=== PATIENT | female | born 1980 | race Hispanic/Latino ===

== ENCOUNTER 2016-09-13 15:48 | Inpatient (IN) | payer OTHER ==
[~2016-09-13] VITALS: Ht 160 cm; Wt 68.0 kg
[~2016-09-13 15:48] MED LIST: BACTRIM DS TAB1 EACH PO; BENTYL10 M1 PO; CABERGOLINE0.5 M2 PO; CARAFATE1 G1 PO; CYPROHEPTADINE H4 M1 PO; DICYCLOMINE HCL10 M1 PO; DILAUDID2 M1 PO; DOCUSATE SODIU100 M3 PO; DONNATAL TABL16.2 MG PO; E.E.S. 200200 MG/51 PO; ERYTHROMYCIN250 M1 PO; HUMALOG KW100 UNIT/1 SC; LANTUS100 U/ML INC; LEVSIN-SL0.125 MG SL; LEVSIN0.125 M1 PO; MIRALAX17 G1 PO; NOVOLOG100 U/ML SC; OMEPRAZOLE40 M1 PO; OXYCODONE-ACET1 EACH PO; PANTOPRAZOLE SO40 M1 PO; PERCOCET 5-3251 EACH PO; PROMETHAZINE HC25 M3 PO; REGLAN10 M1 PO; SENNA PLUS TAB1 EACH PO; SIMETHICON40 MG/0.1 PO; TOUJEO SOL300 UNIT/1 SC; TRAMADOL HCL50 M1 PO; ULTRAM50 M1 PO; ZOFRAN ODT4 M1 PO; ZOFRAN ODT4 M1 SL; ZOFRAN4 M2 PO
--- NOTE | 2016-09-13 16:13 | NUR ---
C/O [facility] MID- ABDOMINAL PAIN SINCE THIS AM WITH VOMITING. DENIES . PMH: INSULIN DEPENDENT DIABETIC.
--- NOTE | 2016-09-13 17:26 | ED GI/GU/ABDOMINAL COMPLAINT ---
History of Present Illness General Chief Complaint: Abdominal Pain/Flank Pain Stated Complaint: ABDOMINAL PAIN Source: patient, family, old records Exam Limitations: poor historian Vital Signs & Intake/Output Vital Signs & Intake/Output Vital Signs Date Time Temp Pulse Resp B/P Pulse O2 O2 Flow FiO2 Ox Delivery Rate 09/15 0834 98.1 76 20 106/60 97 Room Air 09/14 2356 98.4 73 20 102/60 97 Room Air 09/14 1917 99.9 91 18 104/60 98 09/14 1600 99.0 100 20 110/62 96 Room Air 09/14 1025 97.8 94 16 96/57 95 Room Air ED Intake and Output 09/15 0000 09/14 1200 Intake Total 1320 100 Output Total Balance 1320 100 Intake, IV 1080 100 Intake, Oral 240 Allergies Coded Allergies: NO KNOWN ALLERGIES (03/07/16) Reconcile Medications Cabergoline 0.5 MG TABLET 0.25 MG PO 2XW HYPERPROLCTINEMIA Cyproheptadine HCl 4 MG TABLET 1 TAB PO TID PRN PAIN Dicyclomine HCl 10 MG CAPSULE 1 CAP PO TID STOMACH (Reported) Erythromycin Base (Erythromycin) 250 MG TABLET 1 TAB PO 4 TIMES/DAY GI ( Reported) Hyoscyamine (Levsin) 0.125 MG TABLET 1 TAB PO Q6 PRN ABDOMINAL PAIN/DIARRHEA (Reported) Hyoscyamine (Levsin) 0.125 MG TABLET 1 TAB PO Q4 PRN ABDOMINAL PAIN Insulin Glargine,Hum.rec.anlog (Toujeo Solostar) 300 UNIT/1 ML INSULN.PEN 30 UNITS SC QHS DIABETES (Reported) Insulin Lispro (Humalog Kwikpen U-100) (Unknown Strength) INSULN.PEN (Unknown Dose) SC TIDAC DIABETES (Reported) Metoclopramide HCl (Reglan) 10 MG TABLET 1 TAB PO AC GI (Reported) 30 minutes before meals and bedtime Omeprazole 40 MG CAPSULE.DR 1 CAP PO DAILY GERD Ondansetron (Zofran Odt) 4 MG TAB.RAPDIS 1 TAB PO Q6 PRN NAUSEA Ondansetron (Zofran Odt) 4 MG TAB.RAPDIS 1 TAB SL TID PRN NAUSEA Ondansetron HCl (Zofran) 4 MG TABLET 1 TAB PO Q6-8P PRN NAUSEA Ondansetron HCl (Zofran) 4 MG TABLET 1 TAB PO Q6-8P PRN NAUSEA Pantoprazole Sodium 40 MG TABLET.DR 1 TAB PO DAILY GI (Reported) Promethazine HCl 25 MG TABLET 1 TAB PO Q6P PRN N/V (Reported) Sucralfate (Carafate) 1 GM TABLET 1 TAB PO 4 TIMES/DAY ABD PAIN Sulfamethoxazole/Trimethoprim (Bactrim Ds Tablet) 1 EACH TABLET 1 TAB PO BID UTI Tramadol HCl (Ultram) 50 MG TABLET 1 TAB PO Q6P PRN PAIN Tramadol HCl 50 MG TABLET 1 TAB PO BIDP PRN PAIN Triage Note: C/O SH[facility] MID- ABDOMINAL PAIN SINCE THIS AM WITH VOMITING. DENIES . Triage Nurses Notes Reviewed? yes ? N Is pt currently ? No Onset: Gradual Duration: day(s): (1) Timing: recent history Quality/Severity: cramping, moderate, sharpness Severity Numbers: 8 Location: periumbilical Radiation: no radiation Activities at Onset: none Prior Abdominal Problems: similar symptoms Past Sexual History: Unobtainable at this time Sexually Active: No No Modifying Factors: none HPI: Patient is a 36-year-old female with history of gastroparesis presenting to the emergency department with chief complaint of increasing periumbilical pain since this morning. Positive nausea and vomiting. She does not know how many times she vomited. Denies diarrhea. Feels similar to her gastroparesis in the past. She cannot remember what gastroenterologists she sees. Denies any fevers or chills. Denies recent travel or recent antibiotic use. Nothing seems to make symptoms better or worse. Denies taking anything at home to help with symptoms. (NATIVIDAD ESTEBAN) Past History Travel History Traveled to [place] past 21 day No Medical History Any Pertinent Medical History? see below for history Neurological: dizziness, migraine EENT: NONE Cardiovascular: NONE Respiratory: NONE Gastrointestinal: constipation, GASTROPARESIS Hepatic: NONE Renal: NONE Musculoskeletal: NONE Psychiatric: NONE Endocrine: diabetes, hyperthyroidism, PITUITARY TUMOR - BENIGN Blood Disorders: NONE Cancer(s): NONE ETL MANAGER/Reproductive: NONE History of MRSA: No History of VRE: No History of CDIFF: No Surgical History Surgical History: non-contributory, N Psychosocial History Who do you live with Family Services at Home None What is your primary language Persian Tobacco Use: Current Daily Use Daily Tobacco Use Amount/Type: =< 4 Cigarettes daily ETOH Use: denies use Family History Family History, If Any: MOTHER (Diabetes mellitus , hypertension, hyperlipidemia, hypothyroidism , cardiac issues status post pacemaker placement). Hx Contributory? No (NATIVIDAD ESTEBAN) Review of Systems Review of Systems Constitutional: Reports: no symptoms. Comments Review of systems: See HPI, All other systems negative. Constitutional, no chills fever or weight loss HEENT: No visual changes no sore throat no congestion Cardiovascular: No chest pain ,palpitation Skin, no jaundice no rashes Respiratory: No dyspnea cough sputum or hemoptysis GI: No diarrhea : No dysuria No hematuria Muscle skeletal: no back pain, no neck pain, Neurologic: No numbness no confusion, no headaches Psych: No increased stress anxiety or depression,. Immunology: No splenectomy or history of AIDS (NATIVIDAD ESTEBAN) Physical Exam Physical Exam General Appearance: awake, anxious, mild distress Gastrointestinal: normal bowel sounds, soft, tenderness Comments: Well-developed well-nourished person in mild distress HEENT: Pupils equally round and reactive to light and accommodation. Nose is atraumatic. Neck: Normal inspection Back: Nontender, no CVA tenderness. Cardiovascular: TACHY rate and rhythms no murmurs rubs or gallops, normal JVP Respiratory: Chest nontender. No respiratory distress.breath sounds clear to auscultation bilaterally Abdomen: Soft, diffuse tenderness to palpation without rebound or guarding, nondistended, no appreciable organomegaly. Normal bowel sounds. No ascites Extremity: No edema, no calf tenderness to palpation, normal and equal pulses. Neuro: Alert oriented x3 Skin: No appreciable rash on exposed skin, skin is warm and dry. Psych: Anxious Core Measures ACS in differential dx? No Severe Sepsis Present: No Septic Shock Present: No (NATIVIDAD ESTEBAN) Progress Differential Diagnosis: gastritis, GASTRITIS, ELECTROLYTE ABNORMALITY, dka, CYCLICAL VOMITING SYNDROME, GASTROPARESIS Plan of Care: Orders Procedure Date/time Status CBC WITHOUT DIFFERENTIAL 09/15 0835 Active BASIC ELECTROLYTES PLUS BUN&CR 09/15 0835 Active Change service to 09/15 0743 Active PHARMACY COMMUNICATION FORM 09/15 UNK Active Clear Liquid Diet 09/14 D Active Transfer Disposition 09/14 1916 Active Skin/Pressure Ulcer Assess (Sk 09/14 1446 Active Change service to 09/14 1335 Active Pain Treatment and Response 09/14 1226 Active Vital Signs 09/14 1031 Active Teach/Educate 09/14 1031 Active Nutritional Intake, Monitor 09/14 1031 Active Isolation 09/14 1031 Active Intake & Output 09/14 1031 Complete Patient Care Conference 09/14 1031 Active Activity/Ambulation 09/14 1031 Active Transfer patient to 09/14 UNK Active House Staff 09/14 UNK Active Nursing Misc 09/14 UNK Active Current Medications Sig/Maikel Start time Last Medication Dose Stop Time Status Admin Enoxaparin Sodium 40 MG 1830 09/15 1830 AC (Lovenox) Potassium Chloride 40 MEQ ONCE ONE 09/15 0845 CAN (Klor) 09/15 0846 Laboratory Tests 09/14/16 1205: Anion Gap 11, Estimated GFR > 60, Glucose 139 H, Calcium 9.2, Phosphorus 4.1, Magnesium 1.7, Total Bilirubin 1.4 H, AST 21, ALT 49, Albumin 3.9 Microbiology 09/14 1030 UPPER RESP: Surveillance Culture - RECD PATIENT SEEN AND EXAMINED WITH JESSIKA MAURICE. INSULIN DRIP ORDERED, PATIENT ADMITTED TO ICU. FEELING BETTER AFTER IV FLUIDS. D/W HOSPITALIST. (MARIN CAMARA,HERNANDO) Diagnostic Imaging: Viewed by Me: CT Scan. Discussed w/RAD: CT Scan. Initial ED EKG: none Comments: 09/13/2016 6:13:40 PM on arrival patient mild distress with diffuse abdominal tenderness on exam. Also retching. Spitting up sputum. Patient is afebrile. We will assess a CBC, CMP, acetone is patient is diabetic and has not been able to tolerate anything by mouth today. Family members also report that she is noncompliant with insulin. 09/13/2016 7:25:42 PM patient no longer has nausea or vomiting. Still complaining about abdominal discomfort. Family informed of potential for DKA as patient has anion gap. IV fluids still infusing. 09/13/2016 8:15:18 PM Patient family members informed of all of her results. Patient will be admitted to the ICU for diabetic ketoacidosis. Insulin drip initiated. We will obtain venous blood gas. Patient resting comfortably at this time after IV Phenergan and IV Reglan. (KAYLENE ROSEN,NATIVIDAD) Departure Departure Time of Disposition: 2010 Disposition: STILL A PATIENT Condition: Stable Clinical Impression Primary Impression: Diabetic ketoacidosis Qualifiers: Diabetes mellitus type: due to underlying condition Diabetes mellitus complication detail: without coma Qualified Code: E08.10 - Diabetes mellitus due to underlying condition with ketoacidosis without coma Referrals: PATIENT HAS NO PRIMARY CARE DR (PCP/Family) Departure Forms: Customer Survey General Discharge Information Admission Note Spoke With: MAGI MEYER MD Documentation of Exam: Documentation of any treatments & extenuating circumstances including Concerns Regarding Discharge (functional status, medication knowledge or non-compliance, living conditions, etc.) that warrant an admission rather than observation: Patient requiring IV hydration, insulin drip for diabetic ketoacidosis, tending abscess, closing anion gap, may need auxiliary equipment operator consultation. Discharge at this time would be medically harmful. Still pending CT of the abdomen. (NATIVIDAD ESTEBAN) PA/INTERNATIONAL FREIGHT FORWARDER Co-Sign Statement Statement: ED Attending supervision documentation- [X] I saw and evaluated the patient. I have also reviewed all the pertinent lab results and diagnostic results. I agree with the findings and the plan of care as documented in the PA's/INTERNATIONAL FREIGHT FORWARDER's documentation. [X] I have reviewed the ED Record and agree with the PA's/INTERNATIONAL FREIGHT FORWARDER's documentation. [] Additions or exceptions (if any) to the PAs/INTERNATIONAL FREIGHT FORWARDER's note and plan are summarized below: [] (MARIN CAMARA,HERNANDO) Critical Care Note Critical Care Note Critical Care Time: 30-74 min (NATIVIDAD ESTEBAN)
--- NOTE | 2016-09-13 17:32 | NUR ---
PT WALKING BETWEEN HALLWAY CHAIRS AND BATHROOM. NOTIFIED THAT THIS RN WILL BE ATTEMPTING TO DRAW BLOOD AND INSERT IV. PT REMAINS IN HALLWAY DOUBLED OVER AND NOT IN ROOM. WILL CONTINUE TO MONITOR
--- NOTE | 2016-09-13 18:06 | NUR ---
BLOOD DRAWN SENT TO LAB. SST,LAV,BLUE,JOE.
--- NOTE | 2016-09-13 18:10 | NUR ---
IV ESTABLISHED LEFT HAND. IV SITE VERIFIED WITH TRISTAN TROTTER, STATUS WNL. IV PHENERGAN INFUSING. PT MOVING AROUND ON STRETCHER CONTINUOUSLY ALTHOUGH ADVISED TO KEEP HAND STILL DUE TO POSITIONAL IV PLACEMENT. NEW FAMILY IN ROOM AND BECAME AGITATED, ASKING PT HOW LONG SHE'S BEEN HERE AND HOW LONG IT'S TAKEN THE STAFF TO DO SOMETHING FOR HER. PT'S OTHER FAMILY MEMBER STATES SHE HAS NOT BEEN IN THIS ED ROOM FOR VERY LONG. WILL CONTINUE TO MONITOR THERAPEUTIC SITUATION FOR PATIENT
--- NOTE | 2016-09-13 18:34 | NUR ---
IV SITE 1 STILL INFUSING WNL. SITE D/C'D DUE TO POSITIONAL INFUSION. #24 RIGHT HAND ESTABLISHED. INFUSING WNL
[2016-09-13 18:36] LABS: ABSOLUTE BASOPHIL COUNT 0 /CUMM (0.0-0.2); ABSOLUTE EOSINOPHIL COUNT 0 /CUMM (0.0-0.7); ABSOLUTE GRANULOCYTE CT 19.5 /CUMM (1.4-6.5); ABSOLUTE MONOCYTE COUNT 0.8 /CUMM (0.10-0.60); BASOPHIL % 0 % (0.0-2.0); EOSINOPHIL % 0.2 % (0-5); HEMATOCRIT 43.7 % (37-47); MEAN CORPUSCULAR HGB CONC 33.7 G/DL (33.0-37.0); MEAN CORPUSCULAR VOLUME 88.9 FL (81.0-99.0); MEAN PLATELET VOLUME 9.9 FL (7.4-10.4); PLATELET COUNT 276 /CUMM (130-400); RBC DISTRIBUTION WIDTH 13.1 % (11.5-14.5); RED BLOOD CELL CT 4.92 /CUMM (4.20-5.40); WHITE BLOOD CELL COUNT 22.4 /CUMM (4.8-10.8)
--- NOTE | 2016-09-13 19:34 | NUR ---
IV TORADOL AND REGLAN GIVEN FOR ABDOMINAL PAIN AND NAUSEA.
--- NOTE | 2016-09-13 19:53 | NUR ---
PT RESTING COMFORTABLY AT THIS TIME. FAMILY REMAINS AT BEDSIDE FOR SUPPORT. 2ND NS BOLUS INFUSING
--- NOTE | 2016-09-13 20:44 | NUR ---
INSULIN DRIP STARTED AT 3 UNITS/HR PER DR. FUNES AND JESSIKA Gonzalez WILL CONTINUE TO MONITOR BLOOD SUGAR
--- NOTE | 2016-09-13 20:55 | CT SCAN REPORT ---
EXAMINATION: CT ABDOMEN AND PELVIS WITHOUT CONTRAST CLINICAL INFORMATION: Nausea and vomiting. Pain. COMPARISON: CT abdomen pelvis 12/30/2015 TECHNIQUE: Multidetector volumetric imaging was performed from the superior aspect of the liver through the pubic symphysis. Sagittal and coronal reformatted images were obtained on the technologist's workstation. DLP: 252.84 mGy-cm FINDINGS: LUNG BASES: The visualized lung bases are unremarkable. LIVER, GALLBLADDER, AND BILIARY TREE: The liver is normal in size, shape, and attenuation. No focal hepatic lesion or biliary ductal dilatation is present. The gallbladder is unremarkable with no evidence of radiopaque gallstones, gallbladder wall thickening, or obvious pericholecystic inflammatory changes. PANCREAS: Unremarkable. SPLEEN: Unremarkable. ADRENAL GLANDS: Unremarkable. KIDNEYS AND URETERS: The kidneys are normal in size, shape, and attenuation. No hydronephrosis, hydroureter, or calculi seen. No perinephric stranding. BLADDER: Unremarkable. GASTROINTESTINAL TRACT: The small and large bowel are unremarkable. The appendix is unremarkable. ABDOMINAL WALL: No significant hernia is appreciated. LYMPH NODES: Normal. VASCULAR: Unremarkable. PELVIC VISCERA: Uterus is retroverted. No adnexal abnormality OSSEOUS STRUCTURES: Unremarkable. IMPRESSION: Normal CT scan of the abdomen and pelvis.
--- NOTE | 2016-09-13 21:20 | NUR ---
URINE TRIO SENT TO LAB.
--- NOTE | 2016-09-13 21:52 | NUR ---
AUTOMOTIVE PARTS CLERK PAGED FOR FINGERSTICK NOTIFICATION
--- NOTE | 2016-09-13 22:08 | History & Physical ---
JORGE BIRCH 09/13/16 2207: General Information and HPI MD Statement: I have seen and personally examined ABA RAMOS and documented this H&P. The patient is a 36 year old F who presented with a patient stated chief complaint of [nausea vomiting]. Source of Information: patient, family, old records Exam Limitations: poor historian History of Present Illness: This is 37-year-old female with past medical history of insulin-dependent diabetes mellitus, Hyperprolactinemia, gastroparesis. Presented to the ED with a chief complaint of nausea, vomiting and abdominal pain. Patient stated that it started today and it getting worse and progressed, she stated that the nausea starts first and it folded by vomiting multiple times and after that her abdominal pain started, she stated stent out of 10 in severity, all over her abdomen, not relieved by anything, not associated with any diarrhea or hematemesis or hemoptysis. She reports increased urinary frequency the past couple days. The patient family stated that the patient she is noncompliance with her home medication of insulin and she doesn't shake her blood sugar and regular basis. They stated she was admitted at around 1-2 months ago for the same symptoms and she was receiving insulin drip at that time. Patient deny any fever, chills, shortness of breath, Chest pain, diarrhea, hematuria, dysuria, back pain, headache. The patient not that cooperative with the history taking or physical examination. In the ED patient had blood sugar of 370, with leukocytosis of 22.4 she'll receive multiple doses of Toradol and Reglan, she was started on insulin drip. Last admission to [facility] was in December 2015 that was for gastroparesis. Allergies/Medications Allergies: Coded Allergies: NO KNOWN ALLERGIES (03/07/16) Home Med list Cabergoline 0.5 MG TABLET 0.25 MG PO 2XW HYPERPROLCTINEMIA Cyproheptadine HCl 4 MG TABLET 1 TAB PO TID PRN PAIN Dicyclomine HCl 10 MG CAPSULE 1 CAP PO TID STOMACH (Reported) Erythromycin Base (Erythromycin) 250 MG TABLET 1 TAB PO 4 TIMES/DAY GI ( Reported) Hyoscyamine (Levsin) 0.125 MG TABLET 1 TAB PO Q6 PRN ABDOMINAL PAIN/DIARRHEA (Reported) Hyoscyamine (Levsin) 0.125 MG TABLET 1 TAB PO Q4 PRN ABDOMINAL PAIN Insulin Glargine,Hum.rec.anlog (Yoshi Garibay) 300 UNIT/1 ML INSULN.PEN 30 UNITS SC QHS DIABETES (Reported) Insulin Lispro (Humalog Kwikpen U-100) (Unknown Strength) INSULN.PEN (Unknown Dose) SC TIDAC DIABETES (Reported) Metoclopramide HCl (Reglan) 10 MG TABLET 1 TAB PO AC GI (Reported) 30 minutes before meals and bedtime Omeprazole 40 MG CAPSULE.DR 1 CAP PO DAILY GERD Ondansetron (Zofran Odt) 4 MG TAB.RAPDIS 1 TAB PO Q6 PRN NAUSEA Ondansetron (Zofran Odt) 4 MG TAB.RAPDIS 1 TAB SL TID PRN NAUSEA Ondansetron HCl (Zofran) 4 MG TABLET 1 TAB PO Q6-8P PRN NAUSEA Ondansetron HCl (Zofran) 4 MG TABLET 1 TAB PO Q6-8P PRN NAUSEA Pantoprazole Sodium 40 MG TABLET.DR 1 TAB PO DAILY GI (Reported) Promethazine HCl 25 MG TABLET 1 TAB PO Q6P PRN N/V (Reported) Sucralfate (Carafate) 1 GM TABLET 1 TAB PO 4 TIMES/DAY ABD PAIN Sulfamethoxazole/Trimethoprim (Bactrim Ds Tablet) 1 EACH TABLET 1 TAB PO BID UTI Tramadol HCl (Ultram) 50 MG TABLET 1 TAB PO Q6P PRN PAIN Tramadol HCl 50 MG TABLET 1 TAB PO BIDP PRN PAIN Compliance With Home Meds: POOR Past History Travel History Traveled to [place] past 21 day No Medical History Neurological: dizziness, migraine EENT: NONE Cardiovascular: NONE Respiratory: NONE Gastrointestinal: constipation, GASTROPARESIS Hepatic: NONE Renal: NONE Musculoskeletal: NONE Psychiatric: NONE Endocrine: diabetes, hyperthyroidism, PITUITARY TUMOR - BENIGN Blood Disorders: NONE Cancer(s): NONE MAINTENANCE INSPECTOR/Reproductive: NONE History of MRSA: No History of VRE: No History of CDIFF: No Surgical History Surgical History: non-contributory, N Past Family/Social History Family History Relations & Conditions if any MOTHER (Diabetes mellitus , hypertension, hyperlipidemia, hypothyroidism , cardiac issues status post pacemaker placement). Psychosocial History Services at Home: None ETOH Use: denies use Functional Ability ADLs Independent: dressing, eating, toileting, bathing. Ambulation: independent IADLs Independent: shopping, housework, finances, food prep, telephone, transportation , medication admin. Sexual History Past Sexual History Unobtainable at this time Sexually Active No Review of Systems Review of Systems Constitutional: Reports: see HPI. Cardiovascular: Reports: see HPI. Respiratory: Reports: see HPI. GI: Reports: see HPI. Genitourinary: Reports: see HPI. Exam & Diagnostic Data Last 24 Hrs of Vital Signs/I&O Vital Signs Date Time Temp Pulse Resp B/P Pulse O2 O2 Flow FiO2 Ox Delivery Rate 09/13 1952 88 16 141/64 100 Room Air 09/13 1950 98 Room Air 09/13 1615 95.7 120 18 120/70 99 Room Air Physical Exam General Appearance Alert, Oriented X3, Moderate Distress HEENT PERRLA, EOMI Cardiovascular Normal S1, Normal S2 Lungs Clear to Auscultation, Normal Air Movement Abdomen Normal Bowel Sounds, tenderness elected all over the abdomen, and voluntary guarding Extremities No Edema Diagnostic Data Other Results EXAMINATION: CT ABDOMEN AND PELVIS WITHOUT CONTRAST CLINICAL INFORMATION: Nausea and vomiting. Pain. COMPARISON: CT abdomen pelvis 12/30/2015 TECHNIQUE: Multidetector volumetric imaging was performed from the superior aspect of the liver through the pubic symphysis. Sagittal and coronal reformatted images were obtained on the technologist's workstation. DLP: 252.84 mGy-cm FINDINGS: LUNG BASES: The visualized lung bases are unremarkable. LIVER, GALLBLADDER, AND BILIARY TREE: The liver is normal in size, shape, and attenuation. No focal hepatic lesion or biliary ductal dilatation is present. The gallbladder is unremarkable with no evidence of radiopaque gallstones, gallbladder wall thickening, or obvious pericholecystic inflammatory changes. PANCREAS: Unremarkable. SPLEEN: Unremarkable. ADRENAL GLANDS: Unremarkable. KIDNEYS AND URETERS: The kidneys are normal in size, shape, and attenuation. No hydronephrosis, hydroureter, or calculi seen. No perinephric stranding. BLADDER: Unremarkable. GASTROINTESTINAL TRACT: The small and large bowel are unremarkable. The appendix is unremarkable. ABDOMINAL WALL: No significant hernia is appreciated. LYMPH NODES: Normal. VASCULAR: Unremarkable. PELVIC VISCERA: Uterus is retroverted. No adnexal abnormality OSSEOUS STRUCTURES: Unremarkable. IMPRESSION: Normal CT scan of the abdomen and pelvis. Assessment/Plan Assessment: This is 37-year-old female with past medical history of insulin-dependent diabetes mellitus, Hyperprolactinemia, gastroparesis. Presented to the ED with a chief complaint of nausea, vomiting and abdominal pain. Problem list: -Anion gap DKA -Abdominal pain -Leukocytosis -Transaminitis Plan: -Admit patient to the ICU -Vitals every shift, strict ANGELES's -Continue insulin drip -Intensive Care Unit bundle every 4 -KCl 40 mEq on D5 half-normal saline at 1 50 mL per hour -Keep the patient nothing by mouth for now -EKG, troponin -IV Zofran every 4 as needed for nausea vomiting -IV Toradol as needed for abdominal pain. -Endocrinology consultation, recommend to put the patient on 6 units of Levemir twice a day and nothing by mouth sliding scale of NovoLog to be started 150- 200 2 U. 201-250 3 U.... -Pain pathway -DVT prophylaxis: subcutaneous Lovenox -Full code As Ranked By This Provider Problem List: 1. Diabetic ketosis Core Measures/Miscellaneous Acute Coronary Syndrome ACS Diagnosis: No Cerebrovascular Accident CVA/TIA Diagnosis: No Congestive Heart Failure CHF Diagnosis: No Venous Thromboembolism VTE Risk Factors: Acute medical illness VTE Prophylaxis Ordered Inpt: Mech & Pharm No Mech VTE prophylaxis d/t: No contraindications No VTE Pharm Prophylaxis d/t: No contraindications VTE Diagnosis: No VTE Type: NONE VTE Confirmed by (Test): NONE Severe Sepsis Severe Sepsis Present: No Septic Shock Septic Shock Present: No Miscellaneous Documentation Attending Case Discussed With: MAGI MEYER MD Primary Care Physician: PATIENT HAS NO PRIMARY CARE DR Patient sees these Specialists Endocrinology Level of Patient Care: Critical Care (CRI) MAGI MEYER 09/14/16 0131: Attending MD Review Statement Attending Statement Attending MD Statement: examined this patient, discuss w/resident/PA/OBSTETRICS AND GYNECOLOGY PROFESSOR, agreed w/resident/PA/OBSTETRICS AND GYNECOLOGY PROFESSOR, reviewed EMR data (avail), reviewed images, amended to note Attending Assessment/Plan: CC: Abdominal pain and vomitings PMH: IDDM, gastroparesis, hyperprolactinemia Patient came to ER for increasing abdominal pain since this morning. Pain is located around the umbilicus, diffuse all over, no aggravating or relieving factors, nonradiating, non-shifting. She also complains of nausea and vomiting and does not know how many times she vomited. She endorses some blood in the vomiting. She denies diarrhea. She denies any fevers or chills, recent travel, shortness of breath, Chest pain. She states increased frequency of urination but without immaturity a or burning She has been getting similar episodes frequently and had multiple ER visits and frequent hospitalizations for similar abdominal pain and DKA. Family reports that patient appears to be noncompliant about her diabetes. Patient is poor historian and she does not speak much just holding her abdomen in pain. Vitals: Afebrile, tachycardic at presentation, RR 16, blood pressure 120/70, saturating well on room air. On exam: A O 3, ambulating well, noncooperative, no focal neurological deficit, mucosa dry, no lymphadenopathy, no JVD, neck supple. CVS: S1-S2, RRR. RS: Clear to auscultate bilaterally. Abdomen: Soft, nontender, nondistended, no rebound, no guarding, Sal[place]'s is negative, no CVA tenderness, bowel sounds present. Labs: WBC 22.4 with neutrophils 87%, bicarbonate 21, anion gap 21, glucose 370, AST 59, alkaline phosphatase 149, lipase 227, positive for acetone, otherwise BMP, LFT unremarkable. ABG: PH 7.39, PCO2 23, PO2 96, bicarbonate 14. CT abdomen and pelvis: No acute abnormality A and P #1 abdominal pain with nausea and vomiting: CT findings are unremarkable. Probably secondary to DKA and noncompliance. Patient has history of gastroparesis, DKA may be worsening symptoms. Continue Zofran, metoclopramide, IV hydration. Adequate pain control. Check EKG for QTc interval. #2 DKA: Unclear if precipitated by noncompliance or gastroparesis, patient in significant abdominal pain. Patient was started on insulin drip in ER, anion gap is minimum with not very high blood sugars at this time. Repeat BMP in 4 hours, continue Accu-Chek, titrate insulin drip accordingly, if blood sugar in 250 - 280 range change her maintenance fluid to D51/2 NS with 40 mEq potassium, DC insulin drip when anion gap closes on repeat BMP, continue her home dose of basal insulin at that time before stopping the drip and start sliding scale short-acting insulin for nothing by mouth. Continue her as an nothing by mouth given her recurrent vomiting some abdominal pain continue her on D5 1/2NS drip. Once the insulin drip is stopped stopped the potassium supplementation. Obtain EKG if not done, obtain a set of troponin if not done, urine analysis and urine culture if indicated, blood cultures, U tox #3 patient has significant leukocytosis: No fever, tachycardia resolved, obtain UA and culture if indicated, blood culture, no antibiotics for now, probably reactive leukocytosis. No significant cough, no urinary symptoms, CT abdomen is unremarkable.
--- NOTE | 2016-09-13 23:15 | NUR ---
PHOTO FINISH PHOTOGRAPHER PAGER R/T FINGERSTICK 283
--- NOTE | 2016-09-14 00:26 | NUR ---
MOD PAGED R/T FINGERSTICK AND INSULIN DRIP. INSULIN DRIP CONTINUES AT 3 UNITS/HR
--- NOTE | 2016-09-14 00:42 | NUR ---
FINGERSTICK 260. PER DR MORRISON #271, INSULIN DRIP TO CONTINUE AT 3 UNITS/HR
--- NOTE | 2016-09-14 01:08 | NUR ---
FIRST SET BLOOD CULTURE AT 0101 SST
--- NOTE | 2016-09-14 01:13 | NUR ---
DR GARCIA AWARE UNABLE TO GET SECOND SET OF BC AND BLUE TUBE AFTER MULTIPLE STICKS. OK TO WAIT UNTIL NEXT BLOOD DRAW IN AM
--- NOTE | 2016-09-14 01:33 | Admission Certification ---
Admission Certification Certification Statement - As attending physician, I certify that at the time of - admission, based on clinical presentation, severity of - symptoms, need for further diagnostic testing and - therapeutic interventions, and risk of adverse outcomes - without in-hospital treatment, in my clinical assessment, - this patient requires an acute hospital stay for a minimum - of two nights or longer. I have also considered psychsocial - factors such as support system, advanced age, financial - issues, cognitive issues, and failed out-patient treatments, - past re-admission history, safety of patient, and lack of - compliance as applicable. Specific rationale supporting this admission is: DKA, abdominal pain
--- NOTE | 2016-09-14 01:51 | NUR ---
PT REQUESTING NARCOTICS FOR PAIN. PT INFORMED NO NARCOTICS ARE ORDERED. PT OFFERED ORDERED TYLENOL, PT REFUSED TYLENOL. PT REQUEST TO SPEAK TO HOUSE STAFF. DR GARCIA PAGED AND WILL COME DOWN TO SEE PATIENT. FINGERSTICK 240. INSULIN DRIP CONTINUES AT 3 UNITS/HR PER DR GARCIA
--- NOTE | 2016-09-14 02:23 | NUR ---
DR GARCIA AT BEDSIDE TO SPEAK TO PATIENT. PT NOW AGREEABLE TO IV TYLENOL. POT CHLOR INFUSION STOPPED, TYLENOL INFUSION BEGUN AT 400 ML/HR.
--- NOTE | 2016-09-14 02:49 | NUR ---
TYLENOL INFUSED. POT CHLOR INFUSION CONTINUED. FINGERSTICK 273. PER DR GARCIA, INSULIN INFUSION TO CONTINUE AT 3 ML/HR. REPEAT FINGERSTICK IN 1 HR
--- NOTE | 2016-09-14 03:59 | NUR ---
PATIENT AWAKE, YELLING OUT TO NURSES STATION AND GROANIN LOUDLY IN ROOM. PATIENT REPORTS CONTONUED PAIN. PATIENT AWARE THAT HOUSE STAFF WILL BE COMING DOWN TO REEVALUATE PATIENT D/T CONTINUED PAIN. PATIENT NOW REQUESTING TO WAIT AT NURSES STATION, AWARE OF NEED TO WAIT IN ROOM D/T REQUIRING TELE MONITOR. PATIENT NOW AMBULATORY TO BATHROOM W/ STABLE GAIT NOTED. MOANING THROUGHOUT.
--- NOTE | 2016-09-14 04:13 | NUR ---
HOUSE STAFF TO BEDSIDE, REORIENTING PATIENT TO ESTABLISHED POC OF NO NARCOTICS. PATIENT YELNIG AT HOUSE STAFF AT THIS TIME, HOUSE STAFF OFFERING TORADOL AND TYLENOL, PATIENT NOW REQUESTING "I NEED TO SPEAK TO A DIFFERENT DOCTOR OR YOUR BOSS." HOUSE STAFF (MD CARLOS BEEPER 271 AND MD SORIANO BEEPER 204) LEAVING AND WILL HAVE MOD SPEAK W/ PATIENT.
--- NOTE | 2016-09-14 04:37 | NUR ---
PT PULLED OUT RH 24G IV. LOBO CADENA. INSULIN MOVED TO THE [facility] IV SITE 3. HOUSE STAFF PAGED ABOUT SAME
--- NOTE | 2016-09-14 04:59 | NUR ---
PATIENT NOW REQUESTING ICE CHIPS, OKAY PER PROVIDER AND PROVIDED. CONTONUES TO REQUEST NARCOTIC. TYRA BARTON INFORMED PATIENT OF NEED FOR NEW IV PATIENT PULLED OUT OF OWN IV. TYRA BARTON AT BEDSIDE ATTEMPTING IV AND AM BLOODWORK.
--- NOTE | 2016-09-14 05:28 | NUR ---
2 ATTEMPTS FOR IV ACCESS UNSUCCESSFUL. ORALIA BARGER AT BEDSIDE
--- NOTE | 2016-09-14 05:46 | NUR ---
FINGERSTICK 240. INSULIN DRIP DECREASED TO 4 UNITS/HR PER DR GARCIA
--- NOTE | 2016-09-14 05:52 | NUR ---
2 ATTEMPTS FOR IV ACCESS AND BLOODS BY ORALIA BARGER UNSUCCESSFUL. MD GARCIA AWARE. ORALIA BUSBY AT BEDSIDE
[2016-09-14 06:20] LABS: ABSOLUTE BASOPHIL COUNT 0 /CUMM (0.0-0.2); ABSOLUTE EOSINOPHIL COUNT 0 /CUMM (0.0-0.7); ABSOLUTE GRANULOCYTE CT 15.6 /CUMM (1.4-6.5); ABSOLUTE LYMPH COUNT 1.1 /CUMM (1.2-3.4); ABSOLUTE MONOCYTE COUNT 0.3 /CUMM (0.10-0.60); BASOPHIL % 0.1 % (0.0-2.0); EOSINOPHIL % 0 % (0-5); GRANULOCYTE % 91.8 % (42.2-75.2); HEMATOCRIT 45.8 % (37-47); MEAN CORPUSCULAR HGB 30.4 PG (27.0-31.0); MEAN CORPUSCULAR VOLUME 89.3 FL (81.0-99.0); MEAN PLATELET VOLUME 9.9 FL (7.4-10.4); PLATELET COUNT 302 /CUMM (130-400); RBC DISTRIBUTION WIDTH 12.6 % (11.5-14.5); RED BLOOD CELL CT 5.12 /CUMM (4.20-5.40)
--- NOTE | 2016-09-14 06:20 | NUR ---
#22 CATH INSERTED TOP OF L HAND. HEPLOCKED AT THIS TIME
[2016-09-14 06:28] LABS: PT 11.6 SEC (9.4-12.5); PTT < 20 SEC (25-37)
--- NOTE | 2016-09-14 06:51 | NUR ---
FINGER STICK 215. INSULKIN DRIP TITRATED DOWN TO 3 UNITS/HR PER DR GARCIA
--- NOTE | 2016-09-14 07:36 | PN- Resident CRCU ---
ADALBERTO CAMARA,KOFI 09/14/16 0736: Subjective HPI/CRCU Issues: Admitted to the ICU for following reasons: Diabetic ketoacidosis I examined and followed up the patient today. She is still in the emergency department, lying comfortably in her bed, and not in acute distress. She does not have any complaints, and mentioned that her belly ache and nausea has significantly reduced. No fever, chills, nausea, vomiting, change in bowel habit, chest pain, dizziness , palpitation, shortness of breath. Vitals have been stable, she has IV drip running for insulin as well as KCl/D5W half NS currently. No overnight issues. Objective Vital Signs & I&O Last 8 Hrs of Vitals and I&O: Vital Signs Date Time Temp Pulse Resp B/P Pulse O2 O2 Flow FiO2 Ox Delivery Rate 09/14 0651 98.7 82 18 133/78 99 Room Air 09/14 0430 99.1 80 18 140/71 97 Room Air 09/14 0245 98.6 89 18 115/69 99 Room Air 09/14 0121 99.0 88 18 131/81 99 Room Air Exam General Appearance: well developed/nourished, no apparent distress, alert, awake Head: atraumatic, normal appearance Ears, Nose, Throat: normal pharynx, normal ENT inspection Neck: normal inspection, supple, full range of motion Respiratory: normal breath sounds, chest non-tender, no respiratory distress Cardiovascular: regular rate/rhythm Gastrointestinal: normal bowel sounds, soft, non-tender Extremities: normal inspection, normal capillary refill, normal range of motion, no edema Cranial Nerves: GROSSLY INTACT Skin: intact, normal color, warm/dry IV Drips IV Drips: Insulin drip; 40 meq KCL/D5W 1/2NS @150ml/hr. Nutrition Nutrition: NPO Current Medications: Current Medications Sig/Maikel Start time Last Medication Dose Route Stop Time Status Admin Acetaminophen 0 .STK-MED ONE 09/143 DC IV Acetaminophen 650 MG Q6P PRN 09/13 2199 AC PO Acetaminophen 1,000 MG Q6P PRN 09/13 2199 AC 09/14 N/A 1 UNIT IV 021 Enoxaparin Sodium 40 MG DAILY 09/14 1000 AC SC Insulin Human Regular 100 UNIT ONCE ONE 09/13 2014 AC 09/13 Sodium Chloride 100 ML IV 02/20 0014 2040 Ketorolac 0 .STK-MED ONE 09/13 2240 DC Tromethamine .ROUTE Ketorolac 15 MG Q6P PRN 09/13 2199 AC 09/13 Tromethamine IV 09/16 Ketorolac 0 .STK-MED ONE 09/13 1930 DC Tromethamine .ROUTE Ketorolac 30 MG ONCE ONE 09/13 1929 DC 09/13 Tromethamine IV 09/13 Metoclopramide HCl 0 .STK-MED ONE 09/13 1931 DC .ROUTE Metoclopramide HCl 10 MG ONCE ONE 09/13 1929 DC 09/13 IV 09/13 Morphine Sulfate 0 .STK-MED ONE 09/14 0731 DC .ROUTE Morphine Sulfate 2 MG ONCE ONE 09/14 444 DC 09/14 IV 09/14 445 0735 Ondansetron HCl 4 MG Q6P PRN 09/13 2199 AC IV Potassium Chloride 40 MEQ Q8H 09/13 2214 AC 09/14 Dextrose/Sodium 1,000 ML IV 0736 Chloride Promethazine HCl 0 .STK-MED ONE 09/13 2240 DC .ROUTE Promethazine HCl 25 MG ONCE ONE 09/13 2129 DC 09/13 IV 09/13 2130 224 Promethazine HCl 0 .STK-MED ONE 09/13 2129 DC .ROUTE Promethazine HCl 25 MG ONCE ONE 09/13 1800 DC 09/13 IV 09/13 180 181 Promethazine HCl 0 .STK-MED ONE 09/13 1800 DC .ROUTE Sodium Chloride 1,000 ML BOLUS ONE 09/13 1900 DC 09/13 IV 09/13 1958 1950 Sodium Chloride 1,000 ML BOLUS ONE 09/13 1800 DC 09/13 IV 09/[address] Scan Findings: Ct abd-pelvis: MPRESSION: Normal CT scan of the abdomen and pelvis. DICTATED BY: LAWRENCE ROMO MD DATE/TIME DICTATED:09/13/162047 STRAW HAT BRIM CUTTER OPERATOR:FRIEDA DATE/TIME TRANSCRIBED:09/13/162047 Impression/Plan Impression/Problem List Impression: 37-year-old female with past medical history of insulin-dependent diabetes mellitus noncompliant with her medication, gastroparesis, benign pituitary tumor taking Cabergoline, cyproheptadine, cannabis use, came in with complaints of nausea, vomiting and abdominal pain since yesterday. See is still in the emergency department, and is being managed as patient off ICU for the following issues: Metabolic: #Diabetic ketoacidosis Patient came in with high glucose level of 370, anion gap of 21, potassium 3.7, sodium 137, BUN 15 and creatinine 0.6, acetone positive in urine, and ABG had pH of 7.39 metabolic acidosis. She is currently being managed for diabetic ketoacidosis. -Emergency department had already started insulin drip and the blood sugar has been going down. -Currently continuing insulin drip until anion gap closes. Next ICU bundle is at 12 noon. -Plan to change her to insulin sliding scale for Colin Mancilla MD recommendations if anion gap closes. Update: 1200: -Patient's anion gap closed, so changing her insulin drip (with overlap of one hour) to SC insulin and levemir. Drip changed to 20meqKCl 1/2NS @125ml/hr. Also, changing her diet to clear liquid diet tonight and if well tolerated, to diabetic diet in AM and transfer [facility]. Will keep watching for abdominal pain, which is gone right now. #Abdominal pain Possibly due to diabetic ketoacidosis, has CAT scan of her abdominal pelvis and chest was normal. -Continue antiemetics as needed #Her other home medications are held currently, but plan to start them as she begins to have medications by mouth #Diet: NPO for now, will change her to diabetic diet once she can. #DVT ppx: Lovenox #Code status: Full code Problem List: 1. Diabetic ketoacidosis 2. Gastroparesis 3. Abdominal pain, unspecified site 4. Cannabis abuse Pain Ratin Pain Location: abd all over vague Pain Goal: Remain pain free Pain Plan: prn Tomorrow's Labs & Rationales: ICU bundle, CBC Plan DVT/Prophylaxis: pharmacological DEMETRI CAMARA,[facility] 09/14/16 1307: Attending MD Review Statement Attending Sign Off Attending Cosign Statement: I have: examined this patient, reviewed avalbl EMR data, personally reviewd images, discussd w/resident/PA/DISABILITY LIAISON OFFICER, discussed mgmt plan w/[place], discussed mgmt plan w/CM, discussed mgmt plan w/pt, agreed w/resident/PA/DISABILITY LIAISON OFFICER, amended to note. Other Findings: This 36-year-old woman with a known history of diabetes mellitus treated with insulin and a history of gastroparesis came to the emergency room because of the onset of abdominal pain nausea and vomiting. She was found to have uncontrolled diabetes with mild T ptosis. She has been placed on an insulin drip. In speaking with the patient he states she does not check her sugar at home. Apparently she is noncompliant on her diabetic regimen. She is listed to be taking Lantus 30 units daily and Humalog before meals. The patient had a previous admission to [facility] in December 2015. At that time she was treated for gastroparesis. In addition psychiatry consult felt that she had cannabis hyperemesis. Indeed her U tox shows high levels of cannabis. The patient apparently also has a history of hyperprolactinemia in the past. An MRI of her pituitary tone only empty sella in the past. She is listed to be taking cabergoline but it is unclear whether she takes her medicines regularly. Other data as noted above IMPRESSION Diabetic ketoacidosis Significant ongoing vomiting before due to gastroparesis Previous history of on and off abdominal discomfort Previous history of pituitary abnormality endocrine on board Continue her current therapy Change her to subcutaneous insulin Intravenous fluids as noted in endocrine note If she has persistent vomiting we'll get GI to see her Check his QTC Try to avoid metoclopramide for now When able patient can be transferred to the floor Continue subcutaneous Lovenox Discontinue ketorolac
--- NOTE | 2016-09-14 07:56 | NUR ---
PT ADMITTED TO ROOM 110
--- NOTE | 2016-09-14 08:30 | NUR ---
SPOKE WITH DR. ARENAS MADE AWARE OF CURRENT BS INSULIN DRIP DECREASED TO 1
--- NOTE | 2016-09-14 08:38 | Cons- Endocrinology ---
General Information and HPI Consulting Request Date of Consult: 09/14/16 Requested By: medical team Reason for Consult: Uncontrolled diabetes Source of Information: patient, old records Exam Limitations: poor historian History of Present Illness: This 36-year-old woman with a known history of diabetes mellitus treated with insulin and a history of gastroparesis came to the emergency room because of the onset of abdominal pain nausea and vomiting. She was found to have uncontrolled diabetes with mild T ptosis. She has been placed on an insulin drip. In speaking with the patient he states she does not check her sugar at home. Apparently she is noncompliant on her diabetic regimen. She is listed to be taking Lantus 30 units daily and Humalog before meals. The patient had a previous admission to [facility] in December 2015. At that time she was treated for gastroparesis. In addition psychiatry consult felt that she had cannabis hyperemesis. Indeed her U tox shows high levels of cannabis. The patient apparently also has a history of hyperprolactinemia in the past. An MRI of her pituitary tone only empty sella in the past. She is listed to be taking cabergoline but it is unclear whether she takes her medicines regularly. Allergies/Medications Allergies: Coded Allergies: NO KNOWN ALLERGIES (03/07/16) Home Med List: Cabergoline 0.5 MG TABLET 0.25 MG PO 2XW HYPERPROLCTINEMIA Please check with your doctor before restarting this medication. Cyproheptadine HCl 4 MG TABLET 1 TAB PO TID PRN PAIN Dicyclomine HCl 10 MG CAPSULE 1 CAP PO TID STOMACH (Reported) Erythromycin Base (Erythromycin) 250 MG TABLET 1 TAB PO 4 TIMES/DAY GI ( Reported) Hyoscyamine (Levsin) 0.125 MG TABLET 1 TAB PO Q4 PRN ABDOMINAL PAIN Insulin Glargine,Hum.rec.anlog (Toujeo Solostar) 300 UNIT/1 ML INSULN.PEN 30 UNITS SC QHS DIABETES (Reported) Insulin Lispro (Humalog Kwikpen U-100) 100 UNIT/1 ML INSULN.PEN DIABETES ( Reported) Please follow your previous insulin sliding scale. Metoclopramide HCl (Reglan) 10 MG TABLET 1 TAB PO AC GI (Reported) 30 minutes before meals and bedtime Ondansetron (Zofran Odt) 4 MG TAB.RAPDIS 1 TAB PO Q6 PRN NAUSEA Pantoprazole Sodium 40 MG TABLET.DR 1 TAB PO DAILY GI (Reported) Promethazine HCl 25 MG TABLET 1 TAB PO Q6P PRN N/V (Reported) Sucralfate (Carafate) 1 GM TABLET 1 TAB PO 4 TIMES/DAY ABD PAIN Tramadol HCl (Ultram) 50 MG TABLET 1 TAB PO Q6P PRN PAIN Tramadol HCl 50 MG TABLET 1 TAB PO BIDP PRN PAIN Past History Travel History Traveled to [place] past 21 day No Medical History Neurological: dizziness, migraine EENT: NONE Cardiovascular: NONE Respiratory: NONE Gastrointestinal: constipation, GASTROPARESIS Hepatic: NONE Renal: NONE Musculoskeletal: NONE Psychiatric: NONE Endocrine: diabetes, hyperthyroidism, PITUITARY TUMOR - BENIGN Blood Disorders: NONE Cancer(s): NONE 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 Psychosocial History Services at Home: None ETOH Use: denies use Functional Ability ADLs Independent: dressing, eating, toileting, bathing. Ambulation: independent IADLs Independent: shopping, housework, finances, food prep, telephone, transportation , medication admin. Exam & Diagnostic Data Last 24 Hrs of Vital Signs/I&O Vital Signs Date Time Temp Pulse Resp B/P Pulse O2 O2 Flow FiO2 Ox Delivery Rate 09/14 0651 98.7 82 18 133/78 99 Room Air 09/14 0430 99.1 80 18 140/71 97 Room Air 09/14 0245 98.6 89 18 115/69 99 Room Air 09/14 0121 99.0 88 18 131/81 99 Room Air 09/13 1953 88 16 141/64 100 Room Air 09/13 1950 98 Room Air 09/13 1615 95.7 120 18 120/70 99 Room Air Intake & Output 09/14 1600 /16 0800 09/14 0000 Intake Total 100 1000 Output Total Balance 100 1000 Intake, IV 100 1000 Patient 150 lb Weight Vital Signs Date Time Temp Pulse Resp B/P Pulse O2 O2 Flow FiO2 Ox Delivery Rate 09/14 0651 98.7 82 18 133/78 99 Room Air 09/14 0430 99.1 80 18 140/71 97 Room Air 09/14 0245 98.6 89 18 115/69 99 Room Air 09/14 0121 99.0 88 18 131/81 99 Room Air 09/13 1953 88 16 141/64 100 Room Air 09/13 1950 98 Room Air 09/13 1615 95.7 120 18 120/70 99 Room Air Intake & Output 09/14 1600 09/14 0800 09/14 0000 Intake Total 100 1000 Output Total Balance 100 1000 Intake, IV 100 1000 Patient 150 lb Weight Physical Exam General Appearance: alert, awake, comfortable Head: normal appearance Neck: normal inspection Cardiovascular: regular rate/rhythm Gastrointestinal: normal bowel sounds, soft Extremities: normal inspection Labs/Goyo Results: Laboratory Tests 09/14 09/14 09/14 0750 0600 0101 Chemistry Sodium (137 - 145 mmol/L) Pending 140 Potassium (3.5 - 5.1 mmol/L) Pending 4.1 Chloride (98 - 107 mmol/L) Pending 102 Carbon Dioxide (22 - 30 mmol/L) Pending 17 L Anion Gap (5 - 16) Pending 21 H BUN (7 - 17 mg/dL) Pending 13 Creatinine (0.5 - 1.0 mg/dL) Pending 0.6 Estimated GFR (>60 ml/min) > 60 Glucose (65 - 99 mg/dL) Pending 245 H Calcium (8.4 - 10.2 mg/dL) Pending 9.9 Phosphorus (2.5 - 4.5 mg/dL) Pending 3.7 Magnesium (1.6 - 2.3 mg/dL) Pending 1.6 Total Bilirubin (0.2 - 1.3 mg/dL) Pending 1.4 H AST (14 - 36 U/L) Pending 33 ALT (9 - 52 U/L) Pending 58 H Albumin (3.5 - 5.0 g/dL) Pending 5.1 H Coagulation PT (9.4 - 12.5 SEC) 11.6 INR (0.90 - 1.19) 1.11 APTT (25 - 37 SEC) < 20 L Hematology CBC w Diff NO MAN DIFF REQ WBC (4.8 - 10.8 /CUMM) 17.0 H RBC (4.20 - 5.40 /CUMM) 5.12 Hgb (12.0 - 16.0 G/DL) 15.6 Hct (37 - 47 %) 45.8 MCV (81.0 - 99.0 FL) 89.3 MCH (27.0 - 31.0 PG) 30.4 RDW (11.5 - 14.5 %) 12.6 Plt Count (130 - 400 /CUMM) 302 MPV (7.4 - 10.4 FL) 9.9 Gran % (42.2 - 75.2 %) 91.8 H Lymphocytes % (20.5 - 51.1 %) 6.6 L Monocytes % (1.7 - 9.3 %) 1.5 L Eosinophils % (0 - 5 %) 0 Basophils % (0.0 - 2.0 %) 0.1 Absolute Granulocytes (1.4 - 6.5 /CUMM) 15.6 H Absolute Lymphocytes (1.2 - 3.4 /CUMM) 1.1 L Absolute Monocytes (0.10 - 0.60 /CUMM) 0.3 Absolute Eosinophils (0.0 - 0.7 /CUMM) 0 Absolute Basophils (0.0 - 0.2 /CUMM) 0 PUBS MCHC (33.0 - 37.0 G/DL) 34.0 09/14 09/13 0100 2116 Chemistry Sodium Cancelled Potassium Cancelled Chloride Cancelled Carbon Dioxide Cancelled Anion Gap Cancelled BUN Cancelled Creatinine Cancelled Glucose Cancelled Calcium Cancelled Phosphorus Cancelled Magnesium Cancelled Total Bilirubin Cancelled AST Cancelled ALT Cancelled Albumin Cancelled Toxicology Urine Opiates Screen (>2000 NG/ML) < 100.00 Methadone Screen (>300 NG/ML) 55 Barbiturate Screen (>200 NG/ML) < 60 Ur Phencyclidine Scrn (>25 NG/ML) < 6.00 Amphetamines Screen (>1000 NG/ML) < 100 U Benzodiazepines Scrn (>200 NG/ML) < 85 Urine Cocaine Screen (>300 NG/ML) < 50 Urine Cannabis Screen (>50 NG/ML) 80.00 H Urines Urine Color (YEL,AMB,STR) STRAW Urine Clarity (CLEAR) CLEAR Urine pH (5.0 - 8.0) 6.0 Ur Specific [place] (1.001 - 1.035) 1.020 Urine Protein (NEG,<30 MG/DL) NEG Urine Ketones (NEG) >=80 Urine Nitrite (NEG) NEG Urine Bilirubin (NEG) NEG Urine Urobilinogen (0.1 - 1.0 EU/dl) 0.2 Ur Leukocyte Esterase (NEG) NEG Ur Microscopic EXAM NOT REQUIRED Urine Hemoglobin (NEG) NEG Urine Glucose (N MG/DL) >=1000 H 09/13 180 Blood Gas pH (7.35 - 7.45 PH) 7.39 pCO2 (35 - 45 TORR) 23 L pO2 (80 - 100 TORR) 96 HCO3 (21 - 28 MEQ/L) 14 L ABG O2 Sat (Measured) (>96.0 %) 91.0 L P-50 (Temp Corrected) Y Carboxyhemoglobin (1.5 - 5.0 %) 0 L O2 Concentration % R/A Temperature (97.0 - 100.0 FARH) 95.7 L Chemistry Hemoglobin A1c Pending Miscellaneous Phlebotomy Draw Site RIGHT RADIAL 09/13 1802 Chemistry Sodium (137 - 145 mmol/L) 137 Potassium (3.5 - 5.1 mmol/L) 3.7 Chloride (98 - 107 mmol/L) 95 L Carbon Dioxide (22 - 30 mmol/L) 21 L Anion Gap (5 - 16) 21 H BUN (7 - 17 mg/dL) 15 Creatinine (0.5 - 1.0 mg/dL) 0.6 Estimated GFR (>60 ml/min) > 60 BUN/Creatinine Ratio (7 - 25 %) 25.0 Glucose (65 - 99 mg/dL) 370 H Calcium (8.4 - 10.2 mg/dL) 9.9 Total Bilirubin (0.2 - 1.3 mg/dL) 1.3 AST (14 - 36 U/L) 35 ALT (9 - 52 U/L) 59 H Alkaline Phosphatase (<127 U/L) 149 H Troponin I (< 0.11 ng/ml) < 0.01 Total Protein (6.3 - 8.2 g/dL) 8.0 Albumin (3.5 - 5.0 g/dL) 4.8 Globulin (1.9 - 4.2 gm/dL) 3.2 Albumin/Globulin Ratio (1.1 - 2.2 %) 1.5 Amylase (30 - 110 U/L) 54 Lipase (23 - 300 U/L) 277 Total Beta HCG (NEGATIVE) NEGATIVE Hematology CBC w Diff MAN DIFF ORDERED WBC (4.8 - 10.8 /CUMM) 22.4 H RBC (4.20 - 5.40 /CUMM) 4.92 Hgb (12.0 - 16.0 G/DL) 14.7 Hct (37 - 47 %) 43.7 MCV (81.0 - 99.0 FL) 88.9 MCH (27.0 - 31.0 PG) 30.0 RDW (11.5 - 14.5 %) 13.1 Plt Count (130 - 400 /CUMM) 276 MPV (7.4 - 10.4 FL) 9.9 Gran % (42.2 - 75.2 %) 87.0 H Lymphocytes % (20.5 - 51.1 %) 9.1 L Monocytes % (1.7 - 9.3 %) 3.7 Eosinophils % (0 - 5 %) 0.2 Basophils % (0.0 - 2.0 %) 0 L Absolute Granulocytes (1.4 - 6.5 /CUMM) 19.5 H Segmented Neutrophils (42.2 - 75.2 %) 89 H Band Neutrophils (0.0 - 5.0 %) 1 Absolute Lymphocytes (1.2 - 3.4 /CUMM) 2.0 Lymphocytes (20.5 - 51.1 %) 8 L Monocytes (1.7 - 9.3 %) 2 Absolute Monocytes (0.10 - 0.60 /CUMM) 0.8 H Absolute Eosinophils (0.0 - 0.7 /CUMM) 0 Absolute Basophils (0.0 - 0.2 /CUMM) 0 Platelet Estimate (ADEQUATE) VERIFIED BY SMEAR Normocytic RBCs VERIFIED Normochromic RBCs VERIFIED PUBS MCHC (33.0 - 37.0 G/DL) 33.7 Other Body Source Fld Total RBCs Counted (%) 100 Toxicology Acetone Level (NEGATIVE) POSITIVE AT 1:4 DIL Assessment/Plan Assessment/Plan This patient presents with uncontrolled diabetes. She is presently on an insulin drip. This morning her lab work is pending. GI consult should be obtained for gastroparesis. I feel we can change the patient to subcutaneous insulin. We need to place some glucose in the IV as she is still vomiting. I would begin D5 half normal saline +20 mEq KCl at 1 25 mL an hour. I would recommend we also begin Levemir 6 units twice a day. In addition we should begin sliding scale NovoLog every 4 hours be given beginning with a sugar above 150. Sliding-scale NovoLog every 4 hours should be less than 150 give no insulin, 151-200 give 2 units NovoLog, 201-250 give 3 units NovoLog, 251-300 give 4 units NovoLog, 301-350 give 5 units NovoLog , 351-400 give 6 units NovoLog. When this patient's begins to eat and stops vomiting and weakness switch her NovoLog coverage to before meals. Her Levemir will also probably need further adjustment. Consult Acknowledgment - Thank you for your consult request. adjustment. Consult Acknowledgment - Thank you for your consult request.
--- NOTE | 2016-09-14 09:35 | NUR ---
DR. GLOVER AWARE OF CURRENT BS CONT THE SAME TO HAVE ICU BUNDLE DRAWN AT NOON
--- NOTE | 2016-09-14 09:36 | NUR ---
PT RESTING COMFORTABLY AT THIS TIME NO DISTRESS NOTED
--- NOTE | 2016-09-14 09:48 | NUR ---
REPORT GIVEN TO ETELVINA BARTON ICU TRANSPORT NOTIFIED
--- NOTE | 2016-09-14 10:04 | NUR ---
PT REFUSED TO GET CHANGED INTO ANATOLIY COAT STATES "I'LL DO IT UPSTAIRS"
[2016-09-14 10:25] VITALS: BP 96/57
[2016-09-14 16:00] VITALS: BP 110/62
[2016-09-14 19:17] VITALS: BP 104/60
--- NOTE | 2016-09-14 21:05 | NUR ---
nurse note: PT ARRIVED TO FLOOR AROUND 193, VIA TRANSPORT AND FAMILY. PT AAOX3, IVF, AND RA. PT IS INDEPEDENT OOB. ORIENTED TO FLOOR, CALL SMITH IN REACH, BED LOWEST POSITION. WILL CONTINUE TO MONITOR PATIENT. VITALS ARE STABLE.
[2016-09-14 23:56] VITALS: BP 102/60
--- NOTE | 2016-09-15 06:53 | PN- Housestaff ---
Subjective Follow-up For: DKA Subjective: I saw the patient today morning She is sleeping, reports significant headache. She seems reluctant to speak. The later part of the day she complained of significant abdominal pain which didn't relieve with ibuprofen, IV Tylenol, Protonix. She didn't eat anything during that the day. Her pain subsided with 0. 6 mg of Dilaudid eventually. Review of Systems Constitutional: Reports: see HPI. Comments: ROS cannot be appreciated as per the patient's condition Objective Last 24 Hrs of Vital Signs/I&O Vital Signs Date Time Temp Pulse Resp B/P Pulse O2 O2 Flow FiO2 Ox Delivery Rate 09/14 2356 98.4 73 20 102/60 97 Room Air 09/14 1917 99.9 91 18 104/60 98 09/14 1600 99.0 100 20 110/62 96 Room Air 09/14 1025 97.8 94 16 96/57 95 Room Air Intake & Output 09/15 0800 09/15 0000 09/14 1600 Intake Total 1240 490 830 Output Total Balance 1240 490 830 Intake, IV 1000 250 830 Intake, Oral 240 240 Physical Exam General Appearance: Alert, Oriented X3, Moderate Distress Skin: No Rashes, No Breakdown Neck: Supple Cardiovascular: Regular Rate, Normal S1, Normal S2, No Murmurs Lungs: Clear to Auscultation, Normal Air Movement Abdomen: Normal Bowel Sounds, Soft, No Tenderness Neurological: Normal Gait, Normal Speech Current Medications: Current Medications Sig/Maikel Start time Last Medication Dose Route Stop Time Status Admin Acetaminophen 650 MG Q6P PRN 09/13 220 AC PO Acetaminophen 1,000 MG Q6P PRN 09/13 2200 09/14 N/A 1 UNIT IV 0218 Enoxaparin Sodium 40 MG DAILY 09/14 1000 09/14 NE 1839 Insulin Aspart 0 Q4 09/14 1400 AC 09/15 NE 0155 Insulin Detemir 6 UNITS BID 09/14 1330 09/14 NE 2235 Insulin Human Regular 100 UNIT ONCE ONE 09/13 2014 DC 09/13 Sodium Chloride 100 ML IV 09/18 0014 2040 Ketorolac 15 MG Q6P PRN 09/13 2200 AC 09/13 Tromethamine IV 09/16 2159 2247 Morphine Sulfate 0 .STK-MED ONE 09/14 0731 DC .ROUTE Ondansetron HCl 4 MG .STK-MED ONE 09/14 2038 DC IM 09/14 2039 Ondansetron HCl 4 MG Q6P PRN 09/13 2200 AC 09/14 IV 204 Potassium Chloride 20 MEQ Q8H 09/14 1330 AC 09/15 Dextrose/Sodium 1,000 ML IV 0611 Chloride Potassium Chloride 40 MEQ Q8H 09/13 2215 DC 09/14 Dextrose/Sodium 1,000 ML IV 0736 Chloride Last 24 Hrs of Lab/Goyo Results Last 24 Hrs of Labs/Mics: Laboratory Tests 09/15/16 1020: Anion Gap 8, Estimated GFR > 60, BUN/Creatinine Ratio 13.3, CBC w Diff NO MAN DIFF REQ, RBC 4.38, MCV 88.9, MCH 30.2, RDW 12.4, MPV 9.1, Gran % 63.7, Lymphocytes % 29.4, Monocytes % 5.7, Eosinophils % 0.9, Basophils % 0.3, Absolute Granulocytes 5.5, Absolute Lymphocytes 2.6, Absolute Monocytes 0.5, Absolute Eosinophils 0.1, Absolute Basophils 0, PUBS MCHC 34.0 Assessment/Plan Assessment: Patient is a 36-year-old female with past medical history significant for insulin-dependent diabetes mellitus, gastroparesis (noncompliant), hyperprolactinemia with empty sella on MRI (currently on cabergoline) came to [place] [facility] with nausea vomiting and abdominal pain. On admission she is found to have an anion gap of 21 with a blood sugar levels of 335. She had a leukocytosis of 22.4, U tox positive for cannabinoids. She is admitted to ICU initially on an insulin drip with D5 half-normal. Once her anion gap is closed insulin drip is discontinued started on subcutaneous insulin every 4 and started on liquid diet. She was eventually transferred to general floor The following issues are addressed in general floor Insulin dependent diabetes mellitus * DKA resolved in ICU * Currently on mealtime NovoLog scale , although patient didn't start eating * Adjust her scale according to clinical condition * On levemir 6units BID. * Once advanced on her diet, she can be discharged * HbA1c of 10.9 on admission indicating noncompliance * Apparently patient doesn't check her blood sugars at home. Gastroparesis * On erythromycin, metoclopramide and ondansetron at home Combative behavior/agitation * Patient had significant psychiatric issues * Psych was consulted * Placed on Haldol every 6hrs 1 mg when necessary for agitation Hyperprolactinemia on cabergoline * Previously investigated with an MRI showing empty sella * Continued on cabergoline DVT prophylaxis * Subcutaneous Lovenox CODE STATUS * Full code Problem List: 1. Diabetic ketosis 2. Nausea vomiting and diarrhea 3. Unspecified abdominal pain 4. Cannabinoid hyperemesis syndrome 5. Cannabis abuse 6. Gastroparesis Pain Ratin Pain Location: Abdominal pain Pain Goal: Pain 4 or less Pain Plan: Tylenol, Ibuprofen Tomorrow's Labs & Rationales: CBC to monitor white count, BEP to monitor anion gap
--- NOTE | 2016-09-15 08:04 | PN- Diabetes ---
Assessment/Plan Assessment: The patient feels better today. She feels she may be able to eat. She is on levemir 6 units twice a day and SS Novolog every 4 hours. Her blood sugars are in reasonable control. Plan: Suggest that if the patient tolerates diet today, we can change her Novolog SS to before meals with a sepate sliding scale at bedtime starting with a sugar above 150. Subjective Subjective: no abdominal pain Review of Systems Constitutional: Denies: chills, fever. Cardiovascular: Denies: chest pain. Respiratory: Denies: short of breath. Gastrointestinal: Denies: abdominal pain. Genitourinary: Denies: dysuria. Skin: Reports: no symptoms. Objective Last 24 Hrs of Vital Signs/I&O Vital Signs Date Time Temp Pulse Resp B/P Pulse O2 O2 Flow FiO2 Ox Delivery Rate 09/14 2355 98.4 73 20 102/60 97 Room Air 09/14 1916 99.9 91 18 104/60 98 09/14 1600 99.0 100 20 110/62 96 Room Air 09/14 1025 97.8 94 16 96/57 95 Room Air Intake & Output 09/15 1600 09/15 0800 09/15 0000 Intake Total 1240 490 Output Total Balance 1240 490 Intake, IV 1000 250 Intake, Oral 240 240 Vital Signs Date Time Temp Pulse Resp B/P Pulse O2 O2 Flow FiO2 Ox Delivery Rate 09/14 2355 98.4 73 20 102/60 97 Room Air 09/14 1916 99.9 91 18 104/60 98 09/14 1600 99.0 100 20 110/62 96 Room Air 09/14 1025 97.8 94 16 96/57 95 Room Air Intake & Output 09/15 1600 09/15 0800 09/15 0000 Intake Total 1240 490 Output Total Balance 1240 490 Intake, IV 1000 250 Intake, Oral 240 240 Physical Exam General Appearance: alert, awake, comfortable Head: normal appearance Respiratory: normal breath sounds Cardiovascular: regular rate/rhythm Abdomen: normal bowel sounds Extremities: normal inspection Current Medications: Current Medications Sig/Maikel Start time Last Medication Dose Route Stop Time Status Admin Acetaminophen 650 MG Q6P PRN 09/13 2199 AC PO Acetaminophen 1,000 MG Q6P PRN 09/13 2200 AC 09/14 N/A 1 UNIT IV 0218 Enoxaparin Sodium 40 MG DAILY 09/14 1000 AC 09/14 SC 1839 Insulin Aspart 0 Q4 09/14 1400 AC 09/15 PA 0155 Insulin Detemir 6 UNITS BID 09/14 1330 09/14 PA 2235 Insulin Human Regular 100 UNIT ONCE ONE 09/13 2014 DC 09/13 Sodium Chloride 100 ML IV 09/18 0014 2040 Ketorolac 15 MG Q6P PRN 09/13 2200 AC 09/13 Tromethamine IV 09/16 2159 2247 Ondansetron HCl 4 MG .STK-MED ONE 09/14 2038 DC IM 09/14 2039 Ondansetron HCl 4 MG Q6P PRN 09/13 2200 AC 09/14 IV 2042 Potassium Chloride 20 MEQ Q8H 09/14 1330 AC 09/15 Dextrose/Sodium 1,000 ML IV 0611 Chloride Potassium Chloride 40 MEQ Q8H 09/13 221 DC 09/14 Dextrose/Sodium 1,000 ML IV 0736 Chloride Current Medications Sig/Maikel Start time Last Medication Dose Route Stop Time Status Admin Acetaminophen 650 MG Q6P PRN 09/13 2199 PO Acetaminophen 1,000 MG Q6P PRN 09/13 2200 AC 09/14 N/A 1 UNIT IV 0218 Enoxaparin Sodium 40 MG DAILY 09/14 1000 09/14 PA 1839 Insulin Aspart 0 Q4 09/14 1400 09/15 PA 0155 Insulin Detemir 6 UNITS BID 09/14 1330 09/14 PA 2235 Insulin Human Regular 100 UNIT ONCE ONE 09/13 2014 DC 09/13 Sodium Chloride 100 ML IV 09/18 0014 2040 Ketorolac 15 MG Q6P PRN 09/13 2200 09/13 Tromethamine IV 09/16 2159 2247 Ondansetron HCl 4 MG .STK-MED ONE 09/14 2038 DC IM 09/14 204 Ondansetron HCl 4 MG Q6P PRN 09/13 2200 AC 09/14 IV 2042 Potassium Chloride 20 MEQ Q8H 09/14 1330 AC 09/15 Dextrose/Sodium 1,000 ML IV 0611 Chloride Potassium Chloride 40 MEQ Q8H 09/13 2215 DC 09/14 Dextrose/Sodium 1,000 ML IV 0736 Chloride
[2016-09-15 08:34] VITALS: BP 106/60
[2016-09-15 10:36] LABS: ABSOLUTE BASOPHIL COUNT 0 /CUMM (0.0-0.2); ABSOLUTE EOSINOPHIL COUNT 0.1 /CUMM (0.0-0.7); ABSOLUTE GRANULOCYTE CT 5.5 /CUMM (1.4-6.5); ABSOLUTE LYMPH COUNT 2.6 /CUMM (1.2-3.4); ABSOLUTE MONOCYTE COUNT 0.5 /CUMM (0.10-0.60); BASOPHIL % 0.3 % (0.0-2.0); EOSINOPHIL % 0.9 % (0-5); GRANULOCYTE % 63.7 % (42.2-75.2); MEAN CORPUSCULAR HGB 30.2 PG (27.0-31.0); MEAN CORPUSCULAR VOLUME 88.9 FL (81.0-99.0); MEAN PLATELET VOLUME 9.1 FL (7.4-10.4); PLATELET COUNT 226 /CUMM (130-400); RBC DISTRIBUTION WIDTH 12.4 % (11.5-14.5); RED BLOOD CELL CT 4.38 /CUMM (4.20-5.40); WHITE BLOOD CELL COUNT 8.7 /CUMM (4.8-10.8)
[2016-09-15 10:37] LABS: HEMATOCRIT 38.9 % (37-47)
--- NOTE | 2016-09-15 13:03 | NUR ---
NURSING NOTE: PT C/O ABD PAIN AND NAUSEA THAT WASN'T RELEIVED BY TORODOL OR ZOFRAN. PER FR[facility] #033 IV TYLENOL GIVEN. TO COME TO BEDSIDE TO ASSESS PT. WILL CONTINUE TO MONITOR.
--- NOTE | 2016-09-15 13:45 | NUR ---
NURSING NOTE: PT CONTINUES TO C/O ABD PAIN. PT AGITATED AND PACING THE FLOOR. МАРИНА RODAS AT BEDSIDE WITH PT. AWAITING NEW ORDERS. WILL CONTINUE TO MONITOR.
--- NOTE | 2016-09-15 14:34 | PN- Att Addend ---
Attending Addendum Attending Brief Note Patient seen and examined, complained of headache. She is a 36-year-old female with history significant for type 1 diabetes who was admitted to ICU with DKA. After stabilization and the insulin drip was stopped, patient was transferred to medicine floor. Vital Signs Date Time Temp Pulse Resp B/P Pulse O2 O2 Flow FiO2 Ox Delivery Rate 09/15 0834 98.1 76 20 106/60 97 Room Air 09/14 2356 98.4 73 20 102/60 97 Room Air 09/14 1917 99.9 91 18 104/60 98 09/14 1600 99.0 100 20 110/62 96 Room Air on exam; aox3, nad. cv; s1,s2, rrr. resp; clear abd; soft, nt, bs+ ext; no edema. Laboratory Tests 09/15 1020 Chemistry Sodium (137 - 145 mmol/L) 136 L Potassium (3.5 - 5.1 mmol/L) 4.3 Chloride (98 - 107 mmol/L) 105 Carbon Dioxide (22 - 30 mmol/L) 22 Anion Gap (5 - 16) 8 BUN (7 - 17 mg/dL) 8 Creatinine (0.5 - 1.0 mg/dL) 0.6 Estimated GFR (>60 ml/min) > 60 BUN/Creatinine Ratio (7 - 25 %) 13.3 Hematology CBC w Diff NO MAN DIFF REQ WBC (4.8 - 10.8 /CUMM) 8.7 RBC (4.20 - 5.40 /CUMM) 4.38 Hgb (12.0 - 16.0 G/DL) 13.3 Hct (37 - 47 %) 38.9 MCV (81.0 - 99.0 FL) 88.9 MCH (27.0 - 31.0 PG) 30.2 RDW (11.5 - 14.5 %) 12.4 Plt Count (130 - 400 /CUMM) 226 MPV (7.4 - 10.4 FL) 9.1 Gran % (42.2 - 75.2 %) 63.7 Lymphocytes % (20.5 - 51.1 %) 29.4 Monocytes % (1.7 - 9.3 %) 5.7 Eosinophils % (0 - 5 %) 0.9 Basophils % (0.0 - 2.0 %) 0.3 Absolute Granulocytes (1.4 - 6.5 /CUMM) 5.5 Absolute Lymphocytes (1.2 - 3.4 /CUMM) 2.6 Absolute Monocytes (0.10 - 0.60 /CUMM) 0.5 Absolute Eosinophils (0.0 - 0.7 /CUMM) 0.1 Absolute Basophils (0.0 - 0.2 /CUMM) 0 PUBS MCHC (33.0 - 37.0 G/DL) 34.0 A/P; 36-year-old female with history significant for type 1 diabetes, hyperprolactinemia who was admitted with DKA. After stabilization patient has been transferred to medicine floor. Patient currently tolerating diet, will advance it slowly to full liquids and then to solid carbohydrate controlled diet. Tylenol is ordered, can add ibuprofen for the headache. Patient has been followed by endocrinology. Please change her sliding scale insulin to mealtime. She is on Levemir. If she is able to tolerate her diet, but stopped IV fluids. Please replete her potassium. DVT prophylaxis: Lovenox. Possible discharge in the next 1 or 2 days pending if patient is able to tolerate her diet.
--- NOTE | 2016-09-15 14:53 | Patient Discharge Instructions ---
Discharge Instructions General Discharge Information You were seen/treated for: Diabetic ketoacidosis Special Instructions: Please follow up with PCP as an outpatient Please follow up with as an outpatient Please follow up with psych in a week Diet Continue normal diet: No Recommended Diet: Diabetic Activity Full Activity/No Limits: Yes Activity Self Limited: Yes Acute Coronary Syndrome Inclusion Criteria At DC or during hospital stay patient has or had the following: ACS DIAGNOSIS No Discharge Core Measures Meds if any: Prescribed or Continued at Discharge Meds if any: NOT Prescribed or Continued at Discharge Congestive Heart Failure Inclusion Criteria At DC or during hospital stay patient has or had the following: CHF DIAGNOSIS No Discharge Core Measures Meds if any: Prescribed or Continued at Discharge Meds if any: NOT Prescribed or Continued at Discharge Cerebrovascular accident Inclusion Criteria At DC or during hospital stay patient has or had the following: CVA/TIA Diagnosis No Discharge Core Measures Meds if any: Prescribed or Continued at Discharge Meds if any: NOT Prescribed or Continued at Discharge Venous thromboembolism Inclusion Criteria VTE Diagnosis No VTE Type NONE VTE Confirmed by (Test) NONE Discharge Core Measures - Per Current guidelines, there needs to be overlap - treatment for the first 5 days of Warfarin therapy. - If discharged on Warfarin prior to 5 days of - overlap therapy, the patient will need to be - assessed for post discharge needs including - *Post discharge parental anticoagulation - *Warfarin and/or parental anticoagulation education - *Follow up date to check INR post discharge At least 5 days overlap therapy as Inpatient No Meds if any: Prescribed or Continued at Discharge Note: Overlap Therapy is Warfarin and Anticoagulant Meds if any: NOT Prescribed or Continued at Discharge
[2016-09-15 16:42] VITALS: BP 110/60
--- NOTE | 2016-09-15 20:26 | Event Note ---
Event Note Event Note: 8 8. 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
--- NOTE | 2016-09-15 21:57 | Cons- Psychiatry ---
Psychiatric Consult Date of Consult: 09/15/16 Reason for Consult: "cannabis intoxication, appears psychotic, crying in pain, not helped with pain medications." History of Present Illness: 36-year-old female presents to the ED on 09/13/2016 at 1613 with a chief complaint of sharp mid abdominal pain since that morning with vomiting. The patient denied she was , per the triage note. She was admitted for treatment of diabetic ketoacidosis. The patient has had periods of complaining loudly for pain, requesting narcotic pain medication. She is well known to our service, have been presented to the hospital approximately on 26 occasions between 12/03/2015 and 03/29/2016, almost all with complaints of abdominal pain. We have evaluated her in the past for conversion disorder (rare) versus cannabis hyperemesis syndrome with gastroparesis. During our last visit with her in December 2015, the patient had indicated that she was not going to smoke cannabis anymore. We had invited her to come to [facility] outpatient psychiatry, when she was nearing discharge for that admission, but she did not follow-up. Allergies: Coded Allergies: NO KNOWN ALLERGIES (03/07/16) Current Medications: Current Medications Sig/Maikel Start time Last Medication Dose Route Stop Time Status Admin Acetaminophen 650 MG .STK-MED ONE 09/15 0836 DC PO 09/15 0837 Acetaminophen 650 MG Q6P PRN 09/13 2200 AC 09/15 PO 0851 Acetaminophen 1,000 MG Q6P PRN 09/13 2200 AC 09/15 N/A 1 UNIT IV 1257 Enoxaparin Sodium 40 MG 1830 09/15 1830 AC 09/15 SC 2115 Enoxaparin Sodium 40 MG DAILY 09/14 1000 DC 09/14 SC 1839 Haloperidol 1 MG Q6 PRN 09/15 1445 AC 09/15 PO 2129 Hydromorphone HCl 0.4 MG ONCE ONE 09/15 2115 DC 09/15 IV 09/15 211 2129 Hydromorphone HCl 0.6 MG ONCE ONE 09/15 1445 DC 09/15 IV 09/15 1446 1441 Ibuprofen 400 MG TID 09/15 1131 AC PO Insulin Aspart 4 UNITS ONCE ONE 09/15 1330 DC 09/15 SC 09/15 1331 1322 Insulin Aspart 0 TIDAC 09/15 1200 AC SC Insulin Aspart 0 Q4 09/14 1400 DC 09/15 SC 1014 Insulin Detemir 6 UNITS BID 09/14 1330 AC 09/15 SC 2128 Ketorolac 15 MG Q6P PRN 09/13 2200 AC 09/15 Tromethamine IV 09/16 2159 1218 Magnesium Oxide 400 MG ONE ONE 09/15 0845 DC PO 09/15 0846 Morphine Sulfate 1 MG ONCE ONE 09/15 1400 DC 09/15 IV 09/15 1401 1407 Olanzapine 2.5 MG ONCE ONE 09/15 1400 DC 09/15 IM 09/15 1401 1652 Ondansetron HCl 4 MG .STK-MED ONE 09/15 1226 DC IM 09/15 1227 Ondansetron HCl 4 MG Q6P PRN 09/13 2200 AC 09/15 IV 2004 Pantoprazole Sodium 40 MG ONCE ONE 09/15 1330 DC 09/15 IV 09/15 1331 1322 Potassium Chloride 40 MEQ ONCE ONE 09/15 0845 CAN PO 09/15 0846 Potassium Chloride 40 MEQ ONCE ONE 09/15 0845 DC PO 09/15 0846 Potassium Chloride 20 MEQ Q8H 09/14 1330 AC 09/15 Dextrose/Sodium 1,000 ML IV 2115 Chloride Past History Past Medical History Neurological: dizziness, migraine EENT: NONE Cardiovascular: NONE Respiratory: NONE Gastrointestinal: constipation, GASTROPARESIS, r/o cannabis hyperemesis syndrome Hepatic: NONE Renal: NONE Musculoskeletal: NONE Psychiatric: mood disorder related to substance abuse Endocrine: diabetes, hyperthyroidism, PITUITARY TUMOR - BENIGN Blood Disorders: NONE Cancer(s): NONE 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 She occasionally winces with pain. She answers basic questions, but is unwilling to participate in a full interview at this time. The patient is alert and oriented. She denies auditory or visual hallucinations, and presents no patrick delusions. She denies suicidal or homicidal ideation. She reports that she is not feeling well. We hope to complete this interview, and possibly gather collateral information when we revisit. Lab Results: Laboratory Tests 09/15 1020 Chemistry Sodium (137 - 145 mmol/L) 136 L Potassium (3.5 - 5.1 mmol/L) 4.3 Chloride (98 - 107 mmol/L) 105 Carbon Dioxide (22 - 30 mmol/L) 22 Anion Gap (5 - 16) 8 BUN (7 - 17 mg/dL) 8 Creatinine (0.5 - 1.0 mg/dL) 0.6 Estimated GFR (>60 ml/min) > 60 BUN/Creatinine Ratio (7 - 25 %) 13.3 Hematology CBC w Diff NO MAN DIFF REQ WBC (4.8 - 10.8 /CUMM) 8.7 RBC (4.20 - 5.40 /CUMM) 4.38 Hgb (12.0 - 16.0 G/DL) 13.3 Hct (37 - 47 %) 38.9 MCV (81.0 - 99.0 FL) 88.9 MCH (27.0 - 31.0 PG) 30.2 RDW (11.5 - 14.5 %) 12.4 Plt Count (130 - 400 /CUMM) 226 MPV (7.4 - 10.4 FL) 9.1 Gran % (42.2 - 75.2 %) 63.7 Lymphocytes % (20.5 - 51.1 %) 29.4 Monocytes % (1.7 - 9.3 %) 5.7 Eosinophils % (0 - 5 %) 0.9 Basophils % (0.0 - 2.0 %) 0.3 Absolute Granulocytes (1.4 - 6.5 /CUMM) 5.5 Absolute Lymphocytes (1.2 - 3.4 /CUMM) 2.6 Absolute Monocytes (0.10 - 0.60 /CUMM) 0.5 Absolute Eosinophils (0.0 - 0.7 /CUMM) 0.1 Absolute Basophils (0.0 - 0.2 /CUMM) 0 PUBS MCHC (33.0 - 37.0 G/DL) 34.0 Collected: 09/13/162115 Received: 09/13/16 Test Result Flag Reference > UTOX INTERPRET | PLEASE NOTE: | | > AMPHET SCREEN | < 100 | | >1000 NG/ML > MALCOLM SCREEN | < 60 | | >200 NG/ML > BENZODIA SCREEN | < 85 | | >200 NG/ML > COCAINE SCREEN | < 50 | | >300 NG/ML > METHADONE SCR | 55 | | >300 NG/ML > OP/MORPH SCREEN | < 100.00 | | >2000 NG/ML > PCP SCREEN | < 6.00 | | >25 NG/ML > CANNABIS SCREEN | 80.00 | H | >50 NG/ML Diffential Diagnosis: Cannabis use disorder Mood disorder related to substance abuse Conversion disorder (rare and unlikely) Cannabis hyperemesis syndrome. Impression: The patient is in moderate distress from abdominal pain during our visit, which limited the extent of our interview. However, she is not currently delirious, psychotic nor suicidal. Earlier today, in conversation with house staff, we learned that the patient had been acting out, leading them to believe that the patient was psychotic. We had suggested at that time, to start haloperidol 1 mg PO up to 6 hours as needed for disorganized thinking or agitation, provided that her EKG showed no abnormalities, such as QTC prolongation. EKG on 09/13/2016: Sinus rhythm, 74 BPM, QTC 453 ms. The patient has received 2 doses of haloperidol 1 mg PO every 6 hours as needed. Provisional Treatment Plan: 1. Continue haloperidol 1 mg PO every 6 hours as needed for confused/ disorganized thinking or agitation. a. Monitor and replete potassium and magnesium to the upper portion of the normal range. b. Monitor EKG for arrhythmia or QTc prolongation greater than 475 ms, and do not administer this medication if either occur. c. Hold this medication for oversedation or respiratory depression. 2. Please consult on-call psychiatry over the weekend if the patient becomes more confused or disorganized, or begins to report hallucinations. 3. The patient should agree to avoid cannabis. 4. We will revisit her again on 09/18/2016, and will offer her an appointment at [facility] intensive outpatient program. Thank you for asking us to participate in Elier's care. We will continue to follow along with you. Arnaud Viveros APRN, pager [phone].
--- NOTE | 2016-09-15 23:28 | NUR ---
NURSING NOTE; LATE ENTRY; THIS RN ASSUMED CARE OF PT AT 1400. PT EXTREMELY AGITATED, YELLING AND PACING AROUND THE FLOOR. BUSINESS DEVELOPMENT DIRECTOR #[id number] AT BEDSIDE. ONE TIME DOSE OF MORPHINE ORDERED AND GIVEN. THIRTY MINUTES LATER PT STILL AGITATED, YELLING AND PACING AROUND THE FLOOR. BUSINESS DEVELOPMENT DIRECTOR #[id number] AT BEDSIDE TO ASSESS PT. ONE TIME DOSE OF DILAUDID ORDERED AND GIVEN. PT RELAXING AND SLEEPING SHORTLY AFTER TWO DOSES OF PAIN MEDS GIVEN. AROUND 1640 PT PACING, YELLING AND EXTREMELY AGITATED. PT YELLING AT THIS RN ABOUT PAIN AND WANTING TO SHOWER. THIS RN GAVE PT ZYPREXA IM TO HELP CALM DOWN. PT STILL AGITATED AND ONLY WANTING TO SHOWER. PT THREATENING "IF YOU DONT WRAP MY IV TO SHOWER, I WILL RIP IT OUT MYSELF AND SHOWER" THIS RN TALKED TO EMISSIONS ENGINEER CLARA TO TRY AND CALM HER DOWN. PT AGREED TO TAKE PRN ORDER OF HALDOL. PT CALM AT THIS TIME. AROUND 1930, THIS RN CALLED IN TO PT ROOM BECAUSE PT WANTS TO SHOWER "I SWEAR IF YOU DONT LET ME SHOWER IM RIPPING THIS THING OUT" THIS RN CALLD BUSINESS DEVELOPMENT DIRECTOR #[id number] TO ASK IF PT COULD SHOWER. BUSINESS DEVELOPMENT DIRECTOR #[id number] TOLD THIS RN PT COULD NOT SHOWER AT THIS TJ. THIS RN TOLD PT AND PT BECAME EXTREMELY AGITATED. PT FAMILY AT BEDSIDE AND EXTREMELY UPSET. THIS RN CALLED #[phone] AGAIN AND ASKED TO SPAK TO PT. BUSINESS DEVELOPMENT DIRECTOR #[id number] TO BEDSIDE AFTER TALKING TO HIS RESIDENT AND AGREES PT CAN SHOWER WITH A FAMILY MEMBER CLOSE BY. THIS RN MEDICATED PT WITH ZOFRAN BECAUSE SHE WAS C/O NAUSEA. NURSE EMISSIONS ENGINEER CLARA IN TO [facility] WRAP PT IV. AFTR SHOWER PT STILL AGITTED AND C/O PAIN. THIS RN GOT ONE TIME ORDER OF DILAUDID AND GAVE T PT. PT RESTING COMFORTABLY AT THIS TIME IN BED. NO FURTHER ORDERS. WILL CONTINUE TO MONITOR.
[2016-09-16 00:07] VITALS: BP 106/76
[2016-09-16 08:26] LABS: ABSOLUTE BASOPHIL COUNT 0.1 /CUMM (0.0-0.2); ABSOLUTE EOSINOPHIL COUNT 0.1 /CUMM (0.0-0.7); ABSOLUTE GRANULOCYTE CT 6.3 /CUMM (1.4-6.5); ABSOLUTE LYMPH COUNT 3.4 /CUMM (1.2-3.4); ABSOLUTE MONOCYTE COUNT 0.7 /CUMM (0.10-0.60); BASOPHIL % 0.5 % (0.0-2.0); EOSINOPHIL % 0.6 % (0-5); HEMATOCRIT 36.6 % (37-47); MEAN CORPUSCULAR HGB 30.6 PG (27.0-31.0); MEAN CORPUSCULAR HGB CONC 34.3 G/DL (33.0-37.0); MEAN CORPUSCULAR VOLUME 89.2 FL (81.0-99.0); MEAN PLATELET VOLUME 9.1 FL (7.4-10.4); PLATELET COUNT 226 /CUMM (130-400); RBC DISTRIBUTION WIDTH 12.7 % (11.5-14.5); WHITE BLOOD CELL COUNT 10.6 /CUMM (4.8-10.8)
--- NOTE | 2016-09-16 08:26 | PN- Housestaff ---
HANSEL GROSSMAN 09/16/16 0825: Subjective Follow-up For: DKA Leukocytosis Subjective: Patient was more sleepy, and complained of some abdominal discomfort. Stated that she did not have any appetite since yesterday. Vitals remained stable overnight. Currently on IV fluids. Blood sugars in the range of 200-300s. And on insulin sliding scale-nothing by mouth scale. Review of Systems Constitutional: Reports: see HPI. Objective Last 24 Hrs of Vital Signs/I&O Vital Signs Date Time Temp Pulse Resp B/P Pulse O2 O2 Flow FiO2 Ox Delivery Rate 09/16 0007 98.2 82 20 106/76 98 09/15 1642 98.1 85 20 110/60 100 Room Air 09/15 0834 98.1 76 20 106/60 97 Room Air Intake & Output 09/16 1600 09/16 0800 09/16 0000 Intake Total 1120 1500 Output Total Balance 1120 1500 Intake, IV 1000 1000 Intake, Oral 120 500 Physical Exam General Appearance: No Acute Distress Other Physical Findings: General Exam: AAOx3, No acute distress, Skin: No rashes, no breakdown HEENT: PERRLA, EOMI Neck: Supple, No JVD No cervical lymphadenopathy CVS: Reg Rate, Normal S1,S2, No MGR Resp: Normal air entry, no ronchi/rales Abdomen: Soft, tenderness in umbilical region, Normal Bowel Sounds Neuro: Normal Speech, Strength 5/5 b/l x 4 extremities, Sensation intact, CN III -XII NL, Reflexes 2+ Extremities: No cyanosis, no pedal edema Current Medications: Current Medications Sig/Maikel Start time Last Medication Dose Route Stop Time Status Admin Acetaminophen 650 MG .STK-MED ONE 09/15 0836 DC PO 09/15 0837 Acetaminophen 650 MG Q6P PRN 09/13 2199 09/15 PO 0851 Acetaminophen 1,000 MG Q6P PRN 09/13 2199 AC 09/15 N/A 1 UNIT IV 1257 Enoxaparin Sodium 40 MG 1830 09/15 1830 09/15 SC 2115 Haloperidol 1 MG Q6 PRN 09/15 1445 AC 09/15 PO 2129 Hydromorphone HCl 0.4 MG ONCE ONE 09/15 2114 DC 09/15 IV 09/15 Hydromorphone HCl 0.6 MG ONCE ONE 09/15 1445 DC 09/15 IV 09/15 1446 1441 Ibuprofen 400 MG TID 09/15 1131 AC PO Insulin Aspart 4 UNITS ONCE ONE 09/15 1330 DC 09/15 SC 09/15 1331 1322 Insulin Aspart 0 TIDAC 09/15 1200 DC SC Insulin Aspart 0 Q4 09/14 1400 DC 09/15 SC 1014 Insulin Detemir 6 UNITS BID 09/14 1330 AC 09/15 SC 2128 Insulin Human Regular 0 Q6 09/15 2359 AC 09/16 SC 0515 Ketorolac 15 MG Q6P PRN 09/13 2200 AC 09/15 Tromethamine IV 09/16 2159 1218 Magnesium Oxide 400 MG ONE ONE 09/15 0845 DC PO 09/15 0846 Morphine Sulfate 1 MG ONCE ONE 09/15 1400 DC 09/15 IV 09/15 1401 1407 Olanzapine 2.5 MG ONCE ONE 09/15 1400 DC 09/15 IM 09/15 1401 1652 Ondansetron HCl 4 MG .STK-MED ONE 09/15 2000 DC IM 09/15 2000 Ondansetron HCl 4 MG .STK-MED ONE 09/15 1226 DC IM 09/15 1227 Ondansetron HCl 4 MG Q6P PRN 09/13 2200 AC 09/15 IV 2004 Pantoprazole Sodium 40 MG ONCE ONE 09/15 1330 DC 09/15 IV 09/15 1331 1322 Potassium Chloride 40 MEQ ONCE ONE 09/15 0845 CAN PO 09/15 0846 Potassium Chloride 40 MEQ ONCE ONE 09/15 0845 DC PO 09/15 0846 Potassium Chloride 20 MEQ Q8H 09/14 1330 AC 09/16 Dextrose/Sodium 1,000 ML IV 0459 Chloride Last 24 Hrs of Lab/Goyo Results Last 24 Hrs of Labs/Mics: Laboratory Tests 09/16/16 0620: Sodium Pending, Potassium Pending, Chloride Pending, Carbon Dioxide Pending, Anion Gap Pending, BUN Pending, Creatinine Pending, BUN/Creatinine Ratio Pending , CBC w Diff Pending, WBC Pending, RBC Pending, Hgb Pending, Hct Pending, MCV Pending, MCH Pending, RDW Pending, Plt Count Pending, MPV Pending, PUBS MCHC Pending 09/15/16 1020: Anion Gap 8, Estimated GFR > 60, BUN/Creatinine Ratio 13.3, CBC w Diff NO MAN DIFF REQ, RBC 4.38, MCV 88.9, MCH 30.2, RDW 12.4, MPV 9.1, Gran % 63.7, Lymphocytes % 29.4, Monocytes % 5.7, Eosinophils % 0.9, Basophils % 0.3, Absolute Granulocytes 5.5, Absolute Lymphocytes 2.6, Absolute Monocytes 0.5, Absolute Eosinophils 0.1, Absolute Basophils 0, PUBS MCHC 34.0 Assessment/Plan Assessment: Patient is a 36-year-old female with past medical history significant for insulin-dependent diabetes mellitus, gastroparesis (noncompliant), hyperprolactinemia with empty sella on MRI (currently on cabergoline) came to [place] ER with nausea vomiting and abdominal pain. On admission she is found to have an anion gap of 21 with a blood sugar levels of 335. She had a leukocytosis of 22.4, U tox positive for cannabinoids. She is admitted to ICU initially on an insulin drip with D5 half-normal. Once her anion gap is closed insulin drip is discontinued started on subcutaneous insulin every 4 and started on liquid diet. She was eventually transferred to general floor The following issues are addressed in general floor Insulin dependent diabetes mellitus * DKA resolved in ICU * Changed the insulin sliding scale from NovoLog to Novolin (Q4). * Adjusted insulin sliding scale, aspirin Colin Mancilla MD's recommendations. * Blood glucose 266, 268 * Continue levemir 6units BID. * HbA1c of 10.9 on admission indicating noncompliance Gastroparesis * On erythromycin, metoclopramide and ondansetron at home * Discuss with the rn field case manager, if these medications have to be restarted. Combative behavior/agitation * Multiple psychiatric diagnoses noted * Psych was consulted * Placed on Haldol every 6hrs 1 mg when necessary for agitation * Recheck QTC this p.m. Hyperprolactinemia on cabergoline * Previously investigated with an MRI showing empty sella * Continued on cabergoline DVT prophylaxis * Subcutaneous Lovenox CODE STATUS * Full code Problem List: 1. Diabetes Pain Ratin Pain Location: Back Pain Goal: Pain 4 or less Pain Plan: Tylenol when necessary Tomorrow's Labs & Rationales: - BUDDY CAMARA,[facility] 09/16/16 1427: Attending MD Review Statement Attending Statement Attending MD Statement: examined this patient, discuss w/resident/PA/[employer] MEMBER, agreed w/resident/PA/[employer], discussed with family, reviewed EMR data (avail), discussed with nursing, discussed with case mgmt, reviewed images, amended to note Attending Assessment/Plan: Patient resting comfortably in bed. Was not able to tolerate dinner last night. And is not ready to try the breakfast because she is nauseous. The symptoms could be secondary to ? Worsening of her gastroparesis, as she does not complain of any pain/burning in her abdomen which makes other diagnoses like gastritis/pancreatitis less likely. Appreciate Dr. Mancilla's input. Consider GI consult at this point. Please follow-up Dr. Mancilla's instruction's for insulin/fluids administration
[2016-09-16 08:41] VITALS: BP 108/60
--- NOTE | 2016-09-16 08:46 | PN- Diabetes ---
Assessment/Plan Assessment: Patient states she ate breakfast yesterday and them abdominal pain nausea and vomiting. She is back on IV fluids. She is on Levemir 6 units twice a day and regular insulin every 6 hours Plan: Suggestions continue Levemir 6 units twice a day. Continue IV fluids with D5 half-normal saline with 20 mEq KCl at 100 mL per hour. We should DC regular insulin coverage and instead begin NovoLog every 4 hours. NovoLog coverage and 4 hours to be less than 150 give no insulin, 151-200 give 2 units NovoLog, 201- 250 give 3 units NovoLog, 301-350 give 4 units NovoLog, 351-400 give 5 units NovoLog. The patient should have a GI consult. Subjective Subjective: Feels okay this morning Review of Systems Constitutional: Denies: chills, fever. Cardiovascular: Denies: chest pain. Respiratory: Denies: cough, short of breath. Gastrointestinal: Reports: abdominal pain, nausea. Skin: Reports: no symptoms. Objective Last 24 Hrs of Vital Signs/I&O Vital Signs Date Time Temp Pulse Resp B/P Pulse O2 O2 Flow FiO2 Ox Delivery Rate 09/16 0841 98.5 86 18 108/60 97 Room Air 09/16 0007 98.2 82 20 106/76 98 09/15 1642 98.1 85 20 110/60 100 Room Air Intake & Output 09/16 1600 09/16 0800 09/16 0000 Intake Total 1120 1500 Output Total Balance 1120 1500 Intake, IV 1000 1000 Intake, Oral 120 500 Vital Signs Date Time Temp Pulse Resp B/P Pulse O2 O2 Flow FiO2 Ox Delivery Rate 09/16 0841 98.5 86 18 108/60 97 Room Air 09/16 0007 98.2 82 20 106/76 98 09/15 1642 98.1 85 20 110/60 100 Room Air Intake & Output 09/16 1600 09/16 0800 09/16 0000 Intake Total 1120 1500 Output Total Balance 1120 1500 Intake, IV 1000 1000 Intake, Oral 120 500 Physical Exam General Appearance: well developed/nourished, no apparent distress, alert, awake Head: normal appearance Neck: normal inspection Respiratory: normal breath sounds Cardiovascular: regular rate/rhythm Abdomen: normal bowel sounds, soft Extremities: normal inspection Current Medications: Current Medications Sig/Maikel Start time Last Medication Dose Route Stop Time Status Admin Acetaminophen 650 MG Q6P PRN 09/13 2200 AC 09/15 PO 0851 Acetaminophen 1,000 MG Q6P PRN 09/13 2200 09/15 N/A 1 UNIT IV 1257 Enoxaparin Sodium 40 MG 1830 09/15 1830 09/15 SC 2115 Haloperidol 1 MG Q6 PRN 09/15 1445 AC 09/15 PO 2129 Hydromorphone HCl 0.4 MG ONCE ONE 09/15 2115 DC 09/15 IV 09/15 2116 2129 Hydromorphone HCl 0.6 MG ONCE ONE 09/15 1445 DC 09/15 IV 09/15 1446 1441 Ibuprofen 400 MG TID 09/15 1131 AC PO Insulin Aspart 4 UNITS ONCE ONE 09/15 1330 DC 09/15 SC 09/15 1331 1322 Insulin Aspart 0 TIDAC 09/15 1200 DE SC Insulin Aspart 0 Q4 09/14 1400 DE 09/15 SC 1014 Insulin Detemir 6 UNITS BID 09/14 1330 09/15 SC 2128 Insulin Human Regular 0 Q6 09/15 2359 09/16 SC 0515 Ketorolac 15 MG Q6P PRN 09/130 09/15 Tromethamine IV 09/16 2159 1218 Morphine Sulfate 1 MG ONCE ONE 09/15 1400 DE 09/15 IV 09/15 1401 1407 Olanzapine 2.5 MG ONCE ONE 09/15 1400 DC 09/15 IM 09/15 1401 1652 Ondansetron HCl 4 MG .STK-MED ONE 09/15 2000 DE IM 09/15 2000 Ondansetron HCl 4 MG .STK-MED ONE 09/15 1226 DC IM 09/15 1227 Ondansetron HCl 4 MG Q6P PRN 09/130 09/15 IV 2004 Pantoprazole Sodium 40 MG ONCE ONE 09/15 1330 DE 09/15 IV 09/15 1331 1322 Potassium Chloride 20 MEQ Q8H 09/14 1330 09/16 Dextrose/Sodium 1,000 ML IV 0459 Chloride Findings Pertinent Lab/Goyo Results: Laboratory Tests 09/16 09/15 0620 1020 Chemistry Sodium (137 - 145 mmol/L) 137 136 L Potassium (3.5 - 5.1 mmol/L) 3.8 4.3 Chloride (98 - 107 mmol/L) 102 105 Carbon Dioxide (22 - 30 mmol/L) 26 22 Anion Gap (5 - 16) 8 8 BUN (7 - 17 mg/dL) 5 L 8 Creatinine (0.5 - 1.0 mg/dL) 0.5 0.6 Estimated GFR (>60 ml/min) > 60 > 60 BUN/Creatinine Ratio (7 - 25 %) 10.0 13.3 Hematology CBC w Diff Pending NO MAN DIFF REQ WBC (4.8 - 10.8 /CUMM) Pending 8.7 RBC (4.20 - 5.40 /CUMM) Pending 4.38 Hgb (12.0 - 16.0 G/DL) Pending 13.3 Hct (37 - 47 %) Pending 38.9 MCV (81.0 - 99.0 FL) Pending 88.9 MCH (27.0 - 31.0 PG) Pending 30.2 RDW (11.5 - 14.5 %) Pending 12.4 Plt Count (130 - 400 /CUMM) Pending 226 MPV (7.4 - 10.4 FL) Pending 9.1 Gran % (42.2 - 75.2 %) 63.7 Lymphocytes % (20.5 - 51.1 %) 29.4 Monocytes % (1.7 - 9.3 %) 5.7 Eosinophils % (0 - 5 %) 0.9 Basophils % (0.0 - 2.0 %) 0.3 Absolute Granulocytes (1.4 - 6.5 /CUMM) 5.5 Absolute Lymphocytes (1.2 - 3.4 /CUMM) 2.6 Absolute Monocytes (0.10 - 0.60 /CUMM) 0.5 Absolute Eosinophils (0.0 - 0.7 /CUMM) 0.1 Absolute Basophils (0.0 - 0.2 /CUMM) 0 PUBS MCHC (33.0 - 37.0 G/DL) Pending 34.0
[2016-09-16 16:00] VITALS: BP 102/68
[2016-09-16 23:55] VITALS: BP 110/74
--- NOTE | 2016-09-17 07:42 | PN- Housestaff ---
HANSEL GROSSMAN 09/17/16 0740: Subjective Follow-up For: - DKA - Leukocytosis - Gastroparesis Subjective: She was comfortable this am. No complaints. vitals were stable. PO intake is inadequate, and still on NPO q4 insulin. During the day, she was more uncomfortable. Complained of abdominal pain, and was given morphine. She expressed concern to be discharged, but explaiend to her that the blood sugars are not adequatedly controlled. Review of Systems Constitutional: Reports: see HPI. Objective Last 24 Hrs of Vital Signs/I&O Vital Signs Date Time Temp Pulse Resp B/P Pulse O2 O2 Flow FiO2 Ox Delivery Rate 09/16 2355 98.7 88 20 110/74 98 09/16 1600 98.9 90 18 102/68 97 Room Air 09/16 0841 98.5 86 18 108/60 97 Room Air Intake & Output 09/17 0800 09/17 0000 09/16 1600 Intake Total 900 1600 1130 Output Total Balance 900 1600 1130 Intake, IV 900 800 650 Intake, Oral 800 480 Patient 150 lb Weight Physical Exam General Appearance: No Acute Distress Other Physical Findings: General Exam: AAOx3, No acute distress, Skin: No rashes, no breakdown HEENT: PERRLA, EOMI Neck: Supple, No JVD No cervical lymphadenopathy CVS: Reg Rate, Normal S1,S2, No MGR Resp: Normal air entry, no ronchi/rales Abdomen: Soft, tenderness in umbilical region, Normal Bowel Sounds Neuro: Normal Speech, Strength 5/5 b/l x 4 extremities, Sensation intact, CN III -XII NL, Reflexes 2+ Extremities: No cyanosis, no pedal edema Current Medications: Current Medications Sig/Maikel Start time Last Medication Dose Route Stop Time Status Admin Acetaminophen 650 MG Q6P PRN 09/13 2199 AC 09/15 PO 0851 Acetaminophen 1,000 MG Q6P PRN 09/13 N/A 1 UNIT IV 0629 Enoxaparin Sodium 40 MG 1830 09/15 1830 AC 09/16 SC 1700 Haloperidol 1 MG Q6 PRN 09/15 1445 AC 09/15 PO 2129 Ibuprofen 400 MG TID 09/15 1131 AC 09/16 PO 1546 Insulin Detemir 6 UNITS BID 09/14 1330 AC 09/16 SC 2048 Insulin Human Regular 0 Q4 09/16 1400 AC 09/17 SC 0601 Insulin Human Regular 0 Q6 09/15 2359 DC 09/16 SC 0515 Ketorolac 15 MG Q6P PRN 09/13 2200 DC 09/15 Tromethamine IV 09/16 2159 1218 Melatonin 3 MG ONCE ONE 09/17 0500 DC 09/17 PO 09/17 0501 0508 Ondansetron HCl 4 MG Q6P PRN 09/13 2200 AC 09/15 IV 2004 Potassium Chloride 20 MEQ Q10H 09/16 1045 AC 09/17 Dextrose/Sodium 1,000 ML IV 0113 Chloride Potassium Chloride 20 MEQ Q8H 09/14 1330 DC 09/16 Dextrose/Sodium 1,000 ML IV 0459 Chloride Assessment/Plan Assessment: Patient is a 36-year-old female with past medical history significant for insulin-dependent diabetes mellitus, gastroparesis (noncompliant), hyperprolactinemia with empty sella on MRI (currently on cabergoline) came to [place] ER with nausea vomiting and abdominal pain. On admission she is found to have an anion gap of 21 with a blood sugar levels of 335. She had a leukocytosis of 22.4, U tox positive for cannabinoids. She is admitted to ICU initially on an insulin drip with D5 half-normal. Once her anion gap is closed insulin drip is discontinued started on subcutaneous insulin every 4 and started on liquid diet. She was eventually transferred to general floor The following issues are addressed in general floor Insulin dependent diabetes mellitus * DKA resolved in ICU * Changed the insulin sliding scale from NovoLog to Novolin (Q4). * Adjusted insulin sliding scale, aspirin Colin Mancilla MD's recommendations. * Blood glucose 200's * Continue levemir 6units BID. * HbA1c of 10.9 on admission indicating noncompliance Gastroparesis * On erythromycin, metoclopramide and ondansetron at home * Discuss with the security system sales consultant, if these medications have to be restarted. Combative behavior/agitation * Multiple psychiatric diagnoses noted * Psych was consulted * Placed on Haldol every 6hrs 1 mg when necessary for agitation * Recheck QTC this p.m. Hyperprolactinemia on cabergoline * Previously investigated with an MRI showing empty sella * Check prolactin. DVT prophylaxis * Subcutaneous Lovenox CODE STATUS * Full code Problem List: 1. Diabetic ketosis 2. Nausea vomiting and diarrhea Pain Ratin Pain Location: abdomen Pain Goal: Pain 4 or less Pain Plan: tylenol prn Tomorrow's Labs & Rationales: bep- check sodium. pt had hyponatremia MAXIMILIAN GOODWIN MD 09/17/16 1209: Attending MD Review Statement Attending Statement Attending MD Statement: examined this patient, discuss w/resident/PA/PRINT COLOR OPERATOR, agreed w/resident/PA/PRINT COLOR OPERATOR, discussed with family, reviewed EMR data (avail), discussed with nursing, discussed with case mgmt, reviewed images, amended to note Attending Assessment/Plan: Patient resting comfortably in bed. She had her lunch and dinner yesterday. Which did not bother her much but she was little nauseous. Appreciate Dr. Mancilla's input. Please follow-up Dr. Mancilla's instruction's for insulin/fluids administration
[2016-09-17 08:44] LABS: ABSOLUTE BASOPHIL COUNT 0 /CUMM (0.0-0.2); ABSOLUTE EOSINOPHIL COUNT 0.2 /CUMM (0.0-0.7); ABSOLUTE GRANULOCYTE CT 4.3 /CUMM (1.4-6.5); ABSOLUTE LYMPH COUNT 3.7 /CUMM (1.2-3.4); ABSOLUTE MONOCYTE COUNT 0.6 /CUMM (0.10-0.60); BASOPHIL % 0.4 % (0.0-2.0); EOSINOPHIL % 1.8 % (0-5); HEMATOCRIT 35.3 % (37-47); MEAN CORPUSCULAR HGB 30.3 PG (27.0-31.0); MEAN CORPUSCULAR VOLUME 88.9 FL (81.0-99.0); MEAN PLATELET VOLUME 9.1 FL (7.4-10.4); PLATELET COUNT 216 /CUMM (130-400); RBC DISTRIBUTION WIDTH 12.9 % (11.5-14.5); RED BLOOD CELL CT 3.97 /CUMM (4.20-5.40); WHITE BLOOD CELL COUNT 8.8 /CUMM (4.8-10.8)
[2016-09-17 09:17] VITALS: BP 110/62
--- NOTE | 2016-09-17 09:32 | PN- Endocrinology ---
Assessment/Plan Assessment: The patient has abdominal pain this morning. Apparently yesterday she did eat most of her lunch and dinner. This morning she has not had breakfast and is complaining of epigastric abdominal pain. The patient has not been on any of her medications for gastroparesis. Currently GI service to see her in consultation this morning. Plan: The patient states she may eat some breakfast later on. At the present time I would continue D5 half-normal saline with 20 mEq KCl but reduce the rate to 75 mL per hour as the patient is beginning to take some diet. Continue sliding- scale NovoLog every 4 hours until the patient is eating reliably. Then we can change the NovoLog coverage to before meals. The patient has also been off cabergoline and metoclopramide. At this point I would measure the patient's serum prolactin for any of these medications are restarted. Subjective Subjective: Upper abdominal pain Review of Systems Constitutional: Denies: chills, fever. Cardiovascular: Denies: chest pain. Respiratory: Denies: cough, short of breath. Gastrointestinal: Reports: abdominal pain. Denies: vomiting. Skin: Reports: no symptoms. Objective Last 24 Hrs of Vital Signs/I&O Vital Signs Date Time Temp Pulse Resp B/P Pulse O2 O2 Flow FiO2 Ox Delivery Rate 09/17 916 98.2 68 20 110/62 98 Room Air 09/16 2355 98.7 88 20 110/74 98 09/16 1600 98.9 90 18 102/68 97 Room Air Intake & Output 09/17 1600 09/17 0800 02 0000 Intake Total 900 1600 Output Total Balance 900 1600 Intake, IV 900 800 Intake, Oral 800 Vital Signs Date Time Temp Pulse Resp B/P Pulse O2 O2 Flow FiO2 Ox Delivery Rate 09/17 916 98.2 68 20 110/62 98 Room Air 09/16 2355 98.7 88 20 110/74 98 / 1600 98.9 90 18 102/68 97 Room Air Intake & Output 09/17 1600 09/17 0800 02 0000 Intake Total 900 1600 Output Total Balance 900 1600 Intake, IV 900 800 Intake, Oral 800 Physical Exam General Appearance: alert, awake Neck: normal inspection Respiratory: normal breath sounds Cardiovascular: regular rate/rhythm Abdomen: normal bowel sounds Extremities: normal inspection
--- NOTE | 2016-09-17 14:34 | Cons- Gastroenterology ---
General Information and HPI Consulting Request Date of Consult: 09/17/16 Requested By: CONCHA ROLLE MD Reason for Consult: Nausea and vomiting Source of Information: patient, old records Exam Limitations: no limitations History of Present Illness: 37-year-old female who is well-known to the GI service with past medical history of insulin-dependent diabetes mellitus, Hyperprolactinemia, gastroparesis. Presented to the ED 3 days ago with a chief complaint of nausea, vomiting and abdominal pain. Patient stated that it started on the day of admission and it getting worse and progressed, she stated that the nausea starts first and it folded by vomiting multiple times and after that her abdominal pain started, she stated stent out of 10 in severity, all over her abdomen, not relieved by anything, not associated with any diarrhea or hematemesis or hemoptysis. She reports increased urinary frequency the past couple days. The patient family stated that the patient she is noncompliance with her home medication of insulin and she doesn't shake her blood sugar and regular basis. They stated she was admitted at around 1-2 months ago for the same symptoms and she was receiving insulin drip at that time. Patient states that she lives at home with her 2 nieces who are 17 and 18 years old and her nephew 20 years old. Her 18-year-old niece prepares her weekly oral medications for her and put some minimal pill dispensed. She states that she is very compliant with her oral medications although she does not know the names and how often there to be taken. Patient also states that she is noncompliant with her fingersticks and subsequent insulin dosages. She says this is in part because the insulin strips Cost approximately $30 a month. Patient deny any fever, chills, shortness of breath, Chest pain, diarrhea, hematuria, dysuria, back pain, headache. Allergies/Medications Allergies: Coded Allergies: NO KNOWN ALLERGIES (03/07/16) Home Med List: Cabergoline 0.5 MG TABLET 0.25 MG PO 2XW HYPERPROLCTINEMIA Cyproheptadine HCl 4 MG TABLET 1 TAB PO TID PRN PAIN Dicyclomine HCl 10 MG CAPSULE 1 CAP PO TID STOMACH (Reported) Erythromycin Base (Erythromycin) 250 MG TABLET 1 TAB PO 4 TIMES/DAY GI ( Reported) Hyoscyamine (Levsin) 0.125 MG TABLET 1 TAB PO Q6 PRN ABDOMINAL PAIN/DIARRHEA (Reported) Hyoscyamine (Levsin) 0.125 MG TABLET 1 TAB PO Q4 PRN ABDOMINAL PAIN Insulin Glargine,Hum.rec.anlog (Raffiuellen Suazoostar) 300 UNIT/1 ML INSULN.PEN 30 UNITS SC QHS DIABETES (Reported) Insulin Lispro (Humalog Kwikpen U-100) (Unknown Strength) INSULN.PEN (Unknown Dose) SC TIDAC DIABETES (Reported) Metoclopramide HCl (Reglan) 10 MG TABLET 1 TAB PO AC GI (Reported) 30 minutes before meals and bedtime Omeprazole 40 MG CAPSULE.DR 1 CAP PO DAILY GERD Ondansetron (Zofran Odt) 4 MG TAB.RAPDIS 1 TAB PO Q6 PRN NAUSEA Ondansetron (Zofran Odt) 4 MG TAB.RAPDIS 1 TAB SL TID PRN NAUSEA Ondansetron HCl (Zofran) 4 MG TABLET 1 TAB PO Q6-8P PRN NAUSEA Ondansetron HCl (Zofran) 4 MG TABLET 1 TAB PO Q6-8P PRN NAUSEA Pantoprazole Sodium 40 MG TABLET.DR 1 TAB PO DAILY GI (Reported) Promethazine HCl 25 MG TABLET 1 TAB PO Q6P PRN N/V (Reported) Sucralfate (Carafate) 1 GM TABLET 1 TAB PO 4 TIMES/DAY ABD PAIN Sulfamethoxazole/Trimethoprim (Bactrim Ds Tablet) 1 EACH TABLET 1 TAB PO BID UTI Tramadol HCl (Ultram) 50 MG TABLET 1 TAB PO Q6P PRN PAIN Tramadol HCl 50 MG TABLET 1 TAB PO BIDP PRN PAIN Past History Travel History Traveled to [place] past 21 day No Medical History Neurological: dizziness, migraine EENT: NONE Cardiovascular: NONE Respiratory: NONE Gastrointestinal: constipation, GASTROPARESIS r/o cannabis hyperemesis syndrome Hepatic: NONE Renal: NONE Musculoskeletal: NONE Psychiatric: mood disorder related to substance abuse Endocrine: diabetes, hyperthyroidism, PITUITARY TUMOR - BENIGN Blood Disorders: NONE Cancer(s): NONE CAN TOP SETTER/Reproductive: NONE Surgical History Surgical History: none, non-contributory Family History Relations & Conditions If Any: MOTHER (Diabetes mellitus , hypertension, hyperlipidemia, hypothyroidism , cardiac issues status post pacemaker placement). Psychosocial History Services at Home: None Smoking Status: Current Some Day Smoker ETOH Use: denies use Functional Ability ADLs Independent: dressing, eating, toileting, bathing. Ambulation: independent IADLs Independent: shopping, housework, finances, food prep, telephone, transportation , medication admin. Review of Systems Review of Systems: Patient seen in her hospital room. She states that her nausea and vomiting have improved significantly. She has been taking solid food and had a full breakfast and lunch today. This did not initiate any symptoms of nausea. She also states that her mid abdominal pain has not entirely improved. This is mostly around the umbilicus. It is persistent without a colicky in character. Exam & Diagnostic Data Vital Signs and I&O Vital Signs Date Time Temp Pulse Resp B/P Pulse O2 O2 Flow FiO2 Ox Delivery Rate 09/17 0917 98.2 68 20 110/62 98 Room Air 09/16 2355 98.7 88 20 110/74 98 09/16 1600 98.9 90 18 102/68 97 Room Air Intake & Output 09/17 1600 09/17 0400 09/16 1600 09/16 0400 09/15 1600 09/15 0400 Intake Total 900 1600 2250 1500 1720 490 Output Total 100 Balance 900 1600 2250 1500 1620 490 Intake, IV 064 570 4397 1000 1000 250 Intake, Oral 800 600 500 720 240 Output, 100 Emesis Patient 150 lb Weight General Appearance Alert, Oriented X3, Moderate Distress HEENT PERRLA, EOMI Cardiovascular Normal S1, Normal S2 Lungs Clear to Auscultation, Normal Air Movement Abdomen Normal Bowel Sounds, tenderness in the central abdominal area. Slight guarding no rebound. Bowel sounds present Extremities No Edema CT scan from 09/13/2016: LIVER, GALLBLADDER, AND BILIARY TREE: The liver is normal in size, shape, and attenuation. No focal hepatic lesion or biliary ductal dilatation is present. The gallbladder is unremarkable with no evidence of radiopaque gallstones, gallbladder wall thickening, or obvious pericholecystic inflammatory changes. PANCREAS: Unremarkable. GASTROINTESTINAL TRACT: The small and large bowel are unremarkable. The appendix is unremarkable. ABDOMINAL WALL: No significant hernia. Assessment/Plan Assessment/Recommendations: Ms. Jeffery is a 35-year-old female who has been noncompliant with her fingersticks and insulin usage partly due to the cost of the finger strips. She presented with nausea vomiting and abdominal pain. The nausea and vomiting is improved although she continues to have low-grade abdominal pain. Recommend that she continue on her home dose of erythromycin, metoclopramide and ondansetron. Please check with endocrine before starting. Patient has a T bili of 1.4 with alk phos of 149. Last direct bili was in february. Please repeat LFTs with a direct bili in AM. Overall I think these abnormalities are unlikley to be due to a signficant liver disease. Consult Acknowledgment - Thank you for your consult request.
[2016-09-17] MEDS ORDERED: CABERGOLINE0.5 M2 PO (15:54)
[2016-09-17 16:49] VITALS: BP 106/74
--- NOTE | 2016-09-17 20:41 | Discharge Summary ---
Visit Information Visit Dates Admission Date: 09/13/16 Discharge Date: 09/17/16 Hospital Course Course Attending Physician: CONCHA ROLLE MD Primary Care Physician: PATIENT HAS NO PRIMARY CARE DR Consulting Request: 1 Consulting Specialty: Endocrinology Consulting Physician: Reason for Consult: DKA Consulting Request: 2 Consulting Specialty: Psychiatry Consulting Physician: Felice Ruiz Reason for Consult: Agitation/combative behaviour Hospital Course: Patient is a 36-year-old female with past medical history significant for insulin-dependent diabetes mellitus, gastroparesis (noncompliant), hyperprolactinemia with empty sella on MRI (currently on cabergoline) came to [place] ER with nausea vomiting and abdominal pain. On admission she is found to have an anion gap of 21 with a blood sugar levels of 335. She had a leukocytosis of 22.4, U tox positive for cannabinoids. She is admitted to ICU initially on an insulin drip with D5 half-normal. Once her anion gap is closed insulin drip is discontinued started on subcutaneous insulin every 4 and started on liquid diet. She was eventually transferred to general floor The following issues are addressed in general floor Insulin dependent diabetes mellitus She was placed on novolog sliding scale initially with 6 units of levemir. As she didnt eat anything eventually converted back to novolin Q4. However she was discharged on her home insulin dosage as she left AMA. HbA1c of 10.9 on admission indicating noncompliance. Apparently patient doesn't check her blood sugars at home. Gastroparesis On erythromycin, metoclopramide and ondansetron at home, Gastroenterology consulted, asked to continue these medications after checking with endocrinology. Combative behavior/agitation Patient had significant psychiatric issues including conversion disorder versus cannabis hyperemesis syndrome. She was very agitated, wandering in the floors. Placed on Haldol every 6hrs 1 mg when necessary for agitation. Hyperprolactinemia on cabergoline Previously investigated with an MRI showing empty sella. Continued on cabergoline 0.5mg 2 times a week. DVT prophylaxis * Subcutaneous Lovenox CODE STATUS * Full code Complications: left AMA Allergies: Coded Allergies: NO KNOWN ALLERGIES (03/07/16) Significant Procedures: CT abdomen and Pelvis on 09/13/16 IMPRESSION: Normal CT scan of the abdomen and pelvis. Pertinent Lab Results: On admission she is found to have an anion gap of 21 with a blood sugar levels of 335. She had a leukocytosis of 22.4, U tox positive for cannabinoids. HbA1C of 10.9 Disposition Summary Disposition Principal Diagnosis: DKA Additional Diagnosis: IDDM Gastroparesis Combative behaviour Hyperprolactinemia Discharge Disposition: left against medical adv Discharge Instructions General Discharge Information Code Status: Full Code Patient's Diet: Regular diet Patient's Activity: full activity Follow-Up Instructions/Appts: Please follow up with PCP, psychiatry and in a week Medications at Discharge Discharge Medications: Stop taking the following medications: Hyoscyamine (Levsin) 0.125 MG TABLET ORAL EVERY SIX HOURS as needed for ABDOMINAL PAIN/DIARRHEA Omeprazole (Omeprazole) 40 MG CAPSULE.DR ORAL DAILY Qty = 30 Sulfamethoxazole/Trimethoprim (Bactrim Ds Tablet) 1 EACH TABLET ORAL TWICE DAILY Qty = 20 Ondansetron (Zofran Odt) 4 MG TAB.RAPDIS SUBLINGUAL THREE TIMES DAILY as needed for NAUSEA Qty = 20 Ondansetron HCl (Zofran) 4 MG TABLET ORAL Every 6-8 Hours as Needed as needed for NAUSEA Qty = 10 Ondansetron HCl (Zofran) 4 MG TABLET ORAL Every 6-8 Hours as Needed as needed for NAUSEA Qty = 10 Continue taking these medications: Insulin Lispro (Humalog Kwikpen U-100) 100 UNIT/1 ML INSULN.PEN Inject into fatty tissue 3 TIMES DAILY BEFORE MEALS Qty = 15 Instructions: Please follow your previous insulin sliding scale. Insulin Glargine,Hum.rec.anlog (Toujeo Solostar) 300 UNIT/1 ML INSULN.PEN 30 Units Inject into fatty tissue TAKE AT BEDTIME Dicyclomine HCl (Dicyclomine HCl) 10 MG CAPSULE 1 Capsule ORAL THREE TIMES DAILY Ondansetron (Zofran Odt) 4 MG TAB.RAPDIS 1 Tablet ORAL EVERY SIX HOURS as needed for NAUSEA Qty = 20 Pantoprazole Sodium (Pantoprazole Sodium) 40 MG TABLET. 1 Tablet ORAL DAILY Comments: PER PT MED BOTTLE Metoclopramide HCl (Reglan) 10 MG TABLET 1 Tablet ORAL BEFORE MEALS Instructions: 30 minutes before meals and bedtime Comments: PER PT MED BOTTLE Erythromycin Base (Erythromycin) 250 MG TABLET 1 Tablet ORAL 4 TIMES A DAY Qty = 28 Tramadol HCl (Tramadol HCl) 50 MG TABLET 1 Tablet ORAL 2 x Daily as needed as needed for PAIN Qty = 15 Hyoscyamine (Levsin) 0.125 MG TABLET 1 Tablet ORAL Every 4 hours as needed for ABDOMINAL PAIN Qty = 120 Tramadol HCl (Ultram) 50 MG TABLET 1 Tablet ORAL EVERY SIX HOURS NEEDED as needed for PAIN Qty = 4 Promethazine HCl (Promethazine HCl) 25 MG TABLET 1 Tablet ORAL EVERY SIX HOURS NEEDED as needed for N/V Qty = 30 Comments: PER PT FAMILY Sucralfate (Carafate) 1 GM TABLET 1 Tablet ORAL 4 TIMES A DAY Qty = 40 Cyproheptadine HCl (Cyproheptadine HCl) 4 MG TABLET 1 Tablet ORAL THREE TIMES DAILY as needed for PAIN Qty = 15 Cabergoline (Cabergoline) 0.5 MG TABLET 0.25 Milligram ORAL 2 times per week Qty = 10 Instructions: Please check with your doctor before restarting this medication. Comments: PER PT ON SUN AND SUN This prescription has been renewed Copies To: KORI CAMARA,NICOLETTE Lopez Attending MD Review Statement Documenting Attending: CONCHA ROLLE MD Other Findings: Discharging physician is Dr. Emma Bautista.
--- NOTE | 2016-09-18 17:56 | Event Note ---
Event Note Event Note: Situation: On 09/17 Notified by Nurse that berlin wanted to leave and go home Brief Assesment: * This is a 36 yo lady who was admitted for DKA and gastroperesis. Endocrine and GI also evaluated the patient. Patient sugars were still elevated and was not cleared for discharge. * Pt expressed concerns about being fired from her new job if she does not show up next day and was adamant that she wanted to leave. Assesment and Plan * I had an extensive discussion explainig to the patient that she was not medically cleared to leave and explained the health risks (including hyperglycemic coma and ) associated with her leaving AMA. * After repeated pleading with the patient, she reiterated that she wanted to leave. * Attending on duty (Dr Fabian) was notified. * Patient signed the AMA and left.
== END 2016-09-17 17:55 | disposition left against medical advice (07) | DRG 420 ==
LOC: ENRESERVDT → ENRESERVTM → ERH 15:48 → CRI 20:10 → 2NB 20:10 → ERHI 20:10 → ENPENDDIS 20:10 → CRI 09-14 10:09 → 2NB 09-14 19:09
PROVIDERS: Internal Medicine; Internal Medicine Endocrinology, Diabetes & Metabolism; Internal Medicine Hematology & Oncology; Physician Assistant; ADMIT Internal Medicine
DX: E13.10 Other specified diabetes mellitus with ketoacidosis without coma (principal); Z79.4 Long term (current) use of insulin; E11.43 Type 2 diabetes mellitus with diabetic autonomic (poly)neuropathy; K31.84 Gastroparesis; F12.10 Cannabis abuse, uncomplicated; E05.90 Thyrotoxicosis, unspecified without thyrotoxic crisis or storm
CPT/HCPCS: 2NBSP; ERO; 36415; 74176; 80307; 81003; 82436; 87040; 87086; 93005; 93010; 96361; 96365; 96375; 99291; J0131; J1650; J1815; J1885; J2405; J2550; J2765; J3490; J7042

== ENCOUNTER 2017-01-21 17:08 | Emergency (ER) | payer SELFPAY ==
[~2017-01-21] VITALS: Ht 160 cm; Wt 66.7 kg
[2017-01-21 17:12] VITALS: BP 123/81
--- NOTE | 2017-01-21 18:10 | ED UPPER/LOWER EXTREMITY COMPL ---
See Addendum History of Present Illness General Chief Complaint: Plantar Puncture Wound Stated Complaint: LT FOOT PAIN S/P NAIL PUNCTURE (RUSTED) Source: patient Exam Limitations: no limitations Vital Signs & Intake/Output Vital Signs & Intake/Output Vital Signs Date Time Temp Pulse Resp B/P B/P Pulse O2 O2 Flow FiO2 Mean Ox Delivery Rate 01/21 1712 98.4 98 15 123/81 98 Room Air Room Air ED Intake and Output 01/22 0000 01/21 1200 Intake Total 0 Output Total Balance 0 Intake, Oral 0 Patient 147 lb Weight Weight Reported by Patient Measurement Method Allergies Coded Allergies: No Known Allergies (01/21/17) Reconcile Medications Amitriptyline HCl 50 MG TABLET 1 TAB PO QPM CYCLIC VOMITING SYNDROME ( Reported) Biotin (Meribin) (Unknown Strength) CAPSULE (Unknown Dose) PO DAILY SUPPLEMENT (Reported) Ciprofloxacin HCl (Cipro) 500 MG TABLET 1 TAB PO BID puncture wound Cyproheptadine HCl 4 MG TABLET 1 TAB PO TID PRN PAIN Insulin Glargine,Hum.rec.anlog (Lantus Solostar) 100 UNIT/ML (3 ML) INSULN.PEN 35 UNIT SC QPM DM (Reported) Insulin Lispro (Humalog Kwikpen U-100) 100 UNIT/1 ML INSULN.PEN DIABETES ( Reported) Please follow your previous insulin sliding scale. Ondansetron (Zofran Odt) 4 MG TAB.RAPDIS 1 TAB PO Q6 PRN NAUSEA Ubidecarenone (Coenzyme Q10) 200 MG CAPSULE 1 CAP PO BID SUPPLEMENT (Reported ) Triage Note: PT TO ED FOR C/C OF ARNOLDO NAILS THAT WERE IN FOOT FROM EARLIER TODAY S/P LANDING ON TWO NAILS AFTER JUMPING OFF BED OF A TRUCK. PT TOOK NAILS OUT. UNSURE OF LAST TETANUS SHOT. NO BLEEDING IN TRIAGE, SOME REDNESS AND SWELLING TO FOOT. MEDICATED WITH MOTRIN IN TRIAGE. Triage Nurses Notes Reviewed? yes Onset: Abrupt Duration: hour(s): Timing: single episode today Severity: moderate Pain/Injury Location: Right: Foot. : No Patient currently breastfeeds: No HPI: 36-year-old female presents to emergency department complaining of puncture wounds to left foot. SHe states while she was exiting truck she stepped on 2 arnoldo nails with her left foot. She was barefoot. She states bleeding was controlled prior to arrival at ED. she is complaining of pain with ambulation in left foot. She is unsure if her tetanus is up-to-date. (SHAREE GAINES PA-C) Past History Travel History Traveled to [place] past 21 day No Medical History Any Pertinent Medical History? 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 Hx Contributory? No (SHAREE GAINES PA-C) Review of Systems Review of Systems Constitutional: Reports: no symptoms. EENTM: Reports: no symptoms. Respiratory: Reports: no symptoms. Cardiovascular: Reports: no symptoms. Gastrointestinal/Abdominal: Reports: no symptoms. Genitourinary: Reports: no symptoms. Musculoskeletal: Reports: see HPI. Skin: Reports: see HPI. Neurological/Psychological: Reports: no symptoms. Hematologic/Endocrine: Reports: no symptoms. Immunological: Reports: no symptoms. All Other Systems: Reviewed and Negative (SHAREE GAINES PA-C) Physical Exam Physical Exam General Appearance: well developed/nourished, no apparent distress, alert, awake Head: atraumatic, normal appearance Eyes: Bilateral: normal appearance. Ears, Nose, Throat: hearing grossly normal Neck: normal inspection, supple, full range of motion Cardiovascular/Respiratory: regular rate/rhythm, no respiratory distress Peripheral Pulses: 2+ dorsalis pedis (R), 2+ dorsalis pedis (L) Back: normal inspection, normal range of motion Foot Left: tenderness (plantar aspect), Two small puncture wounds on plant surface Foot Right: normal inspection Neurologic/Tendon: normal sensation, normal motor functions, normal tendon functions, no evidence tendon injury Skin: 2 puncture wounds to plantar surface of left foot (EDER MONTGOMERY,SHAREE) Progress Differential Diagnosis: cellulitis, contusion, fracture, sprain, tendon injury Plan of Care: Orders Procedure Date/time Status URINE 01/22 1716 Complete Laboratory Tests 01/21/17 1725: Urine Test NEGATIVE X-ray shows no acute fracture with clinical correlation. Patient has full range of motion and is able to ambulate. Tetanus shot given in ED. Wounds cleaned with Betadine and extensively irrigated with normal saline. Wounds dressed with bacitracin and covered with Band-Aid and Christophe wrap. The patient was given a course of oral Cipro and will follow up in 3 days for a wound check with her PCP or here. She is educated on the signs and symptoms of infection. She will return with any worsening symptoms. Patient is in agreement with the plan of care. The patient was discussed with Dr. Dasilva. (EDER MONTGOMERY,SHAREE) Diagnostic Imaging: Viewed by Me: Radiology Read. Discussed w/RAD: Radiology Read. Radiology Impression: PATIENT: ABA RAMOS PRESENT AGE: 36 PATIENT ACCOUNT NO: [id number] : 81 LOCATION: [facility] ORDERING PHYSICIAN: SHAREE GAINES PA-C SERVICE DATE: 01/21/17-1715 EXAM TYPE: RAD - XRY- FOOT COMPLETE, LEFT EXAMINATION: XR FOOT, LEFT CLINICAL INFORMATION: Stepped on nail, question fracture, question debris COMPARISON: None TECHNIQUE: AP, lateral , and oblique views of the left foot. FINDINGS: There is marked induration of the soft tissues along the plantar aspect of the distal foot immediately inferior to the metatarsophalangeal joints. The underlying bone appears intact aside from mild irregularity along the distal aspect of the proximal phalanx of the great toe that is visualized on the lateral projection only. Otherwise, no fracture. No malalignment. No radiopaque foreign body is visualized. IMPRESSION: Question acute injury to the inferior aspect of the distal proximal phalanx of the great toe. Clinical correlation are recommended. No direct evidence for radiopaque foreign body within the left foot. DICTATED BY: SEBASTIEN DAY MD DATE/ TIME DICTATED:06/25/17 / 1811 PIPE FITTER MAINTENANCE:FRIEDA DATE/TIME TRANSCRIBED: 01/21/171810 CONFIDENTIAL, DO NOT COPY WITHOUT APPROPRIATE AUTHORIZATION. < Electronically signed in Other Vendor System> SIGNED BY: SEBASTIEN DAY MD 1816 (EDER MONTGOMERY,SHAREE) Departure Departure Disposition: HOME OR SELF CARE Condition: Stable Clinical Impression Primary Impression: Puncture wound of foot, right Referrals: PATIENT HAS NO PRIMARY CARE DR (PCP/Family) Additional Instructions: Take full course of antibiotics. Take tylenol or motrin as prescribed as needed for pain and swelling. Follow up here or with your primary care doctor in 3-4 days for a wound check. Return sooner with signs of infection including fevers, chills, redness, drainage from wound, further swelling, redness traveling up leg. Departure Forms: Customer Survey General Discharge Information Prescriptions: Current Visit Scripts Ciprofloxacin HCl (Cipro) 1 TAB PO BID #14 TAB (SHAREE GAINES PA-C) PA/MARINE MAMMAL TRAINER Co-Sign Statement Statement: ED Attending supervision documentation- [] I saw and evaluated the patient. I have also reviewed all the pertinent lab results and diagnostic results. I agree with the findings and the plan of care as documented in the PA's/MARINE MAMMAL TRAINER's documentation. [x] I have reviewed the ED Record and agree with the PA's/MARINE MAMMAL TRAINER's documentation. [] Additions or exceptions (if any) to the PAs/MARINE MAMMAL TRAINER's note and plan are summarized below: [] (MARLEY DASILVA DO
--- NOTE | 2017-01-21 18:17 | RADIOLOGY REPORT ---
EXAMINATION: XR FOOT, LEFT CLINICAL INFORMATION: Stepped on nail, question fracture, question debris COMPARISON: None TECHNIQUE: AP, lateral, and oblique views of the left foot. FINDINGS: There is marked induration of the soft tissues along the plantar aspect of the distal foot immediately inferior to the metatarsophalangeal joints. The underlying bone appears intact aside from mild irregularity along the distal aspect of the proximal phalanx of the great toe that is visualized on the lateral projection only. Otherwise, no fracture. No malalignment. No radiopaque foreign body is visualized. IMPRESSION: Question acute injury to the inferior aspect of the distal proximal phalanx of the great toe. Clinical correlation are recommended. No direct evidence for radiopaque foreign body within the left foot.
[2017-01-21] MEDS ORDERED: LANTUS SOL100 UNIT/1 SC (18:23)
[2017-01-21] MEDS ORDERED: AMITRIPTYLINE H50 M2 PO (18:24)
[2017-01-21] MEDS ORDERED: COENZYME Q10200 MG PO (18:24)
[2017-01-21] MEDS ORDERED: MERIBIN5 M1 PO (18:25)
[2017-01-21] MEDS ORDERED: CIPRO500 M1 PO (19:03)
== END 2017-01-21 19:18 ==
LOC: ERH 17:08
DX: S91.331A Puncture wound without foreign body, right foot, initial encounter (principal); W45.0XXA Nail entering through skin, initial encounter; Y92.9 Unspecified place or not applicable; Y93.9 Activity, unspecified
CPT/HCPCS: 73630-LT; 81025; 90471; 90714

== ENCOUNTER 2017-02-08 18:12 | Emergency (ER) | payer SELFPAY ==
[~2017-02-08] VITALS: Ht 160 cm; Wt 68.0 kg
[~2017-02-08 18:12] MED LIST changes: +AMITRIPTYLINE H50 M2 PO; +CIPRO500 M1 PO; +COENZYME Q10200 MG PO; +LANTUS SOL100 UNIT/1 SC; +MERIBIN5 M1 PO
[2017-02-08 18:21] VITALS: BP 106/69
== END 2017-02-08 18:53 | disposition admitted as inpatient to this hospital (09) ==
LOC: ERH 18:12
DX: R10.9 Unspecified abdominal pain (principal); R11.10 Vomiting, unspecified

== ENCOUNTER 2017-08-16 00:36 | Inpatient (IN) | payer OTHER ==
[~2017-08-16] VITALS: Ht 160 cm; Wt 65.8 kg
[~2017-08-16 00:36] MED LIST changes: +COMPAZINE10 M1 PO; +LEVEMIR100 UNIT/1 SC; +NOVOLOG100 UNIT/2 SC; +OXYCODONE HCL10 M2 PO
--- NOTE | 2017-08-16 01:00 | ED GI/GU/ABDOMINAL COMPLAINT ---
History of Present Illness General Chief Complaint: Nausea, Vomiting, Diarrhea Stated Complaint: "N/V/D/ ABD PAIN X'S 3 YRS BUT REALLY BAD NOW" Source: patient Exam Limitations: no limitations Vital Signs & Intake/Output Vital Signs & Intake/Output Vital Signs Date Time Temp Pulse Resp B/P B/P Pulse O2 O2 Flow FiO2 Mean Ox Delivery Rate 08/16 0519 97.2 76 18 89/50 98 Room Air 08/16 0215 97.0 08/16 0108 92 24 121/88 99 Allergies Coded Allergies: No Known Allergies (01/21/17) Reconcile Medications Amitriptyline HCl 50 MG TABLET 1 TAB PO QPM CYCLIC VOMITING SYNDROME ( Reported) Insulin Aspart (Novolog) 100 UNIT/ML VIAL 0 SC TIDAC/HS Diabetes BEFORE MEALS. Blood Insulin Sugar Units <80 0 100-150 2 151-200 3 201-250 4 251-300 6 301-350 8 351-400 10 >400 12 and Call Doctor AT BEDTIME Blood Insulin Sugar Units <80 0 81-100 0 101-200 0 201-250 0 251-300 2 301-350 3 351-400 4 >400 5 and Call Doctor Insulin Detemir (Levemir) 100 UNIT/ML VIAL 10 U SC BID Diabetes . Metoclopramide HCl (Reglan) 10 MG TABLET 1 TAB PO 4 TIMES/DAY PRN NAUSEA Omeprazole 40 MG CAPSULE.DR 1 CAP PO DAILY Dyspepsia . Ondansetron (Zofran Odt) 4 MG TAB.RAPDIS 1 TAB PO Q6 PRN NAUSEA Ubidecarenone (Coenzyme Q10) 200 MG CAPSULE 1 CAP PO BID SUPPLEMENT (Reported ) Triage Nurses Notes Reviewed? yes ? N Is pt currently ? No Onset: Abrupt Duration: hour(s): (5) Timing: multiple episodes today Location: generalized abdomen Activities at Onset: none Prior Abdominal Problems: similar symptoms Modifying Factors: Worsens With: eating. Associated Symptoms: abdominal pain, diarrhea, nausea/vomiting HPI: This is a 37-year-old female insulin-dependent diabetic who presents to ER with chief complaint of abdominal pain nausea and more than 20 episodes of vomiting since 7:00 last night. She's been noncompliant with her insulin for the last 2 days because she has "a lot of stuff going on". Patient was running around doing errands today and suddenly started with vomiting. She states that when she starts to feel nauseous she usually smokes a bit of marijuana which helps her but aleksey was unable to do so. She ran out of and is waiting for a refill from the pharmacy. Call or other drug use. She reports similar symptoms with sick contacts and also reports diarrhea. No hematemesis or hematochezia. Past History Travel History Traveled to [place] past 21 day No Medical History Any Pertinent Medical History? 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 Age 65. FATHER (DM). Age 67. Hx Contributory? No Review of Systems Review of Systems Constitutional: Denies: chills, fever. EENTM: Reports: no symptoms. Respiratory: Denies: cough, short of breath. Cardiovascular: Denies: chest pain, palpitations. GI: Reports: abdominal pain, diarrhea, nausea, vomiting. Genitourinary: Reports: frequency. Denies: discharge, dysuria, hematuria. Musculoskeletal: Reports: no symptoms. Skin: Reports: no symptoms. Neurological/Psychological: Reports: no symptoms. Hematologic/Endocrine: Denies: bruising, bleeding, polyuria, polydipsia. Immunologic/Allergic: Denies: splenectomy. All Other Systems: Reviewed and Negative Physical Exam Physical Exam General Appearance: well developed/nourished, alert, awake, anxious, moderate distress Head: atraumatic, normal appearance Eyes: Bilateral: normal appearance, PERRL, EOMI. Ears, Nose, Throat, Mouth: hearing grossly normal, moist mucous membrane Neck: normal inspection, supple, full range of motion Respiratory: normal breath sounds, chest non-tender, no respiratory distress Cardiovascular: regular rate/rhythm, normal peripheral pulses Peripheral Pulses: 2+ radial (R), 2+ radial (L) Gastrointestinal: normal bowel sounds, soft, non-tender Back: normal inspection, normal range of motion Extremities: normal range of motion Neurologic/Psych: no motor/sensory deficits, awake, alert, oriented x 3, normal gait, depressed affect, TEARFUL Core Measures ACS in differential dx? No Sepsis Present: No Sepsis Focused Exam Completed? No Progress Differential Diagnosis: pancreatitis, PUD/GERD, HYPERGLYCEMIA, DKA, ADAM, MEDICATION NON COMPLIANCE Plan of Care: Orders Procedure Date/time Status Clear Liquid Diet 08/16 B Active ED Holding Orders 08/16 07 Active Admit to inpatient 08/16 0711 Active Vital Signs 08/16 0711 Active Code Status 08/16 0711 Active ARTERIAL BLOOD GAS (GEN) 08/16 0649 Complete Add-on Test (ER Only) 08/16 0635 Active MIXED VENOUS BLOOD GAS (GEN) 08/16 0624 Active ETHANOL 08/16 0528 Complete CBC WITHOUT DIFFERENTIAL 08/16 0335 Complete BASIC METABOLIC PANEL 08/16 0329 Complete URINE DRUGS OF ABUSE 08/16 0202 Complete URINALYSIS 08/16 0202 Complete MIXED VENOUS BLOOD GAS (GEN) 08/16 0056 Active LIPASE 08/16 0056 Complete HUMAN BETA HCG SCREEN 08/16 0056 Complete COMPREHENSIVE METABOLIC PANEL 08/16 0056 Complete CBC WITHOUT DIFFERENTIAL 08/16 0056 Complete ACETONE 08/16 0056 Complete Current Medications Sig/Maikel Start time Last Medication Dose Stop Time Status Admin Morphine Sulfate 4 MG ONCE ONE 08/16 0730 UNVr (Morphine) 08/16 0731 Insulin Human Regular 6 UNITS ONCE ONE 08/16 0715 UNVr (NovoLIN R) 08/16 0716 Sodium Chloride 1,000 ML ONCE ONE 08/16 0630 AC 08/16 (Normal Saline 0.9%) 08/16 1309 0639 Laboratory Tests 08/16/17 0645: pH 7.38, pCO2 27 L, pO2 111 H, HCO3 16 L, ABG O2 Sat (Measured) 98.0, P-50 ( Temp Corrected) Y, Carboxyhemoglobin 0.2 L, O2 Concentration % RA, Temperature 97.2, Phlebotomy Draw Site RIGHT RADIAL 08/16/17 0528: Anion Gap 18 H, Estimated GFR > 60, BUN/Creatinine Ratio 22.0, Glucose 280 H, Calcium 7.8 L, CBC w Diff NO MAN DIFF REQ, RBC 4.36, MCV 91.8, MCH 30.6, RDW 12.5, MPV 9.1, Gran % 95.9 H, Lymphocytes % 3.6 L, Monocytes % 0.4 L, Eosinophils % 0, Basophils % 0.1, Absolute Granulocytes 18.9 H, Absolute Lymphocytes 0.7 L, Absolute Monocytes 0.1, Absolute Eosinophils 0, Absolute Basophils 0, PUBS MCHC 33.3, Serum Alcohol < 10.0 08/16/17 0435: Urine Opiates Screen 481.00, Methadone Screen < 40, Barbiturate Screen < 60, Ur Phencyclidine Scrn < 6.00, Amphetamines Screen < 100, U Benzodiazepines Scrn < 85, Urine Cocaine Screen < 50, Urine Cannabis Screen > 80.00 H, Urine Color STRAW, Urine Clarity CLEAR, Urine pH 6.0, Ur Specific [place] 1.015, Urine Protein NEG, Urine Ketones 40 H, Urine Nitrite NEG, Urine Bilirubin NEG, Urine Urobilinogen 0.2, Ur Leukocyte Esterase NEG, Ur Microscopic EXAM NOT REQUIRED, Urine Hemoglobin NEG, Urine Glucose >=1000 H 08/16/17 0203: Anion Gap 27 H, Estimated GFR > 60, BUN/Creatinine Ratio 25.0, Glucose 391 H, Calcium 9.2, Total Bilirubin 1.5 H, AST 26, ALT 33, Alkaline Phosphatase 116, Total Protein 7.7, Albumin 4.8, Globulin 2.9, Albumin/Globulin Ratio 1.7, Lipase 43, Total Beta HCG NEGATIVE, Acetone Level NEGATIVE 08/16/17 0115: CBC w Diff MAN DIFF ORDERED, RBC 5.22, MCV 90.9, MCH 30.3, RDW 12.5, MPV 9.8, Gran % 94.0 H, Lymphocytes % 4.0 L, Monocytes % 1.5 L, Eosinophils % 0, Basophils % 0.5, Absolute Granulocytes 27.1 H, Segmented Neutrophils 92 H, Band Neutrophils 1, Absolute Lymphocytes 1.1 L, Lymphocytes 4 L, Monocytes 1 L, Absolute Monocytes 0.4, Absolute Eosinophils 0, Basophils 2, Absolute Basophils 0.1, Platelet Estimate ADEQUATE, Normocytic RBCs VERIFIED, Normochromic RBCs VERIFIED, PUBS MCHC 33.3 Diagnostic Imaging: Viewed by Me: CT Scan. Discussed w/RAD: CT Scan. Radiology Impression: PATIENT: ABA RAMOS PRESENT AGE: 37 PATIENT ACCOUNT NO: [id number] : 81 LOCATION: [facility] ORDERING PHYSICIAN: Christina Mabry MD SERVICE DATE: 08/16/17 EXAM TYPE: CAT - CT ABD & PELVIS W IV CONTRAST EXAMINATION: CT ABDOMEN AND PELVIS WITH CONTRAST CLINICAL INFORMATION: Abdominal pain. Nausea and vomiting. Leukocytosis. COMPARISON: 05/13/2017 TECHNIQUE: Multidetector volumetric imaging was performed of the abdomen and pelvis following IV administration of 95 mL of Optiray 320 intravenous contrast. Sagittal and coronal reformatted images were obtained on the technologist's workstation. DLP: 264 mGy-cm FINDINGS: LUNG BASES: The visualized lung bases are unremarkable. LIVER, GALLBLADDER, AND BILIARY TREE: The liver is normal in size, shape, and attenuation. No focal hepatic lesion or biliary ductal dilatation is present. The gallbladder is unremarkable with no evidence of radiopaque gallstones, gallbladder wall thickening, or obvious pericholecystic inflammatory changes. PANCREAS: Unremarkable. SPLEEN: Unremarkable. ADRENAL GLANDS: Unremarkable. KIDNEYS AND URETERS: The kidneys are normal in size, shape, and attenuation. No hydronephrosis, hydroureter, or calculi seen. No perinephric stranding. BLADDER: Unremarkable. GASTROINTESTINAL TRACT: The stomach is unremarkable. The small bowel is normal in caliber without obstruction. A majority of the colon is decompressed which somewhat limits the evaluation. No evidence of colonic wall thickening or adjacent inflammation. Normal appendix. No free air or free fluid. ABDOMINAL WALL: No significant hernia is appreciated. LYMPH NODES: There is a 1.7 x 1.6 cm hypoattenuating lesion posterior to the left psoas muscle which measures higher than simple fluid attenuation. This is unchanged from the previous study. An has been present since the 12/03/2015 study. This is of uncertain clinical significance. This could represent an ovary. No additional evidence of lymphadenopathy. VASCULAR: Unremarkable. PELVIC VISCERA: Unremarkable. OSSEOUS STRUCTURES: No acute or suspicious osseous abnormality. IMPRESSION: No acute findings of the abdomen or pelvis. No inflammatory changes. DICTATED BY: Iraida CAMARA,Lloyd DATE/TIME DICTATED:08/16/17317 BOAT ENGINE MECHANIC:FRIEDA DATE/TIME TRANSCRIBED:08/16/17317 CONFIDENTIAL, DO NOT COPY WITHOUT APPROPRIATE AUTHORIZATION. <Electronically signed in Other Vendor System> SIGNED BY: Iraida CAMARA,Lloyd 08/16/17 0325 Initial ED EKG: none Departure Departure Time of Disposition: 715 Disposition: STILL A PATIENT Condition: Stable Clinical Impression Primary Impression: Hyperglycemia Secondary Impressions: Leukocytosis Referrals: Asher Orta APRN (PCP/Family) Departure Forms: Customer Survey General Discharge Information Prescriptions: Current Visit Scripts Insulin Detemir (Levemir) 10 U SC BID #1 VIAL . Insulin Aspart (Novolog) 0 SC TIDAC/HS #1 VIAL BEFORE MEALS. Blood Insulin Sugar Units <80 0 100-150 2 151-200 3 201-250 4 251-300 6 301-350 8 351-400 10 >400 12 and Call Doctor AT BEDTIME Blood Insulin Sugar Units <80 0 81-100 0 101-200 0 201-250 0 251-300 2 301-350 3 351-400 4 >400 5 and Call Doctor Admission Note Spoke With: Randall CAMARA,Nichol Documentation of Exam: Documentation of any treatments & extenuating circumstances including Concerns Regarding Discharge (functional status, medication knowledge or non-compliance, living conditions, etc.) that warrant an admission rather than observation: [IV FLUIDS, INSULIN, PAIN CONTROL, ANTIEMETICS, MONITOR I/O, ENDOCRINE CONSULTATION]
[2017-08-16 01:26] LABS: ABSOLUTE BASOPHIL COUNT 0.1 /CUMM (0.0-0.2); ABSOLUTE EOSINOPHIL COUNT 0 /CUMM (0.0-0.7); ABSOLUTE GRANULOCYTE CT 27.1 /CUMM (1.4-6.5); ABSOLUTE LYMPH COUNT 1.1 /CUMM (1.2-3.4); ABSOLUTE MONOCYTE COUNT 0.4 /CUMM (0.10-0.60); BASOPHIL % 0.5 % (0.0-2.0); EOSINOPHIL % 0 % (0-5); HEMATOCRIT 47.5 % (37-47); MEAN CORPUSCULAR HGB 30.3 PG (27.0-31.0); MEAN CORPUSCULAR HGB CONC 33.3 G/DL (33.0-37.0); MEAN CORPUSCULAR VOLUME 90.9 FL (81.0-99.0); MEAN PLATELET VOLUME 9.8 FL (7.4-10.4); PLATELET COUNT 311 /CUMM (130-400); RBC DISTRIBUTION WIDTH 12.5 % (11.5-14.5); RED BLOOD CELL CT 5.22 /CUMM (4.20-5.40); WHITE BLOOD CELL COUNT 28.8 /CUMM (4.8-10.8)
--- NOTE | 2017-08-16 03:25 | CT SCAN REPORT ---
EXAMINATION: CT ABDOMEN AND PELVIS WITH CONTRAST CLINICAL INFORMATION: Abdominal pain. Nausea and vomiting. Leukocytosis. COMPARISON: 05/13/2017 TECHNIQUE: Multidetector volumetric imaging was performed of the abdomen and pelvis following IV administration of 95 mL of Optiray 320 intravenous contrast. Sagittal and coronal reformatted images were obtained on the technologist's workstation. DLP: 264 mGy-cm FINDINGS: LUNG BASES: The visualized lung bases are unremarkable. LIVER, GALLBLADDER, AND BILIARY TREE: The liver is normal in size, shape, and attenuation. No focal hepatic lesion or biliary ductal dilatation is present. The gallbladder is unremarkable with no evidence of radiopaque gallstones, gallbladder wall thickening, or obvious pericholecystic inflammatory changes. PANCREAS: Unremarkable. SPLEEN: Unremarkable. ADRENAL GLANDS: Unremarkable. KIDNEYS AND URETERS: The kidneys are normal in size, shape, and attenuation. No hydronephrosis, hydroureter, or calculi seen. No perinephric stranding. BLADDER: Unremarkable. GASTROINTESTINAL TRACT: The stomach is unremarkable. The small bowel is normal in caliber without obstruction. A majority of the colon is decompressed which somewhat limits the evaluation. No evidence of colonic wall thickening or adjacent inflammation. Normal appendix. No free air or free fluid. ABDOMINAL WALL: No significant hernia is appreciated. LYMPH NODES: There is a 1.7 x 1.6 cm hypoattenuating lesion posterior to the left psoas muscle which measures higher than simple fluid attenuation. This is unchanged from the previous study. An has been present since the 12/03/2015 study. This is of uncertain clinical significance. This could represent an ovary. No additional evidence of lymphadenopathy. VASCULAR: Unremarkable. PELVIC VISCERA: Unremarkable. OSSEOUS STRUCTURES: No acute or suspicious osseous abnormality. IMPRESSION: No acute findings of the abdomen or pelvis. No inflammatory changes.
[2017-08-16 05:42] LABS: ABSOLUTE BASOPHIL COUNT 0 /CUMM (0.0-0.2); ABSOLUTE EOSINOPHIL COUNT 0 /CUMM (0.0-0.7); ABSOLUTE GRANULOCYTE CT 18.9 /CUMM (1.4-6.5); ABSOLUTE LYMPH COUNT 0.7 /CUMM (1.2-3.4); ABSOLUTE MONOCYTE COUNT 0.1 /CUMM (0.10-0.60); BASOPHIL % 0.1 % (0.0-2.0); EOSINOPHIL % 0 % (0-5); MEAN CORPUSCULAR HGB 30.6 PG (27.0-31.0); MEAN CORPUSCULAR HGB CONC 33.3 G/DL (33.0-37.0); MEAN CORPUSCULAR VOLUME 91.8 FL (81.0-99.0); MEAN PLATELET VOLUME 9.1 FL (7.4-10.4); PLATELET COUNT 221 /CUMM (130-400); RBC DISTRIBUTION WIDTH 12.5 % (11.5-14.5); RED BLOOD CELL CT 4.36 /CUMM (4.20-5.40); WHITE BLOOD CELL COUNT 19.7 /CUMM (4.8-10.8)
[2017-08-16 06:03] LABS: HEMATOCRIT 40.1 % (37-47)
[2017-08-16 06:05] LABS: GRANULOCYTE % 95.9 % (42.2-75.2)
--- NOTE | 2017-08-16 07:35 | History & Physical ---
Noam CAMARA,[facility] 08/16/17 0734: General Information and HPI MD Statement: I have seen and personally examined ABA RAMOS and documented this H&P. The patient is a 37 year old F who presented with a patient stated chief complaint of vomiting. Source of Information: patient Exam Limitations: no limitations History of Present Illness: This is a 36 year old woman with a past medical history of type 2 diabetes on insulin therapy, medication non-compliance, gastroparesis, cyclic vomiting syndrome, marijuana use (uses it for pain relief), anxiety, migraine, conversion disorder and prolactinoma with subsequent empty sella status-post treatment with carbegoline, multiple [place] admission with recent one in April 2017 for intractable nausea and vomiting, presents with 1 day onset of nausea, vomiting and abdominal pain. She reports having had about 10 episodes of nonbloody vomitus accompanied by generalized diffuse abdominal pain and episodes of non bloody diarrhhea. She states that she has had similar episodes before which required hospitalization for her acute on chronic "cyclical vomiting" and chronic gastroperesis. She denies any fever, chills, diarrhea,or change in diet. She does not endorse any history of recent infection, or sick contacts. She reports decrease in oral intake due to her nausea and vomiting which prompted her to present to the ED for evaluation. She reports frequent use of marijuana. Patient has been worked up before at [facility] in [place] by gastroenterology service for intractable vomiting and gastroparesis. She is currently on amitriptyline and metoclopramide for her symptoms. Regarding her diabetes and insulin regimen, patient admits to noncompliance and has not followed up with endocrinology or primary care since last discharge from [place]. 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 Age 65. FATHER (DM). Age 67. Psychosocial History Who Do You Live With? 2 nieces Services at Home: None Primary Language: Kiswahili, Romansh ETOH Use: denies use Illicit Drug Use: marijuana Living Will? no Power of Vessel Manager/HCP? no Functional Ability ADLs Independent: dressing, eating, toileting, bathing. Ambulation: independent IADLs Independent: shopping, housework, finances, food prep, telephone, transportation , medication admin. Review of Systems Review of Systems Constitutional: Denies: chills, diaphoresis, fever. EENTM: Denies: no symptoms. Cardiovascular: Denies: no symptoms. Respiratory: Denies: no symptoms. GI: Reports: abdominal pain, diarrhea, vomiting. Genitourinary: Reports: no symptoms. Musculoskeletal: Reports: no symptoms. Skin: Reports: no symptoms. Neurological/Psychological: Reports: no symptoms. Hematologic/Endocrine: Reports: no symptoms. Immunologic/Allergic: Reports: no symptoms. All Other Systems: Reviewed and Negative Exam & Diagnostic Data Last 24 Hrs of Vital Signs/I&O Vital Signs Date Time Temp Pulse Resp B/P B/P Pulse O2 O2 Flow FiO2 Mean Ox Delivery Rate 08/16 0913 97.0 99 20 95/55 100 Room Air 08/16 0519 97.2 76 18 89/50 98 Room Air 08/16 0215 97.0 08/16 0108 92 24 121/88 99 Intake & Output 08/16 1600 08/16 0800 08/16 0000 Intake Total 50 4000 Output Total Balance 50 4000 Intake, IV 4000 Intake, Oral 50 Patient 64.864 kg Weight Physical Exam General Appearance Alert, Oriented X3, Mild Distress Skin No Significant Lesion Skin Temp/Moisture Exam: Cool/Dry Sepsis Skin Exam (color): Normal for Ethnicity HEENT Atraumatic, dry oral mucosa Neck Supple, No JVD Lymphatic Cervical nl Cardiovascular Regular Rate, Normal S1, Normal S2 Lungs Clear to Auscultation, Normal Air Movement Abdomen Normal Bowel Sounds, Soft, no guarding or rebound tenderness. Neurological Normal Gait, Normal Speech, Strength at 5/5 X4 Ext, Normal Tone, Sensation Intact Extremities No Edema, Normal Pulses Vascular Normal Pulses Assessment/Plan Assessment: This is a 37-year-old lady with a significant medical history for type 2 diabetes with medication noncompliance, gastroparesis, cyclical vomiting syndrome, frequent cannabinoid use, prolactinoma, is presenting with acute onset of intractable non bloody vomitus and diarrhea. Impression Gastroenteritis as evident by multiple epiosed on non bloody vomitus and diarrhea. Differential include infection gastroenteritis vs acute on chronic gastroperesis and cyclical vomiting.This is possible multifactorial given the patient's history of cyclical vomiting syndrome, significant history of gastroparesis exacerbated by noncompliance and poor glycemic control, and frequent use of marijuana (cannabinoid hyperemesis syndrome??). Typically gastroperesis and cyclical vomiting does not present with diarrhea. Hyperglycemia with positive urine ketones. Hyperglycemia possible secondary to a history of noncompliance with insulin regimen vs acute illness/infection. The urine ketones most likely indicative of starvation ketosis given the decreased oral intake due to the vomiting. Hyperosmolar hyperglycemic syndrome is considered in the differential given the type 2 diabetes, ketonuria without ketonemia and a pH greater than 7.3. however typically this condition presents with much higher sugars in the range of 600 and above and the serum osmolality of 299 makes HHS very less likely (typical serum osmolality of 320 or greater is seen in HHS). Metabolic acidosis with anion gap. Patient does exhibit ketones in the urine which is most likely secondary to the starvation ketosis and the reason for the anion gap. The metabolic acidosis is probably worsened by the vomiting, even though this kind of metabolic derangement does not produce an anion gap. Leukocytosis. Likely reactive, patient is afebrile, does not endorse any signs of infection. History of chronic diseases: Gastroparesis, type 2 diabetes on insulin therapy, migraine, prolactinoma. Plan Place in observation a general medicine floor Continue with clear liquids if tolerated Metoclopramide 10 mg every 6 as needed or before meals Minimiize zofran use as this can worsen abdominal pain Continue amitryptylline 50 mg qpm will await gi consult reccs Will continue Accu-Cheks every 4 hours for now Will repeat another BEP Will await endocrinology recommendation for insulin regimen during hospitalization in the setting of decreased oral intake as patient may require D5 hydration Will minimize narcotic use as this can exacerbate her symptoms by decreasing gastric emptying (low dose hydromorphone as needed if pain is persistent and not able to take oral tramadol) As Ranked By This Provider Problem List: 1. Nausea and vomiting 2. Hyperglycemia 3. Leukocytosis 4. Metabolic acidosis Core Measures/Misc (04/15) Acute Coronary Syndrome ACS Diagnosis: No Congestive Heart Failure Congestive Heart Failure Diagnosis No Cerebrovascular Accident CVA/TIA Diagnosis: No VTE (View Protocol) VTE Risk Factors Acute Medical Illness No Mechanical VTE Prophylaxis d/t N/A MechProphylax Ordered No VTE Pharm Prophylaxis d/t NA PharmProphylax ordered Sepsis (View protocol) Sepsis Present: No Himanshu Melvin MD 08/16/173: General Information and HPI Allergies/Medications Home Med list Amitriptyline HCl 50 MG TABLET 1 TAB PO QPM CYCLIC VOMITING SYNDROME ( Reported) Insulin Aspart (Novolog) 100 UNIT/ML VIAL 0 SC TIDAC/HS Diabetes BEFORE MEALS. Blood Insulin Sugar Units <80 0 100-150 2 151-200 3 201-250 4 251-300 6 301-350 8 351-400 10 >400 12 and Call Doctor AT BEDTIME Blood Insulin Sugar Units <80 0 81-100 0 101-200 0 201-250 0 251-300 2 301-350 3 351-400 4 >400 5 and Call Doctor Insulin Detemir (Levemir) 100 UNIT/ML VIAL 10 U SC BID Diabetes . Metoclopramide HCl (Reglan) 10 MG TABLET 1 TAB PO 4 TIMES/DAY PRN NAUSEA Omeprazole 40 MG CAPSULE.DR 1 CAP PO DAILY Dyspepsia . Ondansetron (Zofran Odt) 4 MG TAB.RAPDIS 1 TAB PO Q6 PRN NAUSEA Ubidecarenone (Coenzyme Q10) 200 MG CAPSULE 1 CAP PO BID SUPPLEMENT (Reported ) Attending MD Review Statement Attending Statement Attending MD Statement: examined this patient, discuss w/resident/PA/BAG INSPECTOR, agreed w/resident/PA/BAG INSPECTOR, reviewed EMR data (avail), discussed with nursing, amended to note Attending Assessment/Plan: The patient is a 36 yo female with h/o DM2 (on insulin), gastroparesis and prior admissions for "cyclic vomiting" who presented the day prior to admission with recurrent severe abdominal pain, nausea and vomiting. She was noted to have hyperglycemia (400's) and over 20 episodes of vomiting. She does smoke marijuana when she feels nauseated, however she ran out. She denied fever, chills or other symptoms. Abdominal pain was diffuse, similar to prior presentations. Last admission was 05/15. She was given IV insulin in ED with a decrease in sugar. She states she has not seen her PCP (Asher Orta APRN) recently, however had been well prior to the above acute illness. Physical Exam: VS: T 97.2, P 76. R 19, BP 89/50-121/88, PO 98% RA HEENT: eyes- PERRLA, EOMI thais- dry mucosa Neck: no adenopathy Chest: clear Cor: RRR nl S1, S2 w/o murm Abd: BS+, quiet, soft, + diffuse mild tenderness w/o guarding/rebound Ext: no edema, pulses 2+ Neuro: alert & oriented x 3, non-focal exam Labs: as above Impression/Plan: #Abdominal Pain/Nausea/Vomiting- gastritis. Patient with h/o similar symptoms with multiple admissions. Ona large component to be related to gastroparesis. Concern regarding potential cyclic vomiting due to marijuana use. Requiring IV narcotic for pain relief. Last admission her symptoms spontaneously resolved after hydration and sugar control. Plan: Admit to medical service. NPO, IV hydration IV narcotic (Dilaudid) for severe pain and will wean as able. Agree with IV Metoclopramide. GI input/consult. #Hyperglycemia/DM2- as above, sugars in 400's on presentation and responded to IV insulin. Plan: Continue close monitoring on sugars and insulin administration. Endocrinology consult - Dr. Hewitt. #Leukocytosis- no clinical evidence of focal infection. May be stress related. Plan: Will follow WBC. #Metabolic Acidosis/Ketosis- most likely related to starvation rather wolfgang DKA. Not likely HHS. Plan: Will follow with hydration and control of glucose.
--- NOTE | 2017-08-16 11:32 | Cons- Endocrinology ---
General Information and HPI Consulting Request Date of Consult: 08/16/17 Requested By: medical team Reason for Consult: management of uncontrolled diabetes. Source of Information: patient Exam Limitations: no limitations History of Present Illness: 37 y/o female, who was diagnosed with pituitary prolactin secreting adenoma when she was a teenager when she was in [place] after she didn't have periods for a while. But she didn't take care of herself. She moved to [place] and started seeing Dr. Acevedo at [place] more tolliver 5 years ago and MRI was done several times at [place] and she was told that there was a tumor in her pituitary gland and she was treated with Dostinex. According to the information in [facility], her prolactin level was 320.9 along with FSH 1.3 and LH 0.4 in 2010. However, she has been taking Dostinex only intermittently. In [facility], MRI done in 2013 showed normal pituitary gland. In 2015, MRI showed partial empty sella without evidence of pituitary tumor. In 08/2016, her prolactin level was 139.9. In 04/2017 when she was in , she stated that she discontinued Dostinex on her own after she learned that Dostinex was interfering with one of her medications for gastroparesis. But she hasn't seen Dr. Acevedo for f/u since 04/2017. At age of 30, she was diagnosed with diabetes type 2. Initially she was treated with oral medication. Shortly after she was diagnosed with diabetes, she was put on insulin. But she hasn't been comopliance with insulin regimen. PRINCE 65 antibody was checked in 2012 and in 11/2015, and it was negative. In 11/2015, her c-peptide was 1.07. Probably In 2015, she was diagnosed with gastroparesis and she has been on various medications including reglan. Patient presented with abdominal pain , nauseu and vomiting again and will be admitted to the floor. In ER, her glucose level was 391, Cr 0.6, AG 27, acetone negative, bicarb 14. She received Levemir 25 units this morning. Her FSGs have been in the 200s. Allergies/Medications Allergies: Coded Allergies: No Known Allergies (01/21/17) Home Med List: Amitriptyline HCl 50 MG TABLET 1 TAB PO QPM CYCLIC VOMITING SYNDROME ( Reported) Dicyclomine Hydrochloride (Bentyl) 10 MG CAPSULE 1 CAP PO TID PRN VOMITING Insulin Aspart (Novolog) 100 UNIT/ML VIAL 0 SC TIDAC/HS Diabetes BEFORE MEALS. Blood Insulin Sugar Units <80 0 100-150 0 151-200 3 201-250 4 251-300 6 301-350 8 351-400 10 >400 12 and Call Doctor AT BEDTIME Blood Insulin Sugar Units <80 0 81-100 0 101-200 0 201-250 0 251-300 2 301-350 3 351-400 4 >400 5 and Call Doctor Insulin Detemir (Levemir) 100 UNIT/ML VIAL 11 U SC BID Diabetes . Metoclopramide HCl (Reglan) 10 MG TABLET 1 TAB PO 4 TIMES/DAY PRN NAUSEA Omeprazole 40 MG CAPSULE.DR 1 CAP PO DAILY Dyspepsia . Ondansetron (Zofran Odt) 4 MG TAB.RAPDIS 1 TAB PO Q6 PRN NAUSEA Prochlorperazine Maleate (Compazine) 10 MG TABLET 1 TAB PO Q8 PRN Nausea or vomitting . 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 Age 65. FATHER (DM). Age 67. Psychosocial History Who Do You Live With? 2 nieces Services at Home: None Primary Language: Sami, Korean ETOH Use: denies use Illicit Drug Use: marijuana Living Will? no Power of Supervisor [place]du[place] Cutting/HCP? no Functional Ability ADLs Independent: dressing, eating, toileting, bathing. Ambulation: independent IADLs Independent: shopping, housework, finances, food prep, telephone, transportation , medication admin. Exam & Diagnostic Data Last 24 Hrs of Vital Signs/I&O Vital Signs Date Time Temp Pulse Resp B/P B/P Pulse O2 O2 Flow FiO2 Mean Ox Delivery Rate 08/16 1400 97.0 08/16 1326 96.0 70 16 117/60 94 Room Air 08/16 1320 96.0 70 16 118/60 98 Room Air 08/16 1251 98.0 08/16 1159 95.2 74 125/67 08/16 1140 98.0 90 18 125/67 93 Room Air 08/16 0913 97.0 99 20 95/55 100 Room Air 08/16 0519 97.2 76 18 89/50 98 Room Air 08/16 0215 97.0 08/16 0108 92 24 121/88 99 Intake & Output 08/16 1600 08/16 0800 08/16 0000 Intake Total 50 4000 Output Total Balance 50 4000 Intake, IV 4000 Intake, Oral 50 Patient 143 lb Weight Physical Exam General Appearance: no apparent distress Neck: normal inspection Respiratory: lungs clear Cardiovascular: regular rate/rhythm Gastrointestinal: soft, non-tender Extremities: no edema Labs/Goyo Results: Laboratory Tests 08/16 08/16 0645 0528 Blood Gas pH (7.35 - 7.45 PH) 7.38 pCO2 (35 - 45 TORR) 27 L pO2 (80 - 100 TORR) 111 H HCO3 (21 - 28 MEQ/L) 16 L ABG O2 Sat (Measured) (>96.0 %) 98.0 P-50 (Temp Corrected) Y Carboxyhemoglobin (1.5 - 5.0 %) 0.2 L O2 Concentration % RA Temperature (97.0 - 100.0 FARH) 97.2 Chemistry Sodium (137 - 145 mmol/L) 141 Potassium (3.5 - 5.1 mmol/L) 4.2 Chloride (98 - 107 mmol/L) 108 H Carbon Dioxide (22 - 30 mmol/L) 15 L Anion Gap (5 - 16) 18 H BUN (7 - 17 mg/dL) 11 Creatinine (0.5 - 1.0 mg/dL) 0.5 Estimated GFR (>60 ml/min) > 60 BUN/Creatinine Ratio (7 - 25 %) 22.0 Glucose (65 - 99 mg/dL) 280 H Serum Osmolality (285 - 295 MOSM/KG) 299 H Calcium (8.4 - 10.2 mg/dL) 7.8 L Hematology CBC w Diff NO MAN DIFF REQ WBC (4.8 - 10.8 /CUMM) 19.7 H RBC (4.20 - 5.40 /CUMM) 4.36 Hgb (12.0 - 16.0 G/DL) 13.4 Hct (37 - 47 %) 40.1 MCV (81.0 - 99.0 FL) 91.8 MCH (27.0 - 31.0 PG) 30.6 RDW (11.5 - 14.5 %) 12.5 Plt Count (130 - 400 /CUMM) 221 MPV (7.4 - 10.4 FL) 9.1 Gran % (42.2 - 75.2 %) 95.9 H Lymphocytes % (20.5 - 51.1 %) 3.6 L Monocytes % (1.7 - 9.3 %) 0.4 L Eosinophils % (0 - 5 %) 0 Basophils % (0.0 - 2.0 %) 0.1 Absolute Granulocytes (1.4 - 6.5 /CUMM) 18.9 H Absolute Lymphocytes (1.2 - 3.4 /CUMM) 0.7 L Absolute Monocytes (0.10 - 0.60 /CUMM) 0.1 Absolute Eosinophils (0.0 - 0.7 /CUMM) 0 Absolute Basophils (0.0 - 0.2 /CUMM) 0 PUBS MCHC (33.0 - 37.0 G/DL) 33.3 Miscellaneous Phlebotomy Draw Site RIGHT RADIAL Toxicology Serum Alcohol (<10 MG/DL) < 10.0 08/16 08/16 08/16 0435 0335 0203 Chemistry Sodium (137 - 145 mmol/L) 144 Potassium (3.5 - 5.1 mmol/L) 4.0 Chloride (98 - 107 mmol/L) 102 Carbon Dioxide (22 - 30 mmol/L) 14 L Anion Gap (5 - 16) 27 H BUN (7 - 17 mg/dL) 15 Creatinine (0.5 - 1.0 mg/dL) 0.6 Estimated GFR (>60 ml/min) > 60 BUN/Creatinine Ratio (7 - 25 %) 25.0 Glucose (65 - 99 mg/dL) 391 H Hemoglobin A1c (4.2 - 5.8 %) 11.8 H Calcium (8.4 - 10.2 mg/dL) 9.2 Total Bilirubin (0.2 - 1.3 mg/dL) 1.5 H AST (14 - 36 U/L) 26 ALT (9 - 52 U/L) 33 Alkaline Phosphatase (<127 U/L) 116 Total Protein (6.3 - 8.2 g/dL) 7.7 Albumin (3.5 - 5.0 g/dL) 4.8 Globulin (1.9 - 4.2 gm/dL) 2.9 Albumin/Globulin Ratio (1.1 - 2.2 %) 1.7 Lipase (23 - 300 U/L) 43 Total Beta HCG (NEGATIVE) NEGATIVE Toxicology Urine Opiates Screen (>2000 NG/ML) 481.00 Methadone Screen (>300 NG/ML) < 40 Barbiturate Screen (>200 NG/ML) < 60 Ur Phencyclidine Scrn (>25 NG/ML) < 6.00 Amphetamines Screen (>1000 NG/ML) < 100 U Benzodiazepines Scrn (>200 NG/ML) < 85 Urine Cocaine Screen (>300 NG/ML) < 50 Urine Cannabis Screen (>50 NG/ML) > 80.00 H Acetone Level (NEGATIVE) NEGATIVE Urines Urine Color (YEL,AMB,STR) STRAW Urine Clarity (CLEAR) CLEAR Urine pH (5.0 - 8.0) 6.0 Ur Specific [place] (1.001 - 1.035) 1.015 Urine Protein (NEG,<30 MG/DL) NEG Urine Ketones (NEG) 40 H Urine Nitrite (NEG) NEG Urine Bilirubin (NEG) NEG Urine Urobilinogen (0.1 - 1.0 EU/dl) 0.2 Ur Leukocyte Esterase (NEG) NEG Ur Microscopic EXAM NOT REQUIRED Urine Hemoglobin (NEG) NEG Urine Glucose (N MG/DL) >=1000 H 08/16 0115 Hematology CBC w Diff MAN DIFF ORDERED WBC (4.8 - 10.8 /CUMM) 28.8 H RBC (4.20 - 5.40 /CUMM) 5.22 Hgb (12.0 - 16.0 G/DL) 15.8 Hct (37 - 47 %) 47.5 H MCV (81.0 - 99.0 FL) 90.9 MCH (27.0 - 31.0 PG) 30.3 RDW (11.5 - 14.5 %) 12.5 Plt Count (130 - 400 /CUMM) 311 MPV (7.4 - 10.4 FL) 9.8 Gran % (42.2 - 75.2 %) 94.0 H Lymphocytes % (20.5 - 51.1 %) 4.0 L Monocytes % (1.7 - 9.3 %) 1.5 L Eosinophils % (0 - 5 %) 0 Basophils % (0.0 - 2.0 %) 0.5 Absolute Granulocytes (1.4 - 6.5 /CUMM) 27.1 H Segmented Neutrophils (42.2 - 75.2 %) 92 H Band Neutrophils (0.0 - 5.0 %) 1 Absolute Lymphocytes (1.2 - 3.4 /CUMM) 1.1 L Lymphocytes (20.5 - 51.1 %) 4 L Monocytes (1.7 - 9.3 %) 1 L Absolute Monocytes (0.10 - 0.60 /CUMM) 0.4 Absolute Eosinophils (0.0 - 0.7 /CUMM) 0 Basophils (0.0 - 2.0 %) 2 Absolute Basophils (0.0 - 0.2 /CUMM) 0.1 Platelet Estimate (ADEQUATE) ADEQUATE Normocytic RBCs VERIFIED Normochromic RBCs VERIFIED PUBS MCHC (33.0 - 37.0 G/DL) 33.3 Assessment/Plan Assessment/Plan 37 y/o female with a complicated PMH and noncompliance, was admitted for abdominal pain, nausea and hyperglycemia. Clinically, she has been feeling better and would like to eat meals. Plan: 1. start consistent carbohydrates 1 diet; 2. Levemir 10 units twice a day starting tomorrow as she received Levemir 25 units early today in ER; 3. Novolog coverage before meals and Novolog coverage at bedtime; detail see the inpatient DM order; 4. monitor FSGs. will follow. Inpatient Diabetes Orders Before Each Meal: Bolus Insulin: Novolog < 80 mg/dl: no coverage 80-100 mg/dl: no coverage 101-120 mg/dl: 2 units 121-150 mg/dl: 2 units 151-200 mg/dl: 3 units 201-250 mg/dl: 4 units 251-300 mg/dl: 6 units 301-350 mg/dl: 8 units 351-400 mg/dl: 10 units > 400 mg/dl: 12 units Bedtime: Bolus Insulin: Novolog < 80 mg/dl: no coverage 80-100 mg/dl: no coverage 101-120 mg/dl: no coverage 121-150 mg/dl: no coverage 151-200 mg/dl: no coverage 201-250 mg/dl: no coverage 251-300 mg/dl: 2 units 301-350 mg/dl: 3 units 351-400 mg/dl: 4 units > 400 mg/dl: 5 units Consult Acknowledgment - Thank you for your consult request.
[2017-08-16 11:40] VITALS: BP 125/67
[2017-08-16 13:26] VITALS: BP 117/60
--- NOTE | 2017-08-16 15:05 | Cons- Gastroenterology ---
General Information and HPI Consulting Request Date of Consult: 08/16/17 Requested By: Himanshu Melvin MD Reason for Consult: Nausea, vomiting, abdominal pain in a pt with a history of gastroparesis Source of Information: patient, old records Exam Limitations: no limitations History of Present Illness: Ms. Jeffery is a 37 year old female with a history of insulin dependent diabetes meltitus and gastroparesis who presented to today with complaints of worsening abdominal pain, nausea and vomiting. She has been worked up at [facility] and had an EGD last year which was consistent with gastroparesis. She has had intermittent nausea and vomiting over the past several years and she has been taking reglan and elavil for this. She also admits to chronic marijuana use which she states she uses for chronic abdominal pain. She notes that over the past week she has not been taking her medications as there was apparently there was a mix up as to where her prescriptions were sent and she feels her recurrent symptoms are from not getting her reglan. She notes that over the past 24-48 hours she has not been able to tolerate any PO intake and she had about 10 episodes of bilious vomiting over this time period. This has been associated with abdominal pain which is typical of her prior attacks of gastroparesis. She denies heartburn, dysphagia or hemetmesis. She had some diarrhea yesterday which was not bloody and it hasn't persisted. In the ER she was hemodynamically stable and was given IV reglan with improvement in her symptoms and she also had an unremarkable ct scan. She has been admitted for observation and she is currently tolerating liquids. Allergies/Medications Allergies: Coded Allergies: No Known Allergies (01/21/17) Home Med List: Amitriptyline HCl 50 MG TABLET 1 TAB PO QPM CYCLIC VOMITING SYNDROME ( Reported) Dicyclomine Hydrochloride (Bentyl) 10 MG CAPSULE 1 CAP PO TID PRN VOMITING Insulin Aspart (Novolog) 100 UNIT/ML VIAL 0 SC TIDAC/HS Diabetes BEFORE MEALS. Blood Insulin Sugar Units <80 0 100-150 0 151-200 3 201-250 4 251-300 6 301-350 8 351-400 10 >400 12 and Call Doctor AT BEDTIME Blood Insulin Sugar Units <80 0 81-100 0 101-200 0 201-250 0 251-300 2 301-350 3 351-400 4 >400 5 and Call Doctor Insulin Detemir (Levemir) 100 UNIT/ML VIAL 11 U SC BID Diabetes . Metoclopramide HCl (Reglan) 10 MG TABLET 1 TAB PO 4 TIMES/DAY PRN NAUSEA Omeprazole 40 MG CAPSULE.DR 1 CAP PO DAILY Dyspepsia . Ondansetron (Zofran Odt) 4 MG TAB.RAPDIS 1 TAB PO Q6 PRN NAUSEA Prochlorperazine Maleate (Compazine) 10 MG TABLET 1 TAB PO Q8 PRN Nausea or vomitting . Ubidecarenone (Coenzyme Q10) 200 MG CAPSULE 1 CAP PO BID SUPPLEMENT (Reported ) Past History Travel History Traveled to [place] past 21 day No Medical History Neurological: dizziness, migraine EENT: NONE Cardiovascular: NONE Respiratory: NONE Gastrointestinal: GASTROPARESIS Hepatic: NONE Renal: NONE Musculoskeletal: NONE Psychiatric: anxiety, depression, mood disorder related to substance abuse Endocrine: diabetes, Hx of prolactin secreting pituitary ademona partial empty sella Blood Disorders: NONE Cancer(s): NONE MONOTYPER/Reproductive: NONE Surgical History Surgical History: none Family History Relations & Conditions If Any: MOTHER (Diabetes mellitus , hypertension, hyperlipidemia, hypothyroidism , cardiac issues status post pacemaker placement). Age 65. FATHER (DM). Age 67. Psychosocial History Who Do You Live With? 2 nieces Services at Home: None Primary Language: Pashto, Thai ETOH Use: denies use Illicit Drug Use: marijuana Living Will? no Power of Exercise Teacher/HCP? no Functional Ability ADLs Independent: dressing, eating, toileting, bathing. Ambulation: independent IADLs Independent: shopping, housework, finances, food prep, telephone, transportation , medication admin. Review of Systems Review of Systems Constitutional: Reports: malaise, weakness. Denies: chills, diaphoresis, fever. EENTM: Denies: no symptoms. Cardiovascular: Denies: no symptoms. Respiratory: Denies: no symptoms. GI: Reports: see HPI. Genitourinary: Denies: no symptoms. Musculoskeletal: Denies: no symptoms. Skin: Denies: no symptoms. Neurological/Psychological: Reports: anxiety, headache. Hematologic/Endocrine: Denies: no symptoms. Immunologic/Allergic: Denies: no symptoms. All Other Systems: Reviewed and Negative Exam & Diagnostic Data Vital Signs and I&O Vital Signs Date Time Temp Pulse Resp B/P B/P Pulse O2 O2 Flow FiO2 Mean Ox Delivery Rate 08/16 1400 97.0 08/16 1326 96.0 70 16 117/60 94 Room Air 08/16 1320 96.0 70 16 118/60 98 Room Air 08/16 1251 98.0 08/16 1159 95.2 74 125/67 08/16 1140 98.0 90 18 125/67 93 Room Air 08/16 0913 97.0 99 20 95/55 100 Room Air 08/16 0519 97.2 76 18 89/50 98 Room Air 08/16 0215 97.0 08/16 0108 92 24 121/88 99 Intake & Output 08/16 1600 08/16 0400 08/15 1600 08/15 0400 08/14 1600 08/14 0400 Intake Total 1050 3000 Output Total Balance 1050 3000 Intake, IV 1000 3000 Intake, Oral 50 Patient 143 lb Weight Physical Exam General Appearance: well developed/nourished, no apparent distress, alert, anxious Head: atraumatic, normal appearance Eyes: Bilateral: normal appearance. Ears, Nose, Throat: normal pharynx, normal ENT inspection, hearing grossly normal Neck: normal inspection, supple, full range of motion Cardiovascular: regular rate/rhythm Gastrointestinal: normal bowel sounds, soft, non-tender, no organomegaly Rectal: deferred Back: normal inspection, normal range of motion Extremities: normal inspection, normal capillary refill, normal range of motion, no edema Skin: intact, normal color, warm/dry Results Pertinent Lab Results: Laboratory Tests 08/16 08/16 0645 0528 Blood Gas pH (7.35 - 7.45 PH) 7.38 pCO2 (35 - 45 TORR) 27 L pO2 (80 - 100 TORR) 111 H HCO3 (21 - 28 MEQ/L) 16 L ABG O2 Sat (Measured) (>96.0 %) 98.0 P-50 (Temp Corrected) Y Carboxyhemoglobin (1.5 - 5.0 %) 0.2 L O2 Concentration % RA Temperature (97.0 - 100.0 FARH) 97.2 Chemistry Sodium (137 - 145 mmol/L) 141 Potassium (3.5 - 5.1 mmol/L) 4.2 Chloride (98 - 107 mmol/L) 108 H Carbon Dioxide (22 - 30 mmol/L) 15 L Anion Gap (5 - 16) 18 H BUN (7 - 17 mg/dL) 11 Creatinine (0.5 - 1.0 mg/dL) 0.5 Estimated GFR (>60 ml/min) > 60 BUN/Creatinine Ratio (7 - 25 %) 22.0 Glucose (65 - 99 mg/dL) 280 H Serum Osmolality (285 - 295 MOSM/KG) 299 H Calcium (8.4 - 10.2 mg/dL) 7.8 L Hematology CBC w Diff NO MAN DIFF REQ WBC (4.8 - 10.8 /CUMM) 19.7 H RBC (4.20 - 5.40 /CUMM) 4.36 Hgb (12.0 - 16.0 G/DL) 13.4 Hct (37 - 47 %) 40.1 MCV (81.0 - 99.0 FL) 91.8 MCH (27.0 - 31.0 PG) 30.6 RDW (11.5 - 14.5 %) 12.5 Plt Count (130 - 400 /CUMM) 221 MPV (7.4 - 10.4 FL) 9.1 Gran % (42.2 - 75.2 %) 95.9 H Lymphocytes % (20.5 - 51.1 %) 3.6 L Monocytes % (1.7 - 9.3 %) 0.4 L Eosinophils % (0 - 5 %) 0 Basophils % (0.0 - 2.0 %) 0.1 Absolute Granulocytes (1.4 - 6.5 /CUMM) 18.9 H Absolute Lymphocytes (1.2 - 3.4 /CUMM) 0.7 L Absolute Monocytes (0.10 - 0.60 /CUMM) 0.1 Absolute Eosinophils (0.0 - 0.7 /CUMM) 0 Absolute Basophils (0.0 - 0.2 /CUMM) 0 PUBS MCHC (33.0 - 37.0 G/DL) 33.3 Miscellaneous Phlebotomy Draw Site RIGHT RADIAL Toxicology Serum Alcohol (<10 MG/DL) < 10.0 08/16 08/16 08/16 4565 033 0203 Chemistry Sodium (137 - 145 mmol/L) 144 Potassium (3.5 - 5.1 mmol/L) 4.0 Chloride (98 - 107 mmol/L) 102 Carbon Dioxide (22 - 30 mmol/L) 14 L Anion Gap (5 - 16) 27 H BUN (7 - 17 mg/dL) 15 Creatinine (0.5 - 1.0 mg/dL) 0.6 Estimated GFR (>60 ml/min) > 60 BUN/Creatinine Ratio (7 - 25 %) 25.0 Glucose (65 - 99 mg/dL) 391 H Hemoglobin A1c (4.2 - 5.8 %) 11.8 H Calcium (8.4 - 10.2 mg/dL) 9.2 Total Bilirubin (0.2 - 1.3 mg/dL) 1.5 H AST (14 - 36 U/L) 26 ALT (9 - 52 U/L) 33 Alkaline Phosphatase (<127 U/L) 116 Total Protein (6.3 - 8.2 g/dL) 7.7 Albumin (3.5 - 5.0 g/dL) 4.8 Globulin (1.9 - 4.2 gm/dL) 2.9 Albumin/Globulin Ratio (1.1 - 2.2 %) 1.7 Lipase (23 - 300 U/L) 43 Total Beta HCG (NEGATIVE) NEGATIVE Toxicology Urine Opiates Screen (>2000 NG/ML) 481.00 Methadone Screen (>300 NG/ML) < 40 Barbiturate Screen (>200 NG/ML) < 60 Ur Phencyclidine Scrn (>25 NG/ML) < 6.00 Amphetamines Screen (>1000 NG/ML) < 100 U Benzodiazepines Scrn (>200 NG/ML) < 85 Urine Cocaine Screen (>300 NG/ML) < 50 Urine Cannabis Screen (>50 NG/ML) > 80.00 H Acetone Level (NEGATIVE) NEGATIVE Urines Urine Color (YEL,AMB,STR) STRAW Urine Clarity (CLEAR) CLEAR Urine pH (5.0 - 8.0) 6.0 Ur Specific [place] (1.001 - 1.035) 1.015 Urine Protein (NEG,<30 MG/DL) NEG Urine Ketones (NEG) 40 H Urine Nitrite (NEG) NEG Urine Bilirubin (NEG) NEG Urine Urobilinogen (0.1 - 1.0 EU/dl) 0.2 Ur Leukocyte Esterase (NEG) NEG Ur Microscopic EXAM NOT REQUIRED Urine Hemoglobin (NEG) NEG Urine Glucose (N MG/DL) >=1000 H 08/16 0115 Hematology CBC w Diff MAN DIFF ORDERED WBC (4.8 - 10.8 /CUMM) 28.8 H RBC (4.20 - 5.40 /CUMM) 5.22 Hgb (12.0 - 16.0 G/DL) 15.8 Hct (37 - 47 %) 47.5 H MCV (81.0 - 99.0 FL) 90.9 MCH (27.0 - 31.0 PG) 30.3 RDW (11.5 - 14.5 %) 12.5 Plt Count (130 - 400 /CUMM) 311 MPV (7.4 - 10.4 FL) 9.8 Gran % (42.2 - 75.2 %) 94.0 H Lymphocytes % (20.5 - 51.1 %) 4.0 L Monocytes % (1.7 - 9.3 %) 1.5 L Eosinophils % (0 - 5 %) 0 Basophils % (0.0 - 2.0 %) 0.5 Absolute Granulocytes (1.4 - 6.5 /CUMM) 27.1 H Segmented Neutrophils (42.2 - 75.2 %) 92 H Band Neutrophils (0.0 - 5.0 %) 1 Absolute Lymphocytes (1.2 - 3.4 /CUMM) 1.1 L Lymphocytes (20.5 - 51.1 %) 4 L Monocytes (1.7 - 9.3 %) 1 L Absolute Monocytes (0.10 - 0.60 /CUMM) 0.4 Absolute Eosinophils (0.0 - 0.7 /CUMM) 0 Basophils (0.0 - 2.0 %) 2 Absolute Basophils (0.0 - 0.2 /CUMM) 0.1 Platelet Estimate (ADEQUATE) ADEQUATE Normocytic RBCs VERIFIED Normochromic RBCs VERIFIED PUBS MCHC (33.0 - 37.0 G/DL) 33.3 Imaging/Other Studies: Endoscopy Procedure Medical History: unchanged (see armani ov note 01/13/16) Mental Status: alert/oriented Heart/Lung Eval Prior to Sedation: within normal limits Candidate for Sedation? Yes Procedure Date: 01/14/16 Procedure Type: EGD w/biopsy Extruding Department Supervisor: BRANDY WINSLOW MD ASA Classification: III Indications: Abdominal pain, nausea, vomiting, wt loss. Instrument: diagnostic gastroscope Meds Received: NATHANAEL Patient's Tolerance: good Complications: none Extent Reached: second part of duodenum Procedure: After getting written informed consent the patient was placed in the left lateral decubitus position with pulse oximetry, cardiac monitoring, and supplemental oxygen given. A bite block was inserted and IV sedation was given until the desired effect was achieved. A high definition upper Olympus endoscope was then inserted into the mouth and advanced to the second portion of the duodenum with little difficulty. Retroflexed views and photodocumentation was obtained. Findings: Esophagus: The esophageal mucosa was grossly normal in appearance and there was a normal-appearing Z line at 35 cm from the incisors. Stomach: There was a moderate amount of leftover liquid and bile, but there was no leftover solid food. The liquid was able to be suctioned away revealing grossly normal gastric mucosa without any ulcers, erosions, or masses appreciated and the pylorus was patent and easily traversible. Distention was normal, but peristalsis appeared decreased. Retroflexed views were normal and did not reveal a significant hiatal hernia. Random biopsies were obtained from the antrum and body of the stomach with cold biopsy forceps and were sent pathology for further evaluation. Duodenum: The duodenal bulb, sweep, and folds were grossly normal in appearance. Random biopsies were obtained from the second portion of the duodenum and were sent to pathology for further evaluation. The 3rd portion of the duodenum was able to be visualized and there was no obvious dilation of the duodenum. Impression: 1. Findings suggestive of gastroparesis status post gastric biopsies. 2. Grossly normal small bowel folds status post biopsies. SERVICE DATE: 08/16/17 EXAM TYPE: CAT - CT ABD & PELVIS W IV CONTRAST EXAMINATION: CT ABDOMEN AND PELVIS WITH CONTRAST CLINICAL INFORMATION: Abdominal pain. Nausea and vomiting. Leukocytosis. COMPARISON: 05/13/2017 TECHNIQUE: Multidetector volumetric imaging was performed of the abdomen and pelvis following IV administration of 95 mL of Optiray 320 intravenous contrast. Sagittal and coronal reformatted images were obtained on the technologist's workstation. DLP: 264 mGy-cm FINDINGS: LUNG BASES: The visualized lung bases are unremarkable. LIVER, GALLBLADDER, AND BILIARY TREE: The liver is normal in size, shape, and attenuation. No focal hepatic lesion or biliary ductal dilatation is present. The gallbladder is unremarkable with no evidence of radiopaque gallstones, gallbladder wall thickening, or obvious pericholecystic inflammatory changes. PANCREAS: Unremarkable. SPLEEN: Unremarkable. ADRENAL GLANDS: Unremarkable. KIDNEYS AND URETERS: The kidneys are normal in size, shape, and attenuation. No hydronephrosis, hydroureter, or calculi seen. No perinephric stranding. BLADDER: Unremarkable. GASTROINTESTINAL TRACT: The stomach is unremarkable. The small bowel is normal in caliber without obstruction. A majority of the colon is decompressed which somewhat limits the evaluation. No evidence of colonic wall thickening or adjacent inflammation. Normal appendix. No free air or free fluid. ABDOMINAL WALL: No significant hernia is appreciated. LYMPH NODES: There is a 1.7 x 1.6 cm hypoattenuating lesion posterior to the left psoas muscle which measures higher than simple fluid attenuation. This is unchanged from the previous study. An has been present since the 12/03/2015 study. This is of uncertain clinical significance. This could represent an ovary. No additional evidence of lymphadenopathy. VASCULAR: Unremarkable. PELVIC VISCERA: Unremarkable. OSSEOUS STRUCTURES: No acute or suspicious osseous abnormality. IMPRESSION: No acute findings of the abdomen or pelvis. No inflammatory changes. Assessment/Plan Assessment/Recommendations: Assessment: Ms. Jeffery is a 37 year old female with diabetes and gastroparesis who presented to today with an exacerbation of her symptoms most likely seocndary to her not getting her reglan over the past week. She is without any concerning GI warning signs and her ct scan was negative for any acute inta- abdominal process so as she has symptomatically improved with re-starting her reglan I don't feel a repeat EGD is warranted at this time. Recommendations: 1. Diet as tolearted 2. Continue reglan before meals and would use IV reglan if she isn't tolearting it orally 3. Follow finger sticks and control as closely as possible as per endocrinology recommendations. 4. Analgesia as needed 5. If diet is able to be advanced would consider d/c home in the am for her to follow up with her outpatient gastroenterologists at [facility] Consult Acknowledgment - Thank you for your consult request.
--- NOTE | 2017-08-16 17:24 | Admission Certification ---
Admission Certification Certification Statement - As attending physician, I certify that at the time of - admission, based on clinical presentation, severity of - symptoms, need for further diagnostic testing and - therapeutic interventions, and risk of adverse outcomes - without in-hospital treatment, in my clinical assessment, - this patient requires an acute hospital stay for a minimum - of two nights or longer. I have also considered psychsocial - factors such as support system, advanced age, financial - issues, cognitive issues, and failed out-patient treatments, - past re-admission history, safety of patient, and lack of - compliance as applicable. Specific rationale supporting this admission is: The patient presents with severe abdominal pian requiring IV analgesic, hyperglycemia requiring IV insulin, severe gastroparesis with nausea/vomiting. Needs admission for IV fluids, close glucose monitoring, IV analgesics, GI and Endocrinology consults.
[2017-08-16 18:49] VITALS: BP 108/62
[2017-08-16 21:22] VITALS: BP 113/76
[2017-08-17 07:11] VITALS: BP 90/61
--- NOTE | 2017-08-17 07:23 | PN- Housestaff ---
See Addendum Subjective Follow-up For: Gastroparesis Subjective: No overnight events. Patient remained afebrile overnight. Seen and examined this morning. Patient denied any chest pain, short of breath, nausea, vomiting, abdominal pain, chills, fever and dysuria. Patient is feeling better and she is tolerating food. Patient can be discharged today. Review of Systems Constitutional: Reports: no symptoms. EENTM: Reports: no symptoms. Cardiovascular: Reports: no symptoms. Respiratory: Reports: no symptoms. Gastrointestinal: Reports: no symptoms. Genitourinary: Reports: no symptoms. Musculoskeletal: Reports: no symptoms. Neurological/Psychological: Reports: no symptoms. Objective Last 24 Hrs of Vital Signs/I&O Vital Signs Date Time Temp Pulse Resp B/P B/P Pulse O2 O2 Flow FiO2 Mean Ox Delivery Rate 08/17 0711 98.1 78 18 90/61 98 Room Air 08/16 2122 98.2 76 18 113/76 99 Room Air 08/16 2055 Room Air 08/16 1849 97.2 62 16 108/62 96 Room Air 08/16 1848 97.2 62 17 108/62 96 Room Air 08/16 1400 97.0 08/16 1326 96.0 70 16 117/60 94 Room Air 08/16 1320 96.0 70 16 118/60 98 Room Air 08/16 1251 98.0 08/16 1159 95.2 74 125/67 08/16 1140 98.0 90 18 125/67 93 Room Air 08/16 0913 97.0 99 20 95/55 100 Room Air Intake & Output 08/17 1600 08/17 0800 08/17 0000 Intake Total 250 280 Output Total 0 100 Balance 250 180 Intake, IV 10 40 Intake, Oral 240 240 Number 0 0 Bowel Movements Output, 0 100 Emesis Patient 145 lb Weight Weight Reported by Patient Measurement Method Physical Exam General Appearance: Alert, Oriented X3, Cooperative, No Acute Distress Skin Temp/Moisture Exam: Warm/Dry HEENT: Atraumatic, PERRLA, EOMI Neck: Supple Cardiovascular: Normal S1, Normal S2 Lungs: Clear to Auscultation Abdomen: Soft, No Tenderness Neurological: Normal Speech, Strength at 5/5 X4 Ext, Normal Tone, Sensation Intact Extremities: No Edema Assessment/Plan Assessment: 36 year old woman with a past medical history of type 2 diabetes on insulin therapy, medication non-compliance, gastroparesis, cyclic vomiting syndrome, marijuana use (uses it for pain relief), anxiety, migraine, conversion disorder and prolactinoma with subsequent empty sella status-post treatment with carbegoline, multiple [facility] admission with recent one in April 2017 for intractable nausea and vomiting, presents with 1 day onset of nausea, vomiting and abdominal pain. Keep the patient under observation to treat for nausea and vomiting due to gastroparesis. Nausea and vomiting due to Gastroparesis: -Nothing by mouth metoclopramide 4 times a day. -Zofran for nausea. -Strict control of blood glucose level. -By mouth Protonix -Patient was noncompliant to home medications. -We will follow the gastroenterology recommendations. Hyperglycemia due to uncontrolled type 2 DM: -Patient was noncompliant to home medication. -Accu-Cheks -Levemir 10 units twice a day. -Insulin NovoLog according to sliding scale. -Patient's HbA1c level was 11.8 -We'll follow the endocrinology recommendations. -Today her FBS is 127. DVT prophylaxis: Mechanical and Lovenox. CODE STATUS: Full code. Problem List: 1. Gastroparesis Pain Ratin Pain Location: none Pain Goal: Remain pain free Pain Plan: tylenol for mild pain Dilaudid for severe pain Tomorrow's Labs & Rationales: none
[2017-08-17 08:08] LABS: ABSOLUTE BASOPHIL COUNT 0.1 /CUMM (0.0-0.2); ABSOLUTE EOSINOPHIL COUNT 0.1 /CUMM (0.0-0.7); ABSOLUTE GRANULOCYTE CT 9.3 /CUMM (1.4-6.5); ABSOLUTE LYMPH COUNT 3.3 /CUMM (1.2-3.4); ABSOLUTE MONOCYTE COUNT 0.7 /CUMM (0.10-0.60); BASOPHIL % 0.4 % (0.0-2.0); EOSINOPHIL % 0.5 % (0-5); GRANULOCYTE % 69.7 % (42.2-75.2); HEMATOCRIT 39.2 % (37-47); MEAN CORPUSCULAR HGB 31.1 PG (27.0-31.0); MEAN CORPUSCULAR HGB CONC 33.8 G/DL (33.0-37.0); MEAN PLATELET VOLUME 9.6 FL (7.4-10.4); PLATELET COUNT 227 /CUMM (130-400); RBC DISTRIBUTION WIDTH 12.5 % (11.5-14.5); RED BLOOD CELL CT 4.26 /CUMM (4.20-5.40); WHITE BLOOD CELL COUNT 13.4 /CUMM (4.8-10.8)
--- NOTE | 2017-08-17 08:15 | PN- Diabetes ---
Assessment/Plan Assessment: 37 y/o female with a complicated PMH and noncompliance, was admitted for abdominal pain, nausea and hyperglycemia. Clinically, she has been feeling better and has been on consistent carbohydrates 1 diet. Her FSGs were 210, 136, 130 and 127. Currently she is on Levemir 10 units twice a day, Novolog coverage before meals and Novolog coverage at bedtime. Plan: continue the current insulin regimen for now; monitor FSGs. will follow. Subjective Subjective: She feels better this morning. Objective Last 24 Hrs of Vital Signs/I&O Vital Signs Date Time Temp Pulse Resp B/P B/P Pulse O2 O2 Flow FiO2 Mean Ox Delivery Rate 08/17 0711 98.1 78 18 90/61 98 Room Air 08/16 2122 98.2 76 18 113/76 99 Room Air 08/16 2055 Room Air 08/16 1849 97.2 62 16 108/62 96 Room Air 08/16 1848 97.2 62 17 108/62 96 Room Air 08/16 1400 97.0 08/16 1326 96.0 70 16 117/60 94 Room Air 08/16 1320 96.0 70 16 118/60 98 Room Air 08/16 1251 98.0 08/16 1159 95.2 74 125/67 08/16 1140 98.0 90 18 125/67 93 Room Air 08/16 0913 97.0 99 20 95/55 100 Room Air Intake & Output 08/17 1600 08/17 0800 08/17 0000 Intake Total 250 280 Output Total 0 100 Balance 250 180 Intake, IV 10 40 Intake, Oral 240 240 Number 0 0 Bowel Movements Output, 0 100 Emesis Patient 145 lb Weight Weight Reported by Patient Measurement Method Findings Pertinent Lab/Goyo Results: Laboratory Tests 08/17 0705 Chemistry Sodium Pending Potassium Pending Chloride Pending Carbon Dioxide Pending Anion Gap Pending BUN Pending Creatinine Pending BUN/Creatinine Ratio Pending Hematology CBC w Diff Pending WBC Pending RBC Pending Hgb Pending Hct Pending MCV Pending MCH Pending RDW Pending Plt Count Pending MPV Pending PUBS MCHC Pending
[2017-08-17] MEDS ORDERED: LEVEMIR100 UNIT/1 SC (08:31)
[2017-08-17] MEDS ORDERED: NOVOLOG100 UNIT/2 SC (08:31)
--- NOTE | 2017-08-17 08:37 | Patient Discharge Instructions ---
Discharge Instructions General Discharge Information You were seen/treated for: Nausea and vomiting due to gastroparesis. Hyperglycemia due to uncontrolled type 2 diabetes. Watch for these problems: Nausea, vomiting, abdominal pain, fever, chills, altered mental status, uncontrolled blood sugar level, frequency of urination, burning micturition and diarrhea. Special Instructions: Follow-up with your primary care physician in one week. Follow-up with your manager creative services in 1 week. Follow-up with your obstetrics gyn in 1 week. Please take your medications regularly and check your blood sugar level regularly. Diet Recommended Diet: Diabetic Activity Activity Self Limited: Yes Acute Coronary Syndrome Inclusion Criteria At DC or during hospital stay patient has or had the following: ACS DIAGNOSIS No Discharge Core Measures Meds if any: Prescribed or Continued at Discharge Meds if any: NOT Prescribed or Continued at Discharge Congestive Heart Failure Inclusion Criteria At DC or during hospital stay patient has or had the following: CHF DIAGNOSIS No Discharge Core Measures Meds if any: Prescribed or Continued at Discharge Meds if any: NOT Prescribed or Continued at Discharge Cerebrovascular accident Inclusion Criteria At DC or during hospital stay patient has or had the following: CVA/TIA Diagnosis No Discharge Core Measures Meds if any: Prescribed or Continued at Discharge Meds if any: NOT Prescribed or Continued at Discharge Venous thromboembolism Inclusion Criteria VTE Diagnosis No VTE Type NONE VTE Confirmed by (Test) NONE Discharge Core Measures - Per Current guidelines, there needs to be overlap - treatment for the first 5 days of Warfarin therapy. - If discharged on Warfarin prior to 5 days of - overlap therapy, the patient will need to be - assessed for post discharge needs including - *Post discharge parental anticoagulation - *Warfarin and/or parental anticoagulation education - *Follow up date to check INR post discharge At least 5 days overlap therapy as Inpatient No Meds if any: Prescribed or Continued at Discharge Note: Overlap Therapy is Warfarin and Anticoagulant Meds if any: NOT Prescribed or Continued at Discharge
[2017-08-17 13:30] VITALS: BP 104/58
== END 2017-08-17 14:12 | DRG 48 ==
LOC: ERH 00:36 → 2NB 07:11 → ERHI 07:11 → ENRESERV 19:07 → ENTRNSPT 20:32 → EDTRNSPT 20:33 → EDTRNSPTSTS 20:33 → 2NB 20:54 → CMPTRNSPT 20:58 → ENPENDDIS 08-17 13:06 → 2NB 08-17 14:12
PROVIDERS: Emergency Medicine; Student in an Organized Health Care Education/Training Program
DX: E11.43 Type 2 diabetes mellitus with diabetic autonomic (poly)neuropathy (principal); E11.65 Type 2 diabetes mellitus with hyperglycemia; K31.84 Gastroparesis; Z91.14 Patient's other noncompliance with medication regimen; D72.829 Elevated white blood cell count, unspecified; E87.2 Acidosis; Z79.4 Long term (current) use of insulin; E88.89 Other specified metabolic disorders; D35.2 Benign neoplasm of pituitary gland; E22.9 Hyperfunction of pituitary gland, unspecified; G43.A0 Cyclical vomiting, in migraine, not intractable; F12.90 Cannabis use, unspecified, uncomplicated; F41.9 Anxiety disorder, unspecified; G43.909 Migraine, unspecified, not intractable, without status migrainosus; F44.9 Dissociative and conversion disorder, unspecified
CPT/HCPCS: 2NBSP; 36415; 74177; 80307; 81003; 82436; 87804; 87804-59; 93005; 93010; G0480; J1650; J2405; J2765

== ENCOUNTER 2017-08-25 23:00 | Emergency (ER) | payer OTHER ==
[~2017-08-25] VITALS: Ht 160 cm; Wt 65.8 kg
--- NOTE | 2017-08-25 23:51 | ED GI/GU/ABDOMINAL COMPLAINT ---
History of Present Illness General Chief Complaint: Abdominal Pain/Flank Pain Stated Complaint: GASTROPERISIS, VOMITING Source: patient, old records Exam Limitations: no limitations Vital Signs & Intake/Output Vital Signs & Intake/Output Vital Signs Date Time Temp Pulse Resp B/P B/P Pulse O2 O2 Flow FiO2 Mean Ox Delivery Rate 08/26 0614 97.1 102 20 110/68 98 Room Air 08/26 0440 99.8 91 18 128/78 98 Room Air 08/26 0200 100.7 105 20 143/90 97 Room Air 08/26 0035 Room Air 08/25 2306 96.1 114 24 134/90 98 Room Air ED Intake and Output 08/26 0000 08/25 1200 Intake Total Output Total Balance Patient 145 lb Weight Weight Reported by Patient Measurement Method Allergies Coded Allergies: No Known Allergies (01/21/17) Reconcile Medications Amitriptyline HCl 50 MG TABLET 1 TAB PO QPM CYCLIC VOMITING SYNDROME ( Reported) Insulin Aspart (Novolog) 100 UNIT/ML VIAL 0 SC TIDAC/HS Diabetes BEFORE MEALS. Blood Insulin Sugar Units <80 0 100-150 2 151-200 3 201-250 4 251-300 6 301-350 8 351-400 10 >400 12 and Call Doctor AT BEDTIME Blood Insulin Sugar Units <80 0 81-100 0 101-200 0 201-250 0 251-300 2 301-350 3 351-400 4 >400 5 and Call Doctor Insulin Detemir (Levemir) 100 UNIT/ML VIAL 10 U SC BID Diabetes . Metoclopramide HCl (Reglan) 10 MG TABLET 1 TAB PO 4 TIMES/DAY PRN NAUSEA Omeprazole 40 MG CAPSULE.DR 1 CAP PO DAILY Dyspepsia . Ondansetron (Zofran Odt) 4 MG TAB.RAPDIS 1 TAB PO Q6 PRN NAUSEA Ubidecarenone (Coenzyme Q10) 200 MG CAPSULE 1 CAP PO BID SUPPLEMENT (Reported ) Triage Note: PT TO ER C/C 1 DAY HX OF SEVERE N/V/D. HX OF GASTROPARESIS, PER PT WAS ADMITTED TO LAST WEEKEND FOR SAME. DENIES FEVERS. PT TEARFUL IN TRIAGE, REASSURANCE PROVIDED. Triage Nurses Notes Reviewed? yes LMP (ages 10-50): unknown ? n Is pt currently ? No Onset: Abrupt Duration: day(s): (1), constant, continues in ED, getting worse Timing: recent history Quality/Severity: cramping, vomiting Severity Numbers: 10 Location: generalized abdomen Radiation: no radiation Activities at Onset: none Prior Abdominal Problems: similar symptoms (gastroparesis) Past Sexual History: Unobtainable at this time No Modifying Factors: none Modifying Factors: Worsens With: movement, palpation. Associated Symptoms: abdominal pain, nausea/vomiting HPI: 37-year-old female past medical history of diabetes and gastroparesis reasons for evaluation of nausea vomiting and abdominal pain. Patient states the symptoms started earlier today with vomiting and abdominal pain becoming more severe. She's had this multiple times. She was admitted to [facility] last week with similar symptoms. She's been noncompliant with her insulin. She has not taken any today. Pain is located diffusely in her abdomen. She states she's not been able tolerate food or fluids due to her symptoms. No chest pain or shortness of breath no fevers. She denies any alcohol or drug use. She is not taking any medicine for nausea or vomiting. (Nash Morales) Past History Travel History Traveled to [place] past 21 day No Medical History Any Pertinent Medical History? 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 Age 65. FATHER (DM). Age 67. Hx Contributory? No (Nash Morales) Review of Systems Review of Systems Constitutional: Reports: weakness. EENTM: Reports: no symptoms. Respiratory: Reports: no symptoms. Cardiovascular: Reports: no symptoms. GI: Reports: see HPI, abdominal pain, nausea, vomiting. Genitourinary: Reports: no symptoms. Musculoskeletal: Reports: no symptoms. Skin: Reports: no symptoms. Neurological/Psychological: Reports: no symptoms. Hematologic/Endocrine: Reports: no symptoms. Immunologic/Allergic: Reports: no symptoms. All Other Systems: Reviewed and Negative (Nash Morales) Physical Exam Physical Exam General Appearance: well developed/nourished, alert, awake, anxious, moderate distress, thin Head: atraumatic, normal appearance Eyes: Bilateral: normal appearance, PERRL, EOMI. Ears, Nose, Throat, Mouth: hearing grossly normal, moist mucous membrane Neck: normal inspection, supple, full range of motion Respiratory: normal breath sounds, chest non-tender, no respiratory distress, lungs clear Cardiovascular: regular rate/rhythm, normal peripheral pulses Peripheral Pulses: 2+ radial (R), 2+ radial (L) Gastrointestinal: normal bowel sounds, soft, no organomegaly, tenderness ( diffuse ) Back: normal inspection, normal range of motion, no vertebral tenderness Extremities: normal range of motion Neurologic/Psych: no motor/sensory deficits, awake, alert, oriented x 3, normal gait Skin: intact, normal color, warm/dry Core Measures ACS in differential dx? No Sepsis Present: No Sepsis Focused Exam Completed? No (Nash Morales) Progress Differential Diagnosis: biliary colic, bowel obstruction, cholecystitis, diverticulitis, gastritis, intrauterine , My-Velma tear, pancreatitis, PID/cervicitis, peptic ulcer, PUD/GERD, SBO, threatened AB, UTI/ pyelo Plan of Care: Orders Procedure Date/time Status Clear Liquid Diet 08/26 B Active LACTIC ACID 08/26 0530 Complete BASIC METABOLIC PANEL 08/26 0230 Complete Add-on Test (ER Only) 08/26 0206 Active EKG 08/26 0202 Active ARTERIAL BLOOD GAS (GEN) 08/26 0124 Complete LACTIC ACID 08/26 0016 Complete URINE DRUGS OF ABUSE 08/25 2333 Complete URINALYSIS 08/25 2333 Complete LIPASE 08/25 2333 Complete HUMAN BETA HCG SCREEN 08/25 2333 Complete ETHANOL 08/25 2333 Complete COMPREHENSIVE METABOLIC PANEL 08/25 2333 Complete CBC WITHOUT DIFFERENTIAL 08/25 2333 Complete ACETONE 08/25 2333 Complete Laboratory Tests 08/26/17 0612: Lactic Acid 1.5 08/26/17 0612: Anion Gap 11, Estimated GFR > 60, BUN/Creatinine Ratio 25.0, Glucose 198 H, Calcium 7.8 L 08/26/17 0319: Urine Opiates Screen 2860.00 H, Methadone Screen 43, Barbiturate Screen < 60, Ur Phencyclidine Scrn < 6.00, Amphetamines Screen < 100, U Benzodiazepines Scrn < 85, Urine Cocaine Screen < 50, Urine Cannabis Screen > 80.00 H, Urine Color YEL, Urine Clarity CLEAR, Urine pH 6.5, Ur Specific [place] 1.015, Urine Protein NEG, Urine Ketones >=80, Urine Nitrite NEG, Urine Bilirubin NEG, Urine Urobilinogen 0.2, Ur Leukocyte Esterase NEG, Ur Microscopic EXAM NOT REQUIRED, Urine Hemoglobin NEG, Urine Glucose >=1000 H 08/26/17 0200: pH 7.49 H, pCO2 24 L, pO2 110 H, HCO3 17 L, ABG O2 Sat (Measured) 98.0, P-50 (Temp Corrected) N, Carboxyhemoglobin 1.3 L, O2 Concentration % RA, Phlebotomy Draw Site RIGHT BRACHIAL 08/26/17 0016: Anion Gap 23 H, Estimated GFR > 60, BUN/Creatinine Ratio 21.7, Glucose 407 H, Lactic Acid 5.6 H, Calcium 9.6, Total Bilirubin 1.0, AST 24, ALT 42, Alkaline Phosphatase 124, Total Protein 8.0, Albumin 5.0, Globulin 3.0, Albumin/Globulin Ratio 1.7, Lipase 66, Total Beta HCG NEGATIVE, CBC w Diff MAN DIFF ORDERED, RBC 5.11, MCV 89.8, MCH 30.3, MCHC 33.8, RDW 12.2, MPV 9.7, Gran % 83.3 H, Lymphocytes % 12.8 L, Monocytes % 3.4, Eosinophils % 0.5, Basophils % 0, Absolute Granulocytes 17.9 H, Segmented Neutrophils 75, Band Neutrophils 2, Absolute Lymphocytes 2.8, Lymphocytes 15 L, Monocytes 6, Absolute Monocytes 0.7 H, Absolute Eosinophils 0.1, Absolute Basophils 0, Metamyelocytes 2 H, Platelet Estimate ADEQUATE, Serum Alcohol < 10.0, Acetone Level NEGATIVE pt Seen and evaluated. She appears in significant distress unable to sit still in the bed pacing. she is dry heaving. she was medicated with reglan and benadryl. also a liter of normal saline pt continues to appear to be in distress. she wss given 4 of zofran and 1 of iv ativan. Labs back and shows a white count of 21,000. Anion gap is 23 potassium 3.3 sugars 407. ABG ordered. Patient was given 10 mEq of IV potassium. Also 10 units of subcutaneous insulin ordered. Patient's signed out to Christina Mabry MD pending reevaluation possible admission (Nash Morales) 2 AM PATIENT SIGNED OUT TO ME. HYDRATION IN PROGRESS. NOW SLEEPING COMFORTABLY, MORPHINE ADMINISTERED. 7 AM REPEAT BMP WNL. NO VOMITING FOR LAST FEW HOURS. STABLE FOR DISCHARGE HOME. AG 11, CO2 22. (Christina Mabry MD) Initial ED EKG: none Hand-Off Endorsed To: Christina Mabry MD Endorsed Time: 0202 Pending: labs (Nash Morales) Initial ED EKG: SINUS TACHY @ 101 BPM (Christina Mabry MD) Departure Departure Condition: Stable Clinical Impression Primary Impression: Nausea and vomiting Qualifiers: Vomiting type: unspecified Vomiting Intractability: intractable Qualified Code: R11.2 - Nausea with vomiting, unspecified Secondary Impressions: Hyperglycemia Referrals: Asher Orta APRN (PCP/Family) Departure Forms: Customer Survey General Discharge Information (Nash Morales) Departure Time of Disposition: 704 Disposition: HOME OR SELF CARE Additional Instructions: FOLLOW UP WITH YOUR DOCTOR START TAKING YOUR INSULIN! PA/COMPANY LAUNDRY WORKER Co-Sign Statement Statement: ED Attending supervision documentation- [X] I saw and evaluated the patient. I have also reviewed all the pertinent lab results and diagnostic results. I agree with the findings and the plan of care as documented in the PA's/COMPANY LAUNDRY WORKER's documentation. [X] I have reviewed the ED Record and agree with the PA's/COMPANY LAUNDRY WORKER's documentation. [] Additions or exceptions (if any) to the PAs/COMPANY LAUNDRY WORKER's note and plan are summarized below: [] (Christina Mabry MD)
[2017-08-26 00:29] LABS: ABSOLUTE BASOPHIL COUNT 0 /CUMM (0.0-0.2); ABSOLUTE EOSINOPHIL COUNT 0.1 /CUMM (0.0-0.7); ABSOLUTE GRANULOCYTE CT 17.9 /CUMM (1.4-6.5); ABSOLUTE LYMPH COUNT 2.8 /CUMM (1.2-3.4); ABSOLUTE MONOCYTE COUNT 0.7 /CUMM (0.10-0.60); BASOPHIL % 0 % (0.0-2.0); EOSINOPHIL % 0.5 % (0-5); GRANULOCYTE % 83.3 % (42.2-75.2); MEAN CORPUSCULAR HGB 30.3 PG (27.0-31.0); MEAN CORPUSCULAR HGB CONC 33.8 G/DL (33.0-37.0); MEAN CORPUSCULAR VOLUME 89.8 FL (81.0-99.0); MEAN PLATELET VOLUME 9.7 FL (7.4-10.4); PLATELET COUNT 272 /CUMM (130-400); RBC DISTRIBUTION WIDTH 12.2 % (11.5-14.5); RED BLOOD CELL CT 5.11 /CUMM (4.20-5.40); WHITE BLOOD CELL COUNT 21.4 /CUMM (4.8-10.8)
[2017-08-26 07:17] VITALS: BP 114/70
== END 2017-08-26 07:34 ==
LOC: ERH 23:00
PROVIDERS: Emergency Medicine
DX: R11.2 Nausea with vomiting, unspecified (principal); E11.65 Type 2 diabetes mellitus with hyperglycemia; Z79.4 Long term (current) use of insulin; R10.84 Generalized abdominal pain
CPT/HCPCS: 80307; 81003; 93005; 93010; 96361; 96372; 96374; 96375; 96376; G0480; J1200; J2405; J2765

== ENCOUNTER 2017-09-12 08:54 | Emergency (ER) | payer OTHER ==
[~2017-09-12] VITALS: Ht 160 cm; Wt 63.5 kg
[~2017-09-12 08:54] MED LIST changes: +PHENERGAN12.5 M2 RC; +PRILOSEC OTC20 M1 PO
--- NOTE | 2017-09-12 15:30 | ED GI/GU/ABDOMINAL COMPLAINT ---
History of Present Illness General Chief Complaint: Nausea, Vomiting, Diarrhea Stated Complaint: ABD PAIN VOMITING Source: patient, old records Exam Limitations: no limitations Vital Signs & Intake/Output Vital Signs & Intake/Output Vital Signs Date Time Temp Pulse Resp B/P B/P Pulse O2 O2 Flow FiO2 Mean Ox Delivery Rate 09/12 1633 100 16 140/82 100 Room Air ED Intake and Output 09/13 0000 09/12 1200 Intake Total 0 Output Total Balance 0 Intake, Oral 0 Patient 140 lb Weight Weight Reported by Patient Measurement Method Allergies Coded Allergies: No Known Allergies (01/21/17) Reconcile Medications Amitriptyline HCl 50 MG TABLET 1 TAB PO QPM CYCLIC VOMITING SYNDROME ( Reported) Insulin Aspart (Novolog) 100 UNIT/ML VIAL 0 SC TIDAC/HS Diabetes BEFORE MEALS. Blood Insulin Sugar Units <80 0 100-150 2 151-200 3 201-250 4 251-300 6 301-350 8 351-400 10 >400 12 and Call Doctor AT BEDTIME Blood Insulin Sugar Units <80 0 81-100 0 101-200 0 201-250 0 251-300 2 301-350 3 351-400 4 >400 5 and Call Doctor Insulin Detemir (Levemir) 100 UNIT/ML VIAL 10 U SC BID Diabetes . Metoclopramide HCl (Reglan) 10 MG TABLET 1 TAB PO 4 TIMES/DAY nausea,vomiting 30 minutes before meals and bedtime Metoclopramide HCl (Reglan) 10 MG TABLET 1 TAB PO 4 TIMES/DAY PRN NAUSEA Omeprazole 40 MG CAPSULE.DR 1 CAP PO DAILY Dyspepsia . Omeprazole Magnesium (Prilosec Otc) 20 MG TABLET.DR 1 TAB PO DAILY stomach burning Ondansetron (Zofran Odt) 4 MG TAB.RAPDIS 1 TAB PO Q6 PRN NAUSEA Ondansetron (Zofran Odt) 4 MG TAB.RAPDIS 1 TAB SL TID PRN vomiting Promethazine HCl (Phenergan) 12.5 MG SUPP.RECT 1 SUP RC Q4-6 PRN vomiting Ubidecarenone (Coenzyme Q10) 200 MG CAPSULE 1 CAP PO BID SUPPLEMENT (Reported ) Triage Note: 37 YO FEMALE TO TRIAGE C/O ABD PAIN AND VOMTIING X3 DAYS. STATES WAS SEEN HERE THE PAST 2 DAYS FOR SAME. +VOMTIING. Triage Nurses Notes Reviewed? yes ? N Is pt currently ? No Duration: day(s): (3) Timing: multiple episodes today Quality/Severity: moderate, severe Location: generalized abdomen Radiation: no radiation Prior Abdominal Problems: similar symptoms, 3RD VISIT IN 3 DAYS HPI: 37-year-old female history of insulin-dependent diabetes, gastroparesis, third day in the emergency department in a row resents to the ER for chief complaint of intractable nausea and vomiting. Patient states that she vomited multiple times in the waiting room. She's been vomiting for 3 days nonstop. Patient does have a CAT scan done the other day. Unable to obtain labs in the waiting room. Patient noted to be sleeping on the stretcher, no acute vomiting this time. Past History Travel History Traveled to [facility] past 21 day No Medical History Any Pertinent Medical History? 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 Age 65. FATHER (DM). Age 67. Hx Contributory? No Review of Systems Review of Systems Constitutional: Denies: chills, fever. EENTM: Reports: no symptoms. Respiratory: Denies: cough, short of breath. Cardiovascular: Denies: chest pain, palpitations. GI: Reports: abdominal pain, nausea, vomiting. Genitourinary: Reports: no symptoms. Musculoskeletal: Reports: no symptoms. Skin: Reports: no symptoms. Neurological/Psychological: Reports: no symptoms. Hematologic/Endocrine: Denies: bruising, bleeding. Immunologic/Allergic: Reports: no symptoms. All Other Systems: Reviewed and Negative Physical Exam Physical Exam General Appearance: well developed/nourished, alert, awake, anxious, mild distress, moderate distress Head: atraumatic, normal appearance Eyes: Bilateral: normal appearance, PERRL, EOMI. Ears, Nose, Throat, Mouth: hearing grossly normal, moist mucous membrane Neck: normal inspection, supple, full range of motion Respiratory: normal breath sounds, chest non-tender, no respiratory distress Cardiovascular: regular rate/rhythm, normal peripheral pulses Gastrointestinal: normal bowel sounds, soft, non-tender Back: normal inspection, normal range of motion Extremities: normal range of motion Neurologic/Psych: no motor/sensory deficits, awake, alert, oriented x 3, ANXIOUS Skin: intact, normal color, warm/dry Core Measures ACS in differential dx? No Sepsis Present: No Sepsis Focused Exam Completed? No Progress Differential Diagnosis: DKA, GASTROPARESIS, MEDICATION NON COMPLIANCE Plan of Care: Orders Procedure Date/time Status FingerStick- Glucose 09/12 1750 Active 3:38 PM ABDOMEN SOFT NONTENDER, JUST SPITTING UP IN BUCKET. IM PHENERGEN ORDERED. CT JUST DONE 2 DAYS AGO WNL. 5:28 PM NO VOMITING IN ED. PO CHALLENGE WILL BE INITIATED. 5:52 PM TOLERATING APPLE JUICE WITHOUT VOMITING. FINGERSTICK 218. PATIETN WITHOUT DISTRESS, STABLE FOR DISCHARE HOME. Initial ED EKG: none Departure Departure Time of Disposition: 1749 Disposition: HOME OR SELF CARE Condition: Stable Clinical Impression Primary Impression: Gastroparesis Referrals: Asher Orta APRN (PCP/Family) Additional Instructions: TAKE THE ZOFRAN NEEDED MONITOR YOUR BLOOD SUGAR AND TAKE YOUR INSULIN REGULARLY Departure Forms: Customer Survey General Discharge Information Prescriptions: Current Visit Scripts Ondansetron (Zofran Odt) 1 TAB PO Q6 PRN NAUSEA #10 TAB
[2017-09-12 16:33] VITALS: BP 140/82
[2017-09-12] MEDS ORDERED: ZOFRAN ODT4 M1 PO (17:53)
== END 2017-09-12 18:15 ==
LOC: ERH 08:54
DX: K31.84 Gastroparesis (principal)
CPT/HCPCS: 81003; 81025; 96372; J2550

== ENCOUNTER 2017-12-02 06:10 | Emergency (ER) | payer OTHER ==
--- NOTE | 2017-12-02 06:17 | ED GI/GU/ABDOMINAL COMPLAINT ---
History of Present Illness General Chief Complaint: Nausea, Vomiting, Diarrhea Stated Complaint: VOMITING Source: patient, old records, EMS Exam Limitations: no limitations Vital Signs & Intake/Output Vital Signs & Intake/Output . Allergies Coded Allergies: No Known Allergies (01/21/17) Triage Nurses Notes Reviewed? yes ? n Is pt currently ? No Onset: Gradual Duration: day(s):, waxing and waning Timing: recent history Quality/Severity: cramping Location: generalized abdomen Radiation: no radiation Activities at Onset: none Prior Abdominal Problems: similar symptoms Modifying Factors: Worsens With: vomiting. Associated Symptoms: abdominal pain HPI: 37 yo woman h/o diabetes, cyclic vomiting syndrome, gastroparesis, presents with vomiting and nausea for the past several days. "When I left here, I was never really better... I just keep vomiting." No fever, chills, dysuria, diarrhea. She is otherwise well. (Renate CAMARA,Supa Colbert) Reconcile Medications Cabergoline 0.5 MG TABLET 0.5 TAB PO 2XW PRN PIT TUMOR (Reported) Insulin Aspart (Novolog) 100 UNIT/ML VIAL 0 SC TIDAC/HS Diabetes BEFORE MEALS. Blood Insulin Sugar Units <80 0 100-150 2 151-200 3 201-250 4 251-300 6 301-350 8 351-400 10 >400 12 and Call Doctor AT BEDTIME Blood Insulin Sugar Units <80 0 81-100 0 101-200 0 201-250 0 251-300 2 301-350 3 351-400 4 >400 5 and Call Doctor Insulin Detemir (Levemir) 100 UNIT/ML VIAL 10 U SC BID Diabetes . Metoclopramide HCl (Reglan) 10 MG TABLET 1-2 TAB PO Q6 PRN NAUSEA/VOMITING 30 minutes before meals and bedtime Metoclopramide HCl (Reglan) 10 MG TABLET 1 TAB PO 4 TIMES/DAY nausea,vomiting 30 minutes before meals and bedtime Metoclopramide HCl (Reglan) 10 MG TABLET 1 TAB PO 4 TIMES/DAY PRN nausea vomiting 30 minutes before meals and bedtime Metoclopramide HCl (Reglan) 10 MG TABLET 1 TAB PO 4 TIMES/DAY PRN NAUSEA Omeprazole 40 MG CAPSULE.DR 1 CAP PO DAILY Dyspepsia . Omeprazole Magnesium (Prilosec Otc) 20 MG TABLET.DR 1 TAB PO DAILY stomach burning Ondansetron (Zofran Odt) 4 MG TAB.RAPDIS 1 TAB PO Q6 PRN NAUSEA Ondansetron (Zofran Odt) 4 MG TAB.RAPDIS 1 TAB SL TID PRN vomiting Ondansetron (Zofran Odt) 4 MG TAB.RAPDIS 1 TAB SL TID PRN nausea Ubidecarenone (Coenzyme Q10) 200 MG CAPSULE 1 CAP PO BID SUPPLEMENT (Reported ) (Darek CAMARA,Shekhar) Past History Travel History Traveled to [place] past 21 day No Medical History Any Pertinent Medical History? see below for history Neurological: dizziness, migraine EENT: NONE Cardiovascular: NONE Respiratory: NONE Gastrointestinal: GASTROPARESIS Hepatic: NONE Renal: NONE Musculoskeletal: NONE Psychiatric: anxiety, depression, mood disorder related to substance abuse Endocrine: diabetes, Hx of prolactin secreting pituitary ademona partial empty sella Blood Disorders: NONE Cancer(s): NONE CLAY CARMAN/Reproductive: NONE History of MRSA: No History of VRE: No History of CDIFF: No Tetanus Vaccine: 01/21/17 Surgical History Surgical History: N Psychosocial History Who do you live with Family Services at Home None What is your primary language Indonesian Family History Family History, If Any: MOTHER (Diabetes mellitus , hypertension, hyperlipidemia, hypothyroidism , cardiac issues status post pacemaker placement). Age 65. FATHER (DM). Age 67. Hx Contributory? No (Supa Dewitt MD) Review of Systems Review of Systems Constitutional: Reports: no symptoms. EENTM: Reports: no symptoms. Respiratory: Reports: no symptoms. Cardiovascular: Reports: no symptoms. GI: Reports: no symptoms. Genitourinary: Reports: no symptoms. Musculoskeletal: Reports: no symptoms. Skin: Reports: no symptoms. Neurological/Psychological: Reports: no symptoms. Hematologic/Endocrine: Reports: no symptoms. Immunologic/Allergic: Reports: no symptoms. All Other Systems: Reviewed and Negative (Supa Dewitt MD) Physical Exam Physical Exam General Appearance: well developed/nourished, mild distress Head: atraumatic Eyes: Bilateral: normal appearance. Ears, Nose, Throat, Mouth: hearing grossly normal, slightly dry mucosa Neck: normal inspection, supple Respiratory: normal breath sounds, chest non-tender, no respiratory distress, quiet respiration, lungs clear Cardiovascular: regular rate/rhythm Gastrointestinal: normal bowel sounds, soft, mid mid epigastric tenderness to palpation. no rebound. no guarding. Back: normal inspection Extremities: normal range of motion, evidence of injury, pelvis stable Neurologic/Psych: no motor/sensory deficits, awake, alert, oriented x 3 Skin: intact, normal color, warm/dry Core Measures ACS in differential dx? No Sepsis Present: No Sepsis Focused Exam Completed? Yes (Renate CAMARA,Supa Colbert) Progress Differential Diagnosis: abdominal pain Plan of Care: Orders Procedure Date/time Status Add-on Test (ER Only) 12/02 1309 Active URINE DRUGS OF ABUSE 12/02 125 Complete URINE 12/02 617 Complete URINALYSIS 12/02 617 Complete LIPASE 12/02 617 Complete HEPATIC FUNCTION PANEL 12/02 617 Complete CBC WITHOUT DIFFERENTIAL 12/02 617 Complete BASIC METABOLIC PANEL 12/02 617 Complete AMYLASE 12/02 617 Complete ACETONE 12/02 617 Complete Current Medications Sig/Maikel Start time Last Medication Dose Stop Time Status Admin Diphenhydramine HCl 25 MG ONCE ONE 12/02 1315 CAN (Benadryl) 12/02 131 Promethazine HCl 25 MG ONCE ONE 12/02 1315 CAN (Phenergen) 12/02 1316 Laboratory Tests 12/02/17 1256: Urine Opiates Screen < 100, Methadone Screen 58, Barbiturate Screen < 60, Ur Phencyclidine Scrn < 6.00, Amphetamines Screen < 100, U Benzodiazepines Scrn < 85, Urine Cocaine Screen < 50, Urine Cannabis Screen > 80.00 H, Urine Color STRAW, Urine Clarity CLEAR, Urine pH 6.0, Ur Specific [place] >= 1.030, Urine Protein NEG, Urine Ketones >=80, Urine Nitrite NEG, Urine Bilirubin NEG, Urine Urobilinogen 0.2, Ur Leukocyte Esterase NEG, Ur Microscopic EXAM NOT REQUIRED, Urine Hemoglobin NEG, Urine Glucose >=1000 H, Urine Test NEGATIVE 12/02/17 0625: Anion Gap 27 H, Estimated GFR > 60, BUN/Creatinine Ratio 21.4, Glucose 505 *H, Calcium 10.3 H, Total Bilirubin 1.9 H, Direct Bilirubin 0.3, AST 23, ALT 30, Alkaline Phosphatase 118, Total Protein 9.1 H, Albumin 5.4 H, Amylase 72, Lipase 45, CBC w Diff NO MAN DIFF REQ, RBC 5.11, MCV 92.2, MCH 30.3, MCHC 32.9 L, RDW 12.6, MPV 8.9, Gran % 93.6 H, Lymphocytes % 4.3 L, Monocytes % 2.0, Eosinophils % 0, Basophils % 0.1, Absolute Granulocytes 21.3 H, Absolute Lymphocytes 1.0 L, Absolute Monocytes 0.4, Absolute Eosinophils 0, Absolute Basophils 0, Acetone Level POSITIVE AT 1:2 DIL Diagnostic Imaging: Viewed by Me: CT Scan. Discussed w/RAD: CT Scan. Radiology Impression: PATIENT: ABA RAMOS PRESENT AGE: 37 PATIENT ACCOUNT NO: [id number] : 81 LOCATION: [facility] ORDERING PHYSICIAN: Supa Dewitt MD SERVICE DATE: 09/11/17 EXAM TYPE: CAT - CT ABD & PELVIS W/O IV CONTRAS EXAMINATION: CT ABDOMEN AND PELVIS WITHOUT CONTRAST CLINICAL INFORMATION: Right lower quadrant pain, question appendicitis COMPARISON: 08/16/2017 TECHNIQUE: Multidetector volumetric imaging was performed from the superior aspect of the liver through the pubic symphysis. Sagittal and coronal reformatted images were obtained on the technologist's workstation. DLP: 253.72 mGy-cm FINDINGS: LUNG BASES: The visualized lung bases are unremarkable. LIVER, GALLBLADDER, AND BILIARY TREE: The liver is normal in size, shape, and attenuation. No focal hepatic lesion or biliary ductal dilatation is present. The gallbladder is unremarkable with no evidence of radiopaque gallstones, gallbladder wall thickening, or obvious pericholecystic inflammatory changes. PANCREAS: Unremarkable. SPLEEN: Unremarkable. ADRENAL GLANDS: Unremarkable. KIDNEYS AND URETERS: The kidneys are normal in size, shape, and attenuation. No hydronephrosis, hydroureter, or calculi seen. No perinephric stranding. BLADDER: Unremarkable. GASTROINTESTINAL TRACT: No evidence of bowel obstruction. Some segments of the colon are not well evaluated due to luminal collapse, though there is no convincing evidence for a colitis. The appendix is unremarkable. No free fluid or free air is seen. ABDOMINAL WALL: No significant hernia is appreciated. LYMPH NODES: Normal. VASCULAR: There is mild calcification along the distal aorta. PELVIC VISCERA: Unremarkable. OSSEOUS STRUCTURES: Unremarkable. IMPRESSION: No acute findings identified in the abdomen/pelvis. Normal appendix. DICTATED BY: Maximino Patiño MD DATE/TIME DICTATED:09/11/17411 VP PACKAGING:FRIEDA DATE/TIME TRANSCRIBED:09/11/17411 CONFIDENTIAL, DO NOT COPY WITHOUT APPROPRIATE AUTHORIZATION. <Electronically signed in Other Vendor System> SIGNED BY: Maximino Patiño MD 09/11/17423 Initial ED EKG: none Hand-Off Endorsed To: Shekhar Oswald MD Endorsed Time: 0700 Pending: labs (Renate CAMARA,Supa Colbert) Comments: Finally resting without nausea. (Shekhar Oswald MD) Departure Departure Disposition: HOME OR SELF CARE Condition: Stable Referrals: Asher Orta APRN (PCP/Family) (Supa Dewitt MD) Departure Time of Disposition: 1633 Clinical Impression Primary Impression: Gastroparesis Secondary Impressions: Hyperglycemia, Vomiting Departure Forms: Customer Survey General Discharge Information Prescriptions: Current Visit Scripts Ondansetron (Zofran Odt) 1 TAB SL TID PRN nausea #10 TAB Metoclopramide HCl (Reglan) 1 TAB PO 4 TIMES/DAY PRN nausea vomiting #30 TAB 30 minutes before meals and bedtime (Shekhar Oswald MD) Critical Care Note Critical Care Note Critical Care Time: 30-74 min (40) (Shekhar Oswald MD)
[2017-12-02 06:36] LABS: ABSOLUTE BASOPHIL COUNT 0 /CUMM (0.0-0.2); ABSOLUTE EOSINOPHIL COUNT 0 /CUMM (0.0-0.7); ABSOLUTE GRANULOCYTE CT 21.3 /CUMM (1.4-6.5); ABSOLUTE MONOCYTE COUNT 0.4 /CUMM (0.10-0.60); BASOPHIL % 0.1 % (0.0-2.0); EOSINOPHIL % 0 % (0-5); GRANULOCYTE % 93.6 % (42.2-75.2); HEMATOCRIT 47.1 % (37-47); MEAN CORPUSCULAR HGB 30.3 PG (27.0-31.0); MEAN CORPUSCULAR HGB CONC 32.9 G/DL (33.0-37.0); MEAN CORPUSCULAR VOLUME 92.2 FL (81.0-99.0); MEAN PLATELET VOLUME 8.9 FL (7.4-10.4); PLATELET COUNT 384 /CUMM (130-400); RBC DISTRIBUTION WIDTH 12.6 % (11.5-14.5); RED BLOOD CELL CT 5.11 /CUMM (4.20-5.40)
[2017-12-02] MEDS ORDERED: CABERGOLINE0.5 M2 PO (06:46)
[2017-12-02 06:55] LABS: WHITE BLOOD CELL COUNT 22.7 /CUMM (4.8-10.8)
[2017-12-02] MEDS ORDERED: REGLAN10 M1 PO (12:40)
[2017-12-02] MEDS ORDERED: ZOFRAN ODT4 M1 SL (12:40)
[2017-12-02 16:36] VITALS: BP 119/72
== END 2017-12-02 16:40 ==
LOC: ERH 06:10
PROVIDERS: Pediatrics
DX: E11.65 Type 2 diabetes mellitus with hyperglycemia (principal); K31.84 Gastroparesis; R11.10 Vomiting, unspecified
CPT/HCPCS: 80307; 81003; 81025; 96361; 96372; 96374; 96375; J1200; J2550; J2765

== ENCOUNTER 2017-12-03 10:42 | Inpatient (IN) | payer OTHER ==
[~2017-12-03] VITALS: Ht 160 cm; Wt 59.9 kg
--- NOTE | 2017-12-03 13:22 | RADIOLOGY REPORT ---
EXAMINATION: XR KNEE, LEFT CLINICAL INFORMATION: Pain after fall COMPARISON: None TECHNIQUE: Four views of the left knee. FINDINGS: There is no evidence of fracture, dislocation, or knee joint effusion. Joint spaces suggest mild narrowing of the medial compartment. No significant marginal osteophyte formation. IMPRESSION: No evidence of fracture, dislocation, or knee joint effusion.
--- NOTE | 2017-12-03 16:22 | ED GI/GU/ABDOMINAL COMPLAINT ---
History of Present Illness General Chief Complaint: General Adult Stated Complaint: BIBA FOR VOMITING Source: patient, old records Exam Limitations: no limitations Vital Signs & Intake/Output Vital Signs & Intake/Output Vital Signs Date Time Temp Pulse Resp B/P B/P Pulse O2 O2 Flow FiO2 Mean Ox Delivery Rate 12/03 2205 97.9 70 18 128/60 99 12/03 2204 98.3 111 20 134/80 98 Room Air 12/03 2057 96.1 96 18 151/98 98 Room Air 12/03 1715 97.8 109 20 148/91 97 Room Air 12/03 1658 Room Air 12/03 1344 98.0 112 18 153/98 99 Room Air 12/03 1201 98.0 112 16 147/96 99 Room Air Room Air 12/03 1100 98.8 110 18 148/85 98 Room Air Allergies Coded Allergies: No Known Allergies (01/21/17) Reconcile Medications Cabergoline 0.5 MG TABLET 0.5 TAB PO 2XW PRN PIT TUMOR (Reported) Insulin Aspart (Novolog) 100 UNIT/ML VIAL 0 SC TIDAC/HS Diabetes BEFORE MEALS. Blood Insulin Sugar Units <80 0 100-150 2 151-200 3 201-250 4 251-300 6 301-350 8 351-400 10 >400 12 and Call Doctor AT BEDTIME Blood Insulin Sugar Units <80 0 81-100 0 101-200 0 201-250 0 251-300 2 301-350 3 351-400 4 >400 5 and Call Doctor Insulin Detemir (Levemir) 100 UNIT/ML VIAL 10 U SC BID Diabetes . Metoclopramide HCl (Reglan) 10 MG TABLET 1-2 TAB PO Q6 PRN NAUSEA/VOMITING 30 minutes before meals and bedtime Metoclopramide HCl (Reglan) 10 MG TABLET 1 TAB PO 4 TIMES/DAY nausea,vomiting 30 minutes before meals and bedtime Metoclopramide HCl (Reglan) 10 MG TABLET 1 TAB PO 4 TIMES/DAY PRN nausea vomiting 30 minutes before meals and bedtime Metoclopramide HCl (Reglan) 10 MG TABLET 1 TAB PO 4 TIMES/DAY PRN NAUSEA Omeprazole 40 MG CAPSULE.DR 1 CAP PO DAILY Dyspepsia . Omeprazole Magnesium (Prilosec Otc) 20 MG TABLET.DR 1 TAB PO DAILY stomach burning Ondansetron (Zofran Odt) 4 MG TAB.RAPDIS 1 TAB PO Q6 PRN NAUSEA Ondansetron (Zofran Odt) 4 MG TAB.RAPDIS 1 TAB SL TID PRN vomiting Ondansetron (Zofran Odt) 4 MG TAB.RAPDIS 1 TAB SL TID PRN nausea Ubidecarenone (Coenzyme Q10) 200 MG CAPSULE 1 CAP PO BID SUPPLEMENT (Reported ) Triage Note: 37 YO FEMALE TO ER FOR VOMITING, PT WAS SEEN IN ER YESTEDAY FOR SAME. Triage Nurses Notes Reviewed? yes ? N Is pt currently ? No Onset: Gradual Duration: constant Timing: multiple episodes today Severity Numbers: 7 Location: generalized abdomen Radiation: no radiation HPI: Patient is a 37-year-old female type 2 diabetes on insulin therapy, medication non-compliance, gastroparesis, cyclic vomiting syndrome, marijuana use (uses it for pain relief), anxiety, migraine, conversion disorder who presented to [facility] emergency room yesterday for concerns of abdominal pain and persistent vomiting were patient was discharged patient returns today stating she feels no better. States she's had multiple episodes of vomiting. (Ang Cedeno) Past History Travel History Traveled to [place] past 21 day No Medical History Any Pertinent Medical History? see below for history Neurological: dizziness, migraine EENT: NONE Cardiovascular: NONE Respiratory: NONE Gastrointestinal: GASTROPARESIS Hepatic: NONE Renal: NONE Musculoskeletal: NONE Psychiatric: anxiety, depression, mood disorder related to substance abuse Endocrine: diabetes, Hx of prolactin secreting pituitary ademona partial empty sella Blood Disorders: NONE Cancer(s): NONE EVENTS MANAGER/Reproductive: NONE History of MRSA: No History of VRE: No History of CDIFF: No Tetanus Vaccine: 01/21/17 Surgical History Surgical History: non-contributory, N Psychosocial History Who do you live with Family Services at Home None What is your primary language Thai Tobacco Use: Never used Family History Family History, If Any: MOTHER (Diabetes mellitus , hypertension, hyperlipidemia, hypothyroidism , cardiac issues status post pacemaker placement). Age 65. FATHER (DM). Age 67. Hx Contributory? No (Ang Cedeno) Review of Systems Review of Systems Constitutional: Reports: no symptoms. EENTM: Reports: no symptoms. Respiratory: Reports: no symptoms. Cardiovascular: Reports: no symptoms. GI: Reports: see HPI, abdominal pain, nausea. Genitourinary: Reports: no symptoms. Musculoskeletal: Reports: no symptoms. Skin: Reports: no symptoms. Neurological/Psychological: Reports: no symptoms. Hematologic/Endocrine: Reports: no symptoms. Immunologic/Allergic: Reports: no symptoms. All Other Systems: Reviewed and Negative (Ang Cedeno) Physical Exam Physical Exam General Appearance: lethargic, mild distress Head: atraumatic Eyes: Bilateral: normal appearance. Ears, Nose, Throat, Mouth: hearing grossly normal Neck: normal inspection Respiratory: normal breath sounds, chest non-tender Cardiovascular: tachycardia Gastrointestinal: soft, tenderness Back: normal inspection Extremities: normal range of motion Neurologic/Psych: no motor/sensory deficits, awake Skin: intact, normal color Core Measures ACS in differential dx? No Sepsis Present: No Sepsis Focused Exam Completed? No (Ang Cedeno) Progress Differential Diagnosis: AAA, AMI, appendicitis, biliary colic, bowel obstruction , colon cancer, cholecystitis, diverticulitis, ectopic , endometritis, esophageal varices, gastritis, hepatitis, hernia, hemorrhoids, ischemic bowel, inflamm bowel dis, intrauterine , kidney stone, ovarian cyst, ovarian torsion, pancreatitis, PID/cervicitis, peptic ulcer, PUD/GERD, perforated viscous, SBO, threatened AB, UTI/pyelo Plan of Care: Orders Procedure Date/time Status Heart Healthy Diet 12/04 B Active HEPATIC FUNCTION PANEL 12/04 06 Active CBC WITHOUT DIFFERENTIAL 12/04 06 Active BASIC ELECTROLYTES PLUS BUN&CR 12/04 599 Active BASIC ELECTROLYTES PLUS BUN&CR 12/03 2355 Active NUTRITIONAL CONSULT 12/03 2158 Active Weight 12/03 2138 Active Vital Signs 12/03 2138 Active Teach/Educate 12/03 2138 Active Pain Treatment and Response 12/03 2138 Active Nutritional Intake, Monitor 12/03 2138 Active Isolation 12/03 2138 Active Intake & Output 12/03 2138 Active Patient Care Conference 12/03 2138 Active Activity/Ambulation 12/03 2138 Active Pathway - chart 12/04 2119 Active House Staff 12/04 2119 Active Patient Data 12/04 2119 Active Code Status 12/04 2119 Active Intake & Output 12/03 2041 Active Patient Data 12/04 1947 Active ED Holding Orders 12/03 1930 Active Admit to inpatient 12/03 1930 Active Vital Signs 12/03 1930 Active Code Status 12/03 193 Complete FingerStick- Glucose 12/03 1753 Active BASIC METABOLIC PANEL 12/03 1753 Complete FingerStick- Glucose 12/03 1658 Active Add-on Test (ER Only) 12/03 1656 Active Add-on Test (ER Only) 12/03 1624 Active Add-on Test (ER Only) 12/03 1622 Active LACTIC ACID 12/03 1610 Active CORTISOL PM 12/03 1610 Active ACETONE 12/03 1610 Active MIXED VENOUS BLOOD GAS (GEN) 12/03 1545 Complete URINALYSIS 12/03 1545 Complete LIPASE 12/03 1545 Active COMPREHENSIVE METABOLIC PANEL 12/03 1545 Active CBC WITHOUT DIFFERENTIAL 12/03 1545 Complete EKG 12/03 1545 Active URINE DRUGS OF ABUSE 12/03 1211 Complete URINE 12/03 1209 Complete Lab Add-on Test 12/03 UNK Active VTE Mechanical Prophylaxis 12/03 UNK Active Current Medications Sig/Maikel Start time Last Medication Dose Stop Time Status Admin Enoxaparin Sodium 40 MG DAILY 12/04 09 AC (Lovenox) Omeprazole 40 MG DAILY AC 12/04 07 AC (Prilosec) Morphine Sulfate 2 MG Q4P PRN 12/03 2200 AC (MORPHINE SULFATE) Metoclopramide HCl 10 MG Q6 PRN 12/03 2145 AC (Reglan) Non-Formulary 0 SEE ADMIN CRITERIA 12/03 214 CAN Medication (NON FORMULARY) Ondansetron HCl 4 MG Q6P PRN 12/03 2145 AC (Zofran) Potassium Chloride 20 MEQ Q10H 12/03 2145 AC (KCl 20MEQ in D5W NS 1000ML) Dextrose/Sodium 1,000 ML Chloride (D5-Normal Saline) Acetaminophen 325 MG Q6 PRN 12/03 2130 AC (Tylenol) Insulin Detemir 8 UNITS BID 12/03 2100 AC (Levemir) Insulin Aspart 0 Q4 12/03 1930 AC 12/03 (NovoLOG) 2059 Dextrose/Sodium 1,000 ML Q10H 12/03 1915 CAN Chloride (D5W-1/2 Normal Saline 1000ML) Ondansetron HCl 4 MG ONCE ONE 12/03 1545 CAN (Zofran) 12/03 1546 Potassium Chloride 20 MEQ Q10H 12/03 0000 NR (KCl 20MEQ in D5W NS 12/03 2359 1000ML) Dextrose/Sodium 1,000 ML Chloride (D5-Normal Saline) Laboratory Tests 12/03/17 1816: Anion Gap 17 H, Estimated GFR > 60, BUN/Creatinine Ratio 21.7, Glucose 208 H, Calcium 9.3 12/03/17 1650: Bicarbonate Actual 18 L, Mixed VBG pH 7.31, Mixed VBG pCO2 37 L, Mixed VBG O2 Saturation 33 L, Carboxyhemoglobin 0.9 L, O2 Concentration % RA, O2 Delivery Method RA, Phlebotomy Draw Site [facility] 12/03/17 1610: Anion Gap 24 H, Estimated GFR > 60, BUN/Creatinine Ratio 23.3, Glucose 265 H, Lactic Acid 1.9, Calcium 9.9, Total Bilirubin 2.3 H, AST 49 H, ALT 37, Alkaline Phosphatase 105, Total Protein 8.7 H, Albumin 5.7 H, Globulin 3.0, Albumin/Globulin Ratio 1.9, Lipase 39, Cortisol PM Sample Pending, CBC w Diff MAN DIFF ORDERED, RBC 4.86, MCV 90.4, MCH 30.4, MCHC 33.6, RDW 12.6, MPV 8.9, Gran % 94.5 H, Lymphocytes % 3.9 L, Monocytes % 1.4 L, Eosinophils % 0, Basophils % 0.2, Absolute Granulocytes 25.9 H, Segmented Neutrophils 95 H, Absolute Lymphocytes 1.1 L, Lymphocytes 3 L, Monocytes 1 L, Absolute Monocytes 0.4, Absolute Eosinophils 0, Basophils 1, Absolute Basophils 0, Platelet Estimate VERIFIED BY SMEAR, Normocytic RBCs VERIFIED, Normochromic RBCs VERIFIED, Fld Total RBCs Counted 100, Acetone Level POSITIVE AT 1:4 DIL 12/03/17 1211: Urine Test NEGATIVE 12/03/17 1211: Urine Opiates Screen < 100, Methadone Screen 92, Barbiturate Screen < 60, Ur Phencyclidine Scrn < 6.00, Amphetamines Screen < 100, U Benzodiazepines Scrn < 85, Urine Cocaine Screen < 50, Urine Cannabis Screen > 80.00 H, Urine Color YEL , Urine Clarity CLEAR, Urine pH 5.5, Ur Specific [place] >= 1.030, Urine Protein TRACE H, Urine Ketones >=80, Urine Nitrite NEG, Urine Bilirubin NEG, Urine Urobilinogen 0.2, Ur Leukocyte Esterase NEG, Ur Microscopic SEDIMENT EXAMINED, Urine RBC 1-3, Ur Epithelial Cells MOD H, Urine Bacteria FEW H, Urine Hemoglobin NEG, Urine Glucose 500 H Patient was advised to receive CT scan of abdomen due to blood work and abdominal pain concerns however she declines this and the emergency room due to multiple previous CT scan imaging she was aware of the risks of not obtaining this and the emergency room Discussed patient with Dr. naranjo who advised patient to receive repeat metabolic panel in which the bicarbonate had improved however she advised patient receive 8 units of Levemir twice a day and receive D5 normal saline with 20 of K at a rate of 100 mL/h and she will consult on advised patient to be admitted to general medicine Discussed disposition plan with patient who agrees Patient while in the emergency room had continuous episodes of vomiting and abdominal pain. Initial ED EKG: normal intervals, normal p-waves, normal QRS complex, SINUS TACHYCARDIA 101 BPM (Ang Cedeno) Departure Departure Disposition: HOME OR SELF CARE Condition: Guarded Clinical Impression Primary Impression: DKA (diabetic ketoacidoses) Secondary Impressions: Abdominal pain, Hyperglycemia Referrals: Asher Orta APRN (PCP/Family) Departure Forms: Customer Survey General Discharge Information Admission Note Spoke With: Juwan Miller MD Documentation of Exam: Documentation of any treatments & extenuating circumstances including Concerns Regarding Discharge (functional status, medication knowledge or non-compliance, living conditions, etc.) that warrant an admission rather than observation: [ Patient requires IV fluid resuscitation insulin, endocrinology consultation pain management, repeat labs, she has FAILED OUTPATIENT treatment and has concerning presentation of DKA] (Ang Cedeno) PA/MOTOR BIKE MECHANIC Co-Sign Statement Statement: ED Attending supervision documentation- [X] I saw and evaluated the patient. I have also reviewed all the pertinent lab results and diagnostic results. I agree with the findings and the plan of care as documented in the PA's/MOTOR BIKE MECHANIC's documentation. [X] I have reviewed the ED Record and agree with the PA's/MOTOR BIKE MECHANIC's documentation. [] Additions or exceptions (if any) to the PAs/MOTOR BIKE MECHANIC's note and plan are summarized below: [PT TO BE ADMITTED FOR MILD DKA, ENDOCRINE CONSULT, INSULIN, HIGH RISK] (Lovely CAMARA,Colin Lyon) Critical Care Note Critical Care Note Critical Care Time: 75-104 min (Ang Cedeno)
[2017-12-03 16:26] LABS: ABSOLUTE BASOPHIL COUNT 0 /CUMM (0.0-0.2); ABSOLUTE EOSINOPHIL COUNT 0 /CUMM (0.0-0.7); ABSOLUTE GRANULOCYTE CT 25.9 /CUMM (1.4-6.5); ABSOLUTE LYMPH COUNT 1.1 /CUMM (1.2-3.4); ABSOLUTE MONOCYTE COUNT 0.4 /CUMM (0.10-0.60); BASOPHIL % 0.2 % (0.0-2.0); EOSINOPHIL % 0 % (0-5); HEMATOCRIT 43.9 % (37-47); MEAN CORPUSCULAR HGB 30.4 PG (27.0-31.0); MEAN CORPUSCULAR HGB CONC 33.6 G/DL (33.0-37.0); MEAN CORPUSCULAR VOLUME 90.4 FL (81.0-99.0); MEAN PLATELET VOLUME 8.9 FL (7.4-10.4); PLATELET COUNT 355 /CUMM (130-400); RBC DISTRIBUTION WIDTH 12.6 % (11.5-14.5); RED BLOOD CELL CT 4.86 /CUMM (4.20-5.40); WHITE BLOOD CELL COUNT 27.4 /CUMM (4.8-10.8)
[2017-12-03 16:35] LABS: GRANULOCYTE % 94.5 % (42.2-75.2)
--- NOTE | 2017-12-03 19:50 | History & Physical ---
Mackenzie Lemus 12/03/171946: General Information and HPI MD Statement: I have seen and personally examined ABA RAMOS and documented this H&P. The patient is a 37 year old F who presented with a patient stated chief complaint of [Vomiting]. Source of Information: patient, old records, EMS Exam Limitations: no limitations History of Present Illness: Ms. Ramos is a 37yo F w/ PMH of cyclic vomiting syndrome, marijuana use for pain relief, diabetes on insulin, with possible gastroparesis mood disorders, history of prolactin secreting pituitary adenoma, partially empty sella, dizziness/migraine, presents to the ER after being discharged yesterday for abdominal pain/persistent vomiting. Patient was last seen here back in [place] in 07/2017 with hospital admissions for similar complaints with vomiting, and hyperglycemia due to uncontrolled type 2 diabetes, and a possible reactive leukocytosis without source of infection. Patient was then discharged home, had no symptoms until about a week ago prior to this admission, where she started having this abdominal pain/nausea/vomiting for the past week, that she cannot keep anything down especially her home medications except insulin, and she was smoking marijuana for relief on a daily basis, however no significant improvement was found. Patient's last abdominal CT scan back in 08/16/2017 show no acute findings of abdominal or pelvis She was seen here yesterday in the ER with supportive treatment was sent home, however no relief and then came back again with similar complaints. During our clinical interaction, patient denied fever/night sweat/weight change/ cough/SOB/Chest Pain/Palpitation/urinary abnormality, or other skin/ musculoskeletal/neurological disorders/mood change/insomnia/dietary/appetite change. -Smoking: Denies recent use -Alcohol: Denied recent use -Rec Drugs: Marijuana daily smoking for the past week Allergies/Medications Allergies: Coded Allergies: No Known Allergies (01/21/17) Home Med list Cabergoline 0.5 MG TABLET 0.5 TAB PO 2XW PRN PIT TUMOR (Reported) Insulin Aspart (Novolog) 100 UNIT/ML VIAL 0 SC TIDAC/HS Diabetes BEFORE MEALS. Blood Insulin Sugar Units <80 0 100-150 2 151-200 3 201-250 4 251-300 6 301-350 8 351-400 10 >400 12 and Call Doctor AT BEDTIME Blood Insulin Sugar Units <80 0 81-100 0 101-200 0 201-250 0 251-300 2 301-350 3 351-400 4 >400 5 and Call Doctor Insulin Detemir (Levemir) 100 UNIT/ML VIAL 10 U SC BID Diabetes . Metoclopramide HCl (Reglan) 10 MG TABLET 1-2 TAB PO Q6 PRN NAUSEA/VOMITING 30 minutes before meals and bedtime Metoclopramide HCl (Reglan) 10 MG TABLET 1 TAB PO 4 TIMES/DAY nausea,vomiting 30 minutes before meals and bedtime Metoclopramide HCl (Reglan) 10 MG TABLET 1 TAB PO 4 TIMES/DAY PRN nausea vomiting 30 minutes before meals and bedtime Metoclopramide HCl (Reglan) 10 MG TABLET 1 TAB PO 4 TIMES/DAY PRN NAUSEA Omeprazole 40 MG CAPSULE.DR 1 CAP PO DAILY Dyspepsia . Omeprazole Magnesium (Prilosec Otc) 20 MG TABLET.DR 1 TAB PO DAILY stomach burning Ondansetron (Zofran Odt) 4 MG TAB.RAPDIS 1 TAB PO Q6 PRN NAUSEA Ondansetron (Zofran Odt) 4 MG TAB.RAPDIS 1 TAB SL TID PRN vomiting Ondansetron (Zofran Odt) 4 MG TAB.RAPDIS 1 TAB SL TID PRN nausea Ubidecarenone (Coenzyme Q10) 200 MG CAPSULE 1 CAP PO BID SUPPLEMENT (Reported ) Past History Travel History Traveled to [place] past 21 day No Medical History Neurological: dizziness, migraine EENT: NONE Cardiovascular: NONE Respiratory: NONE Gastrointestinal: GASTROPARESIS Hepatic: NONE Renal: NONE Musculoskeletal: NONE Psychiatric: anxiety, depression, mood disorder related to substance abuse Endocrine: diabetes, Hx of prolactin secreting pituitary ademona partial empty sella Blood Disorders: NONE Cancer(s): NONE BABBITT SPINNER/Reproductive: NONE History of MRSA: No History of VRE: No History of CDIFF: No Tetanus Vaccine: 01/21/17 Surgical History Surgical History: N Past Family/Social History Family History Relations & Conditions if any MOTHER (Diabetes mellitus , hypertension, hyperlipidemia, hypothyroidism , cardiac issues status post pacemaker placement). Age 65. FATHER (DM). Age 67. Psychosocial History Who Do You Live With? 2 nieces Services at Home: None Primary Language: Kosovan, Danish Living Will? no Power of Dog Food Dough Mixer/HCP? no Functional Ability ADLs Independent: dressing, eating, toileting, bathing. Ambulation: independent IADLs Independent: shopping, housework, finances, food prep, telephone, transportation , medication admin. Review of Systems Review of Systems Constitutional: Reports: see HPI. Exam & Diagnostic Data Last 24 Hrs of Vital Signs/I&O Vital Signs Date Time Temp Pulse Resp B/P B/P Pulse O2 O2 Flow FiO2 Mean Ox Delivery Rate 12/03 2056 96.1 96 18 151/98 98 Room Air 12/03 1715 97.8 109 20 148/91 97 Room Air 12/03 1658 Room Air 12/03 1344 98.0 112 18 153/98 99 Room Air 12/03 1201 98.0 112 16 147/96 99 Room Air Room Air 12/03 1100 98.8 110 18 148/85 98 Room Air Intake & Output 12/03 1600 12/03 0800 12/03 0000 Intake Total Output Total Balance Patient 63.503 kg Weight Weight Reported by Patient Measurement Method Physical Exam General Appearance Alert, Oriented X3, Cooperative, Mild Distress Skin No Rashes, No Breakdown, No Significant Lesion Skin Temp/Moisture Exam: Warm/Dry Sepsis Skin Exam (color): Normal for Ethnicity HEENT Atraumatic, PERRLA Neck Supple Cardiovascular Regular Rate Lungs Clear to Auscultation, Normal Air Movement Abdomen refused palpation Neurological Normal Speech Last 24 Hrs of Labs/Goyo: Laboratory Tests 12/03/17 1816: Anion Gap 17 H, Estimated GFR > 60, BUN/Creatinine Ratio 21.7, Glucose 208 H, Calcium 9.3 12/03/17 1650: Bicarbonate Actual 18 L, Mixed VBG pH 7.31, Mixed VBG pCO2 37 L, Mixed VBG O2 Saturation 33 L, Carboxyhemoglobin 0.9 L, O2 Concentration % RA, O2 Delivery Method RA, Phlebotomy Draw Site R. 12/03/17 1610: Anion Gap 24 H, Estimated GFR > 60, BUN/Creatinine Ratio 23.3, Glucose 265 H, Lactic Acid 1.9, Calcium 9.9, Total Bilirubin 2.3 H, AST 49 H, ALT 37, Alkaline Phosphatase 105, Total Protein 8.7 H, Albumin 5.7 H, Globulin 3.0, Albumin/Globulin Ratio 1.9, Lipase 39, Cortisol PM Sample 47.3 H, CBC w Diff MAN DIFF ORDERED, RBC 4.86, MCV 90.4, MCH 30.4, MCHC 33.6, RDW 12.6, MPV 8.9, Gran % 94.5 H, Lymphocytes % 3.9 L, Monocytes % 1.4 L, Eosinophils % 0, Basophils % 0.2, Absolute Granulocytes 25.9 H, Segmented Neutrophils 95 H, Absolute Lymphocytes 1.1 L, Lymphocytes 3 L, Monocytes 1 L, Absolute Monocytes 0.4, Absolute Eosinophils 0, Basophils 1, Absolute Basophils 0, Platelet Estimate VERIFIED BY SMEAR, Normocytic RBCs VERIFIED, Normochromic RBCs VERIFIED, Fld Total RBCs Counted 100, Acetone Level POSITIVE AT 1:4 DIL 12/03/17 1211: Urine Test NEGATIVE 12/03/17 1211: Urine Opiates Screen < 100, Methadone Screen 92, Barbiturate Screen < 60, Ur Phencyclidine Scrn < 6.00, Amphetamines Screen < 100, U Benzodiazepines Scrn < 85, Urine Cocaine Screen < 50, Urine Cannabis Screen > 80.00 H, Urine Color YEL , Urine Clarity CLEAR, Urine pH 5.5, Ur Specific Kaufman >= 1.030, Urine Protein TRACE H, Urine Ketones >=80, Urine Nitrite NEG, Urine Bilirubin NEG, Urine Urobilinogen 0.2, Ur Leukocyte Esterase NEG, Ur Microscopic SEDIMENT EXAMINED, Urine RBC 1-3, Ur Epithelial Cells MOD H, Urine Bacteria FEW H, Urine Hemoglobin NEG, Urine Glucose 500 H Assessment/Plan Assessment: On admission, Vitals: Stable afebrile, tachycardia at 110, BP 153/98, 98% on room -CBC: Leukocytosis 27.4, H/H 14.8/43.9, -BMP: NA 133, anion gap 24, no elevation of creatinine, glucose 265, positive urine acetone, otherwise unremarkable -UA/Microbiology: U tox positive for cannabis, urine glucose 500 -Misc: Last abdominal CT pending 08/2017, showed no acute findings. -Interventions in ER: KCl with fluids, Phenergan, Zofran, Reglan, morphine, Problem list & Assessment: #Cyclic vomiting syndrome #Mild DKA #Reactive leukocytosis #PMH of diabetes on insulin, with possible gastroparesis mood disorders, history of prolactin secreting pituitary adenoma, partially empty sella, dizziness/ migraine Hospital Course: - Admit to general medicine floor DVT prophylaxis Lovenox + ALPS Heart healthy diet Full Code As Ranked By This Provider Problem List: 1. Hyperglycemia 2. Cyclic vomiting syndrome 3. Leukocytosis Core Measures/Misc (04/15) Acute Coronary Syndrome ACS Diagnosis: No Congestive Heart Failure Congestive Heart Failure Diagnosis No Cerebrovascular Accident CVA/TIA Diagnosis: No VTE (View Protocol) VTE Risk Factors No risk factors No Mechanical VTE Prophylaxis d/t N/A MechProphylax Ordered No VTE Pharm Prophylaxis d/t NA PharmProphylax ordered Sepsis (View protocol) Sepsis Present: No Anne-Marie Alicea 12/03/17 2311: Resident Review Statement Resident Statement: examined this patient, discussed with international student counselor Other Findings: Patient is a 36-year-old female with past medical history of type 2 diabetes mellitus, medication noncompliance, gastroparesis, cyclic vomiting syndrome, marijuana use, anxiety, migraine, conversion disorder, prolactinoma with subsequent empty sella status post treatment with cabergoline ,multiple missions to [place] for nausea and vomiting most recent(2017) presents to the ED with a chief complaint of abdominal pain and persistent vomiting for the past 1 week. Patient reports that she has been having persistent abdominal pain with nausea and vomiting for the past 1 week. She hasn't been able to take her by mouth meds because of intense nausea. She was taking her Levemir and NovoLog insulin though her by mouth intake was quite poor. She was seen in the ER yesterday for the same complaints and was found to have blood sugar glucose of 505, ABG 27, bicarbonate 17. She was discharged home on Zofran and metoclopramide, patient reports that her abdominal pain did not get better and her nausea got worse. Denies any fever, chills, chest pain, palpitations, urinary or bowel symptoms. She reports that for the past 1 week she has been having gait imbalance in the morning for which she has been smoking marijuana which provided her some relief. Today in the ED vitals significant for 1098.8, pulse 110, respiration 18, blood pressure 148/85, saturating 98% on room air. Labs showed sodium of 133, carbon dioxide 15, AG24, glucose 208, AST 49, acetone positive. U tox positive for marijuana. UA showed no infection. Chest x-ray Knee x-ray(knee pain complained to the ER physician) was negative for any acute pathology. Physical exam General: Awake, alert, oriented, mild distress HEENT: PERRLA, EOMI Chest: Clear breath sounds bilaterally CVS: S1-S2, no murmurs Abdomen: Diffuse tenderness over the whole abdomen( patient did not allow to examine further) Extremities: No edema, pulses intact Assessment Mild DKA Medication noncompliance Cyclical vomiting secondary to marijuana use Diabetes mellit.us type 2 Gastroparesis Plan Admit to [facility] Vitals per protocol Every 2 hours Accu-Cheks Received 3 L of fluids and potassium in the ED. We will continue KCl in D5 normal saline at 100 cc an hour as per endocrine recommendations NovoLog mealtime and bedtime scales. Levemir 8 units twice a day Endocrinology consult in a.m. Repeat BEP at 12 AM and in a.m. We will continue Reglan 10 mg every 8 hours and when necessary Zofran for nausea We will repeat LFTs in a.m. DVT prophylaxis subcutaneous Lovenox Nothing by mouth for now, diabetic diet and patient starts eating. Full code Juwan Miller 12/04/17 0518: Attending MD Review Statement Attending Statement Attending MD Statement: examined this patient, discuss w/resident/PA/BROADCAST OPERATIONS ENGINEER, agreed w/resident/PA/BROADCAST OPERATIONS ENGINEER, reviewed EMR data (avail), reviewed images, amended to note Attending Assessment/Plan: CC: Nausea, vomiting, abdominal pain PMH: IDDM, gastroparesis, hyperprolactinemia Patient came to ER for 1-2 week history of abdominal pain, persistent nausea and vomiting. Patient denies any chest pain, fever, chills, cough, expectoration, choking, shortness of breath, palpitation, urinary burning, frequency, irritation. Even though her by mouth intake was decreased she was taking ampicillin sliding scale insulin as suggested by her sole assessor. Patient was seen in ER yesterday and was discharged on by mouth meds. Vitals: Temperature 98.8, pulse 110, RR 18, blood pressure 148/85, saturating 98 % on room air. On exam: noncooperative, no focal neurological deficit, mucosa dry, no lymphadenopathy, no JVD, neck supple. CVS: S1-S2, RRR. RS: Clear to auscultate bilaterally. Abdomen: Soft, tender, nondistended, no rebound, no guarding, Salinas's is negative, no CVA tenderness, bowel sounds present. Assessment and plan 36-year-old female with past medical history significant for insulin-dependent diabetes, gastroparesis, cyclic vomiting syndrome presented in ER for nausea, several vomiting, abdominal pain. On examination she appears dehydrated, abdomen is soft, mild tender, no Salinas sign, no CVA tenderness, no skin rashes. She is found to have DKA in ER with an anion gap of 24, lactic acid of 1.9. Her blood sugar was 265, she was hydrated with normal saline in ER and was started on basal and bolus insulin as suggested by sole assessor. Repeat BMP showed an anion gap of 17, blood sugar of 208 , thus showing significant improvement. At this point patient is safe for admission on Gen. medicine and continue basal and bolus insulin as suggested by sole assessor. She has leukocytosis which appears to be reactive. urine is clean. DKA most likely appears secondary gastroparesis or cyclic vomiting syndrome. No obvious source of infection identified. We will continue Reglan for gastroparesis scheduled and when necessary antiemetics. Patient had been admitted several times for similar complaints. Of note patient was seen in ER yesterday at that time her anion gap was 27, blood sugar 505, she was treated symptomatically and was discharged on Zofran and Reglan, without symptomatic relief. + Mild DKA resolved + Gastroparesis + Reactive leukocytosis + Mildly elevated bilirubin and AST : Probably secondary to dehydration and vomiting - Admit to general medicine - Continue D5-normal saline at 150 mL per hour - Continue insulin regimen suggested by sole assessor - Repeat LFT along with other labs in a.m. - Reglan 10 mg IV every 8 hours - When necessary Zofran, Phenergan if required - Pain control - Obtain ECG today and tomorrow for QTc interval - Check phosphate tomorrow for any refeeding syndrome
--- NOTE | 2017-12-03 21:43 | RADIOLOGY REPORT ---
EXAMINATION: XR PORTABLE CHEST CLINICAL INFORMATION: Diabetic ketoacidosis. Infections. COMPARISON: 05/13/2017 TECHNIQUE: Portable frontal view of the chest was obtained. FINDINGS: Lungs are symmetrically expanded and clear. No focal interstitial infiltrate, consolidation or pleural effusion. Cardiomediastinal silhouette has normal size and contour. The visualized bones are intact. IMPRESSION: No acute cardiopulmonary disease.
[2017-12-03 22:04] VITALS: BP 134/80
[2017-12-03 22:06] VITALS: BP 128/60
[2017-12-03 22:54] VITALS: BP 134/80
--- NOTE | 2017-12-04 05:19 | Admission Certification ---
Admission Certification Certification Statement - As attending physician, I certify that at the time of - admission, based on clinical presentation, severity of - symptoms, need for further diagnostic testing and - therapeutic interventions, and risk of adverse outcomes - without in-hospital treatment, in my clinical assessment, - this patient requires an acute hospital stay for a minimum - of two nights or longer. I have also considered psychsocial - factors such as support system, advanced age, financial - issues, cognitive issues, and failed out-patient treatments, - past re-admission history, safety of patient, and lack of - compliance as applicable. Specific rationale supporting this admission is: Gastroparesis, mild DKA
[2017-12-04 06:37] VITALS: BP 142/86
--- NOTE | 2017-12-04 07:44 | PN- Housestaff ---
Latisha CAMARA,Nely 12/04/17 0743: Subjective Follow-up For: #Cyclic vomiting syndrome #Mild DKA #Reactive leukocytosis #PMH of diabetes on insulin, with possible gastroparesis mood disorders, history of prolactin secreting pituitary adenoma, partially empty sella, dizziness/ migraine Complaints: pain scale (0-10) Subjective: Patient seen and examined this morning. She is seen lying in bed in no apparent distress but does state that her abdominal pain continues. Her nausea and vomiting also continue and she notes she vomited brown material just 40 minutes prior to interview. Mood appears depressed. Patient denies any cough, chest pain, shortness of breath, diarrhea, dysuria, skin changes. Review of Systems Constitutional: Reports: no symptoms. EENTM: Reports: no symptoms. Cardiovascular: Reports: no symptoms. Respiratory: Reports: no symptoms. Gastrointestinal: Reports: abdominal pain, nausea, vomiting. Genitourinary: Reports: no symptoms. Musculoskeletal: Reports: no symptoms. Skin: Reports: no symptoms. Objective Last 24 Hrs of Vital Signs/I&O Vital Signs Date Time Temp Pulse Resp B/P B/P Pulse O2 O2 Flow FiO2 Mean Ox Delivery Rate 12/04 1515 98.6 112 18 174/104 98 Room Air 12/04 1431 100 166/90 12/04 1400 112 170/100 12/04 0637 98.9 107 18 142/86 99 Room Air 12/03 2254 98.3 111 20 134/80 98 Room Air Intake & Output 12/04 1600 /08 0800 05/08 0000 Intake Total 897 519 0301 Output Total Balance 005 559 4516 Intake, IV 908 780 6110 Intake, Oral 100 Number 0 Bowel Movements Patient 132 lb 133 lb 140 lb Weight Weight Reported by Patient Measurement Method Physical Exam General Appearance: Alert, Oriented X3, Cooperative, No Acute Distress Skin: No Rashes, No Breakdown, No Significant Lesion Skin Temp/Moisture Exam: Warm/Dry Sepsis Skin Exam (color): Normal for Ethnicity HEENT: Atraumatic, PERRLA, EOMI, Mucous Membr. moist/pink Cardiovascular: Regular Rate, Normal S1, Normal S2, No Murmurs Lungs: Clear to Auscultation, Normal Air Movement Abdomen: Normal Bowel Sounds, Soft, No Hepatospenomegaly, some tenderness on palpation Neurological: Normal Speech Extremities: No Clubbing, No Cyanosis, No Edema, Normal Pulses, No Tenderness/ Swelling Vascular: Normal Pulses, Pulses Symmetrical Current Medications: Current Medications Sig/Maikel Start time Last Medication Dose Route Stop Time Status Admin Acetaminophen 325 MG Q6 PRN 12/03 2130 AC PO Enoxaparin Sodium 40 MG DAILY 12/04 0900 AC 12/04 SC 0815 Insulin Aspart 0 Q4 12/03 1930 AC 12/04 SC 1818 Insulin Detemir 10 UNITS BID 12/04 09 AC 12/04 SC 0815 Insulin Detemir 8 UNITS BID 12/03 2100 DC 12/03 SC 2248 Metoclopramide HCl 10 MG .STK-MED ONE 12/04 0357 DC IM 12/04 0358 Metoclopramide HCl 10 MG Q6 PRN 12/03 214 AC 12/04 IV 182 Morphine Sulfate 2 MG Q4P PRN 12/03 220 AC 12/04 IV 182 Morphine Sulfate 2 MG Q4P PRN 12/03 214 DC 12/03 IV 215 Non-Formulary 0 SEE ADMIN CRITERIA 12/03 2144 CAN Medication ANY Omeprazole 40 MG DAILY 12/04 699 PO Ondansetron HCl 4 MG .STK-MED ONE 12/04 0623 DC IM 12/04 0624 Ondansetron HCl 4 MG .STK-MED ONE 12/04 0007 DC IM 12/04 0008 Ondansetron HCl 4 MG Q6P PRN 12/03 2144 AC 12/04 IV 2016 Patient Medication 1 ED ONE ONE 12/04 1730 DC Teaching ED 12/04 1731 Potassium Chloride 20 MEQ Q10H 12/03 2145 AC 12/04 Dextrose/Sodium 1,000 ML IV 1826 Chloride Potassium Chloride 20 MEQ Q10H 12/03 0000 DC Dextrose/Sodium 1,000 ML IV 12/03 2359 Chloride Potassium Chloride 20 MEQ Q10H 12/03 0000 DC Dextrose/Sodium 1,000 ML IV 12/03 2359 Chloride Last 24 Hrs of Lab/Goyo Results Last 24 Hrs of Labs/Mics: Laboratory Tests 12/04/17 0810: Anion Gap 13, Estimated GFR > 60, BUN/Creatinine Ratio 13.3, Phosphorus 2.4 L, Total Bilirubin 2.0 H, Direct Bilirubin 0.3, AST 28, ALT 29, Alkaline Phosphatase 83, Total Protein 7.0, Albumin 4.3, CBC w Diff NO MAN DIFF REQ, RBC 4.40, MCV 91.1, MCH 30.4, MCHC 33.4, RDW 12.8, MPV 8.7, Gran % 85.4 H, Lymphocytes % 9.4 L, Monocytes % 4.9, Eosinophils % 0.1, Basophils % 0.2, Absolute Granulocytes 14.1 H, Absolute Lymphocytes 1.6, Absolute Monocytes 0.8 H, Absolute Eosinophils 0, Absolute Basophils 0 12/04/17 0040: Anion Gap 16, Estimated GFR > 60, BUN/Creatinine Ratio 22.0 Assessment/Plan Assessment: Patient is a 37yo F w/ PMH of cyclic vomiting syndrome, marijuana use for pain relief, diabetes on insulin, with possible gastroparesis, mood disorders, history of prolactin secreting pituitary adenoma, dizziness/migraine, presents to the ER for abdominal pain/persistent vomiting. Patient was last admitted to [facility] in 07/2017 with similar complaints with vomiting, and hyperglycemia due to uncontrolled type 2 diabetes, also with possible reactive leukocytosis without source of infection. Patient was then discharged home, had no symptoms until about a week ago prior to this admission, where she started having this abdominal pain/nausea/vomiting for the past week, that she cannot keep anything down especially her home medications except insulin, was smoking marijuana for relief on a daily basis, however she noted no improvement. Patient's last abdominal CT scan back in 08/16/2017 show no acute findings. She was seen here yesterday in the ER with supportive treatment was sent home, however no relief and then came back again with similar complaints. During our clinical interaction, patient denied fever/night sweat/weight change/cough/SOB/Chest Pain /Palpitation/urinary abnormality, or other skin/musculoskeletal/neurological disorders/mood change/insomnia/dietary/appetite change.On admission, vitals: afebrile, tachycardia at 110, BP 153/98, 98% on room, leukocytosis 27.4, H/H 14.8/43.9. BMP: NA 133, anion gap 24, no elevation of creatinine, glucose 265, positive urine acetone, otherwise unremarkable, u tox positive for cannabis, urine glucose 500. In the ER, she received KCl with fluids, Phenergan, Zofran, Reglan, morphine. CXR no acute disease. Problem list: #Cyclic vomiting syndrome in setting of mild DKA, elevated anion gap, blood glucose, nausea and vomiting, possible gastroparesis: Blood sugars improving today. Anion gap has closed. CHEM normal. -Follow endocrinology recommendations -Increase levemir to 10U bid. -Accuchecks per protocol with novolog ss -Zofran and reglan, watch for QT prolongation -GI cocktail as patient states that it helped in the ED -Patient is not complaint with medications, corporate counselor adherence. -Clear liquid diet will be started as patient is noting continued abdominal pain on regular diet -PPI 40mg PO -Pain pathway, no opiates in setting of gastric issues. -Nutritional consult -Patient does have elevated total bilirubin - hemolysis? Hb stable. Most recent CT abd pelvis in August is normal. Continue to monitor. In setting of reactive leukocytosis that has occured before, hematology consult if further indication. #Reactive leukocytosis -Patient has had this issue in the past. Has improved this morning. Afebrile. No obvious source of infection. -Monitor CBC #PMH of diabetes on insulin, mood disorders, history of prolactin secreting pituitary adenoma, partially empty sella, dizziness/migraine -Continue home medications DVT prophylaxis Lovenox + ALPS Heart healthy diet Full Code Problem List: 1. Cyclic vomiting syndrome 2. Epigastric abdominal pain Pain Ratin Pain Location: abdominal pain mostly on right side. Pain Goal: Pain 4 or less Pain Plan: as needed Tomorrow's Labs & Rationales: cbc bep Mireya CAMARA,Tawny 12/04/17 1435: Attending MD Review Statement Attending Statement Attending MD Statement: examined this patient, discuss w/resident/PA/RESTAURANT CULINARY MANAGER, agreed w/resident/PA/RESTAURANT CULINARY MANAGER, reviewed EMR data (avail), discussed with nursing, discussed with case mgmt, amended to note Attending Assessment/Plan: Patient seen and examined. Lying comfortably in bed not in any acute distress. Very flat affect. Answers questions with very short response. Does not appear to be in any painful distress. Blood sugars are improving. Recommendations from the endocrinology service appreciated. Patient complains of abdominal discomfort. She does not appear to have any significant discomfort when examined. She has had similar complaints in the past. During her last hospitalization she had 2 CT of the abdomen stone. She has had prior CT abdomen is done as well. No acute pathology was noted on any of the imaging. Probably related to her diabetic ketoacidosis. We will continue recommendations as needed by the endocrinology service. Glucose levels continue to improve she may be discharged tomorrow. Patient admits that she is noncompliant with her insulin regimen all the time. We will continue to encourage her to comply with the treatment regimen. Her WBC was markedly elevated on admission, it has improved this am. No obvious infectious process present. WBC noted to be elevated on previous admissions in the past. Will continue to observe.
--- NOTE | 2017-12-04 08:26 | Cons- Endocrinology ---
General Information and HPI Consulting Request Date of Consult: 12/04/17 Requested By: medical team Reason for Consult: mild DKA/ nausea and vomiting Source of Information: patient, old records Exam Limitations: poor historian History of Present Illness: 37 y/o female, who was diagnosed with pituitary prolactin secreting adenoma when she was a teenager when she was in [place] after she didn't have periods for a while. But she didn't take care of herself. She moved to [place] and started seeing Dr. Acevedo at [facility] more tolliver 5 years ago and MRI was done several times at [facility] and she was told that there was a tumor in her pituitary gland and she was treated with Dostinex. According to the information in [facility], her prolactin level was 320.9 along with FSH 1.3 and LH 0.4 in 2010. In [facility], MRI done in 2013 showed normal pituitary gland. In 2015, MRI showed partial empty sella without evidence of pituitary tumor. In 08/2016, her prolactin level was 139.9. At age of 30, she was diagnosed with diabetes type 2. Initially she was treated with oral medication. Shortly after she was diagnosed with diabetes, she was put on insulin. But she hasn't been comopliance with insulin regimen. PRINCE 65 antibody was checked in 2012 and in 11/2015, and it was negative. In 11/2015, her c-peptide was 1.07. Patient presented with abdominal pain , nausea and vomiting again and the blood work done in ER showed glucose 265, bicarb 15, K 4.7, Cr 0.6, AG 24, acetone positive at dilution of 1:4. She received 2 L of NS and repeat electrolytes showed bicarb 20 and AG 17. She was admitted to the floor. She was placed on D5NS with 20 meq of KCL at 100 ml/hour, Levemir 8 units twice a day and Novolog coverage every 4 hours. Her FSGs were 217, 139, 157, 216 and 248. Random cortisol was 47.3. She still felt nauseous and vomitted this morning. Allergies/Medications Allergies: Coded Allergies: No Known Allergies (01/21/17) Home Med List: Cabergoline 0.5 MG TABLET 0.5 TAB PO 2XW PRN PIT TUMOR (Reported) Insulin Aspart (Novolog) 100 UNIT/ML VIAL 0 SC TIDAC/HS Diabetes BEFORE MEALS. Blood Insulin Sugar Units <80 0 100-150 2 151-200 3 201-250 4 251-300 6 301-350 8 351-400 10 >400 12 and Call Doctor AT BEDTIME Blood Insulin Sugar Units <80 0 81-100 0 101-200 0 201-250 0 251-300 2 301-350 3 351-400 4 >400 5 and Call Doctor Insulin Detemir (Levemir) 100 UNIT/ML VIAL 10 U SC BID Diabetes . Metoclopramide HCl (Reglan) 10 MG TABLET 1-2 TAB PO Q6 PRN NAUSEA/VOMITING 30 minutes before meals and bedtime Metoclopramide HCl (Reglan) 10 MG TABLET 1 TAB PO 4 TIMES/DAY nausea,vomiting 30 minutes before meals and bedtime Metoclopramide HCl (Reglan) 10 MG TABLET 1 TAB PO 4 TIMES/DAY PRN nausea vomiting 30 minutes before meals and bedtime Metoclopramide HCl (Reglan) 10 MG TABLET 1 TAB PO 4 TIMES/DAY PRN NAUSEA Omeprazole 40 MG CAPSULE.DR 1 CAP PO DAILY Dyspepsia . Omeprazole Magnesium (Prilosec Otc) 20 MG TABLET.DR 1 TAB PO DAILY stomach burning Ondansetron (Zofran Odt) 4 MG TAB.RAPDIS 1 TAB PO Q6 PRN NAUSEA Ondansetron (Zofran Odt) 4 MG TAB.RAPDIS 1 TAB SL TID PRN vomiting Ondansetron (Zofran Odt) 4 MG TAB.RAPDIS 1 TAB SL TID PRN nausea Ubidecarenone (Coenzyme Q10) 200 MG CAPSULE 1 CAP PO BID SUPPLEMENT (Reported ) Review of Systems Review of Systems Constitutional: Reports: see HPI. Cardiovascular: Denies: chest pain. Respiratory: Denies: short of breath. GI: Reports: abdominal pain, nausea, vomiting. Genitourinary: Denies: dysuria. Hematologic/Endocrine: Reports: see HPI. 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 Age 65. FATHER (DM). Age 67. Psychosocial History Where Do You Live? Home Who Do You Live With? 2 nieces Services at Home: None Primary Language: Ukrainian, Eritrean Smoking Status: Former Smoker Living Will? no Power of Wire Dropper/HCP? no Functional Ability ADLs Independent: dressing, eating, toileting, bathing. Ambulation: independent IADLs Independent: shopping, housework, finances, food prep, telephone, transportation , medication admin. Exam & Diagnostic Data Last 24 Hrs of Vital Signs/I&O Vital Signs Date Time Temp Pulse Resp B/P B/P Pulse O2 O2 Flow FiO2 Mean Ox Delivery Rate 12/04 636 98.9 107 18 142/86 99 Room Air 12/03 2254 98.3 111 20 134/80 98 Room Air 12/03 2057 96.1 96 18 151/98 98 Room Air 12/03 1715 97.8 109 20 148/91 97 Room Air 12/03 1658 Room Air 12/03 1344 98.0 112 18 153/98 99 Room Air 12/03 1201 98.0 112 16 147/96 99 Room Air Room Air 12/03 1100 98.8 110 18 148/85 98 Room Air Intake & Output 12/04 1600 12/04 0800 12/04 0000 Intake Total 700 2000 Output Total Balance 700 2000 Intake, IV 700 2000 Number 0 Bowel Movements Patient 133 lb 140 lb Weight Weight Reported by Patient Measurement Method Physical Exam General Appearance: no apparent distress Ears, Nose, Throat: dry mucus membranes Neck: normal inspection Respiratory: lungs clear Cardiovascular: tachycardia (mild) Gastrointestinal: soft, mild tenderness at mid abdomen Extremities: no edema Labs/Goyo Results: Laboratory Tests 12/04 12/04 12/03 12/03 0810 0040 1816 1650 Blood Gas Bicarbonate Actual (22 - 26 MEQ/L) 18 L Mixed VBG pH (7.31 - 7.41 PH) 7.31 Mixed VBG pCO2 (41 - 51 TORR) 37 L Mixed VBG O2 Saturation (35 - 45 TORR) 33 L Carboxyhemoglobin (1.5 - 5.0 %) 0.9 L O2 Concentration % RA O2 Delivery Method RA Chemistry Sodium (137 - 145 mmol/L) Pending 138 136 L Potassium (3.5 - 5.1 mmol/L) Pending 4.1 4.1 Chloride (98 - 107 mmol/L) Pending 99 99 Carbon Dioxide (22 - 30 mmol/L) Pending 23 20 L Anion Gap (5 - 16) Pending 16 17 H BUN (7 - 17 mg/dL) Pending 11 13 Creatinine (0.5 - 1.0 mg/dL) Pending 0.5 0.6 Estimated GFR (>60 ml/min) > 60 > 60 BUN/Creatinine Ratio (7 - 25 %) Pending 22.0 21.7 Glucose (65 - 99 mg/dL) 208 H Calcium (8.4 - 10.2 mg/dL) 9.3 Phosphorus Pending Total Bilirubin Pending Direct Bilirubin Pending AST Pending ALT Pending Alkaline Phosphatase Pending Total Protein Pending Albumin Pending Hematology CBC w Diff Pending WBC Pending RBC Pending Hgb Pending Hct Pending MCV Pending MCH Pending MCHC Pending RDW Pending Plt Count Pending MPV Pending Miscellaneous Phlebotomy Draw Site R. 12/03 12/03 1610 1211 Chemistry Sodium (137 - 145 mmol/L) 133 L Potassium (3.5 - 5.1 mmol/L) 4.7 Chloride (98 - 107 mmol/L) 94 L Carbon Dioxide (22 - 30 mmol/L) 15 L Anion Gap (5 - 16) 24 H BUN (7 - 17 mg/dL) 14 Creatinine (0.5 - 1.0 mg/dL) 0.6 Estimated GFR (>60 ml/min) > 60 BUN/Creatinine Ratio (7 - 25 %) 23.3 Glucose (65 - 99 mg/dL) 265 H Lactic Acid (0.7 - 2.1 mmol/L) 1.9 Calcium (8.4 - 10.2 mg/dL) 9.9 Total Bilirubin (0.2 - 1.3 mg/dL) 2.3 H AST (14 - 36 U/L) 49 H ALT (9 - 52 U/L) 37 Alkaline Phosphatase (<127 U/L) 105 Total Protein (6.3 - 8.2 g/dL) 8.7 H Albumin (3.5 - 5.0 g/dL) 5.7 H Globulin (1.9 - 4.2 gm/dL) 3.0 Albumin/Globulin Ratio (1.1 - 2.2 %) 1.9 Lipase (23 - 300 U/L) 39 Cortisol PM Sample (1.7 - 14.1) 47.3 H Hematology CBC w Diff MAN DIFF ORDERED WBC (4.8 - 10.8 /CUMM) 27.4 H RBC (4.20 - 5.40 /CUMM) 4.86 Hgb (12.0 - 16.0 G/DL) 14.8 Hct (37 - 47 %) 43.9 MCV (81.0 - 99.0 FL) 90.4 MCH (27.0 - 31.0 PG) 30.4 MCHC (33.0 - 37.0 G/DL) 33.6 RDW (11.5 - 14.5 %) 12.6 Plt Count (130 - 400 /CUMM) 355 MPV (7.4 - 10.4 FL) 8.9 Gran % (42.2 - 75.2 %) 94.5 H Lymphocytes % (20.5 - 51.1 %) 3.9 L Monocytes % (1.7 - 9.3 %) 1.4 L Eosinophils % (0 - 5 %) 0 Basophils % (0.0 - 2.0 %) 0.2 Absolute Granulocytes (1.4 - 6.5 /CUMM) 25.9 H Segmented Neutrophils (42.2 - 75.2 %) 95 H Absolute Lymphocytes (1.2 - 3.4 /CUMM) 1.1 L Lymphocytes (20.5 - 51.1 %) 3 L Monocytes (1.7 - 9.3 %) 1 L Absolute Monocytes (0.10 - 0.60 /CUMM) 0.4 Absolute Eosinophils (0.0 - 0.7 /CUMM) 0 Basophils (0.0 - 2.0 %) 1 Absolute Basophils (0.0 - 0.2 /CUMM) 0 Platelet Estimate (ADEQUATE) VERIFIED BY SMEAR Normocytic RBCs VERIFIED Normochromic RBCs VERIFIED Other Body Source Fld Total RBCs Counted (%) 100 Toxicology Acetone Level (NEGATIVE) POSITIVE AT 1:4 DIL Urines Urine Test NEGATIVE 12/03 1211 Toxicology Urine Opiates Screen (>2000 NG/ML) < 100 Methadone Screen (>300 NG/ML) 92 Barbiturate Screen (>200 NG/ML) < 60 Ur Phencyclidine Scrn (>25 NG/ML) < 6.00 Amphetamines Screen (>1000 NG/ML) < 100 U Benzodiazepines Scrn (>200 NG/ML) < 85 Urine Cocaine Screen (>300 NG/ML) < 50 Urine Cannabis Screen (>50 NG/ML) > 80.00 H Urines Urine Color (YEL,AMB,STR) YEL Urine Clarity (CLEAR) CLEAR Urine pH (5.0 - 8.0) 5.5 Ur Specific [place] (1.001 - 1.035) >= 1.030 Urine Protein (NEG,<30 MG/DL) TRACE H Urine Ketones (NEG) >=80 Urine Nitrite (NEG) NEG Urine Bilirubin (NEG) NEG Urine Urobilinogen (0.1 - 1.0 EU/dl) 0.2 Ur Leukocyte Esterase (NEG) NEG Ur Microscopic SEDIMENT EXAMINED Urine RBC (0 - 5 /HPF) 1-3 Ur Epithelial Cells (NONE,FEW) MOD H Urine Bacteria (NEG/NONE) FEW H Urine Hemoglobin (NEG) NEG Urine Glucose (N MG/DL) 500 H Assessment/Plan Assessment/Plan 37 y/o female with hx of ? pituitary disorder, diabetes type 2 and gastroparesis, noncompliance with the treatment, presented with nausea, vomiting and abdominal pain. She was in mild DKA in ER. After treatment, DKA resolved. But she still feels nausea and has abdominal pain. Plan: 1. consider ice chip/ water and then ? clear liquid diet ( w/o concentrated sweets); continue PPI. 2. continue the current IVF; 3. increase Levemir to 10 units twice a day; 4. adjust Novolog coverage every 4 hours;detail see the inpatient DM order 5. monitor FSGs and electrolytes. will follow. Inpatient Diabetes Orders Every 4 Hours: Bolus Insulin: Novolog < 80 mg/dl: no coverage 80-100 mg/dl: no coverage 101-120 mg/dl: 2 units 121-150 mg/dl: 2 units 151-200 mg/dl: 4 units 201-250 mg/dl: 6 units 251-300 mg/dl: 8 units 301-350 mg/dl: 10 units 351-400 mg/dl: 12 units > 400 mg/dl: 14 units Consult Acknowledgment - Thank you for your consult request.
[2017-12-04 09:01] LABS: ABSOLUTE BASOPHIL COUNT 0 /CUMM (0.0-0.2); ABSOLUTE EOSINOPHIL COUNT 0 /CUMM (0.0-0.7); ABSOLUTE GRANULOCYTE CT 14.1 /CUMM (1.4-6.5); ABSOLUTE LYMPH COUNT 1.6 /CUMM (1.2-3.4); ABSOLUTE MONOCYTE COUNT 0.8 /CUMM (0.10-0.60); BASOPHIL % 0.2 % (0.0-2.0); EOSINOPHIL % 0.1 % (0-5); GRANULOCYTE % 85.4 % (42.2-75.2); HEMATOCRIT 40.1 % (37-47); MEAN CORPUSCULAR HGB 30.4 PG (27.0-31.0); MEAN CORPUSCULAR HGB CONC 33.4 G/DL (33.0-37.0); MEAN CORPUSCULAR VOLUME 91.1 FL (81.0-99.0); MEAN PLATELET VOLUME 8.7 FL (7.4-10.4); PLATELET COUNT 305 /CUMM (130-400); RBC DISTRIBUTION WIDTH 12.8 % (11.5-14.5)
[2017-12-04 10:23] LABS: WHITE BLOOD CELL COUNT 16.5 /CUMM (4.8-10.8)
[2017-12-04 14:00] VITALS: BP 170/100
[2017-12-04 14:31] VITALS: BP 166/90
[2017-12-04 15:15] VITALS: BP 174/104
[2017-12-04 22:33] VITALS: BP 150/84
[2017-12-05 06:15] VITALS: BP 130/78
--- NOTE | 2017-12-05 07:36 | PN- Housestaff ---
Latisha CAMARA,Nely 12/05/17 0736: Subjective Follow-up For: #Cyclic vomiting syndrome #Mild DKA #Reactive leukocytosis #PMH of diabetes on insulin, with possible gastroparesis mood disorders, history of prolactin secreting pituitary adenoma, partially empty sella, dizziness/ migraine Subjective: Patient states that she continues to be nauseous and vomited overnight, clear vomitus. She continues to have abdominal pain. Review of Systems Constitutional: Reports: no symptoms. Cardiovascular: Reports: no symptoms. Respiratory: Reports: no symptoms. Gastrointestinal: Reports: abdominal pain, nausea, vomiting. Genitourinary: Reports: no symptoms. Musculoskeletal: Reports: no symptoms. Objective Last 24 Hrs of Vital Signs/I&O Vital Signs Date Time Temp Pulse Resp B/P B/P Pulse O2 O2 Flow FiO2 Mean Ox Delivery Rate 12/05 1405 98.0 100 20 130/78 97 Room Air 12/05 0615 97.8 100 20 130/78 98 Room Air 12/04 2233 99.4 92 19 150/84 99 Room Air Intake & Output 12/05 1600 12/05 0800 12/05 0000 Intake Total 2785 977 2573 Output Total Balance 9321 756 0243 Intake, IV 800 700 800 Intake, Oral 200 240 350 Physical Exam General Appearance: Alert, Oriented X3, Cooperative, No Acute Distress Skin: No Rashes Skin Temp/Moisture Exam: Warm/Dry HEENT: Atraumatic, PERRLA, EOMI, Mucous Membr. moist/pink Cardiovascular: Regular Rate, Normal S1, Normal S2, No Murmurs Lungs: Clear to Auscultation, Normal Air Movement Abdomen: Normal Bowel Sounds, Soft, tenderness on light palpation most in epigastric region Neurological: Normal Speech Extremities: No Clubbing, No Cyanosis, No Edema Current Medications: Current Medications Sig/Maikel Start time Last Medication Dose Route Stop Time Status Admin Acetaminophen 325 MG Q6 PRN 12/03 2130 AC PO Enoxaparin Sodium 40 MG DAILY 12/04 899 12/05 [place] 0835 Insulin Aspart 0 Q4 12/03 1930 AC 12/05 SC 1459 Insulin Detemir 10 UNITS BID 12/04 899 AC 12/05 [place] 0834 Ketorolac 15 MG Q6-PRN PRN 12/05 1445 AC Tromethamine IV Ketorolac 30 MG ONCE ONE 12/05 1030 DC 12/05 Tromethamine IV 12/05 1031 1022 Metoclopramide HCl 10 MG .STK-MED ONE 12/05 0214 DC IM 12/05 0215 Metoclopramide HCl 10 MG .STK-MED ONE 12/04 1823 DC IM 12/04 1824 Metoclopramide HCl 10 MG Q6 PRN 12/03 2145 AC 12/05 IV 1022 Morphine Sulfate 2 MG Q4P PRN 12/03 2200 DC 12/05 IV 0621 Omeprazole 40 MG DAILY AC 12/04 0700 AC PO Ondansetron HCl 4 MG .STK-MED ONE 12/05 0616 DC IM 12/05 0617 Ondansetron HCl 4 MG .STK-MED ONE 12/04 2013 DC IM 12/04 2014 Ondansetron HCl 4 MG Q6P PRN 12/03 2145 AC 12/05 IV 0621 Patient Medication 1 ED ONE ONE 12/04 1730 DC Teaching ED 12/04 1731 Potassium Chloride 20 MEQ Q10H 12/03 2144 AC 12/05 Dextrose/Sodium 1,000 ML IV 1315 Chloride Assessment/Plan Assessment: Patient is a 37yo F w/ PMH of cyclic vomiting syndrome, marijuana use for pain relief, diabetes on insulin, with possible gastroparesis, mood disorders, history of prolactin secreting pituitary adenoma, dizziness/migraine, presents to the ER for abdominal pain/persistent vomiting. Patient was last admitted to [facility] in 07/2017 with similar complaints with vomiting, and hyperglycemia due to uncontrolled type 2 diabetes, also with possible reactive leukocytosis without source of infection. Patient was then discharged home, had no symptoms until about a week ago prior to this admission, where she started having this abdominal pain/nausea/vomiting for the past week, that she cannot keep anything down especially her home medications except insulin, was smoking marijuana for relief on a daily basis, however she noted no improvement. Patient's last abdominal CT scan back in 08/16/2017 show no acute findings. She was seen here yesterday in the ER with supportive treatment was sent home, however no relief and then came back again with similar complaints. During our clinical interaction, patient denied fever/night sweat/weight change/cough/SOB/Chest Pain /Palpitation/urinary abnormality, or other skin/musculoskeletal/neurological disorders/mood change/insomnia/dietary/appetite change.On admission, vitals: afebrile, tachycardia at 110, BP 153/98, 98% on room, leukocytosis 27.4, H/H 14.8/43.9. BMP: NA 133, anion gap 24, no elevation of creatinine, glucose 265, positive urine acetone, otherwise unremarkable, u tox positive for cannabis, urine glucose 500. In the ER, she received KCl with fluids, Phenergan, Zofran, Reglan, morphine. CXR no acute disease. Problem list: #Cyclic vomiting syndrome in setting of mild DKA, elevated anion gap, blood glucose, nausea and vomiting, possible gastroparesis: Blood FSGs [id number], 206, 178, 158, 162 and 130. Vital stable. Anion gap closed. CHEM normal. -Follow endocrinology recommendations -Continue levemir 10U bid. -Accuchecks per protocol with novolog ss -Zofran and reglan, watch for QT prolongation -GI cocktail as patient states that it helped in the ED -Patient is not complaint with medications, licensed mental health counselor adherence. -Patient was advanced to consistent carbohydrate 2 today but as per endocrinology note which was put in after the switch, we have switched her back to clear liquids as per endocrinology and will advance tomorrow. -PPI 40mg PO -Pain pathway, no opiates in setting of gastric issues, start Toradol 15 mg every 6 when necessary. -Nutritional consult -Patient does have elevated total bilirubin - hemolysis? Hb stable. Most recent CT abd pelvis in August is normal. Continue to monitor. In setting of reactive leukocytosis that has occured before, hematology consult if further indication. #Reactive leukocytosis -Patient has had this issue in the past. Has improved this morning. Afebrile. No obvious source of infection. -Monitor CBC #PMH of diabetes on insulin, mood disorders, history of prolactin secreting pituitary adenoma, partially empty sella, dizziness/migraine -Continue home medications DVT prophylaxis Lovenox + ALPS Heart healthy diet Full Code Problem List: 1. Epigastric abdominal pain 2. Cyclic vomiting syndrome Pain Ratin Pain Location: epigastric Pain Goal: Pain 4 or less Pain Plan: toradol no opiates Tomorrow's Labs & Rationales: ivis Gomes MD,[place] 12/05/17 1449: Attending MD Review Statement Attending Statement Attending MD Statement: examined this patient, discuss w/resident/PA/FRUIT OR NUT FARMER, agreed w/resident/PA/FRUIT OR NUT FARMER, reviewed EMR data (avail), discussed with nursing, discussed with case mgmt, amended to note Attending Assessment/Plan: Patient seen and examined. lying In bed. Flat affect. She is not enthusiastic about engaging in conversation. Blood glucose levels have improved. She however continues complain of nausea. Continues complain of abdominal discomfort. She has been started on a diet but declines to eat due to nausea and an episode of vomiting. She reports a history of gastroparesis. She reports having gastric emptying studies in the past. Symptoms have not improved despite therapy with metoclopramide. Recommend further evaluation and recommendations from the gastroenterology service.
[2017-12-05 14:05] VITALS: BP 130/78
--- NOTE | 2017-12-05 15:05 | PN- Diabetes ---
Assessment/Plan Diabetes Assessment: 37 y/o female with hx of ? pituitary disorder, diabetes type 2 and gastroparesis, noncompliance with the treatment, presented with nausea, vomiting and abdominal pain. She was in mild DKA in ER. After treatment, DKA resolved. She was put on levemir 10 units twice a day, Novolog coverage every 4 hours and D5NS with 20 meq of KCL at 100 ml/hour. She is going to try liquid diet today Her FSGs [id number], 206, 178, 158, 162 and 130. Plan: 1. liquid diet w/o concentrated sweets; 2. monitor FSGs every 4 hours; 3. continue the current insulin regimen for now; 4. if she tolerates liquid diet well and her diet will be advanced, please contact me and then her insulin orders will be adjusted accordingly. will follow. Subjective Subjective: She feels better this morning. Objective Last 24 Hrs of Vital Signs/I&O Vital Signs Date Time Temp Pulse Resp B/P B/P Pulse O2 O2 Flow FiO2 Mean Ox Delivery Rate 12/05 1405 98.0 100 20 130/78 97 Room Air 12/05 0615 97.8 100 20 130/78 98 Room Air 12/04 2233 99.4 92 19 150/84 99 Room Air 12/04 1515 98.6 112 18 174/104 98 Room Air Intake & Output 12/05 1600 12/05 0800 12/05 0000 Intake Total 5108 027 7832 Output Total Balance 6559 373 2266 Intake, IV 800 700 800 Intake, Oral 200 240 350
[2017-12-05 22:53] VITALS: BP 128/76
[2017-12-06 06:53] VITALS: BP 114/80
[2017-12-06 07:53] LABS: ABSOLUTE BASOPHIL COUNT 0 /CUMM (0.0-0.2); ABSOLUTE EOSINOPHIL COUNT 0.2 /CUMM (0.0-0.7); ABSOLUTE GRANULOCYTE CT 4.8 /CUMM (1.4-6.5); ABSOLUTE LYMPH COUNT 2.9 /CUMM (1.2-3.4); ABSOLUTE MONOCYTE COUNT 0.6 /CUMM (0.10-0.60); BASOPHIL % 0.4 % (0.0-2.0); EOSINOPHIL % 2.3 % (0-5); GRANULOCYTE % 55.9 % (42.2-75.2); HEMATOCRIT 39.1 % (37-47); MEAN CORPUSCULAR HGB 30.6 PG (27.0-31.0); MEAN CORPUSCULAR HGB CONC 33.9 G/DL (33.0-37.0); MEAN CORPUSCULAR VOLUME 90.4 FL (81.0-99.0); MEAN PLATELET VOLUME 8.2 FL (7.4-10.4); PLATELET COUNT 272 /CUMM (130-400); RBC DISTRIBUTION WIDTH 12.7 % (11.5-14.5); RED BLOOD CELL CT 4.32 /CUMM (4.20-5.40); WHITE BLOOD CELL COUNT 8.5 /CUMM (4.8-10.8)
--- NOTE | 2017-12-06 08:17 | Patient Discharge Instructions ---
Discharge Instructions General Discharge Information You were seen/treated for: diabetic gastroparesis cyclical vomiting syndrome Special Instructions: 1. follow up with pcp in one week 2. follow up with watchmaking teacher one week 3. follow up with business resiliency manager 1-2 weeks 4. follow up with psych outpatient if desired in 1-2 weeks 5. Please take all medications as directed. Diet Continue normal diet: No Recommended Diet: Diabetic Activity Full Activity/No Limits: Yes Acute Coronary Syndrome Inclusion Criteria At DC or during hospital stay patient has or had the following: ACS DIAGNOSIS No Discharge Core Measures Meds if any: Prescribed or Continued at Discharge Meds if any: NOT Prescribed or Continued at Discharge Congestive Heart Failure Inclusion Criteria At DC or during hospital stay patient has or had the following: CHF DIAGNOSIS No Discharge Core Measures Meds if any: Prescribed or Continued at Discharge Meds if any: NOT Prescribed or Continued at Discharge Cerebrovascular accident Inclusion Criteria At DC or during hospital stay patient has or had the following: CVA/TIA Diagnosis No Discharge Core Measures Meds if any: Prescribed or Continued at Discharge Meds if any: NOT Prescribed or Continued at Discharge Venous thromboembolism Inclusion Criteria VTE Diagnosis No VTE Type NONE VTE Confirmed by (Test) NONE Discharge Core Measures - Per Current guidelines, there needs to be overlap - treatment for the first 5 days of Warfarin therapy. - If discharged on Warfarin prior to 5 days of - overlap therapy, the patient will need to be - assessed for post discharge needs including - *Post discharge parental anticoagulation - *Warfarin and/or parental anticoagulation education - *Follow up date to check INR post discharge At least 5 days overlap therapy as Inpatient No Meds if any: Prescribed or Continued at Discharge Note: Overlap Therapy is Warfarin and Anticoagulant Meds if any: NOT Prescribed or Continued at Discharge
--- NOTE | 2017-12-06 08:21 | PN- Diabetes ---
Assessment/Plan Diabetes Assessment: 37 y/o female with hx of ? pituitary disorder, diabetes type 2 and gastroparesis, noncompliance with the treatment, presented with nausea, vomiting and abdominal pain. She was in mild DKA in ER. After the treatment, DKA resolved. She was put on levemir 10 units twice a day, Novolog coverage every 4 hours and D5NS with 20 meq of KCL at 100 ml/hour. She is still on liquid diet. Her FSGs were 163, 111, 104 and 91. Plan: 1. liquid diet w/o concentrated sweets; 2. monitor FSGs every 4 hours; 3. continue the current insulin regimen for now; 4. if she tolerates liquid diet well and her diet will be advanced, please contact me and then her insulin orders will be adjusted accordingly. Plan: see above. Subjective Subjective: She still feels nauseous this morning. Objective Last 24 Hrs of Vital Signs/I&O Vital Signs Date Time Temp Pulse Resp B/P B/P Pulse O2 O2 Flow FiO2 Mean Ox Delivery Rate 12/06 0653 99.2 80 16 114/80 98 Room Air 12/05 2253 98.0 98 18 128/76 97 Room Air 12/05 1405 98.0 100 20 130/78 97 Room Air Intake & Output 12/06 1600 12/06 0800 12/06 0000 Intake Total 900 500 Output Total Balance 900 500 Intake, IV 800 400 Intake, Oral 100 100 Findings Pertinent Lab/Goyo Results: Laboratory Tests 12/06 0720 Chemistry Sodium Pending Potassium Pending Chloride Pending Carbon Dioxide Pending Anion Gap Pending BUN Pending Creatinine Pending BUN/Creatinine Ratio Pending Hematology CBC w Diff NO MAN DIFF REQ WBC (4.8 - 10.8 /CUMM) 8.5 RBC (4.20 - 5.40 /CUMM) 4.32 Hgb (12.0 - 16.0 G/DL) 13.2 Hct (37 - 47 %) 39.1 MCV (81.0 - 99.0 FL) 90.4 MCH (27.0 - 31.0 PG) 30.6 MCHC (33.0 - 37.0 G/DL) 33.9 RDW (11.5 - 14.5 %) 12.7 Plt Count (130 - 400 /CUMM) 272 MPV (7.4 - 10.4 FL) 8.2 Gran % (42.2 - 75.2 %) 55.9 Lymphocytes % (20.5 - 51.1 %) 34.6 Monocytes % (1.7 - 9.3 %) 6.8 Eosinophils % (0 - 5 %) 2.3 Basophils % (0.0 - 2.0 %) 0.4 Absolute Granulocytes (1.4 - 6.5 /CUMM) 4.8 Absolute Lymphocytes (1.2 - 3.4 /CUMM) 2.9 Absolute Monocytes (0.10 - 0.60 /CUMM) 0.6 Absolute Eosinophils (0.0 - 0.7 /CUMM) 0.2 Absolute Basophils (0.0 - 0.2 /CUMM) 0
[2017-12-06] MEDS ORDERED: REGLAN10 M1 PO (11:35)
--- NOTE | 2017-12-06 11:35 | PN- Att Addend ---
Attending Addendum Attending Brief Note This morning patient complained of slight nausea. She has been placed on a clear liquid diet yesterday due to this complaint. This morning however she refused to the clear liquid diet stating that she would rather have a solid meal. She states that her abdominal pain is still present however she is willing to try meal. Symptoms are likely related to her gastroparesis. She was seen by the service. However during rounds this morning we were able to engage her morning conversation. She expressed frustration with her poor compliance with her insulin regimen. She however states that she is willing to be more compliant in order to improve her health. She appears motivated to follow-up with her promotions team leader in the outpatient setting. We did provide her with further encouragement. She does not want to try a liquid diet. She wants to be upgraded to regular diet. We did see that we would advance her diet today. She is willing to be discharged home today she tolerates this diet. We did discuss the case with the gastroenterology service and recommendations are for patient to take her metoclopramide [id number] rather than as needed. She will receive a dose of metoclopramide 20 mg intravenously this morning prior to her meal. Plan: -Metoclopramide 20 mg intravenously today. Trial of diet afterwards. -If patient tolerates a diet she may be discharged home today. -She has been advised to take her metoclopramide [id number] while at home and in follow-up with her military education coordinator. -We will follow-up with the endocrinology service prior to discharge today to clarify her insulin regimen prior to discharge. Patient is in agreement with this plan. She was in much better spirits this morning and was happy with the plan.
[2017-12-06] MEDS ORDERED: NOVOLOG100 UNIT/2 SC ×2 (11:48→11:51)
[2017-12-06] MEDS ORDERED: ZOFRAN ODT4 M1 PO (11:48)
--- NOTE | 2017-12-06 14:03 | PN- Housestaff ---
Subjective Follow-up For: #Cyclic vomiting syndrome #Mild DKA #Reactive leukocytosis #PMH of diabetes on insulin, with possible gastroparesis mood disorders, history of prolactin secreting pituitary adenoma, partially empty sella, dizziness/ migraine Subjective: Patient seen and examined. She notes continued nausea but did not vomit last night. She admits to continued mild abdominal pain. Review of Systems Constitutional: Reports: no symptoms. EENTM: Reports: no symptoms. Cardiovascular: Reports: no symptoms. Respiratory: Reports: no symptoms. Gastrointestinal: Reports: abdominal pain, nausea. Genitourinary: Reports: no symptoms. Musculoskeletal: Reports: no symptoms. Skin: Reports: no symptoms. Neurological/Psychological: Reports: no symptoms. Objective Last 24 Hrs of Vital Signs/I&O Vital Signs Date Time Temp Pulse Resp B/P B/P Pulse O2 O2 Flow FiO2 Mean Ox Delivery Rate 12/06 0653 99.2 80 16 114/80 98 Room Air 12/05 2253 98.0 98 18 128/76 97 Room Air Intake & Output 12/06 1600 12/06 0800 12/06 0000 Intake Total 900 500 Output Total Balance 900 500 Intake, IV 800 400 Intake, Oral 100 100 Physical Exam General Appearance: Alert, Oriented X3, Cooperative, No Acute Distress Skin: No Rashes, No Breakdown, on patients left forearm are several old horizontal scars (cuts) Skin Temp/Moisture Exam: Warm/Dry Sepsis Skin Exam (color): Normal for Ethnicity HEENT: Atraumatic, EOMI, Mucous Membr. moist/pink Cardiovascular: Regular Rate, Normal S1, Normal S2, No Murmurs Lungs: Clear to Auscultation, Normal Air Movement Abdomen: Normal Bowel Sounds, Soft, No Hepatospenomegaly, No Masses, mild tenderness on palpation Neurological: Normal Gait, Normal Speech Extremities: No Clubbing, No Cyanosis, No Edema, Normal Pulses Vascular: Normal Pulses, Pulses Symmetrical Current Medications: Current Medications Sig/Maikel Start time Last Medication Dose Route Stop Time Status Admin Acetaminophen 325 MG Q6 PRN 12/030 DCD PO Enoxaparin Sodium 40 MG DAILY 12/04 899 DCD 12/05 [place] 0835 Insulin Aspart 0 Q4 12/03 1930 DCD 12/06 [place] 0619 Insulin Detemir 10 UNITS BID 12/04 899 DCD 12/06 [place] 1146 Insulin Human Regular 4 UNITS .STK-MED ONE 12/05 2134 DC IV 12/05 213 Ketorolac 15 MG Q6-PRN PRN 12/05 1445 DCD Tromethamine IV Metoclopramide HCl 20 MG Q6 12/06 1200 DCD 12/06 IV 1040 Metoclopramide HCl 10 MG Q6 PRN 12/03 214 DC 12/05 IV 12/06 1159 1022 Omeprazole 40 MG DAILY AC 12/04 0700 DCD 12/06 PO 0619 Ondansetron HCl 4 MG Q6P PRN 12/03 2145 DCD 12/05 IV 0621 Potassium Chloride 20 MEQ Q10H 12/03 2144 DCD 12/05 Dextrose/Sodium 1,000 ML IV 2356 Chloride Last 24 Hrs of Lab/Goyo Results Last 24 Hrs of Labs/Mics: Laboratory Tests 12/06/17 0720: Anion Gap 8, Estimated GFR > 60, BUN/Creatinine Ratio 8.0, CBC w Diff NO MAN DIFF REQ, RBC 4.32, MCV 90.4, MCH 30.6, MCHC 33.9, RDW 12.7, MPV 8.2, Gran % 55.9, Lymphocytes % 34.6, Monocytes % 6.8, Eosinophils % 2.3, Basophils % 0.4, Absolute Granulocytes 4.8, Absolute Lymphocytes 2.9, Absolute Monocytes 0.6, Absolute Eosinophils 0.2, Absolute Basophils 0 Assessment/Plan Assessment: Patient is a 37yo F w/ PMH of cyclic vomiting syndrome, marijuana use for pain relief, diabetes on insulin, with possible gastroparesis, mood disorders, history of prolactin secreting pituitary adenoma, dizziness/migraine, presents to the ER for abdominal pain/persistent vomiting. Patient was last admitted to [facility] in 07/2017 with similar complaints with vomiting, and hyperglycemia due to uncontrolled type 2 diabetes, also with possible reactive leukocytosis without source of infection. Patient was then discharged home, had no symptoms until about a week ago prior to this admission, where she started having this abdominal pain/nausea/vomiting for the past week, that she cannot keep anything down especially her home medications except insulin, was smoking marijuana for relief on a daily basis, however she noted no improvement. Patient's last abdominal CT scan back in 08/16/2017 show no acute findings. She was seen here yesterday in the ER with supportive treatment was sent home, however no relief and then came back again with similar complaints. During our clinical interaction, patient denied fever/night sweat/weight change/cough/SOB/Chest Pain /Palpitation/urinary abnormality, or other skin/musculoskeletal/neurological disorders/mood change/insomnia/dietary/appetite change.On admission, vitals: afebrile, tachycardia at 110, BP 153/98, 98% on room, leukocytosis 27.4, H/H 14.8/43.9. BMP: NA 133, anion gap 24, no elevation of creatinine, glucose 265, positive urine acetone, otherwise unremarkable, u tox positive for cannabis, urine glucose 500. In the ER, she received KCl with fluids, Phenergan, Zofran, Reglan, morphine. CXR no acute disease. Problem list: #Cyclic vomiting syndrome in setting of mild DKA, elevated anion gap, blood glucose, nausea and vomiting, possible gastroparesis: Blood FSGs were overnight 163, 111, 104 and 91. Vital stable. Anion gap closed. CHEM normal. -Follow endocrinology recommendations -Continue levemir 10U bid. -Accuchecks per protocol with novolog ss. We will discharge her on sliding scale insulin as per Dr. naranjo every before meals, 80-150, 3 units, 151-200, 4 units, 201-250, 5 units, 251-300, 6 units, 301-350, 7 units, 351-400, 8 units and greater than 400, 9 units and call M.D. -Zofran when necessary and Reglan scheduled 20 mg 4 times a day on discharge as per cable placer. -Patient is not complaint with medications, vocational counselor adherence. -Patient was advanced to consistent carbohydrate 2 yesterday but as per endocrinology note which was put in after the switch, we switched her back to clear liquids. We will advance her to regular diet today before her discharge. -PPI 40mg PO -Pain pathway, no opiates in setting of gastric issues, continue inpatient Toradol 15 mg every 6 when necessary. -Nutritional consult for dietary instruction -Patient does have elevated total bilirubin - hemolysis? Hb stable. Most recent CT abd pelvis in August is normal. Continue to monitor. In setting of reactive leukocytosis that has occured before, hematology consult if further indication. #Reactive leukocytosis -Patient has had this issue in the past. Has improved. Afebrile. No obvious source of infection. -Monitor CBC #PMH of diabetes on insulin, mood disorders, history of prolactin secreting pituitary adenoma, partially empty sella, dizziness/migraine -Continue home medications -Of note patient was noted to have several forearm scars that appear to be cuts. She was asked if she would like to follow-up with psychiatry and was referred if she so she was is to go. She stated that she does not have a mood disorder and that was incorrectly documented in the emergency department. DVT prophylaxis Lovenox + ALPS Heart healthy diet Full Code Problem List: 1. Epigastric abdominal pain 2. Cyclic vomiting syndrome 3. Gastroparesis Pain Ratin Pain Location: widespread abdomen Pain Goal: Pain 4 or less Pain Plan: prn Tomorrow's Labs & Rationales: patient to be discharged
== END 2017-12-06 13:10 | DRG 420 ==
LOC: ERH 10:42 → 2NA 19:31 → ERHI 19:31 → ENRESERV 20:28 → ENTRNSPT 21:14 → EDTRNSPT 21:23 → EDTRNSPTSTS 21:23 → 2NA 21:28 → CMPTRNSPT 21:39 → 2NA 12-04 07:35 → ENPENDDIS 12-06 12:37 → 2NA 12-06 13:10
PROVIDERS: Physician Assistant; Student in an Organized Health Care Education/Training Program
DX: E11.10 Type 2 diabetes mellitus with ketoacidosis without coma (principal); K31.84 Gastroparesis; G43.A0 Cyclical vomiting, in migraine, not intractable; F39 Unspecified mood [affective] disorder; E11.43 Type 2 diabetes mellitus with diabetic autonomic (poly)neuropathy; F41.9 Anxiety disorder, unspecified; F32.9 Major depressive disorder, single episode, unspecified; Z91.14 Patient's other noncompliance with medication regimen; E86.0 Dehydration; Z79.4 Long term (current) use of insulin
CPT/HCPCS: 2NASP; 36592; 71045; 73562-LT; 80307; 81001; 81025; 82436; 93005; 93010; 96374; 96375; 99291; J1650; J1815; J1885; J2405; J2550; J2765; J7042; S5012

== ENCOUNTER 2018-01-30 12:32 | Inpatient (IN) | payer OTHER ==
[~2018-01-30] VITALS: Ht 160 cm; Wt 66.7 kg
--- NOTE | 2018-01-30 13:32 | ED GI/GU/ABDOMINAL COMPLAINT ---
History of Present Illness General Chief Complaint: Abdominal Pain/Flank Pain Stated Complaint: BIBA ABD PAIN Source: patient, old records, EMS Exam Limitations: no limitations Vital Signs & Intake/Output Vital Signs & Intake/Output Vital Signs Date Time Temp Pulse Resp B/P B/P Pulse O2 O2 Flow FiO2 Mean Ox Delivery Rate 01/30 1538 97.8 111 16 151/84 100 Room Air 01/30 1427 105 01/30 1247 96.9 130 20 167/90 96 Room Air Allergies Coded Allergies: No Known Allergies (01/21/17) Reconcile Medications Cabergoline 0.5 MG TABLET 0.5 TAB PO 2XW PRN PIT TUMOR (Reported) Insulin Aspart (Novolog) 100 UNIT/ML VIAL 0 SC TIDAC Diabetes BEFORE MEALS. Blood Insulin Sugar Units <80 0 80-150 3 151-200 4 201-250 5 251-300 6 301-350 7 351-400 8 >400 9 and Call Doctor [phone] Insulin Detemir (Levemir) 100 UNIT/ML VIAL 10 U SC BID Diabetes . Metoclopramide HCl (Reglan) 10 MG TABLET 2 TAB PO 4 TIMES/DAY gastro issues Omeprazole 40 MG CAPSULE.DR 1 CAP PO DAILY Dyspepsia . Ondansetron (Zofran Odt) 4 MG TAB.RAPDIS 1 TAB PO Q6 PRN NAUSEA . Ubidecarenone (Coenzyme Q10) 200 MG CAPSULE 1 CAP PO BID SUPPLEMENT (Reported ) Triage Note: PT BIBA FROM HOME C/O ABDOMINAL PAIN STATES PAIN IN MID TO RIGHT ABDOMINAL AREA. C/O N/V DENIES DIARRHEA. DENIES CP. PT TEARFUL IN TRIAGE. Triage Nurses Notes Reviewed? yes ? N Is pt currently ? No HPI: Patient presents with diffuse abdominal pain as well as nausea or vomiting. Patient has multiple ED visits for the same. Patient has known gastroparesis. The pain is diffuse tenderness constant. The pain is sharp and stabbing and cramping in nature. There are no aggravating or mitigating factors. The pain is 10 out of 10. Still radiation outside of the abdominal area. Past History Travel History Traveled to [place] past 21 day No Medical History Any Pertinent Medical History? 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 Age 65. FATHER (DM). Age 67. Hx Contributory? No Review of Systems Review of Systems Constitutional: Reports: no symptoms. EENTM: Reports: no symptoms. Respiratory: Reports: no symptoms. Cardiovascular: Reports: no symptoms. GI: Reports: see HPI, abdominal pain, nausea, vomiting. Genitourinary: Reports: no symptoms. Musculoskeletal: Reports: no symptoms. Skin: Reports: no symptoms. Neurological/Psychological: Reports: no symptoms. Hematologic/Endocrine: Reports: no symptoms. Immunologic/Allergic: Reports: no symptoms. All Other Systems: Reviewed and Negative Physical Exam Physical Exam General Appearance: well developed/nourished, alert, awake, moderate distress Head: atraumatic, normal appearance Eyes: Bilateral: PERRL, EOMI, other (ANICTERIC). Ears, Nose, Throat, Mouth: hearing grossly normal, DRY MM Neck: normal inspection, supple, full range of motion Respiratory: normal breath sounds, chest non-tender, no respiratory distress, lungs clear Cardiovascular: regular rate/rhythm, normal peripheral pulses Gastrointestinal: normal bowel sounds, soft, non-tender, no organomegaly Back: normal inspection, normal range of motion Extremities: normal range of motion Neurologic/Psych: no motor/sensory deficits, awake, alert, oriented x 3, normal gait, normal mood/affect Core Measures ACS in differential dx? No Sepsis Present: No Sepsis Focused Exam Completed? No Progress Differential Diagnosis: biliary colic, bowel obstruction, gastritis, hepatitis, ischemic bowel, inflamm bowel dis, pancreatitis, UTI/pyelo Plan of Care: Orders Procedure Date/time Status LACTIC ACID 01/30 1536 Active ARTERIAL BLOOD GAS (GEN) 01/30 1421 Complete MIXED VENOUS BLOOD GAS (GEN) 01/30 1351 Active URINALYSIS 01/30 1236 Complete SERUM OSMOLALITY 01/30 1236 Complete LIPASE 01/30 1236 Complete LACTIC ACID 01/30 123 Complete HUMAN BETA HCG SCREEN 01/30 123 Complete COMPREHENSIVE METABOLIC PANEL 01/30 123 Complete CBC WITHOUT DIFFERENTIAL 01/30 1236 Complete ACETONE 01/30 1236 Complete Current Medications Sig/Maikel Start time Last Medication Dose Stop Time Status Admin Sodium Chloride 1,000 ML BOLUS ONE 01/30 1700 UNVr (Normal Saline 0.9%) 01/30 1759 Laboratory Tests 01/30/18 1620: Lactic Acid Pending 01/30/18 1435: pH 7.41, pCO2 35, pO2 89, HCO3 21, ABG O2 Sat (Measured) 95.0 L, Carboxyhemoglobin 1.0 L, O2 Concentration % RA, O2 Delivery Method RA, Phlebotomy Draw Site RIGHT RADIAL 01/30/18 1321: Anion Gap 20 H, Estimated GFR > 60, BUN/Creatinine Ratio 18.6, Glucose 377 H, Serum Osmolality 307 H, Lactic Acid 3.3 H, Calcium 10.1, Total Bilirubin 1.2, AST 24, ALT 31, Alkaline Phosphatase 121, Total Protein 8.6 H, Albumin 5.1 H, Globulin 3.5, Albumin/Globulin Ratio 1.5, Lipase 131, Total Beta HCG NEGATIVE, CBC w Diff NO MAN DIFF REQ, RBC 5.34, MCV 89.9, MCH 30.5, MCHC 34.0, RDW 12.6, MPV 9.4, Gran % 67.8, Lymphocytes % 23.3, Monocytes % 6.0, Eosinophils % 2.4, Basophils % 0.5, Absolute Granulocytes 9.5 H, Absolute Lymphocytes 3.3, Absolute Monocytes 0.8 H, Absolute Eosinophils 0.3, Absolute Basophils 0.1, Acetone Level NEGATIVE 01/30/18 1259: Urinalysis LIGHT H, Urine Color YEL, Urine Clarity HAZY H, Urine pH 6.0, Ur Specific [place] >= 1.030, Urine Protein 30 H, Urine Ketones 15 H, Urine Nitrite NEG, Urine Bilirubin NEG, Urine Urobilinogen 0.2, Ur Leukocyte Esterase NEG, Ur Microscopic SEDIMENT EXAMINED, Urine RBC 1-3, Urine WBC 1-3 H, Ur Epithelial Cells MANY H, Urine Bacteria MANY H, Urine Mucus MANY H, Urine Hemoglobin SMALL H, Urine Glucose >=1000 H Initial ED EKG: none Comments: Patient continues to have intractable vomiting. She is hyperglycemic and has an elevated anion gap however her pH is normal. At this point patient will require admission to the hospital for further treatment. Departure Departure Disposition: STILL A PATIENT Condition: Stable Clinical Impression Primary Impression: Gastroparesis Referrals: Asher Orta APRN (PCP/Family) Additional Instructions: REUTRN FOR ANY CONCERNS Departure Forms: Customer Survey General Discharge Information Admission Note Spoke With: Senait CAMARA,Gris Documentation of Exam: Documentation of any treatments & extenuating circumstances including Concerns Regarding Discharge (functional status, medication knowledge or non-compliance, living conditions, etc.) that warrant an admission rather than observation: [IV fluids, IV antiemetics, gastroenterology consultation, endocrine consultation]
[2018-01-30 13:33] LABS: ABSOLUTE BASOPHIL COUNT 0.1 /CUMM (0.0-0.2); ABSOLUTE EOSINOPHIL COUNT 0.3 /CUMM (0.0-0.7); ABSOLUTE GRANULOCYTE CT 9.5 /CUMM (1.4-6.5); ABSOLUTE LYMPH COUNT 3.3 /CUMM (1.2-3.4); ABSOLUTE MONOCYTE COUNT 0.8 /CUMM (0.10-0.60); BASOPHIL % 0.5 % (0.0-2.0); EOSINOPHIL % 2.4 % (0-5); GRANULOCYTE % 67.8 % (42.2-75.2); MEAN CORPUSCULAR HGB 30.5 PG (27.0-31.0); MEAN CORPUSCULAR VOLUME 89.9 FL (81.0-99.0); MEAN PLATELET VOLUME 9.4 FL (7.4-10.4); PLATELET COUNT 327 /CUMM (130-400); RBC DISTRIBUTION WIDTH 12.6 % (11.5-14.5); RED BLOOD CELL CT 5.34 /CUMM (4.20-5.40)
--- NOTE | 2018-01-30 19:10 | History & Physical ---
Curt Willson 01/30/18 1845: General Information and HPI MD Statement: I have seen and personally examined ABA RAMOS and documented this H&P. The patient is a 37 year old F who presented with a patient stated chief complaint of intractable nausea, vomiting, abdominal pain for 3 days Source of Information: patient Exam Limitations: no limitations History of Present Illness: This is a 37-year-old female with past medical history significant for migraine, type 1 diabetes mellitus, gastroparesis, cyclic vomiting syndrome, marijuana use for pain relief, mood disorders, history of prolactin secreting adenoma, partially empty sella presented to the ER with acute on chronic worsening of intractable nausea, vomiting, abdominal pain for 3 days. Patient was recently admitted to [facility] December 18, 2017 for cyclic vomiting syndrome, mild DKA, gastroparesis, intractable nausea, vomiting, abdominal pain, she was found to have reactive leukocytosis without any source of infection, high serum glucose, anion gap. She had been to [place] [facility] multiple times present with the similar complaints. Patient reports ongoing nausea, vomiting, abdominal pain for last 3 days. She reports acute worsening since last night which made her to come to the emergency room for further evaluation. Of note she has diabetic gastroparesis, cyclic vomiting syndrome. She takes marijuana on and off for her pain. She usually takes Zofran, metoclopramide for her gastroparesis, however for the last 3 days she could not take any medications because of nausea. She denied any fever, chills, change in bladder or bowel habits. Denies any recent sick contacts, travel history. Patient also reports that she has not been taking her insulin injections for the last 3 days. Review of systems was completely negative except for above. She denied any smoking history. Denies alcohol abuse. However she reports taking marijuana for pain relief. 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 Age 65. FATHER (DM). Age 67. Psychosocial History Who Do You Live With? 2 nieces Services at Home: None Primary Language: Cuban, Kazakh ETOH Use: denies use Illicit Drug Use: marijuana Living Will? 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 no Functional Ability ADLs Independent: dressing, eating, toileting, bathing. Ambulation: independent IADLs Independent: shopping, housework, finances, food prep, telephone, transportation , medication admin. Review of Systems Review of Systems Constitutional: Reports: see HPI. Denies: chills, diaphoresis, fever, malaise, weakness, unexplained weight loss. EENTM: Denies: blurred vision, double vision. Cardiovascular: Denies: chest pain, edema, orthopena, palpitations, peripheral edema, syncope. Respiratory: Denies: cough, hemoptysis, orthopnea, short of breath, sputum production. GI: Reports: abdominal pain, nausea, vomiting. Denies: bloating, constipation, diarrhea, distention, bowel incontinence, melena. Genitourinary: Denies: discharge, dysuria, frequency. Musculoskeletal: Denies: back pain, gout, joint pain, joint swelling, muscle pain. Skin: Denies: lumps, moles. Neurological/Psychological: Denies: anxiety, ataxia, depressed, dementia, headache, numbness, paresthesia. Hematologic/Endocrine: Denies: bruising, bleeding. Exam & Diagnostic Data Last 24 Hrs of Vital Signs/I&O Vital Signs Date Time Temp Pulse Resp B/P B/P Pulse O2 O2 Flow FiO2 Mean Ox Delivery Rate 01/30 1828 97.4 103 19 156/89 100 Room Air 01/30 1538 97.8 111 16 151/84 100 Room Air 01/30 1427 105 / 1247 96.9 130 20 167/90 96 Room Air Intake & Output 01/30 1600 01/30 0800 07 0000 Intake Total 1000 Output Total 2 Balance 998 Intake, IV 1000 Output, 2 Emesis Patient 66.678 kg Weight Weight Reported by Patient Measurement Method Physical Exam General Appearance Alert, Oriented X3, Cooperative Skin No Rashes, No Breakdown Skin Temp/Moisture Exam: Warm/Dry Sepsis Skin Exam (color): Normal for Ethnicity HEENT Atraumatic, PERRLA, EOMI, Mucous Membr. moist/pink Neck Supple, No JVD Lymphatic Axillary nl, Cervical nl Cardiovascular Regular Rate, Normal S1, Normal S2, No Murmurs Lungs Clear to Auscultation, Normal Air Movement Abdomen Normal Bowel Sounds, Soft, Tenderness all over the abdomen Neurological Normal Gait, Normal Speech, Normal Tone Extremities No Clubbing, No Cyanosis, No Edema, Normal Pulses Vascular Normal Pulses, Pulses Symmetrical Sepsis Peripheral Pulse Location: Radial Sepsis Peripheral Pulse Exam: Normal Sepsis Cap Refill Exam: <2 Sec Last 24 Hrs of Labs/Goyo: Laboratory Tests 01/30/18 1620: Lactic Acid 4.9 H 01/30/18 1435: pH 7.41, pCO2 35, pO2 89, HCO3 21, ABG O2 Sat (Measured) 95.0 L, Carboxyhemoglobin 1.0 L, O2 Concentration % RA, O2 Delivery Method RA, Phlebotomy Draw Site RIGHT RADIAL 01/30/18 1321: Anion Gap 20 H, Estimated GFR > 60, BUN/Creatinine Ratio 18.6, Glucose 377 H, Serum Osmolality 307 H, Lactic Acid 3.3 H, Calcium 10.1, Total Bilirubin 1.2, AST 24, ALT 31, Alkaline Phosphatase 121, Total Protein 8.6 H, Albumin 5.1 H, Globulin 3.5, Albumin/Globulin Ratio 1.5, Lipase 131, Total Beta HCG NEGATIVE, CBC w Diff NO MAN DIFF REQ, RBC 5.34, MCV 89.9, MCH 30.5, MCHC 34.0, RDW 12.6, MPV 9.4, Gran % 67.8, Lymphocytes % 23.3, Monocytes % 6.0, Eosinophils % 2.4, Basophils % 0.5, Absolute Granulocytes 9.5 H, Absolute Lymphocytes 3.3, Absolute Monocytes 0.8 H, Absolute Eosinophils 0.3, Absolute Basophils 0.1, Acetone Level NEGATIVE 01/30/18 1259: Urinalysis LIGHT H, Urine Color YEL, Urine Clarity HAZY H, Urine pH 6.0, Ur Specific [place] >= 1.030, Urine Protein 30 H, Urine Ketones 15 H, Urine Nitrite NEG, Urine Bilirubin NEG, Urine Urobilinogen 0.2, Ur Leukocyte Esterase NEG, Ur Microscopic SEDIMENT EXAMINED, Urine RBC 1-3, Urine WBC 1-3 H, Ur Epithelial Cells MANY H, Urine Bacteria MANY H, Urine Mucus MANY H, Urine Hemoglobin SMALL H, Urine Glucose >=1000 H Diagnostic Data EKG Results EKG sinus tachycardia rate 105, QTc interval 475, and no acute ST-T wave changes Assessment/Plan Assessment: This is a 37-year-old female with past medical history significant for migraine, type 1 diabetes mellitus, gastroparesis, cyclic vomiting syndrome, marijuana use for pain relief, mood disorders, history of prolactin secreting adenoma, partially empty sella presented to the ER with acute on chronic worsening of intractable nausea, vomiting, abdominal pain for 3 days. Patient was recently admitted to [facility] December 18, 2017 for cyclic vomiting syndrome, mild DKA, gastroparesis, intractable nausea, vomiting, abdominal pain, she was found to have reactive leukocytosis without any source of infection, high serum glucose, anion gap. She had been to [facility] multiple times present with the similar complaints. Vitals afebrile, heart rate 130, respiratory rate 20, blood pressure 167/90, saturating at 96 on room air. Pertinent labs WBC 14,000, hemoglobin 16 and hematocrit 40, platelets 327. BEP normal limits Serum glucose 377 ABG 7.41, 21, 35 urine analysis showed ketones, WBC, mucous cells, glucose > 1000 Serum acetone negative. Patient received 3 L of normal saline bolus in the emergency room, Phenergan 25 mg twice, [place]. Cyclic vomiting syndrome/gastroparesis Patient presented with intractable nausea, vomiting, abdominal pain probably due to diabetic gastroparesis. She has multiple admissions, ER visits for cyclic vomiting syndrome and gastroparesis. * Admit to general medicine for further management of gastroparesis * Monitor vitals every shift * Monitor for fever, leukocytosis * Monitor for any further worsening of symptoms * Continue IV fluids * Continue IV Zofran as needed * Continue home medication metoclopramide 4 times daily Hyperglycemia due to uncontrolled diabetes Patient presented with intractable nausea, vomiting. She could not take her insulin for last 3 days. She presented with hyperglycemia with serum glucose 377, serum osmolality 307, anion gap 20. Diabetic ketoacidosis was ruled out, serum acetone was negative. PH within normal limits. Bicarb within normal limit. * Monitored in general medicine floor. * Anion gap 20 most probably due to elevated lactic acid/dehydration * She she is nothing per mouth * She was started on Novolin sliding scale. * She was continued on home dose of Levemir 10 mg twice daily * Endo consult in the a.m. * Accu-Cheks every 6 hours * Low threshold for ICU transfer if patient goes into DKA or mental status worsens. * Closely monitor blood sugar. Lactic acidosis Lactic acid 3.3 at the time of admission. Received 2 L of normal saline bolus with a repeat lactic acid 4.9. * Lactic acidosis most likely type A from volume depletion, nausea, vomiting. Less likely from DKA. No sepsis was found. * Continue IV fluids. * Will recheck lactic acid after 3 hours. Reactive leukocytosis Patient fulfills SIRS criteria at the time of admission with tachycardia and hypertension. However no source of infection was found. She is asymptomatic except for nausea vomiting abdominal pain. Leukocytosis most likely reactive secondary to nausea and vomiting GERD Continue omeprazole 40 daily History of prolactin secreting pituitary adenoma Patient takes cabergoline 0.5 mg twice weekly. However she is not taking that medication recently. Patient is full code DVT prophylaxis subcu Lovenox N.p.o. for now Pain pathway ordered Low threshold for ICU transfer if patient goes into DKA with altered mental status As Ranked By This Provider Problem List: 1. Epigastric abdominal pain 2. Cyclic vomiting syndrome 3. Hyperglycemia 4. Cyclical vomiting with nausea 5. Leukocytosis Core Measures/Misc (04/15) Acute Coronary Syndrome ACS Diagnosis: No Congestive Heart Failure Congestive Heart Failure Diagnosis No Cerebrovascular Accident CVA/TIA Diagnosis: No VTE (View Protocol) VTE Risk Factors No risk factors No Mechanical VTE Prophylaxis d/t N/A MechProphylax Ordered No VTE Pharm Prophylaxis d/t NA PharmProphylax ordered Sepsis (View protocol) Sepsis Present: No If YES complete Sepsis Event Note If YES complete Sepsis Event Note Margarito Ingram MD 01/30/18 2016: General Information and HPI MD Statement: I have seen and personally examined ABA RAMOS and documented this H&P. The patient is a 37 year old F who presented with a patient stated chief complaint of [Nausea and Abdominal Pain]. Source of Information: patient Exam Limitations: no limitations Allergies/Medications Home Med list Cabergoline 0.5 MG TABLET 0.5 TAB PO 2XW PRN PIT TUMOR (Reported) Insulin Aspart (Novolog) 100 UNIT/ML VIAL 0 SC TIDAC Diabetes BEFORE MEALS. Blood Insulin Sugar Units <80 0 80-150 3 151-200 4 201-250 5 251-300 6 301-350 7 351-400 8 >400 9 and Call Doctor [phone] Insulin Detemir (Levemir) 100 UNIT/ML VIAL 10 U SC BID Diabetes . Metoclopramide HCl (Reglan) 10 MG TABLET 2 TAB PO 4 TIMES/DAY gastro issues Omeprazole 40 MG CAPSULE.DR 1 CAP PO DAILY Dyspepsia . Ondansetron (Zofran Odt) 4 MG TAB.RAPDIS 1 TAB PO Q6 PRN NAUSEA . 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: Amenorrhea Review of Systems Comments 12 point review significant only for as noted in the HPI Exam & Diagnostic Data Last 24 Hrs of Vital Signs/I&O Vital Signs Date Time Temp Pulse Resp B/P B/P Pulse O2 O2 Flow FiO2 Mean Ox Delivery Rate 01/30 1948 98.3 111 22 130/80 98 Room Air 01/30 1828 97.4 103 19 156/89 100 Room Air 01/30 1538 97.8 111 16 151/84 100 Room Air / 1427 105 / 1247 96.9 130 20 167/90 96 Room Air Intake & Output 01/30 1600 /04 0800 07 0000 Intake Total 1000 Output Total 2 Balance 998 Intake, IV 1000 Output, 2 Emesis Patient 147 lb Weight Weight Reported by Patient Measurement Method Last 24 Hrs of Labs/Goyo: Laboratory Tests 01/30/18 1923: Lactic Acid 5.3 H 01/30/18 1620: Lactic Acid 4.9 H 01/30/18 1435: pH 7.41, pCO2 35, pO2 89, HCO3 21, ABG O2 Sat (Measured) 95.0 L, Carboxyhemoglobin 1.0 L, O2 Concentration % RA, O2 Delivery Method RA, Phlebotomy Draw Site RIGHT RADIAL 01/30/18 1321: Anion Gap 20 H, Estimated GFR > 60, BUN/Creatinine Ratio 18.6, Glucose 377 H, Serum Osmolality 307 H, Lactic Acid 3.3 H, Calcium 10.1, Total Bilirubin 1.2, AST 24, ALT 31, Alkaline Phosphatase 121, Total Protein 8.6 H, Albumin 5.1 H, Globulin 3.5, Albumin/Globulin Ratio 1.5, Lipase 131, Total Beta HCG NEGATIVE, CBC w Diff NO MAN DIFF REQ, RBC 5.34, MCV 89.9, MCH 30.5, MCHC 34.0, RDW 12.6, MPV 9.4, Gran % 67.8, Lymphocytes % 23.3, Monocytes % 6.0, Eosinophils % 2.4, Basophils % 0.5, Absolute Granulocytes 9.5 H, Absolute Lymphocytes 3.3, Absolute Monocytes 0.8 H, Absolute Eosinophils 0.3, Absolute Basophils 0.1, Acetone Level NEGATIVE 01/30/18 1259: Urinalysis LIGHT H, Urine Color YEL, Urine Clarity HAZY H, Urine pH 6.0, Ur Specific [place] >= 1.030, Urine Protein 30 H, Urine Ketones 15 H, Urine Nitrite NEG, Urine Bilirubin NEG, Urine Urobilinogen 0.2, Ur Leukocyte Esterase NEG, Ur Microscopic SEDIMENT EXAMINED, Urine RBC 1-3, Urine WBC 1-3 H, Ur Epithelial Cells MANY H, Urine Bacteria MANY H, Urine Mucus MANY H, Urine Hemoglobin SMALL H, Urine Glucose >=1000 H Core Measures/Misc (04/15) Sepsis (View protocol) If YES complete Sepsis Event Note If YES complete Sepsis Event Note Attending MD Review Statement Attending Statement Attending MD Statement: examined this patient, discuss w/resident/PA/PRINTED CIRCUIT BOARDS SOLDER LEVELER, agreed w/resident/PA/PRINTED CIRCUIT BOARDS SOLDER LEVELER Attending Assessment/Plan: This patient is a 37-year-old female is a significant past medical history for type 1 diabetes with gastroparesis, and prolactin secreting adenoma. Patient was admitted to the hospital on December 18 for a very similar episode. She presents to the emergency department today with a three-day history of nausea vomiting and abdominal pain. On evaluation the patient is noted to have an elevated white blood cell count lactic acid. She's received bolus of fluid as well as antiemetics. She appears to be improving but still has episodes of nausea and vomiting. Allergiesnone Past medical history Migraine Type 1 diabetes with gastroparesis Cyclical vomiting syndrome Mood disorder History of prolactin secreting adenoma with partially empty sella Amenorrhea secondary to above Social history Does not work Denies tobacco or alcohol use however does use marijuana Family history Noncontributory Review of systems 12 point review of systems noted in HPI Physical exam Temperature is 98.3 pulse 111 respirations 22 blood pressure 130/80 pulse ox 98% Arousable alert and oriented mild distress Neck supple no JVD Lungs clear to auscultation Rapid heart rate no murmurs rubs Abdomen soft and my exam without any focal tenderness Neurologically intact Rashes or lesions Labs, microbiology and radiology reviewed Assessment and plan This patient is a 37-year-old female who presents with intractable nausea vomiting abdominal pain. Agree with resident's plan. - IV hydration - Antiemetics - Sliding scale insulin - Monitor electrolytes - Follow lactate - Endocrine consult in the a.m.
[2018-01-30 19:48] VITALS: BP 130/80
[2018-01-31 01:38] LABS: ABSOLUTE BASOPHIL COUNT 0 /CUMM (0.0-0.2); ABSOLUTE EOSINOPHIL COUNT 0 /CUMM (0.0-0.7); ABSOLUTE GRANULOCYTE CT 18.9 /CUMM (1.4-6.5); ABSOLUTE LYMPH COUNT 1.6 /CUMM (1.2-3.4); ABSOLUTE MONOCYTE COUNT 1.1 /CUMM (0.10-0.60); BASOPHIL % 0 % (0.0-2.0); EOSINOPHIL % 0 % (0-5); GRANULOCYTE % 87.8 % (42.2-75.2); MEAN CORPUSCULAR HGB 30.9 PG (27.0-31.0); MEAN CORPUSCULAR HGB CONC 34.6 G/DL (33.0-37.0); MEAN CORPUSCULAR VOLUME 89.3 FL (81.0-99.0); MEAN PLATELET VOLUME 8.7 FL (7.4-10.4); PLATELET COUNT 270 /CUMM (130-400); RBC DISTRIBUTION WIDTH 12.2 % (11.5-14.5)
[2018-01-31 01:51] LABS: HEMATOCRIT 37.5 % (37-47); WHITE BLOOD CELL COUNT 21.5 /CUMM (4.8-10.8)
[2018-01-31 02:18] VITALS: BP 100/74
[2018-01-31 05:39] LABS: ABSOLUTE BASOPHIL COUNT 0 /CUMM (0.0-0.2); ABSOLUTE EOSINOPHIL COUNT 0 /CUMM (0.0-0.7); ABSOLUTE LYMPH COUNT 2.3 /CUMM (1.2-3.4); ABSOLUTE MONOCYTE COUNT 1.4 /CUMM (0.10-0.60); BASOPHIL % 0.2 % (0.0-2.0); EOSINOPHIL % 0.1 % (0-5); GRANULOCYTE % 80.3 % (42.2-75.2); HEMATOCRIT 35.5 % (37-47); MEAN CORPUSCULAR HGB 30.7 PG (27.0-31.0); MEAN CORPUSCULAR HGB CONC 33.9 G/DL (33.0-37.0); MEAN CORPUSCULAR VOLUME 90.3 FL (81.0-99.0); MEAN PLATELET VOLUME 8.1 FL (7.4-10.4); PLATELET COUNT 280 /CUMM (130-400); RBC DISTRIBUTION WIDTH 12.4 % (11.5-14.5); RED BLOOD CELL CT 3.93 /CUMM (4.20-5.40); WHITE BLOOD CELL COUNT 18.7 /CUMM (4.8-10.8)
[2018-01-31 06:38] VITALS: BP 128/67
--- NOTE | 2018-01-31 07:20 | PN- Housestaff ---
Cruz Siu 01/31/18 0719: Subjective Follow-up For: Cyclic vomiting syndrome and gastroparesis Complaints: intractable vomiting Subjective: Hospital day 1. Patient was seen and examined at the bedside. Patient was sleeping when approached but woke when spoken to. On initial exam, patient denied any complaints, stating that her abdominal pain had resolved. However, within 2 hours the patient was experiencing abdominal pain requiring morphine IV and intractable vomiting. Patient was able to answer questions appropriately, but was in acute distress during vomiting episodes. Review of Systems Constitutional: Reports: no symptoms. Gastrointestinal: Reports: abdominal pain, nausea, vomiting. Objective Last 24 Hrs of Vital Signs/I&O Vital Signs Date Time Temp Pulse Resp B/P B/P Pulse O2 O2 Flow FiO2 Mean Ox Delivery Rate 01/31 0638 98.2 89 20 128/67 98 Room Air 01/31 0218 98.6 94 20 100/74 100 Room Air 01/30 1948 98.3 111 22 130/80 98 Room Air 01/30 1828 97.4 103 19 156/89 100 Room Air / 1538 97.8 111 16 151/84 100 Room Air /04 1427 105 Intake & Output / 1600 07/05 0800 07/05 0000 Intake Total 1040 600 Output Total 2 Balance 1040 598 Intake, IV 800 600 Intake, Oral 240 0 Output, 2 Emesis Patient 147 lb Weight Physical Exam General Appearance: Alert, Oriented X3, Cooperative, Moderate Distress Skin: No Rashes Skin Temp/Moisture Exam: Warm/Dry Sepsis Skin Exam (color): Normal for Ethnicity HEENT: Atraumatic, PERRLA, EOMI Cardiovascular: Regular Rate, Normal S1, Normal S2, No Murmurs Lungs: Clear to Auscultation, Normal Air Movement Abdomen: Normal Bowel Sounds, Soft, No Tenderness (developed tenderness and pain ) Neurological: Normal Gait, Normal Speech, Strength at 5/5 X4 Ext, Normal Tone, Sensation Intact Extremities: No Edema, Normal Pulses Assessment/Plan Assessment: 37-year-old female with past medical history of migraine, type 1 diabetes, gastroparesis, cyclic vomiting syndrome, marijuana for pain relief, mood disorders, history of prolactin secreting adenoma, partially empty sella presented to the ER with acute on chronic worsening of intractable nausea vomiting and abdominal pain for 3 days. Patient was recently admitted to [facility] December 18, 2017 for cyclic vomiting syndrome, DKA, gastroparesis, intractable nausea, where she was found to have reactive leukocytosis without any source of infection, high serum glucose, and anion gap. She has been seen in the [place] ER multiple times with similar complaints. She typically takes Zofran and Tigan for gastroparesis however has been unable to do so for the past 3 days because of nausea. Denies any fevers, chills, change in bladder or bowel habits. Also states that she has not been taking her insulin injections for the past 3 days. Continue to experience intractable vomiting after admission. Problem List: Cyclic vomiting syndrome/gastroparesis Reactive leukocytosis Lactic acidosis Type 1 diabetes mellitus with hyperglycemia GERD Prolactin secreting pituitary adenoma Plan: Patient admitted to general medicine floor for further management of gastroparesis Continue IV fluids Followup CBC and BEP tomorrow for leukocytosis and electrolytes from vomiting Continue to monitor lactic acid, recheck lactic acid in the morning Continue IV Zofran, metoclopramide as needed Start azithromycin gastric motility Continue other home medications Accu-Cheks every 6 hours closely monitor blood sugar Consider strongly ICU transfer if patient develops DKA or mental status worsening Appreciate consult from endocrinology, will bollow as below: 1. Decrease Levemir to 8 units twice a day; 2. Start D5 half-normal saline with 20 meq of KCL at 75 cc/hr; 3. adjust NovoLog coverage every 4 hours; detail see the inpatient DM order; 4. monitor FSGs and electrolytes; 5. continue protonix iv and Reglan IV as needed; will follow. DVT prophylaxis: Ambulating Patient is full code Problem List: 1. Cyclic vomiting syndrome 2. Gastroparesis 3. Chronic abdominal pain 4. Hyperglycemia 5. Leukocytosis Pain Ratin Pain Location: Abdomen Pain Goal: Pain 4 or less Pain Plan: Morphine, erythromycin, Tomorrow's Labs & Rationales: cbc and bep for leukocytosis and electrolytes due to vomiting Gris Sapp 01/31/18 1125: Attending MD Review Statement Attending Statement Attending MD Statement: examined this patient, discuss w/resident/PA/REVENUE CYCLE MANAGER, agreed w/resident/PA/REVENUE CYCLE MANAGER, discussed with family, reviewed EMR data (avail), discussed with nursing, discussed with case mgmt, reviewed images, amended to note Attending Assessment/Plan: 37 o/f with pmh of question pitutiary adenoma and type 1 daibetes mellitus with gastroparesis as complication from type 1 DM comes with intractable nausea/ vomting and abdominal pain. She received IV fluids on admission and kept NPO. Endorcinology has been consulted and resume basal insulin as recommended. Contine monitor CBGs. Patient this am c/o abdominal pain not controlled. She received morphine for pain control but without help. She also 2 epsidoes of witnessed vomiting with clear vomitus. PLan will be to change reglan to standing orders for 10 iv q 6. Zofran as prn to control nasuea. Also give trial of iv erythomycin or azithromycin after confirming with pharmacy. Obtain GI consult. Pain management with fentanly patch 25 mcg for now. Cosnider pain management consult if no improvement. Advance diet as tolerated and Continue with intravenous fluids. Repelte electrolytes prn obtain previous records
--- NOTE | 2018-01-31 09:02 | Cons- Endocrinology ---
General Information and HPI Consulting Request Date of Consult: 01/31/18 Requested By: medical team Reason for Consult: DM management Source of Information: patient, old records Exam Limitations: no limitations History of Present Illness: 37 y/o female, who was diagnosed with pituitary prolactin secreting adenoma when she was a teenager when she was in [place] after she didn't have periods for a while. But she didn't take care of herself. She moved to [place] and started seeing Dr. Acevedo at [facility] more tolliver 5 years ago and MRI was done several times at [facility] and she was told that there was a tumor in her pituitary gland and she was treated with Dostinex. According to the information in [facility], her prolactin level was 320.9 along with FSH 1.3 and LH 0.4 in 2010. In [facility], MRI done in 2013 showed normal pituitary gland. In 2015, MRI showed partial empty sella without evidence of pituitary tumor. In 08/2016, her prolactin level was 139.9. At age of 30, she was diagnosed with diabetes type 2. Initially she was treated with oral medication. Shortly after she was diagnosed with diabetes, she was put on insulin. But she hasn't been comopliance with insulin regimen. PRINCE 65 antibody was checked in 2012 and in 11/2015, and it was negative. In 11/2015, her c-peptide was 1.07. She has been admitted to several time for abdominal pain, nausea and vomiting over the past several months. The most recent admission was in 11/2017. She was readmitted on 01/30/2018 with the similar complaints. Currently she is kept NPO and IVF was discontinued this morning. Allergies/Medications Allergies: Coded Allergies: No Known Allergies (01/21/17) Home Med List: Cabergoline 0.5 MG TABLET 0.5 TAB PO 2XW PRN PIT TUMOR (Reported) Insulin Aspart (Novolog) 100 UNIT/ML VIAL 0 SC TIDAC Diabetes BEFORE MEALS. Blood Insulin Sugar Units <80 0 80-150 3 151-200 4 201-250 5 251-300 6 301-350 7 351-400 8 >400 9 and Call Doctor [phone] Insulin Detemir (Levemir) 100 UNIT/ML VIAL 10 U SC BID Diabetes . Metoclopramide HCl (Reglan) 10 MG TABLET 2 TAB PO 4 TIMES/DAY gastro issues Omeprazole 40 MG CAPSULE.DR 1 CAP PO DAILY Dyspepsia . Ondansetron (Zofran Odt) 4 MG TAB.RAPDIS 1 TAB PO Q6 PRN NAUSEA . Ubidecarenone (Coenzyme Q10) 200 MG CAPSULE 1 CAP PO BID SUPPLEMENT (Reported ) Review of Systems Review of Systems Constitutional: Reports: see HPI. Cardiovascular: Denies: chest pain. Respiratory: Denies: short of breath. GI: Reports: nausea, vomiting. Genitourinary: Denies: dysuria. Hematologic/Endocrine: Denies: polyuria, polydipsia. Past History Travel History Traveled to [place] past 21 day No Medical History Blood Transfusion Hx: No Neurological: dizziness, migraine EENT: NONE Cardiovascular: NONE Respiratory: NONE Gastrointestinal: GASTROPARESIS Hepatic: NONE Renal: NONE Musculoskeletal: NONE Psychiatric: mood disorder related to substance abuse Endocrine: diabetes, Hx of prolactin secreting pituitary ademona partial empty sella Blood Disorders: NONE Cancer(s): NONE WOMEN'S LACROSSE COACH/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 Age 65. FATHER (DM). Age 67. Psychosocial History Where Do You Live? Home Who Do You Live With? 2 nieces Services at Home: None Primary Language: [place] Islander, Hungarian Smoking Status: Never Smoked ETOH Use: denies use Illicit Drug Use: marijuana Living Will? no Power of Information Lead/HCP? no Functional Ability ADLs Independent: dressing, eating, toileting, bathing. Ambulation: independent IADLs Independent: shopping, housework, finances, food prep, telephone, transportation , medication admin. Exam & Diagnostic Data Last 24 Hrs of Vital Signs/I&O Vital Signs Date Time Temp Pulse Resp B/P B/P Pulse O2 O2 Flow FiO2 Mean Ox Delivery Rate 01/31 0638 98.2 89 20 128/67 98 Room Air 01/31 0218 98.6 94 20 100/74 100 Room Air 01/30 1948 98.3 111 22 130/80 98 Room Air / 1828 97.4 103 19 156/89 100 Room Air 01/30 1538 97.8 111 16 151/84 100 Room Air 01/30 1427 105 /04 1247 96.9 130 20 167/90 96 Room Air Intake & Output 01/31 1600 01/31 0800 01/31 0000 Intake Total 1040 600 Output Total 2 Balance 1040 598 Intake, IV 800 600 Intake, Oral 240 0 Output, 2 Emesis Patient 147 lb Weight Physical Exam General Appearance: no apparent distress Neck: normal inspection Respiratory: lungs clear Cardiovascular: tachycardia (mild) Gastrointestinal: soft, non-tender Extremities: no edema Labs/Goyo Results: Laboratory Tests 01/31 01/31 0520 0520 Chemistry Sodium (137 - 145 mmol/L) 140 Potassium (3.5 - 5.1 mmol/L) 3.7 Chloride (98 - 107 mmol/L) 103 Carbon Dioxide (22 - 30 mmol/L) 27 Anion Gap (5 - 16) 11 BUN (7 - 17 mg/dL) 7 Creatinine (0.5 - 1.0 mg/dL) 0.5 Estimated GFR (>60 ml/min) > 60 BUN/Creatinine Ratio (7 - 25 %) 14.0 Lactic Acid (0.7 - 2.1 mmol/L) 1.1 Hematology CBC w Diff NO MAN DIFF REQ WBC (4.8 - 10.8 /CUMM) 18.7 H RBC (4.20 - 5.40 /CUMM) 3.93 L Hgb (12.0 - 16.0 G/DL) 12.1 Hct (37 - 47 %) 35.5 L MCV (81.0 - 99.0 FL) 90.3 MCH (27.0 - 31.0 PG) 30.7 MCHC (33.0 - 37.0 G/DL) 33.9 RDW (11.5 - 14.5 %) 12.4 Plt Count (130 - 400 /CUMM) 280 MPV (7.4 - 10.4 FL) 8.1 Gran % (42.2 - 75.2 %) 80.3 H Lymphocytes % (20.5 - 51.1 %) 12.1 L Monocytes % (1.7 - 9.3 %) 7.3 Eosinophils % (0 - 5 %) 0.1 Basophils % (0.0 - 2.0 %) 0.2 Absolute Granulocytes (1.4 - 6.5 /CUMM) 15.0 H Absolute Lymphocytes (1.2 - 3.4 /CUMM) 2.3 Absolute Monocytes (0.10 - 0.60 /CUMM) 1.4 H Absolute Eosinophils (0.0 - 0.7 /CUMM) 0 Absolute Basophils (0.0 - 0.2 /CUMM) 0 01/31 01/30 01/30 0115 2224 1923 Chemistry Lactic Acid (0.7 - 2.1 mmol/L) 3.6 H 4.1 H 5.3 H Hematology CBC w Diff MAN DIFF ORDERED WBC (4.8 - 10.8 /CUMM) 21.5 H RBC (4.20 - 5.40 /CUMM) 4.20 Hgb (12.0 - 16.0 G/DL) 13.0 Hct (37 - 47 %) 37.5 MCV (81.0 - 99.0 FL) 89.3 MCH (27.0 - 31.0 PG) 30.9 MCHC (33.0 - 37.0 G/DL) 34.6 RDW (11.5 - 14.5 %) 12.2 Plt Count (130 - 400 /CUMM) 270 MPV (7.4 - 10.4 FL) 8.7 Gran % (42.2 - 75.2 %) 87.8 H Lymphocytes % (20.5 - 51.1 %) 7.3 L Monocytes % (1.7 - 9.3 %) 4.9 Eosinophils % (0 - 5 %) 0 Basophils % (0.0 - 2.0 %) 0 Absolute Granulocytes (1.4 - 6.5 /CUMM) 18.9 H Segmented Neutrophils (42.2 - 75.2 %) 89 H Absolute Lymphocytes (1.2 - 3.4 /CUMM) 1.6 Lymphocytes (20.5 - 51.1 %) 8 L Monocytes (1.7 - 9.3 %) 3 Absolute Monocytes (0.10 - 0.60 /CUMM) 1.1 H Absolute Eosinophils (0.0 - 0.7 /CUMM) 0 Absolute Basophils (0.0 - 0.2 /CUMM) 0 Platelet Estimate (ADEQUATE) ADEQUATE Polychromasia 1+ Ovalocytes FEW Other Body Source Fld Total RBCs Counted (%) 100 01/30 01/30 01/30 1620 1435 1321 Blood Gas pH (7.35 - 7.45 PH) 7.41 pCO2 (35 - 45 TORR) 35 pO2 (80 - 100 TORR) 89 HCO3 (21 - 28 MEQ/L) 21 ABG O2 Sat (Measured) (>96.0 %) 95.0 L Carboxyhemoglobin (1.5 - 5.0 %) 1.0 L O2 Concentration % RA O2 Delivery Method RA Chemistry Sodium (137 - 145 mmol/L) 139 Potassium (3.5 - 5.1 mmol/L) 4.6 Chloride (98 - 107 mmol/L) 99 Carbon Dioxide (22 - 30 mmol/L) 20 L Anion Gap (5 - 16) 20 H BUN (7 - 17 mg/dL) 13 Creatinine (0.5 - 1.0 mg/dL) 0.7 Estimated GFR (>60 ml/min) > 60 BUN/Creatinine Ratio (7 - 25 %) 18.6 Glucose (65 - 99 mg/dL) 377 H Serum Osmolality (285 - 295 MOSM/KG) 307 H Lactic Acid (0.7 - 2.1 mmol/L) 4.9 H 3.3 H Calcium (8.4 - 10.2 mg/dL) 10.1 Total Bilirubin (0.2 - 1.3 mg/dL) 1.2 AST (14 - 36 U/L) 24 ALT (9 - 52 U/L) 31 Alkaline Phosphatase (<127 U/L) 121 Total Protein (6.3 - 8.2 g/dL) 8.6 H Albumin (3.5 - 5.0 g/dL) 5.1 H Globulin (1.9 - 4.2 gm/dL) 3.5 Albumin/Globulin Ratio (1.1 - 2.2 %) 1.5 Lipase (23 - 300 U/L) 131 Total Beta HCG (NEGATIVE) NEGATIVE Hematology CBC w Diff NO MAN DIFF REQ WBC (4.8 - 10.8 /CUMM) 14.0 H RBC (4.20 - 5.40 /CUMM) 5.34 Hgb (12.0 - 16.0 G/DL) 16.3 H Hct (37 - 47 %) 48.0 H MCV (81.0 - 99.0 FL) 89.9 MCH (27.0 - 31.0 PG) 30.5 MCHC (33.0 - 37.0 G/DL) 34.0 RDW (11.5 - 14.5 %) 12.6 Plt Count (130 - 400 /CUMM) 327 MPV (7.4 - 10.4 FL) 9.4 Gran % (42.2 - 75.2 %) 67.8 Lymphocytes % (20.5 - 51.1 %) 23.3 Monocytes % (1.7 - 9.3 %) 6.0 Eosinophils % (0 - 5 %) 2.4 Basophils % (0.0 - 2.0 %) 0.5 Absolute Granulocytes (1.4 - 6.5 /CUMM) 9.5 H Absolute Lymphocytes (1.2 - 3.4 /CUMM) 3.3 Absolute Monocytes (0.10 - 0.60 /CUMM) 0.8 H Absolute Eosinophils (0.0 - 0.7 /CUMM) 0.3 Absolute Basophils (0.0 - 0.2 /CUMM) 0.1 Miscellaneous Phlebotomy Draw Site RIGHT RADIAL Toxicology Acetone Level (NEGATIVE) NEGATIVE 01/30 1259 Urines Urinalysis LIGHT H Urine Color (YEL,AMB,STR) YEL Urine Clarity (CLEAR) HAZY H Urine pH (5.0 - 8.0) 6.0 Ur Specific [place] (1.001 - 1.035) >= 1.030 Urine Protein (NEG,<30 MG/DL) 30 H Urine Ketones (NEG) 15 H Urine Nitrite (NEG) NEG Urine Bilirubin (NEG) NEG Urine Urobilinogen (0.1 - 1.0 EU/dl) 0.2 Ur Leukocyte Esterase (NEG) NEG Ur Microscopic SEDIMENT EXAMINED Urine RBC (0 - 5 /HPF) 1-3 Urine WBC (0 - 2 /HPF) 1-3 H Ur Epithelial Cells (NONE,FEW) MANY H Urine Bacteria (NEG/NONE) MANY H Urine Mucus (FEW,NONE) MANY H Urine Hemoglobin (NEG) SMALL H Urine Glucose (N MG/DL) >=1000 H Assessment/Plan Assessment/Plan This 37 year old female with history of questionable pituitary prolactin adenoma and diabetes type 2 with episodes of borderline mild ketosis in the past due to gastroparesis, patient was readmitted for abdominal pain, nausea and vomiting. The blood work done in the ER demonstrated dehydration along with elevated lactic acid. She was treated with IV fluid and her lactic acid level has improved. At this point she still feels nauseous. She received Levemir 10 units last night. This morning her glucose level was only 80. Plan: 1. Decrease Levemir to 8 units twice a day; 2. Start D5 half-normal saline with 20 meq of KCL at 75 cc/hr; 3. adjust NovoLog coverage every 4 hours; detail see the inpatient DM order; 4. monitor FSGs and electrolytes; 5. continue protonix iv and Reglan IV as needed; will follow. Please contact endo if there are any questions. Inpatient Diabetes Orders Every 4 Hours: Bolus Insulin: Novolog < 80 mg/dl: no coverage 80-100 mg/dl: no coverage 101-120 mg/dl: no coverage 121-150 mg/dl: no coverage 151-200 mg/dl: 2 units 201-250 mg/dl: 3 units 251-300 mg/dl: 5 units 301-350 mg/dl: 7 units 351-400 mg/dl: 9 units > 400 mg/dl: 11 units Consult Acknowledgment - Thank you for your consult request.
[2018-01-31 14:27] VITALS: BP 120/60
--- NOTE | 2018-01-31 18:40 | Event Note ---
Event Note Event Note: S:37 year old female with PMH T1DM, gastroparesis, cyclic vomiting syndrome, partial empty sella syndrome, migraine admitted for n/v, abdominal pain. Notified by RN that patient is in severe pain that is not being manage with Fentanyl patch 25mcg and Morphine 2mg IV. I went to see the patient and she is sitting up and doubled over in pain with tears streaming. She states she is in severe 10/10 pain and is at her 'witts end'. She states she had a normal BM several hours previously and does not complain of dysuria. She describes the pain as throbbing in nature. O: VS T98.3 HR 105 RR 20 BP132/67 Sat 99% RA Gen: moderate distress Card: Tachycardia with regular rhythm Resp: CTAB A/P: 37 year old female in acute severe pain 2/2 gastroparesis. -Will hold on using opioid medications as this slows gut motility -Will administer 1000mg IV acetaminophen one time dose Appreciate the diligent care of this patient by our nursing staff Mendy Sterling PGY 1 Pager [phone]
[2018-01-31 22:01] VITALS: BP 142/92
[2018-02-01 06:18] VITALS: BP 120/90
--- NOTE | 2018-02-01 06:45 | PN- Housestaff ---
Cruz Siu 02/01/18 0645: Subjective Follow-up For: Chronic vomiting syndrome and gastroparesis Complaints: intractable vomiting, pain 05/08 Subjective: Hospital day 2. Patient was seen and examined at the bedside. Patient is disagreeable, demanding pain medications. Patient was able to answer questions appropriately, but was in acute distress and argumentative with physicians. Review of Systems Constitutional: Reports: no symptoms. Gastrointestinal: Reports: abdominal pain, nausea, vomiting. Objective Last 24 Hrs of Vital Signs/I&O Vital Signs Date Time Temp Pulse Resp B/P B/P Pulse O2 O2 Flow FiO2 Mean Ox Delivery Rate 02/01 618 97.9 98 18 120/90 99 Room Air 01/31 2201 98.4 109 18 142/92 100 Room Air 01/31 1427 98.2 96 20 120/60 97 Intake & Output 02/01 1600 02/01 0800 07 0000 Intake Total 625 225 Output Total 500 Balance -500 625 225 Intake, IV 525 225 Intake, Oral 100 Output, 500 Emesis Physical Exam General Appearance: Alert, Oriented X3, Cooperative, Severe Distress Skin: No Rashes, No Breakdown Skin Temp/Moisture Exam: Warm/Dry Sepsis Skin Exam (color): Normal for Ethnicity HEENT: Atraumatic, PERRLA, EOMI Neck: Supple, No thryomegaly Lymphatic: Axillary nl, Cervical nl Cardiovascular: Regular Rate, Normal S1, Normal S2, No Murmurs Lungs: Clear to Auscultation, Normal Air Movement Abdomen: Soft, diffuse tenderness to palpation Neurological: Normal Gait, Normal Speech, Strength at 5/5 X4 Ext, Normal Tone, Sensation Intact Extremities: No Clubbing, No Edema, Normal Pulses Assessment/Plan Assessment: 37-year-old female with past medical history of migraine, type 1 diabetes, gastroparesis, cyclic vomiting syndrome, marijuana for pain relief, mood disorders, history of prolactin secreting adenoma, partially empty sella presented to the ER with acute on chronic worsening of intractable nausea vomiting and abdominal pain for 3 days. Patient was recently admitted to [facility] December 18, 2017 for cyclic vomiting syndrome, DKA, gastroparesis, intractable nausea, where she was found to have reactive leukocytosis without any source of infection, high serum glucose, and anion gap. She has been seen in the [place] ER multiple times with similar complaints. She typically takes Zofran and Tigan for gastroparesis however has been unable to do so for the past 3 days because of nausea. Denies any fevers, chills, change in bladder or bowel habits. Also states that she has not been taking her insulin injections for the past 3 days. Continue to experience intractable vomiting after admission. Problem List: Cyclic vomiting syndrome/gastroparesis Reactive leukocytosis Lactic acidosis Type 1 diabetes mellitus with hyperglycemia GERD Prolactin secreting pituitary adenoma Plan: Patient admitted to general medicine floor for further management of gastroparesis Continue IV fluids Followup CBC and BEP tomorrow for leukocytosis and electrolytes from vomiting Lactic acidosis resolved Continue IV Zofran prn, and reglan q6 prd Start azithromycin gastric motility For pain, giving Fentanly patch, dilaudid 0.4mg IV prn, attempting pain management consult Continue other home medications Accu-Cheks every 6 hours closely monitor blood sugar Appreciate consult from endocrinology, will bollow as below: 1. Decrease Levemir to 8 units twice a day; 2. Start D5 half-normal saline with 20 meq of KCL at 75 cc/hr; 3. adjust NovoLog coverage every 4 hours; detail see the inpatient DM order; 4. monitor FSGs and electrolytes; 5. continue protonix iv and Reglan IV as needed; will follow. DVT prophylaxis: Ambulating Patient is full code Problem List: 1. Cyclical vomiting with nausea 2. Gastroparesis 3. Diabetes 4. Epigastric abdominal pain Pain Ratin Pain Location: Abdomen Pain Goal: Pain 4 or less Pain Plan: Attempting to avoid opiates due to gastroparesis, considering as needed Dilaudid and morphine, would appreciate consult from pain management Tomorrow's Labs & Rationales: CBC and BEP to track electrolytes and leukocytosis Discharge Plan Stable for Discharge? No Gris Sapp 02/01/18 1113: Attending MD Review Statement Attending Statement Attending MD Statement: examined this patient, discuss w/resident/PA/AMBULANCE OFFICER, agreed w/resident/PA/AMBULANCE OFFICER, discussed with family, reviewed EMR data (avail), discussed with nursing, discussed with case mgmt, reviewed images, amended to note Attending Assessment/Plan: 37 o/f with pmh of question pitutiary adenoma and type 1 daibetes mellitus with gastroparesis as complication from type 1 DM comes with intractable nausea/ vomting and abdominal pain. Patient this am c/o abdominal pain not controlled. She is on fentanyl patch and morphine for pain control. Asked toradol iv yesterday and she is not willing to take it. She also feels nasuea. [place] relief with dialudid one dose 0.4 mg given overnight. Continue reglan standing orders for 10 iv q 6. Zofran as prn to control nasuea. GI consult pending Pain management with fentanly patch 25 mcg/morphine for now. Obtain pain management consult if no improvement. Avoid increasing opiates as can worsen gut motility. Endorcinology has been consulted and resume basal insulin as recommended. Contine monitor CBGs. Advance diet as tolerated and Continue with intravenous fluids. Repelte electrolytes prn obtain previous records
--- NOTE | 2018-02-01 08:30 | PN- Diabetes ---
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 The blood work done in the ER demonstrated dehydration along with elevated lactic acid. She was treated with IV fluid and her lactic acid level has improved. At this point she still feels nauseous. She is on Levemir 8 units twice a day, D5 half-normal saline with 20 meq of KCL at 75 cc/hr and NovoLog coverage every 4 hours Every 4 Hours: Bolus Insulin: Novolog < 80 mg/dl: no coverage 80-100 mg/dl: no coverage 101-120 mg/dl: no coverage 121-150 mg/dl: no coverage 151-200 mg/dl: 2 units 201-250 mg/dl: 3 units 251-300 mg/dl: 5 units 301-350 mg/dl: 7 units 351-400 mg/dl: 9 units > 400 mg/dl: 11 units Her FSGs were 199, 182, 182 and 91. She is going to try to eat some food today. Plan: continue the current IVF, levemir 8 units twice a day and Novolog coverage every 4 hours for now. monitor FSGs and electrolytes. will follow. Subjective Subjective: she feels slightly better this morning. Objective Last 24 Hrs of Vital Signs/I&O Vital Signs Date Time Temp Pulse Resp B/P B/P Pulse O2 O2 Flow FiO2 Mean Ox Delivery Rate 02/01 618 97.9 98 18 120/90 99 Room Air 01/31 2201 98.4 109 18 142/92 100 Room Air 01/31 1427 98.2 96 20 120/60 97 Intake & Output 02/01 1600 02/01 0800 02/01 0000 Intake Total 625 225 Output Total Balance 625 225 Intake, IV 525 225 Intake, Oral 100 Findings Pertinent Lab/Goyo Results: Laboratory Tests 02/02 736 Chemistry Sodium Pending Potassium Pending Chloride Pending Carbon Dioxide Pending Anion Gap Pending BUN Pending Creatinine Pending BUN/Creatinine Ratio Pending Hematology CBC w Diff Pending WBC Pending RBC Pending Hgb Pending Hct Pending MCV Pending MCH Pending MCHC Pending RDW Pending Plt Count Pending MPV Pending
[2018-02-01 08:54] LABS: ABSOLUTE BASOPHIL COUNT 0 /CUMM (0.0-0.2); ABSOLUTE EOSINOPHIL COUNT 0.2 /CUMM (0.0-0.7); ABSOLUTE GRANULOCYTE CT 8.8 /CUMM (1.4-6.5); ABSOLUTE LYMPH COUNT 4.1 /CUMM (1.2-3.4); ABSOLUTE MONOCYTE COUNT 0.9 /CUMM (0.10-0.60); BASOPHIL % 0.3 % (0.0-2.0); EOSINOPHIL % 1.4 % (0-5); GRANULOCYTE % 62.7 % (42.2-75.2); MEAN CORPUSCULAR HGB 30.2 PG (27.0-31.0); MEAN CORPUSCULAR HGB CONC 33.3 G/DL (33.0-37.0); MEAN CORPUSCULAR VOLUME 90.6 FL (81.0-99.0); MEAN PLATELET VOLUME 8.8 FL (7.4-10.4); PLATELET COUNT 302 /CUMM (130-400); RBC DISTRIBUTION WIDTH 12.6 % (11.5-14.5); RED BLOOD CELL CT 4.58 /CUMM (4.20-5.40); WHITE BLOOD CELL COUNT 14.1 /CUMM (4.8-10.8)
[2018-02-01 09:06] LABS: HEMATOCRIT 41.5 % (37-47)
--- NOTE | 2018-02-01 13:46 | Patient Discharge Instructions ---
Discharge Instructions General Discharge Information Special Instructions: - Please follow up with your director hair Dr. Valerio within 1 weeks of discharge for your diabetes and insulin regimen. - Please follow up with your primary care physician within 1-2 weeks of discharge. Inform your primary care physician of this admission to [facility]. - Continue your current medications per discharge instructions. - Please watch for these problems: Fever, Chills, Nausea, Vomiting, Shortness of Breath, Productive Cough, Chest Pain/Discomfort, Abdominal Pain, Active Bleeding or Bloody urine/stool. Diet Continue normal diet: Yes Recommended Diet: Diabetic Activity Full Activity/No Limits: Yes Acute Coronary Syndrome Inclusion Criteria At DC or during hospital stay patient has or had the following: ACS DIAGNOSIS No Discharge Core Measures Meds if any: Prescribed or Continued at Discharge Meds if any: NOT Prescribed or Continued at Discharge Congestive Heart Failure Inclusion Criteria At DC or during hospital stay patient has or had the following: CHF DIAGNOSIS No Discharge Core Measures Meds if any: Prescribed or Continued at Discharge Meds if any: NOT Prescribed or Continued at Discharge Cerebrovascular accident Inclusion Criteria At DC or during hospital stay patient has or had the following: CVA/TIA Diagnosis No Discharge Core Measures Meds if any: Prescribed or Continued at Discharge Meds if any: NOT Prescribed or Continued at Discharge Venous thromboembolism Inclusion Criteria VTE Diagnosis No VTE Type NONE VTE Confirmed by (Test) NONE Discharge Core Measures - Per Current guidelines, there needs to be overlap - treatment for the first 5 days of Warfarin therapy. - If discharged on Warfarin prior to 5 days of - overlap therapy, the patient will need to be - assessed for post discharge needs including - *Post discharge parental anticoagulation - *Warfarin and/or parental anticoagulation education - *Follow up date to check INR post discharge At least 5 days overlap therapy as Inpatient No Meds if any: Prescribed or Continued at Discharge Note: Overlap Therapy is Warfarin and Anticoagulant Meds if any: NOT Prescribed or Continued at Discharge
[2018-02-01 13:51] VITALS: BP 120/80
--- NOTE | 2018-02-01 15:12 | Cons- Gastroenterology ---
General Information and HPI Consulting Request Date of Consult: 02/01/18 Requested By: Gris Sapp MD Reason for Consult: Nausea, vomiting, abdominal pain. History of gastroparesis. Source of Information: patient, old records Exam Limitations: no limitations History of Present Illness: Ms. Jeffery is a 37 year old female with a history of DM and gastroparesis who presented to 2 days ago with complaints of worsening abdominal pain and vomiting consistent with her prior attacks of gastroparesis. Over the past 3 days she has been having worsening nausea and diffuse abdominal pain and she notes that she hadn't been able to take her oral anti-emetics and pro-motility agents secondary to severe nausea and pain. She has not had any hematemsis and she also denies heartburn or dysphagia. She has been having normal bowel movements without diarrhea, melena or hematochezia. In the ER she was given a GI cocktail, IV reglan, IV zofran, IVF and IV keorolac without resolution of her symptoms so she was admitted for further management. She did have an episode of severe pain last night, but she hasn't had further vomiting since admission. Since admission she has been getting narcotics for pain, IV reglan as a standing order and IV zofran as needed and she also received a dose of IV erythromycin this morning. She continues to have some pain and nausea, but she notes that she feels as though she may be able to eat at this point. Allergies/Medications Allergies: Coded Allergies: No Known Allergies (01/21/17) Home Med List: Cabergoline 0.5 MG TABLET 0.5 TAB PO 2XW PRN PIT TUMOR (Reported) Insulin Aspart (Novolog) 100 UNIT/ML VIAL 0 SC TIDAC Diabetes BEFORE MEALS. Blood Insulin Sugar Units <80 0 80-150 3 151-200 4 201-250 5 251-300 6 301-350 7 351-400 8 >400 9 and Call Doctor [phone] Insulin Detemir (Levemir) 100 UNIT/ML VIAL 10 U SC BID Diabetes . Metoclopramide HCl (Reglan) 10 MG TABLET 2 TAB PO 4 TIMES/DAY gastro issues Omeprazole 40 MG CAPSULE.DR 1 CAP PO DAILY Dyspepsia . Ondansetron (Zofran Odt) 4 MG TAB.RAPDIS 1 TAB PO Q6 PRN NAUSEA . Ubidecarenone (Coenzyme Q10) 200 MG CAPSULE 1 CAP PO BID SUPPLEMENT (Reported ) Current Medications: Current Medications Sig/Maikel Start time Last Medication Dose Route Stop Time Status Admin Acetaminophen 1,000 MG ONCE ONE 01/31 184 DC 01/31 N/A 1 UNIT IV 01/31 1859 1845 Acetaminophen 650 MG Q6P PRN / 1815 07 PO 0935 Erythromycin 200 MG ONCE ONE 01/31 2000 DC 01/31 Sodium Chloride 100 ML IV 01/31 205 205 Erythromycin 200 MG Q8H / 1200 DC 07 Sodium Chloride 100 ML IV 1235 Fentanyl Citrate 25 MCG Q72H / 1030 DC 01/31 TOP 1053 Hydromorphone HCl 0.4 MG ONCE ONE 02/01 1030 DC / IV 02/01 1031 1028 Hydromorphone HCl 0.4 MG ONCE ONE 01/31 2315 DC 01/31 IV / 2316 2321 Insulin Aspart 0 Q4 / 2200 02/01 SC 1426 Insulin Detemir 8 UNITS BID 01/31 0900 02/01 SC 0807 Metoclopramide HCl 10 MG Q6 / 1200 AC 07 IV 1229 Morphine Sulfate 2 MG Q4P PRN 01/31 0130 DC 07 IV 0807 Ondansetron HCl 4 MG Q6P PRN / 1815 AC 02/01 IV 0959 Pantoprazole Sodium 40 MG DAILY / 2230 AC 02/01 IV 0807 Potassium Chloride 20 MEQ Q13H 01/31 0900 AC 02/01 Dextrose/Sodium 1,000 ML IV 0343 Chloride Past History Travel History Traveled to [place] past 21 day No Medical History Blood Transfusion Hx: No Neurological: dizziness, migraine EENT: NONE Cardiovascular: NONE Respiratory: NONE Gastrointestinal: GASTROPARESIS Hepatic: NONE Renal: NONE Musculoskeletal: NONE Psychiatric: mood disorder related to substance abuse Endocrine: diabetes, Hx of prolactin secreting pituitary ademona partial empty sella Blood Disorders: NONE Cancer(s): NONE RENAL NURSE/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 Age 65. FATHER (DM). Age 67. Psychosocial History Where Do You Live? Home Who Do You Live With? 2 nieces Services at Home: None Primary Language: Jamaican, Martiniquais Smoking Status: Never Smoked ETOH Use: denies use Illicit Drug Use: marijuana Living Will? no Power of Psych Sales Specialist/HCP? no Functional Ability ADLs Independent: dressing, eating, toileting, bathing. Ambulation: independent IADLs Independent: shopping, housework, finances, food prep, telephone, transportation , medication admin. Review of Systems Review of Systems Constitutional: Reports: malaise, weakness. Denies: chills, diaphoresis, fever. EENTM: Denies: no symptoms. Cardiovascular: Denies: no symptoms. Respiratory: Reports: short of breath. Denies: cough, hemoptysis, orthopnea. GI: Reports: see HPI. Genitourinary: Denies: no symptoms. Musculoskeletal: Denies: no symptoms. Skin: Denies: no symptoms. Neurological/Psychological: Denies: no symptoms. Hematologic/Endocrine: Denies: no symptoms. Immunologic/Allergic: Denies: no symptoms. All Other Systems: Reviewed and Negative Exam & Diagnostic Data Vital Signs and I&O Vital Signs Date Time Temp Pulse Resp B/P B/P Pulse O2 O2 Flow FiO2 Mean Ox Delivery Rate 02/01 1351 98.4 84 16 120/80 98 /06 0618 97.9 98 18 120/90 99 Room Air / 2201 98.4 109 18 142/92 100 Room Air Intake & Output / 1600 07/06 0400 / 1600 07/05 0400 07/ 1600 07/ 0400 Intake Total 2110 982 1391 600 1000 Output Total 1100 600 2 2 Balance 404 328 5469 598 998 Intake, IV 2498 668 5609 600 1000 Intake, Oral 600 540 0 Output, 1100 600 2 2 Emesis Patient 147 lb 147 lb Weight Weight Reported by Patient Measurement Method Physical Exam General Appearance: well developed/nourished, no apparent distress, alert, awake , comfortable Head: atraumatic, normal appearance Eyes: Bilateral: normal appearance. Ears, Nose, Throat: normal pharynx, normal ENT inspection, hearing grossly normal Neck: normal inspection, supple, full range of motion Respiratory: normal breath sounds, chest non-tender, no respiratory distress Cardiovascular: regular rate/rhythm Gastrointestinal: normal bowel sounds, soft, tenderness Rectal: deferred Back: normal inspection, normal range of motion Extremities: normal inspection, no edema Skin: intact, normal color, warm/dry Results Pertinent Lab Results: Laboratory Tests 02/01 01/31 0736 0520 Chemistry Sodium (137 - 145 mmol/L) 141 Potassium (3.5 - 5.1 mmol/L) 3.6 Chloride (98 - 107 mmol/L) 101 Carbon Dioxide (22 - 30 mmol/L) 27 Anion Gap (5 - 16) 13 BUN (7 - 17 mg/dL) 4 L Creatinine (0.5 - 1.0 mg/dL) 0.5 Estimated GFR (>60 ml/min) > 60 BUN/Creatinine Ratio (7 - 25 %) 8.0 Lactic Acid (0.7 - 2.1 mmol/L) 1.1 Hematology CBC w Diff NO MAN DIFF REQ WBC (4.8 - 10.8 /CUMM) 14.1 H RBC (4.20 - 5.40 /CUMM) 4.58 Hgb (12.0 - 16.0 G/DL) 13.8 Hct (37 - 47 %) 41.5 MCV (81.0 - 99.0 FL) 90.6 MCH (27.0 - 31.0 PG) 30.2 MCHC (33.0 - 37.0 G/DL) 33.3 RDW (11.5 - 14.5 %) 12.6 Plt Count (130 - 400 /CUMM) 302 MPV (7.4 - 10.4 FL) 8.8 Gran % (42.2 - 75.2 %) 62.7 Lymphocytes % (20.5 - 51.1 %) 29.2 Monocytes % (1.7 - 9.3 %) 6.4 Eosinophils % (0 - 5 %) 1.4 Basophils % (0.0 - 2.0 %) 0.3 Absolute Granulocytes (1.4 - 6.5 /CUMM) 8.8 H Absolute Lymphocytes (1.2 - 3.4 /CUMM) 4.1 H Absolute Monocytes (0.10 - 0.60 /CUMM) 0.9 H Absolute Eosinophils (0.0 - 0.7 /CUMM) 0.2 Absolute Basophils (0.0 - 0.2 /CUMM) 0 01/31 01/31 0520 0115 Chemistry Sodium (137 - 145 mmol/L) 140 Potassium (3.5 - 5.1 mmol/L) 3.7 Chloride (98 - 107 mmol/L) 103 Carbon Dioxide (22 - 30 mmol/L) 27 Anion Gap (5 - 16) 11 BUN (7 - 17 mg/dL) 7 Creatinine (0.5 - 1.0 mg/dL) 0.5 Estimated GFR (>60 ml/min) > 60 BUN/Creatinine Ratio (7 - 25 %) 14.0 Lactic Acid (0.7 - 2.1 mmol/L) 3.6 H Hematology CBC w Diff NO MAN DIFF REQ MAN DIFF ORDERED WBC (4.8 - 10.8 /CUMM) 18.7 H 21.5 H RBC (4.20 - 5.40 /CUMM) 3.93 L 4.20 Hgb (12.0 - 16.0 G/DL) 12.1 13.0 Hct (37 - 47 %) 35.5 L 37.5 MCV (81.0 - 99.0 FL) 90.3 89.3 MCH (27.0 - 31.0 PG) 30.7 30.9 MCHC (33.0 - 37.0 G/DL) 33.9 34.6 RDW (11.5 - 14.5 %) 12.4 12.2 Plt Count (130 - 400 /CUMM) 280 270 MPV (7.4 - 10.4 FL) 8.1 8.7 Gran % (42.2 - 75.2 %) 80.3 H 87.8 H Lymphocytes % (20.5 - 51.1 %) 12.1 L 7.3 L Monocytes % (1.7 - 9.3 %) 7.3 4.9 Eosinophils % (0 - 5 %) 0.1 0 Basophils % (0.0 - 2.0 %) 0.2 0 Absolute Granulocytes (1.4 - 6.5 /CUMM) 15.0 H 18.9 H Segmented Neutrophils (42.2 - 75.2 %) 89 H Absolute Lymphocytes (1.2 - 3.4 /CUMM) 2.3 1.6 Lymphocytes (20.5 - 51.1 %) 8 L Monocytes (1.7 - 9.3 %) 3 Absolute Monocytes (0.10 - 0.60 /CUMM) 1.4 H 1.1 H Absolute Eosinophils (0.0 - 0.7 /CUMM) 0 0 Absolute Basophils (0.0 - 0.2 /CUMM) 0 0 Platelet Estimate (ADEQUATE) ADEQUATE Polychromasia 1+ Ovalocytes FEW Other Body Source Fld Total RBCs Counted (%) 100 01/30 01/30 01/30 01/30 2224 1923 1620 1435 Blood Gas pH (7.35 - 7.45 PH) 7.41 pCO2 (35 - 45 TORR) 35 pO2 (80 - 100 TORR) 89 HCO3 (21 - 28 MEQ/L) 21 ABG O2 Sat (Measured) (>96.0 %) 95.0 L Carboxyhemoglobin (1.5 - 5.0 %) 1.0 L O2 Concentration % RA O2 Delivery Method RA Chemistry Lactic Acid (0.7 - 2.1 mmol/L) 4.1 H 5.3 H 4.9 H Miscellaneous Phlebotomy Draw Site RIGHT RADIAL 01/30 01/30 1321 1259 Chemistry Sodium (137 - 145 mmol/L) 139 Potassium (3.5 - 5.1 mmol/L) 4.6 Chloride (98 - 107 mmol/L) 99 Carbon Dioxide (22 - 30 mmol/L) 20 L Anion Gap (5 - 16) 20 H BUN (7 - 17 mg/dL) 13 Creatinine (0.5 - 1.0 mg/dL) 0.7 Estimated GFR (>60 ml/min) > 60 BUN/Creatinine Ratio (7 - 25 %) 18.6 Glucose (65 - 99 mg/dL) 377 H Serum Osmolality (285 - 295 MOSM/KG) 307 H Lactic Acid (0.7 - 2.1 mmol/L) 3.3 H Calcium (8.4 - 10.2 mg/dL) 10.1 Total Bilirubin (0.2 - 1.3 mg/dL) 1.2 AST (14 - 36 U/L) 24 ALT (9 - 52 U/L) 31 Alkaline Phosphatase (<127 U/L) 121 Total Protein (6.3 - 8.2 g/dL) 8.6 H Albumin (3.5 - 5.0 g/dL) 5.1 H Globulin (1.9 - 4.2 gm/dL) 3.5 Albumin/Globulin Ratio (1.1 - 2.2 %) 1.5 Lipase (23 - 300 U/L) 131 Total Beta HCG (NEGATIVE) NEGATIVE Hematology CBC w Diff NO MAN DIFF REQ WBC (4.8 - 10.8 /CUMM) 14.0 H RBC (4.20 - 5.40 /CUMM) 5.34 Hgb (12.0 - 16.0 G/DL) 16.3 H Hct (37 - 47 %) 48.0 H MCV (81.0 - 99.0 FL) 89.9 MCH (27.0 - 31.0 PG) 30.5 MCHC (33.0 - 37.0 G/DL) 34.0 RDW (11.5 - 14.5 %) 12.6 Plt Count (130 - 400 /CUMM) 327 MPV (7.4 - 10.4 FL) 9.4 Gran % (42.2 - 75.2 %) 67.8 Lymphocytes % (20.5 - 51.1 %) 23.3 Monocytes % (1.7 - 9.3 %) 6.0 Eosinophils % (0 - 5 %) 2.4 Basophils % (0.0 - 2.0 %) 0.5 Absolute Granulocytes (1.4 - 6.5 /CUMM) 9.5 H Absolute Lymphocytes (1.2 - 3.4 /CUMM) 3.3 Absolute Monocytes (0.10 - 0.60 /CUMM) 0.8 H Absolute Eosinophils (0.0 - 0.7 /CUMM) 0.3 Absolute Basophils (0.0 - 0.2 /CUMM) 0.1 Toxicology Acetone Level (NEGATIVE) NEGATIVE Urines Urinalysis LIGHT H Urine Color (YEL,AMB,STR) YEL Urine Clarity (CLEAR) HAZY H Urine pH (5.0 - 8.0) 6.0 Ur Specific [place] (1.001 - 1.035) >= 1.030 Urine Protein (NEG,<30 MG/DL) 30 H Urine Ketones (NEG) 15 H Urine Nitrite (NEG) NEG Urine Bilirubin (NEG) NEG Urine Urobilinogen (0.1 - 1.0 EU/dl) 0.2 Ur Leukocyte Esterase (NEG) NEG Ur Microscopic SEDIMENT EXAMINED Urine RBC (0 - 5 /HPF) 1-3 Urine WBC (0 - 2 /HPF) 1-3 H Ur Epithelial Cells (NONE,FEW) MANY H Urine Bacteria (NEG/NONE) MANY H Urine Mucus (FEW,NONE) MANY H Urine Hemoglobin (NEG) SMALL H Urine Glucose (N MG/DL) >=1000 H Imaging/Other Studies: Endoscopy Procedure Medical History: unchanged (see armani ov note 01/13/16) Mental Status: alert/oriented Heart/Lung Eval Prior to Sedation: within normal limits Candidate for Sedation? Yes Procedure Date: 01/14/16 Procedure Type: EGD w/biopsy Skid Worker: BRANDY WINSLOW MD ASA Classification: III Indications: Abdominal pain, nausea, vomiting, wt loss. Instrument: diagnostic gastroscope Meds Received: MAC Patient's Tolerance: good Complications: none Extent Reached: second part of duodenum Procedure: After getting written informed consent the patient was placed in the left lateral decubitus position with pulse oximetry, cardiac monitoring, and supplemental oxygen given. A bite block was inserted and IV sedation was given until the desired effect was achieved. A high definition upper Olympus endoscope was then inserted into the mouth and advanced to the second portion of the duodenum with little difficulty. Retroflexed views and photodocumentation was obtained. Findings: Esophagus: The esophageal mucosa was grossly normal in appearance and there was a normal-appearing Z line at 35 cm from the incisors. Stomach: There was a moderate amount of leftover liquid and bile, but there was no leftover solid food. The liquid was able to be suctioned away revealing grossly normal gastric mucosa without any ulcers, erosions, or masses appreciated and the pylorus was patent and easily traversible. Distention was normal, but peristalsis appeared decreased. Retroflexed views were normal and did not reveal a significant hiatal hernia. Random biopsies were obtained from the antrum and body of the stomach with cold biopsy forceps and were sent pathology for further evaluation. Duodenum: The duodenal bulb, sweep, and folds were grossly normal in appearance. Random biopsies were obtained from the second portion of the duodenum and were sent to pathology for further evaluation. The 3rd portion of the duodenum was able to be visualized and there was no obvious dilation of the duodenum. Impression: 1. Findings suggestive of gastroparesis status post gastric biopsies. 2. Grossly normal small bowel folds status post biopsies. SERVICE DATE: 01/21/184731 EXAM TYPE: CAT - CT ABD & PELVIS W/O IV CONTRAS EXAMINATION: CT ABDOMEN AND PELVIS WITHOUT CONTRAST CLINICAL INFORMATION: Severe epigastric pain. Vomiting. Presumptive diagnosis: Cholecystitis, pancreatitis, small bowel obstruction COMPARISON: 09/11/2017 TECHNIQUE: Multidetector volumetric imaging was performed from the superior aspect of the liver through the pubic symphysis. Sagittal and coronal reformatted images were obtained on the technologist's workstation. DLP: 264.3 mGy-cm FINDINGS: LUNG BASES: The visualized lung bases are unremarkable. LIVER, GALLBLADDER, AND BILIARY TREE: Relative hypoattenuation of the hepatic parenchyma is consistent with mild steatosis. No focal lesions are identified. No very ductal dilatation. Liver is normal in size and contour. The gallbladder is unremarkable with no evidence of radiopaque gallstones, gallbladder wall thickening, or obvious pericholecystic inflammatory changes. PANCREAS: Unremarkable. SPLEEN: Unremarkable. ADRENAL GLANDS: Unremarkable. KIDNEYS AND URETERS: The kidneys are normal in size, shape, and attenuation. No hydronephrosis, hydroureter, or calculi seen. No perinephric stranding. BLADDER: Decompressed and unremarkable GASTROINTESTINAL TRACT: Stomach, small bowel, and colon are normal in caliber. No bowel wall thickening or surrounding inflammatory changes. Appendix is normal in caliber without surrounding inflammatory changes. A small amount of hyperdense material within the appendix may represent a forming appendicolith. There is a moderate to large volume of well-formed stool within the distal transverse, descending, and sigmoid colon. No intraperitoneal free fluid or free air. ABDOMINAL WALL: No significant hernia is appreciated. LYMPH NODES: Normal. VASCULAR: Unremarkable. PELVIC VISCERA: The uterus and adnexa are unremarkable. OSSEOUS STRUCTURES: No acute fracture or malalignment. There is a healing fracture of the left L4 transverse process. IMPRESSION: 1. No acute intra-abdominal or intrapelvic abnormalities. 2. Mild hepatic steatosis. 3. Healing fracture of the left L4 transverse process, new since 09/11/2017. 4. Moderate to large volume of stool within the left hemicolon Assessment/Plan Assessment/Recommendations: Assessment: Ms. Jeffery is a 37-year-old female with a history of type 1 diabetes mellitus complicated by known diabetic gastroparesis who presents with worsening symptoms over the past several days of uncertain etiology, but she has had some symptomatic improvement over the past 12-24 hours with continued IV Reglan, IV Zofran as needed, and a shot of erythromycin this morning. She is currently rather comfortable and feels ready to start an oral diet. She is without any evident GI bleeding and had a recent CAT scan on a previous emergency room visit which was unremarkable so as she is now improving I do not feel any further additional interventions are necessary at this time. Recommendations: 1. Advance diet as tolerated. 2. Continue IV Reglan as a standing order and IV Zofran as needed and if she is able to tolerate an oral diet would then change her over to oral Reglan. 3. Continue daily IV Protonix and will roving changer to oral Protonix in the a.m. if she is able to tolerate oral diet. 4. Follow fingerstick's and control as closely as possible with insulin as needed. 5. Attempt to minimize narcotic use as this can lead to delayed gastric empyting I will continue to follow this patient and make further recommendations based on her clinical course. Problem List: 1. Nausea and vomiting 2. Nausea vomiting and diarrhea Copies To: Asher Orta APRN Consult Acknowledgment - Thank you for your consult request. currently rather comfortable and feels ready to start an oral diet. She is without any evident GI bleeding and had a recent CAT scan on a previous emergency room visit which was unremarkable so as she is now improving I do not feel any further additional interventions are necessary at this time. Recommendations: 1. Advance diet as tolerated. 2. Continue IV Reglan as a standing order and IV Zofran as needed and if she is able to tolerate an oral diet would then change her over to oral Reglan. 3. Continue daily IV Protonix and will roving changer to oral Protonix in the a.m. if she is able to tolerate oral diet. 4. Follow fingerstick's and control as closely as possible with insulin as needed. 5. Attempt to minimize narcotic use as this can lead to delayed gastric empyting I will continue to follow this patient and make further recommendations based on her clinical course. Problem List: 1. Nausea and vomiting 2. Nausea vomiting and diarrhea Consult Acknowledgment - Thank you for your consult request.
--- NOTE | 2018-02-01 15:29 | Discharge Summary ---
Visit Information Visit Dates Admission Date: 01/30/18 Discharge Date: 02/02/18 Hospital Course Course Attending Physician: Gris Sapp MD Primary Care Physician: Asher Orta APRN Consulting Request: 1 Consulting Specialty: Endocrinology Consulting Physician: Joe Valerio MD Reason for Consult: Diabetes control Consulting Request: 2 Consulting Specialty: Gastroenterology Consulting Physician: Calvin Meyer MD Reason for Consult: Intractable vomitting Hospital Course: 37-year-old female with past medical history of migraine, type 1 diabetes, gastroparesis, cyclic vomiting syndrome, marijuana for pain relief, mood disorders, history of prolactin secreting adenoma, partially empty sella presented to the ER with acute on chronic worsening of intractable nausea vomiting and abdominal pain for 3 days. Patient was recently admitted to [facility] December 18, 2017 for cyclic vomiting syndrome, DKA, gastroparesis, intractable nausea, where she was found to have reactive leukocytosis without any source of infection, high serum glucose, and anion gap. She has been seen in the [place] ER multiple times with similar complaints. She typically takes Zofran and Tigan for gastroparesis however has been unable to do so for the past 3 days because of nausea. Denies any fevers, chills, change in bladder or bowel habits. Also states that she has not been taking her insulin injections for the past 3 days. Presented to the ED, and was admitted to general medicine evaluation and treatment of the following: Cyclic vomiting syndrome/gastroparesis Reactive leukocytosis Lactic acidosis Type 1 diabetes mellitus with hypertension glycemia Patient had several episodes of intractable vomiting and intense abdominal pain. Patient received few doses of Dilaudid, however pain control was switched to Toradol only, as GI suggested avoiding opioids and this had been used in the past. Patient was started on 8 units insulin detemir twice daily subcu. Patient was receiving Reglan 10 mg every 6hr IV, Toradol lack 30 mg every 6hr as needed IV, NovoLog, Zofran as needed. DVT prophylaxis was Lovenox and Alps. Patient remains full code. Patient was discharged after 3 days in the hospital. Allergies: Coded Allergies: No Known Allergies (01/21/17) Pertinent Lab Results: SERVICE DATE: 02/12/16-850 EXAM TYPE: RAD - [id number] VIEWS IMPRESSION: 1. Moderate volume of stool throughout the nondilated colon. 2. No evidence of acute intra-abdominal processes. 3. No evidence of mechanical bowel obstruction. Disposition Summary Disposition Principal Diagnosis: Cyclic vomiting syndrome/gastroparesis Additional Diagnosis: Reactive leukocytosis, lactic acidosis, type 1 diabetes, GERD, prolactin secreting pituitary adenoma Discharge Disposition: home or self care Discharge Instructions General Discharge Information Code Status: Full Code Patient's Diet: Regular as tolerated Patient's Activity: As tolerated Follow-Up Instructions/Appts: - Please follow up with your primary care physician within 1-2 weeks of discharge. Inform your primary care physician of this admission to [facility]. - Continue your current medications per discharge instructions. - Please watch for these problems: Fever, Chills, Nausea, Vomiting, Shortness of Breath, Productive Cough, Chest Pain/Discomfort, Abdominal Pain, Active Bleeding or Bloody urine/stool. Medications at Discharge Discharge Medications: Continue taking these medications: Ubidecarenone (Coenzyme Q10) 200 MG CAPSULE 1 Capsule ORAL TWICE DAILY Qty = 60 Comments: NOT GIVEN IN HOSPITAL Omeprazole (Omeprazole) 40 MG CAPSULE.DR 1 Capsule ORAL DAILY Qty = 30 Instructions: . Comments: Last Taken: NOT GIVEN IN HOSPITAL Time Insulin Detemir (Levemir) 100 UNIT/ML VIAL 10 Units Inject into fatty tissue TWICE DAILY Qty = 1 Instructions: . Comments: Last Taken: 02/02/18 Time: 0900 Cabergoline (Cabergoline) 0.5 MG TABLET 0.5 Tablet ORAL 2 times per week as needed for PIT TUMOR Comments: NOT GIVEN IN THE HOSPITAL Metoclopramide HCl (Reglan) 10 MG TABLET 2 Tablet ORAL 4 TIMES A DAY Qty = 120 Comments: PT ONLY RECIEVED IV IN THE HOSPITAL Ondansetron (Zofran Odt) 4 MG TAB.RAPDIS 1 Tablet ORAL EVERY SIX HOURS as needed for NAUSEA Qty = 60 Instructions: . Comments: PT ONLY RECEIVED IV IN THE HOSPITAL Insulin Aspart (Novolog) 100 UNIT/ML VIAL 0 Inject into fatty tissue 3 TIMES DAILY BEFORE MEALS Qty = 2 Instructions: BEFORE MEALS. Blood Insulin Sugar Units <80 0 80-150 3 151-200 4 201-250 5 251-300 6 301-350 7 351-400 8 >400 9 and Call Doctor [phone] Comments: Last Taken: 02/02/18 Time: 1245 Copies To: Asher Orta APRN
[2018-02-01 22:28] VITALS: BP 120/86
--- NOTE | 2018-02-02 06:33 | PN- Housestaff ---
See Addendum Subjective Follow-up For: Gastroparesis Subjective: Pt seen and examined at bedside. Pt denied complaints overnight. States that she feels somewhat better. Denied fever/chills/chestpain/SOB/nausea/vomiting/ diarrhea Review of Systems Constitutional: Reports: see HPI. Objective Last 24 Hrs of Vital Signs/I&O Vital Signs Date Time Temp Pulse Resp B/P B/P Pulse O2 O2 Flow FiO2 Mean Ox Delivery Rate 02/02 0635 98.4 98 20 120/80 97 Room Air 02/01 2228 98.8 95 18 120/86 99 / 1351 98.4 84 16 120/80 98 Intake & Output 02/02 0800 02/02 0000 02/01 1600 Intake Total 345 1100 Output Total 400 1100 Balance -55 0 Intake, IV 225 600 Intake, Oral 120 500 Output, 1100 Emesis Output, Urine 400 Physical Exam General Appearance: Alert, Oriented X3 Current Medications: Current Medications Sig/Maikel Start time Last Medication Dose Route Stop Time Status Admin Acetaminophen 650 MG Q6P PRN 01/30 1815 01/31 PO 0935 Fentanyl Citrate 25 MCG Q72H / 1030 WY / TOP 1053 Hydromorphone HCl 0.4 MG ONCE ONE 02/01 1030 DC 02/01 IV 02/01 1031 1028 Insulin Aspart 0 Q4 01/30 2200 02/02 SC 0635 Insulin Detemir 8 UNITS BID 01/31 0900 02/01 SC 2157 Ketorolac 30 MG Q6P PRN 02/01 1530 AC 02/01 Tromethamine IV 2341 Metoclopramide HCl 10 MG Q6 / 1200 02/02 IV 0637 Morphine Sulfate 2 MG Q4P PRN / 0130 WY 07 IV 0807 Ondansetron HCl 4 MG .STK-MED ONE 02/01 0953 DC IM 02/01 0954 Ondansetron HCl 4 MG Q6P PRN / 1815 02/01 IV 0959 Pantoprazole Sodium 40 MG DAILY 01/30 2230 AC 02/01 IV 0807 Potassium Chloride 20 MEQ Q13H 01/31 0900 02/01 Dextrose/Sodium 1,000 ML IV 0343 Chloride Last 24 Hrs of Lab/Goyo Results Last 24 Hrs of Labs/Mics: Laboratory Tests 02/01/18 0736: Anion Gap 13, Estimated GFR > 60, BUN/Creatinine Ratio 8.0, CBC w Diff NO MAN DIFF REQ, RBC 4.58, MCV 90.6, MCH 30.2, MCHC 33.3, RDW 12.6, MPV 8.8, Gran % 62.7, Lymphocytes % 29.2, Monocytes % 6.4, Eosinophils % 1.4, Basophils % 0.3, Absolute Granulocytes 8.8 H, Absolute Lymphocytes 4.1 H, Absolute Monocytes 0.9 H, Absolute Eosinophils 0.2, Absolute Basophils 0 Assessment/Plan Assessment: 37-year-old female with past medical history of migraine, type 1 diabetes, gastroparesis, cyclic vomiting syndrome, marijuana for pain relief, mood disorders, history of prolactin secreting adenoma, partially empty sella presented to the ER with acute on chronic worsening of intractable nausea vomiting and abdominal pain for 3 days. Patient was recently admitted to [facility] December 18, 2017 for cyclic vomiting syndrome, DKA, gastroparesis, intractable nausea, where she was found to have reactive leukocytosis without any source of infection, high serum glucose, and anion gap. She has been seen in the [place] ER multiple times with similar complaints. She typically takes Zofran and Tigan for gastroparesis however has been unable to do so for the past 3 days because of nausea. Denies any fevers, chills, change in bladder or bowel habits. Also states that she has not been taking her insulin injections for the past 3 days. Did not have any episodes of vomiting overnight. Problem List: Cyclic vomiting syndrome/gastroparesis Reactive leukocytosis Lactic acidosis Type 1 diabetes mellitus with hyperglycemia GERD Prolactin secreting pituitary adenoma Plan: Patient admitted to general medicine floor for further management of gastroparesis Continue IV fluids Followup CBC and BEP tomorrow for leukocytosis and electrolytes from vomiting WBC 18.7->14.1->pending; Chem unremarkable x1 day Lactic acidosis resolved Continue IV Zofran prn, and reglan q6 prd Start erythromycin/azithromycin gastric motility For pain, giving Fentanly patch, dilaudid 0.4mg IV prn, pain management not available on weekend. Pt is advised to avoid opioids; tolerating tramadol. Continue other home medications Accu-Cheks every 6 hours closely monitor blood sugar Appreciate consult from endocrinology, sirena simmons as below: 1. Decrease Levemir to 8 units twice a day; 2. Start D5 half-normal saline with 20 meq of KCL at 75 cc/hr; 3. adjust NovoLog coverage every 4 hours; detail see the inpatient DM order; 4. monitor FSGs and electrolytes; 5. continue protonix iv and Reglan IV as needed; will follow. GI Consult Appreciated; will follow recs- as pt tolerates oral diet will switch to oral reglan over IV reglan. Will also switch IV protonix to oral if tolerated. Endocrine consult appreciated. Will adjust insulin-> levemir 8 units twice a day and Novolog coverage every 4 hours for now IV Access DVT prophylaxis: Ambulating Patient is full code Problem List: 1. Gastroparesis Pain Ratin Pain Location: Abdomen Pain Goal: Pain 7 or less Pain Plan: Tramadol, avoid narcotics Tomorrow's Labs & Rationales: CBC, trend WBC
[2018-02-02 06:35] VITALS: BP 120/80
--- NOTE | 2018-02-02 11:49 | PN- Diabetes ---
Assessment/Plan Diabetes Assessment: 37 year old female with history of questionable pituitary prolactin adenoma and diabetes type 2 with episodes of borderline mild ketosis in the past due to gastroparesis, patient was admitted for abdominal pain, nausea and vomiting. The blood work done in the ER demonstrated dehydration along with elevated lactic acid. She was treated with IV fluid and her lactic acid level has improved. She has been tolerating meal better. She is on Levemir 8 units twice a day, D5 half-normal saline with 20 meq of KCL at 75 cc/hr and NovoLog coverage every 4 hours. Her FSGs were 210, 130, 120 and 175. Plan: 1. stop IVF; 2. continue Levemir 8 units twice a day; 3. stop Novolog coverage every 4 hours; 4. start Novolog coverage before meals and Novolog coverage at bedtime; detail see the inpatient DM orders; 5. monitor FSGs. will follow. Inpatient Diabetes Orders Before Each Meal: Bolus Insulin: Novolog < 80 mg/dl: no coverage 80-100 mg/dl: 2 units 101-120 mg/dl: 2 units 121-150 mg/dl: 2 units 151-200 mg/dl: 3 units 201-250 mg/dl: 4 units 251-300 mg/dl: 5 units 301-350 mg/dl: 7 units 351-400 mg/dl: 9 units > 400 mg/dl: 11 units Bedtime: Bolus Insulin: Novolog < 80 mg/dl: no coverage 80-100 mg/dl: no coverage 101-120 mg/dl: no coverage 121-150 mg/dl: no coverage 151-200 mg/dl: no coverage 201-250 mg/dl: no coverage 251-300 mg/dl: 2 units 301-350 mg/dl: 3 units 351-400 mg/dl: 4 units > 400 mg/dl: 5 units Subjective Subjective: She feels slightly better and she stated that she would like to go home. Objective Last 24 Hrs of Vital Signs/I&O Vital Signs Date Time Temp Pulse Resp B/P B/P Pulse O2 O2 Flow FiO2 Mean Ox Delivery Rate 02/02 0635 98.4 98 20 120/80 97 Room Air 02/01 2228 98.8 95 18 120/86 99 02/01 1351 98.4 84 16 120/80 98 Intake & Output 02/02 1600 02/02 0800 07/07 0000 Intake Total 600 345 Output Total 400 Balance 600 -55 Intake, IV 600 225 Intake, Oral 0 120 Output, Urine 400
[2018-02-02 15:01] VITALS: BP 110/80
== END 2018-02-02 17:45 | DRG 48 ==
LOC: ERH 12:32 → 2NA 17:00 → ERHI 17:00 → ENRESERV 17:57 → ENTRNSPT 19:24 → EDTRNSPT 19:25 → EDTRNSPTSTS 19:33 → 2NA 19:37 → CMPTRNSPT 19:58 → 2NA 01-31 07:45
PROVIDERS: General Practice; Hospitalist; Internal Medicine Endocrinology, Diabetes & Metabolism; Physician Assistant Medical
DX: E11.43 Type 2 diabetes mellitus with diabetic autonomic (poly)neuropathy (principal); K31.84 Gastroparesis; E11.65 Type 2 diabetes mellitus with hyperglycemia; E87.2 Acidosis; G43.909 Migraine, unspecified, not intractable, without status migrainosus; K31.89 Other diseases of stomach and duodenum; R11.2 Nausea with vomiting, unspecified; K21.9 Gastro-esophageal reflux disease without esophagitis; N91.1 Secondary amenorrhea; D35.2 Benign neoplasm of pituitary gland; Z79.4 Long term (current) use of insulin
CPT/HCPCS: 2NASP; 36592; 81001; 82436; 93005; 93010; 96374; 96375; J0131; J1650; J1885; J2405; J2550; J2765; J3250; J7042

== ENCOUNTER 2018-03-15 05:28 | Inpatient (IN) | payer OTHER ==
[~2018-03-15] VITALS: Ht 160 cm; Wt 68.0 kg
--- NOTE | 2018-03-15 06:28 | ED GI/GU/ABDOMINAL COMPLAINT ---
History of Present Illness General Chief Complaint: Nausea, Vomiting, Diarrhea Stated Complaint: NAUSEA,VOMITING Source: patient, old records, EMS Exam Limitations: no limitations Vital Signs & Intake/Output Vital Signs & Intake/Output Vital Signs Date Time Temp Pulse Resp B/P B/P Pulse O2 O2 Flow FiO2 Mean Ox Delivery Rate 03/15 1101 98.4 66 18 136/84 98 Room Air 03/15 0759 97.0 122 18 159/76 94 Room Air 03/15 0705 96.0 03/15 0701 100 Room Air 03/15 0547 96.0 122 22 142/89 98 Room Air Allergies Coded Allergies: No Known Allergies (01/21/17) Reconcile Medications Cabergoline 0.5 MG TABLET 0.5 TAB PO 2XW PRN PIT TUMOR (Reported) Insulin Aspart (Novolog) 100 UNIT/ML VIAL 0 SC TIDAC Diabetes BEFORE MEALS. Blood Insulin Sugar Units <80 0 80-150 3 151-200 4 201-250 5 251-300 6 301-350 7 351-400 8 >400 9 and Call Doctor [phone] Insulin Detemir (Levemir) 100 UNIT/ML VIAL 10 U SC BID Diabetes . Metoclopramide HCl (Reglan) 10 MG TABLET 2 TAB PO 4 TIMES/DAY gastro issues Omeprazole 40 MG CAPSULE.DR 1 CAP PO DAILY Dyspepsia . Ondansetron (Zofran Odt) 4 MG TAB.RAPDIS 1 TAB PO Q6 PRN NAUSEA . Ubidecarenone (Coenzyme Q10) 200 MG CAPSULE 1 CAP PO BID SUPPLEMENT (Reported ) Triage Note: TRIAGE: BIBA FROM HOME W/ CHRONIC ABD PAIN, CHRONIC VOMITTING. PATIENT REPORTING +N/V TONIGHT. MOANING LOUDLY THROUGHOUT TRIAGE. PER EMS, FINGERSTICK 400'S. Triage Nurses Notes Reviewed? yes LMP (ages 10-50): unknown ? n Is pt currently ? No Onset: Last week Duration: week(s):, changing over time, continues in ED, getting worse Timing: recent history Quality/Severity: aching, cramping, severe, vomiting Location: generalized abdomen Radiation: no radiation Activities at Onset: rest Prior Abdominal Problems: similar symptoms Past Sexual History: Unobtainable at this time Modifying Factors: Worsens With: eating. Associated Symptoms: abdominal pain, diaphoresis, loss of appetite, nausea/ vomiting HPI: Family prior to admission patient reports stressful events in her life and upper respiratory infection with nonproductive cough nasal congestion sore throat that is resolved. Her blood sugars have been elevated. Shortly after this time She began having episodes of nausea and vomiting abdominal cramping similar to previous gastroparesis. She denies fever chills diarrhea chest pain shortness of breath headache dysuria rash bleeding . (Shekhar Oswald MD) Past History Travel History Traveled to [place] past 21 day No Medical History Any Pertinent Medical History? see below for history Neurological: dizziness, migraine EENT: NONE Cardiovascular: NONE Respiratory: NONE Gastrointestinal: GASTROPARESIS Hepatic: NONE Renal: NONE Musculoskeletal: NONE Psychiatric: mood disorder related to substance abuse Endocrine: diabetes, Hx of prolactin secreting pituitary ademona partial empty sella Blood Disorders: NONE Cancer(s): NONE FLOWER CUTTER/Reproductive: Amenorrhea History of MRSA: No History of VRE: No History of CDIFF: No Tetanus Vaccine: 01/21/17 Surgical History Surgical History: non-contributory Psychosocial History Who do you live with Family Services at Home None What is your primary language [place] Tobacco Use: Refused to answer Family History Family History, If Any: MOTHER (Diabetes mellitus , hypertension, hyperlipidemia, hypothyroidism , cardiac issues status post pacemaker placement). Age 65. FATHER (DM). Age 67. Hx Contributory? No (Shekhar Oswald MD) Review of Systems Review of Systems Constitutional: Reports: see HPI, chills, malaise. EENTM: Reports: see HPI. Respiratory: Reports: see HPI, cough. Denies: sputum production. Cardiovascular: Reports: no symptoms. GI: Reports: see HPI, abdominal pain, nausea, vomiting. Genitourinary: Reports: no symptoms. Musculoskeletal: Reports: no symptoms. Skin: Reports: no symptoms. Neurological/Psychological: Reports: see HPI, anxiety. Hematologic/Endocrine: Reports: no symptoms. Immunologic/Allergic: Reports: no symptoms. All Other Systems: Reviewed and Negative (Shekhar Oswald MD) Physical Exam Physical Exam General Appearance: well developed/nourished, alert, awake, anxious, moderate distress Head: atraumatic, normal appearance Eyes: Bilateral: normal appearance, PERRL, EOMI, normal inspection. Ears, Nose, Throat, Mouth: hearing grossly normal, Dry mucous membranes Neck: normal inspection, supple, full range of motion, normal alignment Respiratory: normal breath sounds, chest non-tender, no respiratory distress, quiet respiration, lungs clear Cardiovascular: regular rate/rhythm, normal peripheral pulses, norml femoral pulses equa Peripheral Pulses: 4+ carotid (R), 4+ carotid (L) Gastrointestinal: no organomegaly, abnormal bowel sounds Back: normal inspection, normal range of motion Extremities: normal range of motion, no ligament instability Neurologic/Psych: no motor/sensory deficits, awake, alert, oriented x 3, normal gait, slate 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 No Sepsis Present: No Sepsis Focused Exam Completed? No (Darek CAMARA,Shekhar) Progress Differential Diagnosis: biliary colic, gastritis, pancreatitis, gastroparesis, DKA Plan of Care: Orders Procedure Date/time Status Clear Liquid Diet 03/[address] in observation 03/15 1325 Active ED Holding Orders 03/15 1325 Active Vital Signs 03/15 1325 Active Code Status 03/15 1325 Active BASIC METABOLIC PANEL 03/15 0947 Complete ACETONE 03/15 0947 Complete Add-on Test (ER Only) 03/15 0659 Active ACETONE 03/15 0641 Complete LIPASE 03/15 0626 Complete HUMAN BETA HCG SCREEN 03/15 0626 Complete COMPREHENSIVE METABOLIC PANEL 03/15 0626 Complete CBC WITHOUT DIFFERENTIAL 03/15 0626 Complete Laboratory Tests 03/15/18 1050: Anion Gap 14, Estimated GFR > 60, BUN/Creatinine Ratio 18.3, Glucose 285 H, Calcium 7.7 L, Acetone Level NEGATIVE 03/15/18 0641: Anion Gap 25 H, Estimated GFR > 60, BUN/Creatinine Ratio 21.4, Glucose 549 *H, Calcium 10.2, Total Bilirubin 1.0, AST 33, ALT 32, Alkaline Phosphatase 116, Total Protein 8.6 H, Albumin 5.1 H, Globulin 3.5, Albumin/Globulin Ratio 1.5, Lipase 44, Total Beta HCG NEGATIVE, CBC w Diff MAN DIFF ORDERED, RBC 4.84, MCV 89.6, MCH 30.8, MCHC 34.4, RDW 12.0, MPV 9.2, Gran % 88.2 H, Lymphocytes % 6.8 L, Monocytes % 4.5, Eosinophils % 0, Basophils % 0.5, Absolute Granulocytes 28.1 H, Segmented Neutrophils 93 H, Band Neutrophils 2, Absolute Lymphocytes 2.2, Lymphocytes 2 L, Monocytes 3, Absolute Monocytes 1.4 H, Absolute Eosinophils 0 , Absolute Basophils 0.2, Platelet Estimate ADEQUATE, Normocytic RBCs VERIFIED, Normochromic RBCs VERIFIED, Fld Total RBCs Counted 100, Acetone Level NEGATIVE Initial ED EKG: none Hand-Off Endorsed To: Nicolette Murry MD Endorsed Time: 732 Pending: labs, Xray (Shekhar Oswald MD) Diagnostic Imaging: Viewed by Me: Radiology Read. Discussed w/RAD: Radiology Read. CXR Impression: PATIENT: ABA RAMOS PRESENT AGE: 37 PATIENT ACCOUNT NO: [id number] : 81 LOCATION: [facility] ORDERING PHYSICIAN: Nicolette Murry MD SERVICE DATE: 03/15/18 EXAM TYPE: RAD - XRY- PORTABLE CHEST XRAY EXAMINATION: XR PORTABLE CHEST CLINICAL INFORMATION: Pneumonia, cough. COMPARISON: 12/03/2017. TECHNIQUE: Portable frontal view of the chest was obtained. FINDINGS: Low lung volumes with resultant bronchovascular crowding. No focal consolidation or effusion to suggest pneumonia. No pneumothorax. Osseous structures appear normal. IMPRESSION: No focal pneumonia. DICTATED BY: Mele Adler MD DATE/TIME DICTATED:03/15/181056 WEB MARKETING ANALYST:FRIEDA DATE/TIME TRANSCRIBED:03/15/181056 CONFIDENTIAL, DO NOT COPY WITHOUT APPROPRIATE AUTHORIZATION. <Electronically signed in Other Vendor System> SIGNED BY: Mele Adler MD 03/15/18 1102 (Nicolette Murry MD) Departure Departure Disposition: STILL A PATIENT Condition: Stable Clinical Impression Primary Impression: Hyperglycemia Secondary Impressions: Leukocytosis, Nausea and vomiting Referrals: Asher Orta APRN (PCP/Family) Departure Forms: Customer Survey General Discharge Information (Shekhar Oswald MD) Observation Note Spoke With: Galilea Fabian MD Physician Advisor Notified: NICOLETTE MURRY MD Place Patient In: Non-ED OBS Care Area Rationale for Observation: My rational for observation is as follows [PT UNABLE TO TOLERATE CLEAR LIQUIDS. SHESTILL HAS A LOW BICARB., ENDOCRINE CONSULT, GI CONSULT, IV FLUIDS]. (Nicolette Murry MD)
[2018-03-15 06:52] LABS: ABSOLUTE BASOPHIL COUNT 0.2 /CUMM (0.0-0.2); ABSOLUTE EOSINOPHIL COUNT 0 /CUMM (0.0-0.7); ABSOLUTE GRANULOCYTE CT 28.1 /CUMM (1.4-6.5); ABSOLUTE LYMPH COUNT 2.2 /CUMM (1.2-3.4); ABSOLUTE MONOCYTE COUNT 1.4 /CUMM (0.10-0.60); BASOPHIL % 0.5 % (0.0-2.0); EOSINOPHIL % 0 % (0-5); GRANULOCYTE % 88.2 % (42.2-75.2); HEMATOCRIT 43.3 % (37-47); MEAN CORPUSCULAR HGB 30.8 PG (27.0-31.0); MEAN CORPUSCULAR HGB CONC 34.4 G/DL (33.0-37.0); MEAN CORPUSCULAR VOLUME 89.6 FL (81.0-99.0); MEAN PLATELET VOLUME 9.2 FL (7.4-10.4); PLATELET COUNT 333 /CUMM (130-400); RED BLOOD CELL CT 4.84 /CUMM (4.20-5.40)
[2018-03-15 06:56] LABS: WHITE BLOOD CELL COUNT 31.9 /CUMM (4.8-10.8)
--- NOTE | 2018-03-15 11:02 | RADIOLOGY REPORT ---
EXAMINATION: XR PORTABLE CHEST CLINICAL INFORMATION: Pneumonia, cough. COMPARISON: 12/03/2017. TECHNIQUE: Portable frontal view of the chest was obtained. FINDINGS: Low lung volumes with resultant bronchovascular crowding. No focal consolidation or effusion to suggest pneumonia. No pneumothorax. Osseous structures appear normal. IMPRESSION: No focal pneumonia.
--- NOTE | 2018-03-15 13:55 | History & Physical ---
Cheikh Jenkins 03/15/18 1354: General Information and HPI MD Statement: I have seen and personally examined ABA RAMOS and documented this H&P. The patient is a 37 year old F who presented with a patient stated chief complaint of []. 36 Source of Information: patient History of Present Illness: 37-year-old female with past medical history of cyclic vomiting syndrome, marijuana use for pain relief, mood disorder, history of prolactin secreting adenoma, type 1 diabetes mellitus, gastroparesis, partially empty sella presented emergency department with abdominal pain since 4 days, it was associated with nausea, nonbilious vomiting. ROS: Patient denies chest pain, palpitation, fevers, chills, constipation, diarrhea, burning micturition, sick contact. At the time of presentation to emergency department her liver significant for derange serum electrolytes her serum potassium: 3.7, sodium 138, glucose 549, calcium 10.2, WBC 31.9, magnesium: 1.3, serum osmolarity: 315, random blood sugar 549, anion gap, 25, lactate 4.4. Abdominal pelvic CT: It was negative for any abdominal or pelvic pathology, chest x-ray: Was negative for any lungs effusion, consolidation. On examination: *Patient was in distress, laying in the bed, Abdomen: Tender to palpation, no hepatosplenomegaly, no rebound tenderness Chest: Bilateral normal air entry, no added sound. Allergies/Medications Allergies: Coded Allergies: No Known Allergies (01/21/17) Home Med list Cabergoline 0.5 MG TABLET 0.5 TAB PO 2XW PRN PIT TUMOR (Reported) Insulin Aspart (Novolog) 100 UNIT/ML VIAL 0 SC TIDAC Diabetes BEFORE MEALS. Blood Insulin Sugar Units <80 0 80-150 3 151-200 4 201-250 5 251-300 6 301-350 7 351-400 8 >400 9 and Call Doctor [phone] Insulin Detemir (Levemir) 100 UNIT/ML VIAL 10 U SC BID Diabetes . Metoclopramide HCl (Reglan) 10 MG TABLET 2 TAB PO 4 TIMES/DAY gastro issues Omeprazole 40 MG CAPSULE.DR 1 CAP PO DAILY Dyspepsia . Ondansetron (Zofran Odt) 4 MG TAB.RAPDIS 1 TAB PO Q6 PRN NAUSEA . Ubidecarenone (Coenzyme Q10) 200 MG CAPSULE 1 CAP PO BID SUPPLEMENT (Reported ) Past History Travel History Traveled to [place] past 21 day No Medical History Neurological: dizziness, migraine EENT: NONE Cardiovascular: NONE Respiratory: NONE Gastrointestinal: GASTROPARESIS Hepatic: NONE Renal: NONE Musculoskeletal: NONE Psychiatric: mood disorder related to substance abuse Endocrine: diabetes, Hx of prolactin secreting pituitary ademona partial empty sella Blood Disorders: NONE Cancer(s): NONE APPLIANCES SAMPLE MAKER/Reproductive: Amenorrhea History of MRSA: No History of VRE: No History of CDIFF: No Tetanus Vaccine: 01/21/17 Surgical History Surgical History: non-contributory Past Family/Social History Family History Relations & Conditions if any MOTHER (Diabetes mellitus , hypertension, hyperlipidemia, hypothyroidism , cardiac issues status post pacemaker placement). Age 65. FATHER (DM). Age 67. Psychosocial History Who Do You Live With? 2 nieces Services at Home: None Primary Language: Polish, Swazi Living Will? no Power of Air Valve Mechanic/HCP? no Functional Ability ADLs Independent: dressing, eating, toileting, bathing. Ambulation: independent IADLs Independent: shopping, housework, finances, food prep, telephone, transportation , medication admin. Sexual History Past Sexual History Unobtainable at this time Review of Systems Review of Systems Constitutional: Reports: see HPI. Exam & Diagnostic Data Last 24 Hrs of Vital Signs/I&O Vital Signs Date Time Temp Pulse Resp B/P B/P Pulse O2 O2 Flow FiO2 Mean Ox Delivery Rate 03/15 2201 98.3 104 18 114/70 97 Room Air 03/15 1540 98.3 70 16 137/75 98 Room Air 03/15 1101 98.4 66 18 136/84 98 Room Air 03/15 0759 97.0 122 18 159/76 94 Room Air 03/15 0705 96.0 03/15 0701 100 Room Air 03/15 0547 96.0 122 22 142/89 98 Room Air Intake & Output 03/16 0800 03/16 0000 03/15 1600 Intake Total Output Total Balance Patient 150 lb Weight Assessment/Plan Assessment: 37-year-old female with past medical history of cyclic vomiting syndrome, marijuana use for pain relief, mood disorder, history of prolactin secreting adenoma, type 1 diabetes mellitus, gastroparesis, partially empty sella presented emergency department with abdominal pain since 4 days, it was associated with nausea, nonbilious vomiting. Problems list: *Type 1 DKA *Diabetic gastroparesis with intractable nausea and vomiting *Severe dehydration *Anion gap metabolic acidosis due to DKA and lactic acidosis *Acute abdominal *Appendicitis Plan: *Type 1 DKA: -In the setting of high blood sugar level, decreased pH and abdominal pain diabetic ketoacidosis seem to be one of the top differential. But patient had phenylketonuria, no hyperkalemia, and no dilutional hyponatremia. Patient was hydrated, insulin given. Sugar trending down from 500 to 285, and anion gap trending down from 25 to 14. Diabetic gastroparesis: Diabetic gastroparesis having some presentation, patient was vomiting which was nonbilious and had abdominal pain and nausea. Will give metoclopramide. *Acute abdomen: The patient abdominal pain, vomiting, nausea can be correlated with acute abdomen like acute intestinal obstruction, appendicitis. But abdominal CT was negative for any pathology. *Admit the patient to general medical floor *IV access *Hydration *Follow blood and urine culture *Continue home medication *N.p.o. patient due to intractable vomiting *Endocrine consult placed for a.m. *Continue insulin *BEP monitoring *Continue home medication *Metoclopramide IV every 6 hours as needed *Continue sugar Accu-Chek every 6 hours *Full code *GI/DVT prophylaxis As Ranked By This Provider Problem List: 1. Diabetes 2. Diabetic ketosis 3. Nausea and vomiting 4. Vomiting 5. Abdominal pain 6. Intractable nausea and vomiting 7. Diabetic gastroparesis associated with type 2 diabetes mellitus 8. Cannabis abuse 9. Leukocytosis 10. Cyclical vomiting with nausea 11. Metabolic acidosis Core Measures/Misc (04/15) Acute Coronary Syndrome ACS Diagnosis: No Congestive Heart Failure Congestive Heart Failure Diagnosis No Cerebrovascular Accident CVA/TIA Diagnosis: No VTE (View Protocol) VTE Risk Factors No risk factors No Mechanical VTE Prophylaxis d/t LowRisk-No Interven Req'd No VTE Pharm Prophylaxis d/t Other Sepsis (View protocol) Sepsis Present: No If YES complete Sepsis Event Note If YES complete Sepsis Event Note Galilea Fabian MD 03/15/18 1511: Core Measures/Misc (04/15) Sepsis (View protocol) If YES complete Sepsis Event Note If YES complete Sepsis Event Note Attending MD Review Statement Attending Statement Attending MD Statement: examined this patient, discuss w/resident/PA/REAL ESTATE ACCOUNTANT, agreed w/resident/PA/REAL ESTATE ACCOUNTANT, reviewed EMR data (avail) Attending Assessment/Plan: 37F PMH type 1 diabetes mellitus, gastroparesis, cyclic vomiting syndrome, marijuana use for pain relief, mood disorders, history of prolactin secreting adenoma, partially empty sella presenting with intractable nausea, vomiting, and generalized abdominal cramping. No inciting events, no recent travel or sick contacts. Symptoms are similar to prior episodes of gastroparesis. She was found to be in DKA in ER, given 4L NS and insulin, with improvement in anion gap and bicar. WBC 31.9, but no evidence of infectious source. Lactate 4.4. Denies fever, chills, headache, sore throat, stiff neck, chest pain, cough, diarrhea, dysuria. She is unable to tolerate PO, vomiting everything nearly immediately. 1. Type 1 DKA 2. Diabetic gastroparesis with intractable nausea and vomiting 3. Severe dehydration 4. Anion gap metabolic acidosis due to DKA and lactic acidosis 5. Unable to tolerate PO Plan - Admit to general medicine - Continue IV hydration - Trend lactate to normal - Continue home Lantus and Novolog, with sliding scale for meals - Send blood and urine cultures - Continue Cabergoline - Zofran and Reglan PRN for nausea and vomiting - GI, endocrine, nutrition consults - Continue remaining home medications - DVT PPx Noam CAMARA,Erji 03/15/18 1821: Core Measures/Misc (04/15) Sepsis (View protocol) If YES complete Sepsis Event Note If YES complete Sepsis Event Note Resident Review Statement Resident Statement: examined this patient, discussed with manager intern Other Findings: 37-year-old lady with a past medical history significant for type 1 diabetes, gastroparesis, cyclic vomiting syndrome, prolactin secreting adenoma presents with abdominal pain and vomiting that is refractory to her home anti-emetics. Impression Intractable vomiting. Patient has multiple comorbidities that can cause intractable vomiting including gastroparesis, cyclic vomiting syndrome, and cannabis hyperemesis. Mild metabolic acidosis. Possible etiology includes lactic acidosis from infection or dehydration versus DKA (however we will need positive ketones and acidemia from ABG/VBG to diagnose DKA). Hypokalemia. Secondary to vomiting and metabolic acidosis. Hyperglycemia without Ketones. Questionable compliance with insulin regimen Leukocytosis: Reactive versus infectious (ct abd/pelvis/cxr negative for acute infectious pathology, her lactic may most likely be from dehydration from intractable vomiting). Plan Admit to general medicine floor Keep nothing by mouth in context of intractable vomiting Metoclopramide IV every 6h as needed advance to clears if tolerating Will consider erythromycin if nausea continue to be refractory Will consider GI consult if condition worsens Endo consult Novolin nothing by mouth sliding scale, if patient is able to eat, we will switch to novolog ssc Pt will need basal insulin Repeat BEP now, potassium is 3.4, need to recheck before next insulin dose. Obtain serum osmolarity Accu-Chek every 6 hours CODE STATUS :full DVT prophylaxis: Enoxaparin
--- NOTE | 2018-03-15 15:17 | Admission Certification ---
Admission Certification Certification Statement - As attending physician, I certify that at the time of - admission, based on clinical presentation, severity of - symptoms, need for further diagnostic testing and - therapeutic interventions, and risk of adverse outcomes - without in-hospital treatment, in my clinical assessment, - this patient requires an acute hospital stay for a minimum - of two nights or longer. I have also considered psychsocial - factors such as support system, advanced age, financial - issues, cognitive issues, and failed out-patient treatments, - past re-admission history, safety of patient, and lack of - compliance as applicable. Specific rationale supporting this admission is: Type 1 DKA
--- NOTE | 2018-03-15 16:09 | CT SCAN REPORT ---
EXAMINATION: CT ABDOMEN AND PELVIS WITH CONTRAST CLINICAL INFORMATION: Acute abdominal infection. Abdominal pain, leukocytosis, lactic acidosis. COMPARISON: CT abdomen and pelvis 01/21/2018. TECHNIQUE: Multidetector volumetric imaging was performed of the abdomen and pelvis following IV administration of 95 mL of Optiray 320 intravenous contrast. Sagittal and coronal reformatted images were obtained on the technologist's workstation. DLP: 267 mGy-cm FINDINGS: LUNG BASES: The visualized lung bases are unremarkable. LIVER, GALLBLADDER, AND BILIARY TREE: There is fatty infiltration in the medial segment along the falciform. Otherwise the liver is unremarkable. The gallbladder is unremarkable with no evidence of radiopaque gallstones, gallbladder wall thickening, or obvious pericholecystic inflammatory changes. PANCREAS: Unremarkable. SPLEEN: Unremarkable. ADRENAL GLANDS: Unremarkable. KIDNEYS AND URETERS: The kidneys are normal in size, shape, and attenuation. No hydronephrosis, hydroureter, or calculi seen. No perinephric stranding. BLADDER: Unremarkable. GASTROINTESTINAL TRACT: Small bowel is normal in caliber. The appendix is normal in caliber with no periappendiceal inflammatory change. Suspect an appendicolith. The large bowel is unremarkable. ABDOMINAL WALL: No significant hernia is appreciated. LYMPH NODES: No measurable lymphadenopathy. There is a small smooth possibly cystic lesion posterior to the left psoas muscle (series 2 image 60). This is stable dating back to 12/03/2015 consistent with a benign etiology and may represent the left ovary. VASCULAR: Mild atherosclerotic disease. No aneurysm. PELVIC VISCERA: The uterus and adnexa are unremarkable. OSSEOUS STRUCTURES: Degenerative changes in the spine. No suspicious lytic or or blastic osseous lesions. Healing fracture of the left L4 transverse process. IMPRESSION: No acute inflammatory process in the abdomen/pelvis.
[2018-03-15 22:01] VITALS: BP 114/70
--- NOTE | 2018-03-16 06:07 | PN- Housestaff ---
See Addendum Subjective Follow-up For: Abdominal pain, vomiting, hyperglycemia Subjective: Patient seen and examined at bedside. She is still nauseous but she did not vomit last night. Her pain subsided, she is not that much and she has. There was no overnight event. She denies fever, chills, chest pain, palpitation, burning micturition, diarrhea , constipation, vomiting. Review of Systems Constitutional: Reports: see HPI. Objective Last 24 Hrs of Vital Signs/I&O Vital Signs Date Time Temp Pulse Resp B/P B/P Pulse O2 O2 Flow FiO2 Mean Ox Delivery Rate 03/15 2201 98.3 104 18 114/70 97 Room Air 03/15 1540 98.3 70 16 137/75 98 Room Air 03/15 1101 98.4 66 18 136/84 98 Room Air 03/15 0759 97.0 122 18 159/76 94 Room Air 03/15 0705 96.0 03/15 0701 100 Room Air 03/15 0547 96.0 122 22 142/89 98 Room Air Intake & Output 03/16 0800 03/16 0000 03/15 1600 Intake Total 240 Output Total Balance 240 Intake, Oral 240 Patient 150 lb Weight Physical Exam General Appearance: Alert, Oriented X3, Cooperative, Mild Distress Assessment/Plan Assessment: 37-year-old female with past medical history of cyclic vomiting syndrome, marijuana use for pain relief, mood disorder, history of prolactin secreting adenoma, type 1 diabetes mellitus, gastroparesis, partially empty sella presented emergency department with abdominal pain since 4 days, it was associated with nausea, nonbilious vomiting. Problems list: *Type 1 DKA *Diabetic gastroparesis with intractable nausea and vomiting *Severe dehydration *Anion gap metabolic acidosis due to DKA and lactic acidosis *Acute abdominal *Appendicitis Plan: *Type 1 DKA: -In the setting of high blood sugar level, decreased pH and abdominal pain diabetic ketoacidosis seem to be one of the top differential. But patient had no ketonuria, no hyperkalemia, and no dilutional hyponatremia. Patient was hydrated, insulin given. Today morning sugar 130. Remaining labs are pending. Diabetic gastroparesis: Diabetic gastroparesis having some presentation, patient was vomiting which was nonbilious and had abdominal pain and nausea. Will give metoclopramide. But now it subsided *Follow blood and urine culture *Continue home medication *Endocrine consult placed for a.m. *Continue insulin *BEP monitoring *Continue home medication *Metoclopramide IV every 6 hours as needed *Continue sugar Accu-Chek every 6 hours *Full code *GI/DVT prophylaxis Problem List: 1. Diabetes 2. Diabetic ketosis 3. Nausea and vomiting 4. Vomiting 5. Abdominal pain 6. Intractable nausea and vomiting 7. Diabetic gastroparesis associated with type 2 diabetes mellitus 8. Full code status 9. Leukocytosis 10. Cyclical vomiting with nausea 11. Metabolic acidosis Pain Ratin Pain Location: Abdomen Pain Goal: Remain pain free Pain Plan: Pain pathway Tomorrow's Labs & Rationales: BEP
[2018-03-16 06:30] VITALS: BP 124/72
[2018-03-16 08:41] LABS: ABSOLUTE BASOPHIL COUNT 0 /CUMM (0.0-0.2); ABSOLUTE MONOCYTE COUNT 1.1 /CUMM (0.10-0.60); BASOPHIL % 0.2 % (0.0-2.0)
[2018-03-16 09:02] LABS: ABSOLUTE EOSINOPHIL COUNT 0.1 /CUMM (0.0-0.7); ABSOLUTE GRANULOCYTE CT 13.8 /CUMM (1.4-6.5); ABSOLUTE LYMPH COUNT 3.8 /CUMM (1.2-3.4); EOSINOPHIL % 0.5 % (0-5); GRANULOCYTE % 73.4 % (42.2-75.2); MEAN CORPUSCULAR HGB 30.7 PG (27.0-31.0); MEAN CORPUSCULAR HGB CONC 33.7 G/DL (33.0-37.0); MEAN CORPUSCULAR VOLUME 91.1 FL (81.0-99.0); PLATELET COUNT 243 /CUMM (130-400); RBC DISTRIBUTION WIDTH 12.4 % (11.5-14.5); RED BLOOD CELL CT 4.11 /CUMM (4.20-5.40); WHITE BLOOD CELL COUNT 18.8 /CUMM (4.8-10.8)
[2018-03-16 09:05] LABS: HEMATOCRIT 37.4 % (37-47)
--- NOTE | 2018-03-16 12:06 | Cons- Endocrinology ---
General Information and HPI Consulting Request Date of Consult: 03/16/18 Requested By: medical team Reason for Consult: management of uncontrolled diabetes. Source of Information: patient, old records Exam Limitations: no limitations History of Present Illness: 37 y/o female, who was diagnosed with pituitary prolactin secreting adenoma when she was a teenager when she was in [place] after she didn't have periods for a while. But she didn't take care of herself. She moved to [place] and started seeing Dr. Acevedo at [facility] more tolliver 5 years ago and MRI was done several times at [facility] and she was told that there was a tumor in her pituitary gland and she was treated with Dostinex. According to the information in [facility], her prolactin level was 320.9 along with FSH 1.3 and LH 0.4 in 2010. In [facility], MRI done in 2013 showed normal pituitary gland. In 2015, MRI showed partial empty sella without evidence of pituitary tumor. In 08/2016, her prolactin level was 139.9. At age of 30, she was diagnosed with diabetes type 2. Initially she was treated with oral medication. Shortly after she was diagnosed with diabetes, she was put on insulin. But she hasn't been comopliance with insulin regimen. PRINCE 65 antibody was checked in 2012 and in 11/2015, and it was negative. In 11/2015, her c-peptide was 1.07. She has been admitted to several times for abdominal pain, nausea and vomiting. The most recent admission was in 01/2018. Patient started having abdominal pain along with nausea and Vomiting again 4-[address] of abdomen and pelvis was unremarkable. In ER, her glucose level was > 500 along with borderline low bicarb. Currently she is on Levemir 10 units twice a day. She was placed on clear liquid diet and IVF was discontinued. Her FSGs were 196, 130 and 114. Allergies/Medications Allergies: Coded Allergies: No Known Allergies (01/21/17) Home Med List: Cabergoline 0.5 MG TABLET 0.5 TAB PO 2XW PRN PIT TUMOR (Reported) Insulin Aspart (Novolog) 100 UNIT/ML VIAL 0 SC TIDAC Diabetes BEFORE MEALS. Blood Insulin Sugar Units <80 0 80-150 3 151-200 4 201-250 5 251-300 6 301-350 7 351-400 8 >400 9 and Call Doctor [phone] Insulin Detemir (Levemir) 100 UNIT/ML VIAL 10 U SC BID Diabetes . Metoclopramide HCl (Reglan) 10 MG TABLET 2 TAB PO 4 TIMES/DAY gastro issues Omeprazole 40 MG CAPSULE. 1 CAP PO DAILY Dyspepsia . Ondansetron (Zofran Odt) 4 MG TAB.RAPDIS 1 TAB PO Q6 PRN NAUSEA . Ubidecarenone (Coenzyme Q10) 200 MG CAPSULE 1 CAP PO BID SUPPLEMENT (Reported ) Review of Systems Review of Systems Constitutional: Reports: see HPI. Cardiovascular: Denies: chest pain. Respiratory: Denies: short of breath. GI: Reports: abdominal pain, nausea. Hematologic/Endocrine: Denies: polyuria, polydipsia. Past History Travel History Traveled to [place] past 21 day No Medical History Neurological: dizziness, migraine EENT: NONE Cardiovascular: NONE Respiratory: NONE Gastrointestinal: GASTROPARESIS Hepatic: NONE Renal: NONE Musculoskeletal: NONE Psychiatric: mood disorder related to substance abuse Endocrine: diabetes, Hx of prolactin secreting pituitary ademona partial empty sella Blood Disorders: NONE Cancer(s): NONE CHIEF NURSE/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 Age 65. FATHER (DM). Age 67. Psychosocial History Who Do You Live With? 2 nieces Services at Home: None Primary Language: Irish, Nepalese Smoking Status: Unknown If Ever Smoked Living Will? no Power of Jute Bag Clipper/HCP? no Functional Ability ADLs Independent: dressing, eating, toileting, bathing. Ambulation: independent IADLs Independent: shopping, housework, finances, food prep, telephone, transportation , medication admin. Exam & Diagnostic Data Last 24 Hrs of Vital Signs/I&O Vital Signs Date Time Temp Pulse Resp B/P B/P Pulse O2 O2 Flow FiO2 Mean Ox Delivery Rate 03/16 0630 98.1 91 18 124/72 99 Room Air 03/15 2201 98.3 104 18 114/70 97 Room Air 03/15 1540 98.3 70 16 137/75 98 Room Air Intake & Output 03/16 1600 03/16 0800 03/16 0000 Intake Total 240 240 Output Total Balance 240 240 Intake, Oral 240 240 Patient 150 lb Weight Physical Exam General Appearance: no apparent distress Neck: normal inspection Respiratory: normal breath sounds Cardiovascular: regular rate/rhythm Gastrointestinal: tenderness (LUQ) Extremities: no edema Labs/Goyo Results: Laboratory Tests 03/16 03/16 03/15 0719 0108 1221 Chemistry Sodium (137 - 145 mmol/L) 136 L Potassium (3.5 - 5.1 mmol/L) 3.6 Chloride (98 - 107 mmol/L) 101 Carbon Dioxide (22 - 30 mmol/L) 22 Anion Gap (5 - 16) 13 BUN (7 - 17 mg/dL) 7 Creatinine (0.5 - 1.0 mg/dL) 0.5 Estimated GFR (>60 ml/min) > 60 BUN/Creatinine Ratio (7 - 25 %) 14.0 Hematology CBC w Diff NO MAN DIFF REQ WBC (4.8 - 10.8 /CUMM) 18.8 H RBC (4.20 - 5.40 /CUMM) 4.11 L Hgb (12.0 - 16.0 G/DL) 12.6 Hct (37 - 47 %) 37.4 MCV (81.0 - 99.0 FL) 91.1 MCH (27.0 - 31.0 PG) 30.7 MCHC (33.0 - 37.0 G/DL) 33.7 RDW (11.5 - 14.5 %) 12.4 Plt Count (130 - 400 /CUMM) 243 MPV (7.4 - 10.4 FL) 9.0 Gran % (42.2 - 75.2 %) 73.4 Lymphocytes % (20.5 - 51.1 %) 20.0 L Monocytes % (1.7 - 9.3 %) 5.9 Eosinophils % (0 - 5 %) 0.5 Basophils % (0.0 - 2.0 %) 0.2 Absolute Granulocytes (1.4 - 6.5 /CUMM) 13.8 H Absolute Lymphocytes (1.2 - 3.4 /CUMM) 3.8 H Absolute Monocytes (0.10 - 0.60 /CUMM) 1.1 H Absolute Eosinophils (0.0 - 0.7 /CUMM) 0.1 Absolute Basophils (0.0 - 0.2 /CUMM) 0 Toxicology Urine Opiates Screen (>2000 NG/ML) < 100 Methadone Screen (>300 NG/ML) < 40 Barbiturate Screen (>200 NG/ML) < 60 Ur Phencyclidine Scrn (>25 NG/ML) < 6.00 Amphetamines Screen (>1000 NG/ML) < 100 U Benzodiazepines Scrn (>200 NG/ML) < 85 Urine Cocaine Screen (>300 NG/ML) < 50 Urine Cannabis Screen (>50 NG/ML) > 80.00 H 03/15 03/15 1530 1433 Chemistry Sodium Cancelled Potassium Cancelled Chloride Cancelled Carbon Dioxide Cancelled Anion Gap Cancelled BUN Cancelled Creatinine Cancelled BUN/Creatinine Ratio Cancelled Lactic Acid (0.7 - 2.1 mmol/L) 1.0 Calcium Cancelled Assessment/Plan Assessment/Plan 37 y/o female, hx of diabetes and noncompliance complicated with gastroparesis, was admitted for abdominal pain, nausea and vomiting. Clinically she has been improving. Currently she is on clear liquid diet. Plan: 1. decrease Levemir to 8 units twice a day; 2. add Novolog coverage before meals and add Novolog coverage at bedtime-- detail see the inpatient DM orders; 3. monitor FSGs; repeat HbA1c; 4. monitor electrolytes; 5. continue Protonix iv will follow. Inpatient Diabetes Orders Before Each Meal: Bolus Insulin: Novolog < 80 mg/dl: no coverage 80-100 mg/dl: no coverage 101-120 mg/dl: no coverage 121-150 mg/dl: no coverage 151-200 mg/dl: 2 units 201-250 mg/dl: 4 units 251-300 mg/dl: 6 units 301-350 mg/dl: 8 units 351-400 mg/dl: 10 units > 400 mg/dl: 12 units Bedtime: Bolus Insulin: Novolog < 80 mg/dl: no coverage 80-100 mg/dl: no coverage 101-120 mg/dl: no coverage 121-150 mg/dl: no coverage 151-200 mg/dl: no coverage 201-250 mg/dl: no coverage 251-300 mg/dl: 2 units 301-350 mg/dl: 3 units 351-400 mg/dl: 4 units > 400 mg/dl: 5 units Consult Acknowledgment - Thank you for your consult request.
[2018-03-16 14:05] VITALS: BP 147/94
[2018-03-16 22:29] VITALS: BP 140/86
[2018-03-17 06:42] VITALS: BP 136/80
--- NOTE | 2018-03-17 08:22 | PN- Housestaff ---
See Addendum Rebekah Salmon 03/17/18 0822: Subjective Follow-up For: Cyclical Vomiting Subjective: Patientwas seen and examined at bedside. She was sleeping when I went to see her. She still reports some nausea but says the vomiting has "slowed down'. She wants to advance her diet. She asked for cantaloupe. I started her on a full liquid diet as of now. Would advance her diet as tolerated. Review of Systems Constitutional: Reports: see HPI. Objective Last 24 Hrs of Vital Signs/I&O Vital Signs Date Time Temp Pulse Resp B/P B/P Pulse O2 O2 Flow FiO2 Mean Ox Delivery Rate 03/17 0642 98.5 72 20 136/80 99 Room Air 03/16 2229 98.5 107 18 140/86 100 Room Air 03/16 1405 97.9 109 18 147/94 97 Room Air Intake & Output 03/17 1600 03/17 0800 03/17 0000 Intake Total 60 60 Output Total Balance 60 60 Intake, Oral 60 60 Physical Exam General Appearance: Alert, Oriented X3, Cooperative, No Acute Distress Skin: No Rashes Cardiovascular: Regular Rate, Normal S1, Normal S2 Lungs: Clear to Auscultation Abdomen: Normal Bowel Sounds, Soft, No Tenderness Extremities: No Edema, Normal Pulses Assessment/Plan Assessment: 37-year-old female with past medical history of cyclic vomiting syndrome, marijuana use for pain relief, mood disorder, history of prolactin secreting adenoma, type 1 diabetes mellitus, gastroparesis, partially empty sella presented emergency department with abdominal pain since 4 days, it was associated with nausea, nonbilious vomiting. PLAN Intractable vomiting. -Feels better today -Was given Zofran and Benadryl last night. Seems to have responded welll -On a full liquid diet. Will advance diet as tolerated. -We would place a GI consult if needed Hypokalemia. - Secondary to vomiting and metabolic acidosis. -She refused labs today. K yesterday was 3.6. Hyperglycemia without Ketones. Questionable compliance with insulin regimen Accu checks q6 Endo consult if needed CODE STATUS :full DVT prophylaxis: Enoxaparin Problem List: 1. Epigastric abdominal pain 2. Cyclic vomiting syndrome 3. Metabolic acidosis 4. Hyperglycemia 5. Leukocytosis Pain Ratin Pain Location: na Pain Goal: Remain pain free Pain Plan: na Tomorrow's Labs & Rationales: cbc and bep Rui CAMARAGalilea 03/17/18 1107: Attending MD Review Statement Attending Statement Attending MD Statement: examined this patient, discuss w/resident/PA/TOOL OR DIE DRAWING CHECKER, agreed w/resident/PA/TOOL OR DIE DRAWING CHECKER, reviewed EMR data (avail) Attending Assessment/Plan: 37F PMH type 1 diabetes mellitus, gastroparesis, cyclic vomiting syndrome, marijuana use for pain relief, mood disorders, history of prolactin secreting adenoma, partially empty sella presenting with intractable nausea, vomiting, and generalized abdominal cramping. No inciting events, no recent travel or sick contacts. Symptoms are similar to prior episodes of gastroparesis. She was found to be in DKA in ER, given 4L NS and insulin, with improvement in anion gap and bicar. WBC 31.9, but no evidence of infectious source. Lactate 4.4. Denies fever, chills, headache, sore throat, stiff neck, chest pain, cough, diarrhea, dysuria. She is unable to tolerate PO, vomiting everything nearly immediately. Feeling better, labs normalized. 1. Type 1 DKA 2. Diabetic gastroparesis with intractable nausea and vomiting 3. Severe dehydration 4. Anion gap metabolic acidosis due to DKA and lactic acidosis 5. Unable to tolerate PO Plan - Continue on general medicine - Continue IV hydration - Continue home Lantus and Novolog, with sliding scale for meals - Zofran and Reglan PRN for nausea and vomiting - GI, endocrine, nutrition consults - Continue remaining home medications - DVT PPx - Can be discharged when eating well and pain improved
[2018-03-17 14:09] VITALS: BP 143/86
--- NOTE | 2018-03-17 17:09 | PN- Diabetes ---
Assessment/Plan Diabetes Assessment: 37 y/o female, hx of diabetes and noncompliance complicated with gastroparesis, was admitted for abdominal pain, nausea and vomiting. Clinically she has been improving. She was on clear liquid diet. Levemir was decreased to 8 units twice a day; In addition, she was put on Novolog coverage before meals and add Novolog coverage at bedtime. Before Each Meal: Bolus Insulin: Novolog < 80 mg/dl: no coverage 80-100 mg/dl: no coverage 101-120 mg/dl: no coverage 121-150 mg/dl: no coverage 151-200 mg/dl: 2 units 201-250 mg/dl: 4 units 251-300 mg/dl: 6 units 301-350 mg/dl: 8 units 351-400 mg/dl: 10 units > 400 mg/dl: 12 units Bedtime: Bolus Insulin: Novolog < 80 mg/dl: no coverage 80-100 mg/dl: no coverage 101-120 mg/dl: no coverage 121-150 mg/dl: no coverage 151-200 mg/dl: no coverage 201-250 mg/dl: no coverage 251-300 mg/dl: 2 units 301-350 mg/dl: 3 units 351-400 mg/dl: 4 units > 400 mg/dl: 5 units Her FSGs were 114, 231, 213, 219 and 161. Her diet has been advanced to full liquid diet today. Plan: continue the current insulin regimen for now; monitor FSGs. will follow. Subjective Subjective: She still feels nausea. But she also feels hungry. Objective Last 24 Hrs of Vital Signs/I&O Vital Signs Date Time Temp Pulse Resp B/P B/P Pulse O2 O2 Flow FiO2 Mean Ox Delivery Rate 03/17 1409 97.9 99 20 143/86 99 Room Air 03/17 0642 98.5 72 20 136/80 99 Room Air 03/16 2229 98.5 107 18 140/86 100 Room Air Intake & Output 03/17 1600 03/17 0800 03/17 0000 Intake Total 40 60 60 Output Total Balance 40 60 60 Intake, Oral 40 60 60
[2018-03-17 22:40] VITALS: BP 120/65
[2018-03-18 07:05] VITALS: BP 118/70
--- NOTE | 2018-03-18 07:10 | PN- Housestaff ---
Cheikh Jenkins 03/18/18 0709: Subjective Follow-up For: Hyperglycemia without ketunuria, intractable vomitting, Subjective: Patient seen and examined at bedside. She is complaining of nausea, vomiting, abdominal pain. She is asking for surgery if he can help. She was counseled. She is still not eating or drinking. She wants some extra pain medication. Patient questions are addressed. She denies fever, chills, chest pain, shortness of breath, diarrhea, postural hypotension, palpitation. Review of Systems Constitutional: Reports: see HPI. Objective Last 24 Hrs of Vital Signs/I&O Vital Signs Date Time Temp Pulse Resp B/P B/P Pulse O2 O2 Flow FiO2 Mean Ox Delivery Rate 03/18 1420 97.6 110 20 164/100 99 Room Air 03/18 0800 96 03/18 0705 97.4 105 20 118/70 100 Room Air 03/17 2240 98.2 103 20 120/65 99 Room Air Intake & Output 03/18 1600 03/18 0800 03/18 0000 Intake Total 50 20 100 Output Total 450 100 Balance -400 -80 100 Intake, IV 50 20 100 Intake, Oral 0 0 Number 0 0 Bowel Movements Output, 100 100 Emesis Output, Urine 350 Physical Exam General Appearance: Alert, Oriented X3, Cooperative, Mild Distress Assessment/Plan Assessment: 37-year-old female with past medical history of cyclic vomiting syndrome, marijuana use for pain relief, mood disorder, history of prolactin secreting adenoma, type 1 diabetes mellitus, gastroparesis, partially empty sella presented emergency department with abdominal pain since 4 days, it was associated with nausea, nonbilious vomiting. Problems list: *DKA, anion gap close(resolved) *Diabetic gastroparesis with intractable nausea and vomiting *Acute abdominal pain(spasmodic pain, muscular pain) Assessment and plan: Diabetic gastroparesis: Diabetic gastroparesis having same presentation, patient was vomiting which was nonbilious and had abdominal pain and nausea. Patient is still nauseous and sometimes vomiting. She is still n.p.o. -She is on high dose of metoclopramide, Zofran, antihistamine, opiate medication. -GI consultation placed. -GI recommends OGD tomorrow patient is n.p.o. from midnight. -She had a non-resolving diabetic gastroparesis we can consider IV erythromycin. Uncontrolled DM: -Type I on insulin -Patient having hyperglycemia. At the time present her sugar was 500+ but today fasting blood sugar was 173. -Continue Accu-Chek -Insulin Levemir 8units twice daily, insulin Novolin sliding scale as patient is n.p.o. -Endocrinology recommendation appreciated. Acute abdomen: -Patient still complaining abdominal pain but on examination there is no tenderness. -C T abdomen and pelvis is negative for intra-abdominal/intrapelvic pathology -OGD planned tomorrow, -Patient is n.p.o -Gastroenterology recommendation will be followed, consultation appreciated. -Urine culture, blood culture is negative for any organism *Continue home medication *Continue insulin *BEP monitoring *Full code *GI/DVT prophylaxis Problem List: 1. Diabetic ketosis 2. Diabetes 3. Nausea and vomiting 4. Vomiting 5. Abdominal pain 6. Intractable nausea and vomiting 7. Diabetic gastroparesis 8. Cannabinoid hyperemesis syndrome 9. Cyclic vomiting syndrome 10. Epigastric abdominal pain Pain Ratin Pain Location: Abdomen Pain Goal: Remain pain free Pain Plan: Follow pain pathway Tomorrow's Labs & Rationales: CBC/BEP Gris Sapp 03/18/18 1122: Attending MD Review Statement Attending Statement Attending MD Statement: examined this patient, discuss w/resident/PA/DIRECTOR SERVICE, agreed w/resident/PA/DIRECTOR SERVICE, discussed with family, reviewed EMR data (avail), discussed with nursing, discussed with case mgmt, reviewed images, amended to note Attending Assessment/Plan: 37 o/f with pmh of question pitutiary adenoma and type 1 daibetes mellitus with gastroparesis as complication from type 1 DM comes with intractable nausea/ vomting and abdominal pain. Patient this am c/o abdominal pain not controlled. She also c/o nausa with clear vomitus. Change to reglan standing orders for 10 iv q 6. Zofran as prn to control nasuea. GI consult. Pain management with dilaudid prn. Minimise use of narcotics. Endorcinology has been consulted and follow recommendations. Contine monitor CBGs. Advance diet as tolerated and Continue with intravenous fluids. NPO past MN for possibel EGD as per GI. Repelte electrolytes prn gi/dvt prophylaxis
[2018-03-18 09:12] LABS: ABSOLUTE BASOPHIL COUNT 0 /CUMM (0.0-0.2); ABSOLUTE EOSINOPHIL COUNT 0.3 /CUMM (0.0-0.7); ABSOLUTE GRANULOCYTE CT 8.7 /CUMM (1.4-6.5); ABSOLUTE LYMPH COUNT 3.1 /CUMM (1.2-3.4); ABSOLUTE MONOCYTE COUNT 0.8 /CUMM (0.10-0.60); BASOPHIL % 0.3 % (0.0-2.0); GRANULOCYTE % 67.2 % (42.2-75.2); HEMATOCRIT 39.5 % (37-47); MEAN CORPUSCULAR HGB 30.4 PG (27.0-31.0); MEAN CORPUSCULAR VOLUME 89.4 FL (81.0-99.0); MEAN PLATELET VOLUME 9.1 FL (7.4-10.4); PLATELET COUNT 285 /CUMM (130-400); RBC DISTRIBUTION WIDTH 12.4 % (11.5-14.5); RED BLOOD CELL CT 4.41 /CUMM (4.20-5.40)
--- NOTE | 2018-03-18 13:24 | PN- Diabetes ---
Assessment/Plan Diabetes Assessment: 37 y/o female, hx of diabetes and noncompliance complicated with gastroparesis, was admitted for abdominal pain, nausea and vomiting. Levemir was decreased to 8 units twice a day; In addition, she was put on Novolog coverage before meals and add Novolog coverage at bedtime. Before Each Meal: Bolus Insulin: Novolog < 80 mg/dl: no coverage 80-100 mg/dl: no coverage 101-120 mg/dl: no coverage 121-150 mg/dl: no coverage 151-200 mg/dl: 2 units 201-250 mg/dl: 4 units 251-300 mg/dl: 6 units 301-350 mg/dl: 8 units 351-400 mg/dl: 10 units > 400 mg/dl: 12 units Bedtime: Bolus Insulin: Novolog < 80 mg/dl: no coverage 80-100 mg/dl: no coverage 101-120 mg/dl: no coverage 121-150 mg/dl: no coverage 151-200 mg/dl: no coverage 201-250 mg/dl: no coverage 251-300 mg/dl: 2 units 301-350 mg/dl: 3 units 351-400 mg/dl: 4 units > 400 mg/dl: 5 units She was on clear liquid diet. Over the weekend, her diet was advanced to full liquid diet. Bu she still has nausea this morning. Her FSGs were 219, 161, 159, 217, 173. Plan: continue the current Levemir 8 units twice a day; continue the current Novolog coverage before meals and Novolog coverage at bedtime; monitor FSGs; hold Novolog if she skips meals; agree with GI consult. will follow. Subjective Subjective: She still feels nausea. Objective Last 24 Hrs of Vital Signs/I&O Vital Signs Date Time Temp Pulse Resp B/P B/P Pulse O2 O2 Flow FiO2 Mean Ox Delivery Rate 03/18 0800 96 03/18 0705 97.4 105 20 118/70 100 Room Air 03/17 2240 98.2 103 20 120/65 99 Room Air 03/17 1409 97.9 99 20 143/86 99 Room Air Intake & Output 03/18 1600 03/18 0800 03/18 0000 Intake Total 20 100 Output Total 100 Balance -80 100 Intake, IV 20 100 Intake, Oral 0 Number 0 Bowel Movements Output, 100 Emesis Findings Pertinent Lab/Goyo Results: Laboratory Tests 03/18 0630 Chemistry Sodium (137 - 145 mmol/L) 136 L Potassium (3.5 - 5.1 mmol/L) 3.5 Chloride (98 - 107 mmol/L) 99 Carbon Dioxide (22 - 30 mmol/L) 26 Anion Gap (5 - 16) 12 BUN (7 - 17 mg/dL) 6 L Creatinine (0.5 - 1.0 mg/dL) 0.5 Estimated GFR (>60 ml/min) > 60 BUN/Creatinine Ratio (7 - 25 %) 12.0 Hematology CBC w Diff NO MAN DIFF REQ WBC (4.8 - 10.8 /CUMM) 13.0 H RBC (4.20 - 5.40 /CUMM) 4.41 Hgb (12.0 - 16.0 G/DL) 13.4 Hct (37 - 47 %) 39.5 MCV (81.0 - 99.0 FL) 89.4 MCH (27.0 - 31.0 PG) 30.4 MCHC (33.0 - 37.0 G/DL) 34.0 RDW (11.5 - 14.5 %) 12.4 Plt Count (130 - 400 /CUMM) 285 MPV (7.4 - 10.4 FL) 9.1 Gran % (42.2 - 75.2 %) 67.2 Lymphocytes % (20.5 - 51.1 %) 24.2 Monocytes % (1.7 - 9.3 %) 6.3 Eosinophils % (0 - 5 %) 2.0 Basophils % (0.0 - 2.0 %) 0.3 Absolute Granulocytes (1.4 - 6.5 /CUMM) 8.7 H Absolute Lymphocytes (1.2 - 3.4 /CUMM) 3.1 Absolute Monocytes (0.10 - 0.60 /CUMM) 0.8 H Absolute Eosinophils (0.0 - 0.7 /CUMM) 0.3 Absolute Basophils (0.0 - 0.2 /CUMM) 0
[2018-03-18 14:20] VITALS: BP 164/100
[2018-03-18 21:12] VITALS: BP 138/90
--- NOTE | 2018-03-18 21:40 | Cons- Gastroenterology ---
General Information and HPI Consulting Request Date of Consult: 03/18/18 Requested By: Gris Sapp MD Reason for Consult: 1. Nausea and vomiting 2. Epigastric pain Source of Information: patient Exam Limitations: no limitations History of Present Illness: Ms. Jeffery is a 37-year-old female with a history of diabetic gastroparesis and nausea vomiting and abdominal pain likely related to her gastroparesis. Her diabetes has been poorly controlled and she experiences monthly episodes of incapacitating nausea and vomiting. She has been told she has cyclic vomiting syndrome. She reports that she will be feeling well and out of the clear blue allyssa will have persistent nausea and vomiting that prevents her from working and taking care of her activities of daily living. She has had no hematemesis denies fever or shaking chills. On admission to [facility] she had a CT scan of the abdomen with contrast, the results of which are as follows. FINDINGS: LUNG BASES: The visualized lung bases are unremarkable. LIVER, GALLBLADDER, AND BILIARY TREE: There is fatty infiltration in the medial segment along the falciform. Otherwise the liver is unremarkable. The gallbladder is unremarkable with no evidence of radiopaque gallstones, gallbladder wall thickening, or obvious pericholecystic inflammatory changes. PANCREAS: Unremarkable. SPLEEN: Unremarkable. ADRENAL GLANDS: Unremarkable. KIDNEYS AND URETERS: The kidneys are normal in size, shape, and attenuation. No hydronephrosis, hydroureter, or calculi seen. No perinephric stranding. BLADDER: Unremarkable. GASTROINTESTINAL TRACT: Small bowel is normal in caliber. The appendix is normal in caliber with no periappendiceal inflammatory change. Suspect an appendicolith. The large bowel is unremarkable. ABDOMINAL WALL: No significant hernia is appreciated. LYMPH NODES: No measurable lymphadenopathy. There is a small smooth possibly cystic lesion posterior to the left psoas muscle (series 2 image 60). This is stable dating back to 12/03/2015 consistent with a benign etiology and may represent the left ovary. VASCULAR: Mild atherosclerotic disease. No aneurysm. PELVIC VISCERA: The uterus and adnexa are unremarkable. OSSEOUS STRUCTURES: Degenerative changes in the spine. No suspicious lytic or or blastic osseous lesions. Healing fracture of the left L4 transverse process. IMPRESSION: No acute inflammatory process in the abdomen/pelvis. She moves her bowels normally and has had neither constipation or diarrhea. Patient had an EGD in [address] Rufino Meyer that was unrevealing with the exception of retained foodstuff. Allergies/Medications Allergies: Coded Allergies: No Known Allergies (01/21/17) Home Med List: Cabergoline 0.5 MG TABLET 0.5 TAB PO 2XW PRN PIT TUMOR (Reported) Insulin Aspart (Novolog) 100 UNIT/ML VIAL 0 SC TIDAC Diabetes BEFORE MEALS. Blood Insulin Sugar Units <80 0 80-150 3 151-200 4 201-250 5 251-300 6 301-350 7 351-400 8 >400 9 and Call Doctor [phone] Insulin Detemir (Levemir) 100 UNIT/ML VIAL 10 U SC BID Diabetes . Metoclopramide HCl (Reglan) 10 MG TABLET 2 TAB PO 4 TIMES/DAY gastro issues Omeprazole 40 MG CAPSULE.DR 1 CAP PO DAILY Dyspepsia . Ondansetron (Zofran Odt) 4 MG TAB.RAPDIS 1 TAB PO Q6 PRN NAUSEA . Ubidecarenone (Coenzyme Q10) 200 MG CAPSULE 1 CAP PO BID SUPPLEMENT (Reported ) Current Medications: Current Medications Sig/Maikel Start time Last Medication Dose Route Stop Time Status Admin Acetaminophen 1,000 MG Q6P PRN 03/15 1415 AC 03/18 IV 0956 Dextrose/Sodium 1,000 ML Q13H 03/18 2355 AC Chloride IV Diphenhydramine HCl 25 MG Q6P PRN 03/17 2200 AC 03/18 IV 0825 Enoxaparin Sodium 40 MG DAILY 03/17 0900 AC 03/18 SC 0825 Hydromorphone HCl 0.5 MG Q4P PRN 03/15 1415 AC 03/18 IV 1924 Insulin Aspart 0 TIDAC/HS 03/16 1200 DC 03/16 SC 1304 Insulin Detemir 8 UNITS BID 03/17 0900 AC 03/18 SC 2108 Insulin Human Regular 0 Q6 03/18 1800 AC 03/18 SC 1754 Metoclopramide HCl 10 MG Q6 03/18 1200 AC 03/18 IV 1753 Metoclopramide HCl 10 MG Q6P PRN 03/15 1415 DC 03/17 IV 1949 Ondansetron HCl 8 MG Q6P PRN 03/17 2200 AC 03/18 IV 0749 Pantoprazole Sodium 40 MG DAILY 03/15 2045 AC 03/18 IV 0825 Patient Medication 1 ED ONE ONE 03/18 0900 DC 03/18 Teaching ED 03/18 0901 0851 Past History Travel History Traveled to [place] past 21 day No Medical History Blood Transfusion Hx: No Neurological: dizziness, migraine EENT: NONE Cardiovascular: NONE Respiratory: NONE Gastrointestinal: GASTROPARESIS Hepatic: NONE Renal: NONE Musculoskeletal: NONE Psychiatric: mood disorder related to substance abuse Endocrine: diabetes, Hx of prolactin secreting pituitary ademona partial empty sella Blood Disorders: NONE Cancer(s): NONE 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 Age 65. FATHER (DM). Age 67. Psychosocial History Where Do You Live? Home Who Do You Live With? 2 nieces Services at Home: None Primary Language: South Korean, Urdu Smoking Status: Light Tobacco Smoker Living Will? no Power of Clinical Associate/HCP? no Functional Ability ADLs Independent: dressing, eating, toileting, bathing. Ambulation: independent IADLs Independent: shopping, housework, finances, food prep, telephone, transportation , medication admin. Review of Systems Review of Systems Constitutional: Reports: see HPI. EENTM: Reports: no symptoms. Cardiovascular: Reports: no symptoms. Respiratory: Reports: no symptoms. GI: Reports: see HPI. Genitourinary: Reports: no symptoms. Musculoskeletal: Reports: no symptoms. Skin: Reports: no symptoms. Neurological/Psychological: Reports: no symptoms. Hematologic/Endocrine: Reports: no symptoms. Exam & Diagnostic Data Vital Signs and I&O Vital Signs Date Time Temp Pulse Resp B/P B/P Pulse O2 O2 Flow FiO2 Mean Ox Delivery Rate 03/18 2112 97.8 111 16 138/90 98 Room Air 03/18 1420 97.6 110 20 164/100 99 Room Air 03/18 0800 96 03/18 0705 97.4 105 20 118/70 100 Room Air 03/17 2240 98.2 103 20 120/65 99 Room Air Intake & Output 03/18 1600 03/18 0400 03/17 1600 03/17 0400 03/16 1600 03/16 0400 Intake Total 70 100 100 60 760 240 Output Total 550 Balance -480 100 100 60 760 240 Intake, IV 70 100 20 Intake, Oral 0 0 100 60 740 240 Number 0 0 Bowel Movements Output, 200 Emesis Output, Urine 350 Patient 150 lb Weight Physical Exam General Appearance: well developed/nourished, no apparent distress, alert, awake , comfortable Head: atraumatic, normal appearance Eyes: Bilateral: normal appearance, PERRL. Ears, Nose, Throat: hearing grossly normal Neck: normal inspection, supple, full range of motion Respiratory: normal breath sounds, chest non-tender, lungs clear Cardiovascular: regular rate/rhythm, Normal S1 and S2 without rub, murmur or gallop Gastrointestinal: normal bowel sounds, soft, non-tender, no organomegaly Back: normal inspection, normal range of motion Extremities: no edema Neurologic/Psych: oriented x 3, normal mood/affect Cranial Nerves: cranial nerves II-XII intact grossly Skin: intact, normal color, warm/dry Results Pertinent Lab Results: Laboratory Tests 03/18 03/17 03/17 0630 0635 0600 Chemistry Sodium (137 - 145 mmol/L) 136 L Cancelled Potassium (3.5 - 5.1 mmol/L) 3.5 Cancelled Chloride (98 - 107 mmol/L) 99 Cancelled Carbon Dioxide (22 - 30 mmol/L) 26 Cancelled Anion Gap (5 - 16) 12 Cancelled BUN (7 - 17 mg/dL) 6 L Cancelled Creatinine (0.5 - 1.0 mg/dL) 0.5 Cancelled Estimated GFR (>60 ml/min) > 60 BUN/Creatinine Ratio (7 - 25 %) 12.0 Cancelled Hematology CBC w Diff NO MAN DIFF REQ Cancelled WBC (4.8 - 10.8 /CUMM) 13.0 H Cancelled RBC (4.20 - 5.40 /CUMM) 4.41 Cancelled Hgb (12.0 - 16.0 G/DL) 13.4 Cancelled Hct (37 - 47 %) 39.5 Cancelled MCV (81.0 - 99.0 FL) 89.4 Cancelled MCH (27.0 - 31.0 PG) 30.4 Cancelled MCHC (33.0 - 37.0 G/DL) 34.0 Cancelled RDW (11.5 - 14.5 %) 12.4 Cancelled Plt Count (130 - 400 /CUMM) 285 Cancelled MPV (7.4 - 10.4 FL) 9.1 Cancelled Gran % (42.2 - 75.2 %) 67.2 Lymphocytes % (20.5 - 51.1 %) 24.2 Monocytes % (1.7 - 9.3 %) 6.3 Eosinophils % (0 - 5 %) 2.0 Basophils % (0.0 - 2.0 %) 0.3 Absolute Granulocytes (1.4 - 6.5 /CUMM) 8.7 H Absolute Lymphocytes (1.2 - 3.4 /CUMM) 3.1 Absolute Monocytes (0.10 - 0.60 /CUMM) 0.8 H Absolute Eosinophils (0.0 - 0.7 /CUMM) 0.3 Absolute Basophils (0.0 - 0.2 /CUMM) 0 03/16 03/16 0719 0610 Chemistry Sodium (137 - 145 mmol/L) 136 L Potassium (3.5 - 5.1 mmol/L) 3.6 Chloride (98 - 107 mmol/L) 101 Carbon Dioxide (22 - 30 mmol/L) 22 Anion Gap (5 - 16) 13 BUN (7 - 17 mg/dL) 7 Creatinine (0.5 - 1.0 mg/dL) 0.5 Estimated GFR (>60 ml/min) > 60 BUN/Creatinine Ratio (7 - 25 %) 14.0 Hemoglobin A1c (4.2 - 5.8 %) 10.1 H Hematology CBC w Diff NO MAN DIFF REQ WBC (4.8 - 10.8 /CUMM) 18.8 H RBC (4.20 - 5.40 /CUMM) 4.11 L Hgb (12.0 - 16.0 G/DL) 12.6 Hct (37 - 47 %) 37.4 MCV (81.0 - 99.0 FL) 91.1 MCH (27.0 - 31.0 PG) 30.7 MCHC (33.0 - 37.0 G/DL) 33.7 RDW (11.5 - 14.5 %) 12.4 Plt Count (130 - 400 /CUMM) 243 MPV (7.4 - 10.4 FL) 9.0 Gran % (42.2 - 75.2 %) 73.4 Lymphocytes % (20.5 - 51.1 %) 20.0 L Monocytes % (1.7 - 9.3 %) 5.9 Eosinophils % (0 - 5 %) 0.5 Basophils % (0.0 - 2.0 %) 0.2 Absolute Granulocytes (1.4 - 6.5 /CUMM) 13.8 H Absolute Lymphocytes (1.2 - 3.4 /CUMM) 3.8 H Absolute Monocytes (0.10 - 0.60 /CUMM) 1.1 H Absolute Eosinophils (0.0 - 0.7 /CUMM) 0.1 Absolute Basophils (0.0 - 0.2 /CUMM) 0 Assessment/Plan Assessment/Recommendations: ASSESSMENT: 1. Diabetes mellitus, insulin-dependent-- poorly controlled 2. Nausea and vomiting likely due to gastroparesis, however, given LUQ pain patient may have other contributing factors such as peptic ulcer disease. Also might question whether this is an atypical presentation of biliary dyskinesia. 3. Gastroparesis --I have explained to the patient that gastroparesis can be worsened by diabetes that is poorly controlled. I have also reviewed with her the essentials of an anti-gastroparesis diet. 4. LUQ pain RECOMMENDATIONS: 1. N.P.O. after midnight 2. EGD in a.m. 3. Continue current medications Consult Acknowledgment - Thank you for your consult request.
[2018-03-19 06:49] VITALS: BP 136/86
--- NOTE | 2018-03-19 07:42 | PN- Housestaff ---
Cheikh Jenkins 03/19/18 0738: Subjective Follow-up For: Hyperglycemia, Diabetic gastroparesis, Abdominal pain with nausea and vomitting Subjective: Patient seen and examined at bedside. She is doing well compared to yesterday. She says she is still nauseated but not that much. Her abdominal pain subsided. She denies fever, chills, chest pain, palpitation, abdominal pain, diarrhea, constipation, burning micturition. Review of Systems Constitutional: Reports: see HPI. Objective Last 24 Hrs of Vital Signs/I&O Vital Signs Date Time Temp Pulse Resp B/P B/P Pulse O2 O2 Flow FiO2 Mean Ox Delivery Rate 03/19 0845 97.9 100 20 136/80 96 Room Air 03/19 0649 97.6 102 18 136/86 96 Room Air 03/18 2112 97.8 111 16 138/90 98 Room Air 03/18 1420 97.6 110 20 164/100 99 Room Air Intake & Output 03/19 1600 03/19 0800 03/19 0000 Intake Total 600 Output Total Balance 600 Intake, IV 600 Physical Exam General Appearance: Alert, Oriented X3, Cooperative, No Acute Distress Assessment/Plan Assessment: 37-year-old female with past medical history of cyclic vomiting syndrome, marijuana use for pain relief, mood disorder, history of prolactin secreting adenoma, type 1 diabetes mellitus, gastroparesis, partially empty sella presented emergency department with abdominal pain since 4 days, it was associated with nausea, nonbilious vomiting. Problems list: *DKA, anion gap close(resolved) *Diabetic gastroparesis with intractable nausea and vomiting *Acute abdominal pain(spasmodic pain, muscular pain) Assessment and plan: Diabetic gastroparesis: Diabetic gastroparesis having same presentation, patient was vomiting which was nonbilious and had abdominal pain and nausea. Patient is still nauseous and sometimes vomiting. She is still n.p.o. -She is on high dose of metoclopramide, Zofran, antihistamine, opiate medication. -GI consultation placed. -EGD done today. There is no sign of gastroparesis. Biopsies taken for H. pylori, celiac disease. There is no sign of any pathology, obstruction, inflammation Uncontrolled DM: -Type I on insulin -Patient having hyperglycemia. At the time present her sugar was 500+ but today fasting blood sugar was 186. -Continue Accu-Chek -Insulin Levemir 8units twice daily, insulin Novolin sliding scale as patient is n.p.o. -Endocrinology recommendation appreciated. Acute abdomen: -Patient still complaining abdominal pain but on examination there is no tenderness. -C T abdomen and pelvis is negative for intra-abdominal/intrapelvic pathology -OGD planned done today. -Patient started eating. Fluid discontinued. Novolin insulin discontinued. Novolog started and will hold novolog if patient skip meal or unabale to tolerate oral intake. -Urine culture, blood culture is negative for any organism *Anticipated discharge, patient tolerate oral intake. *Continue home medication *Continue insulin *BEP monitoring *Full code *GI/DVT prophylaxis Problem List: 1. Diabetes 2. Nausea and vomiting 3. Gastroparesis 4. S/P endoscopy 5. Full code status Pain Ratin Pain Location: Abdomen Pain Goal: Remain pain free Pain Plan: Pain management pathway Tomorrow's Labs & Rationales: cbc, BEP Gris Sapp 03/19/18 1053: Attending MD Review Statement Attending Statement Attending MD Statement: examined this patient, discuss w/resident/PA/CIVIL MANAGER, agreed w/resident/PA/CIVIL MANAGER, discussed with family, reviewed EMR data (avail), discussed with nursing, discussed with case mgmt, reviewed images, amended to note Attending Assessment/Plan: 37 o/f with pmh of question pitutiary adenoma and type 1 daibetes mellitus with gastroparesis as complication from type 1 DM comes with intractable nausea/ vomting and abdominal pain. Patient went for EGD. Vitals stable Continue reglan standing orders for 10 iv q 6. Zofran as prn to control nasuea. GI consulted and follow EGD results. Pain management with dilaudid prn. Minimise use of narcotics. Endorcinology has been consulted and follow recommendations. Contine monitor CBGs. Advance diet as tolerated and Continue with intravenous fluids. Repelte electrolytes prn gi/dvt prophylaxis
--- NOTE | 2018-03-19 08:35 | PN- Student ---
Subjective Subjective: is a 37 y/o female with a PMH of migraines, gastroparesis, substance abuse mood disorder, insulin dependent DM, and prolactima. She presented to the ER with nausea and vomitting. Shes had thee symtpoms on and off for 2 years now; nothing makes it better or worse. She scratches her back and arms in efforts to relieve her pain. Objective Objective: Upon review of systems she reported a history of blurry vision and twitches sometimes. Her LLQ was tender diffusely. Normal bowel sounds. Her glucose was markedly high on admission (549 and 285). A1C is 10.1 No keytones present in urine Abdominal CT unremarkable CXR unremarkable Results Results: Laboratory Tests 03/19/18 0630: Sodium Pending, Potassium Pending, Chloride Pending, Carbon Dioxide Pending, Anion Gap Pending, BUN Pending, Creatinine Pending, BUN/Creatinine Ratio Pending , CBC w Diff Pending, WBC Pending, RBC Pending, Hgb Pending, Hct Pending, MCV Pending, MCH Pending, MCHC Pending, RDW Pending, Plt Count Pending, MPV Pending 03/18/18 0630: Anion Gap 12, Estimated GFR > 60, BUN/Creatinine Ratio 12.0, CBC w Diff NO MAN DIFF REQ, RBC 4.41, MCV 89.4, MCH 30.4, MCHC 34.0, RDW 12.4, MPV 9.1, Gran % 67.2, Lymphocytes % 24.2, Monocytes % 6.3, Eosinophils % 2.0, Basophils % 0.3, Absolute Granulocytes 8.7 H, Absolute Lymphocytes 3.1, Absolute Monocytes 0.8 H, Absolute Eosinophils 0.3, Absolute Basophils 0 03/17/18 0635: Sodium Cancelled, Potassium Cancelled, Chloride Cancelled, Carbon Dioxide Cancelled, Anion Gap Cancelled, BUN Cancelled, Creatinine Cancelled, BUN/ Creatinine Ratio Cancelled 03/17/18 0600: CBC w Diff Cancelled, WBC Cancelled, RBC Cancelled, Hgb Cancelled, Hct Cancelled , MCV Cancelled, MCH Cancelled, MCHC Cancelled, RDW Cancelled, Plt Count Cancelled, MPV Cancelled Assessment/Plan Assessment: is a 37 y/o female with a PMH of migraines, gastroparesis, substance abuse mood disorder, insulin dependent DM, and prolactima. She presented to the ER with nausea and vomitting. Shes had thee symtpoms on and off for 2 years now; nothing makes it better or worse. Plan: Gastroparesis compolicated by uncontrolled DM: * Her Levemir was decreased to 8 units 2x daily and Novolog was added before meals and bedtimes Nausea & Pain: * Zofran PRN * Dilaudid IV GI Consult: * patient is getting EGD today
[2018-03-19 08:40] LABS: ABSOLUTE BASOPHIL COUNT 0 /CUMM (0.0-0.2); ABSOLUTE EOSINOPHIL COUNT 0.2 /CUMM (0.0-0.7); ABSOLUTE GRANULOCYTE CT 7.5 /CUMM (1.4-6.5); ABSOLUTE LYMPH COUNT 2.5 /CUMM (1.2-3.4); ABSOLUTE MONOCYTE COUNT 0.8 /CUMM (0.10-0.60); BASOPHIL % 0.4 % (0.0-2.0); EOSINOPHIL % 1.6 % (0-5); GRANULOCYTE % 68.1 % (42.2-75.2); HEMATOCRIT 40.5 % (37-47); MEAN CORPUSCULAR HGB 30.3 PG (27.0-31.0); MEAN CORPUSCULAR VOLUME 89.3 FL (81.0-99.0); MEAN PLATELET VOLUME 8.6 FL (7.4-10.4); PLATELET COUNT 321 /CUMM (130-400); RBC DISTRIBUTION WIDTH 12.3 % (11.5-14.5); RED BLOOD CELL CT 4.54 /CUMM (4.20-5.40); WHITE BLOOD CELL COUNT 11.1 /CUMM (4.8-10.8)
[2018-03-19 08:45] VITALS: BP 136/80
--- NOTE | 2018-03-19 10:11 | PN- Diabetes ---
Assessment/Plan Diabetes Assessment: 37 y/o female, hx of diabetes and noncompliance complicated with gastroparesis, was admitted for abdominal pain, nausea and vomiting. Levemir was decreased to 8 units twice a day; In addition, she was put on Novolog coverage before meals and add Novolog coverage at bedtime. Before Each Meal: Bolus Insulin: Novolog < 80 mg/dl: no coverage 80-100 mg/dl: no coverage 101-120 mg/dl: no coverage 121-150 mg/dl: no coverage 151-200 mg/dl: 2 units 201-250 mg/dl: 4 units 251-300 mg/dl: 6 units 301-350 mg/dl: 8 units 351-400 mg/dl: 10 units > 400 mg/dl: 12 units Bedtime: Bolus Insulin: Novolog < 80 mg/dl: no coverage 80-100 mg/dl: no coverage 101-120 mg/dl: no coverage 121-150 mg/dl: no coverage 151-200 mg/dl: no coverage 201-250 mg/dl: no coverage 251-300 mg/dl: 2 units 301-350 mg/dl: 3 units 351-400 mg/dl: 4 units > 400 mg/dl: 5 units However, she still has nausea and is going to have EGD done today. Currently she is on D5 1/2 NS at 75 ml/hour and RISS every 6 hours. Her FSGs were 173, 187, 195 and 186. Plan: 1. continue the current insulin regimen for now; 2. replete K; monitor electrolytes; 3. after EGD is done and when she is ready to eat meals, please inform me and then her insulin regimen will be adjusted accordingly. will follow. Subjective Subjective: She is waiting for EGD. Objective Last 24 Hrs of Vital Signs/I&O Vital Signs Date Time Temp Pulse Resp B/P B/P Pulse O2 O2 Flow FiO2 Mean Ox Delivery Rate 03/19 0845 97.9 100 20 136/80 96 Room Air 03/19 0649 97.6 102 18 136/86 96 Room Air 03/18 2112 97.8 111 16 138/90 98 Room Air 03/18 1420 97.6 110 20 164/100 99 Room Air Intake & Output 03/19 1600 03/19 0800 03/19 0000 Intake Total 600 Output Total Balance 600 Intake, IV 600 Findings Pertinent Lab/Goyo Results: Laboratory Tests 03/19 0630 Chemistry Sodium (137 - 145 mmol/L) 136 L Potassium (3.5 - 5.1 mmol/L) 3.1 L Chloride (98 - 107 mmol/L) 97 L Carbon Dioxide (22 - 30 mmol/L) 25 Anion Gap (5 - 16) 14 BUN (7 - 17 mg/dL) 9 Creatinine (0.5 - 1.0 mg/dL) 0.6 Estimated GFR (>60 ml/min) > 60 BUN/Creatinine Ratio (7 - 25 %) 15.0 Hematology CBC w Diff NO MAN DIFF REQ WBC (4.8 - 10.8 /CUMM) 11.1 H RBC (4.20 - 5.40 /CUMM) 4.54 Hgb (12.0 - 16.0 G/DL) 13.8 Hct (37 - 47 %) 40.5 MCV (81.0 - 99.0 FL) 89.3 MCH (27.0 - 31.0 PG) 30.3 MCHC (33.0 - 37.0 G/DL) 34.0 RDW (11.5 - 14.5 %) 12.3 Plt Count (130 - 400 /CUMM) 321 MPV (7.4 - 10.4 FL) 8.6 Gran % (42.2 - 75.2 %) 68.1 Lymphocytes % (20.5 - 51.1 %) 22.8 Monocytes % (1.7 - 9.3 %) 7.1 Eosinophils % (0 - 5 %) 1.6 Basophils % (0.0 - 2.0 %) 0.4 Absolute Granulocytes (1.4 - 6.5 /CUMM) 7.5 H Absolute Lymphocytes (1.2 - 3.4 /CUMM) 2.5 Absolute Monocytes (0.10 - 0.60 /CUMM) 0.8 H Absolute Eosinophils (0.0 - 0.7 /CUMM) 0.2 Absolute Basophils (0.0 - 0.2 /CUMM) 0
--- NOTE | 2018-03-19 12:44 | Proc Note Endoscopy ---
Endoscopy Procedure Medical History: unchanged Mental Status: alert/oriented Heart/Lung Eval Prior to Sedation: within normal limits Candidate for Sedation? Yes Procedure Date: 03/19/18 Procedure Type: EGD w/biopsy [employer] Repairer: MD Callejas Deborah E. ASA Classification: III Indications: 1. Nausea and vomiting 2. Left upper quadrant pain Instrument: diagnostic gastroscope Meds Received: GETA Patient's Tolerance: good Complications: none Extent Reached: second part of duodenum Procedure: Note: Informed consent was obtained prior to procedure. Risks and benefits of procedure were discussed with patient. Potential complications discussed included perforation, bleeding, abdominal pain, and adverse reaction to medications. It was explained that iany or all of these complications could result in the need for extended hospitalization, emergency surgery, transfusion of packed red blood cells (with the risk of HIV or hepatitis virus), intubation with mechanical ventilation, and possible need for antibiotics. It was further explained that an existing tumor polyp or mucosal abnormality might not be identified at the time of the procedure thus resulting in a missed opportunity for early diagnosis and treatment of a gastrointestinal malignancy or disease with possible interval development of a gastrointestinal cancer or other disease with possible worsening of clinical condition in the interval between endoscopies. It was also discussed that complications are not limited to those listed above. Possible alternatives to endoscopic treatment or evaluation were discussed. All questions were answered. Continuous EKG and blood pressure monitors were attached. Supplemental oxygen was provided with O2 Sat monitoring. Patient was placed in the left lateral decubitus position. A surgical timeout was performed. All persons in the room were identified. All concerns were expressed and answered. A bite block was placed in the mouth and sedation was administered by anesthesia and titrated to comfort prior to starting the procedure. The Olympus upper endoscope was advanced under direct vision to the level of the third portion of the duodenum. Esophagus: The esophagus had a normal mucosal vascular pattern throughout its entirety. The GE junction was identified and was normal. The Z line was located at 38 cm from the incisors and was nondisplaced. Biopsies were obtained from the lower third of the esophagus to rule out underlying inflammatory changes. Stomach: The stomach had a normal mucosal and vascular pattern throughout its entirety. Upon intubating the gastric lumen there was a moderate amount of clear bilious material which was completely suctioned. Retroflexed view of the cardiofundic region revealed a normal mucosal and vascular pattern. There were normal rugae and normal distensibility. The pylorus was patent and easily intubated. Biopsies were obtained from the antrum and angularis to rule out H. Pylori. Biopsies were obtained from the gastric body and lesser curvature to rule out chronic atrophic gastritis. Duodenum: The duodenum was fully examined from bulb down to the third portion. There was a normal mucosal vascular pattern throughout. Biopsies were obtained from D1, D2 and the duodenal bulb to rule out celiac disease. Over 6 separate bites were obtained. With the endoscope in the forward-viewing position, it was slowly withdrawn and all areas were re-inspected and findings are as described previously. Patient tolerated the procedure well. EBL: Minimal Specimens Removed: 1. D1, D2 and the duodenal bulb to rule out celiac disease. 2. antrum and angularis to rule out H. Pylori. 3. gastric body and lesser curvature to rule out chronic atrophic gastritis. 4. lower third of the esophagus to rule out underlying inflammatory changes. Findings: 1. Retained bile in gastric lumen 2. No evidence of retained food suggestive of gastro-paresis that is not well treated by current medical regimen Impression: 1. Retained bile in gastric lumen 2. No evidence of retained food suggestive of gastro-paresis that is not well treated by current medical regimen Recommendations: 1. Diabetic diet with modifications for gastroparesis 2. Await pathology 3. Consider addition of neuromodulator for nonulcer dyspepsia 4. Consider HIDA scan with CCK to rule out biliary dyskinesia as an atypical cause of nausea and vomiting as well as abdominal pain
[2018-03-19 14:14] VITALS: BP 132/90
[2018-03-19 14:25] VITALS: BP 132/90
[2018-03-19 21:33] VITALS: BP 132/96
[2018-03-20 06:22] VITALS: BP 123/77
--- NOTE | 2018-03-20 07:39 | PN- Housestaff ---
Cheikh Jenkins 03/20/18 0736: Subjective Follow-up For: hyperglycemia, gastroparesis, nausea vomitting, leukocytosis Subjective: Patient seen and examine at bedside. She was lying in bed. She was complaining that she is waitiong for social worker aide but she is not there yet. After explianing her that social worker aide will see her today, she convinced. She is no more complaining odf nausea, abdominal poain, vomiting. She also denies fever, chills, abdominla pain, diuarrhea, constipation, burning micturation, palpitaion, chest pain. Review of Systems Constitutional: Reports: see HPI. Objective Last 24 Hrs of Vital Signs/I&O Vital Signs Date Time Temp Pulse Resp B/P B/P Pulse O2 O2 Flow FiO2 Mean Ox Delivery Rate 03/20 1415 99.0 112 18 130/82 98 Room Air 03/20 0622 99.0 97 18 123/77 99 03/19 2133 98.3 96 18 132/96 96 Room Air Intake & Output 03/20 1600 03/20 0800 03/20 0000 Intake Total 620 240 250 Output Total Balance 620 240 250 Intake, Oral 620 240 250 Number 0 Bowel Movements Physical Exam General Appearance: Alert, Oriented X3, Cooperative Assessment/Plan Assessment: 37-year-old female with past medical history of cyclic vomiting syndrome, marijuana use for pain relief, mood disorder, history of prolactin secreting adenoma, type 1 diabetes mellitus, gastroparesis, partially empty sella presented emergency department with abdominal pain since 4 days, it was associated with nausea, nonbilious vomiting. Problems list: *DKA, anion gap close(resolved) *Diabetic gastroparesis with intractable nausea and vomiting *Acute abdominal pain(spasmodic pain, muscular pain) Assessment and plan: Diabetic gastroparesis: Diabetic gastroparesis having same presentation, patient was vomiting which was nonbilious and had abdominal pain and nausea. Patient condition improved after starting her on metochlopramide, zofran, pain medication. -GI consultation placed. -EGD done . Biopsies taken for H. pylori, celiac disease. There is was no sign of any pathology, obstruction, inflammation Uncontrolled DM: -Type I on insulin -Patient having hyperglycemia. At the time present her sugar was 500+ but today fasting blood sugar was 146. -Insulin Levemir 8units twice daily and insulin novolog on sliding scale. -Endocrinology recommendation appreciated. Acute abdomen: *Patient was initially complaining severe abdominal pain but now she is complaining no pain. -C T abdomen and pelvis is negative for intra-abdominal/intrapelvic pathology -Urine culture, blood culture is negative for any organism *Anticipated discharge today, patient tolerate oral intake, she is waiting for social worker aide. *Continue home medication *Continue insulin *Full code Problem List: 1. Diabetes 2. Diabetic ketosis 3. Vomiting 4. Abdominal pain 5. Unspecified abdominal pain 6. Cyclic vomiting syndrome 7. Leukocytosis 8. Gastroparesis 9. Intractable nausea and vomiting Pain Ratin Pain Location: no pain Pain Goal: Remain pain free Pain Plan: pain pathway Tomorrow's Labs & Rationales: no lab Gris Sapp 03/20/18 1106: Attending MD Review Statement Attending Statement Attending MD Statement: examined this patient, discuss w/resident/PA/DINKEY OPERATOR SLAG, agreed w/resident/PA/DINKEY OPERATOR SLAG, discussed with family, reviewed EMR data (avail), discussed with nursing, discussed with case mgmt, reviewed images, amended to note Attending Assessment/Plan: 37 o/f with pmh of question pitutiary adenoma and type 1 daibetes mellitus with gastroparesis as complication from type 1 DM comes with intractable nausea/ vomiting and abdominal pain. Patient s/p EGD with no acute abnormal pathology. Vitals stable Continue reglan standing orders for 10 q 6. Zofran as prn to control nausea. Pain management with dilaudid prn. Minimise use of narcotics. Endocrinology has been consulted and follow recommendations. Continue monitor CBGs. Advance diet as tolerated and Continue with intravenous fluids. Repelte electrolytes prn. SW informed and follow up. FOLLOW UP Gastroenterology in 2 weeks PCP in 1-2 weeks
--- NOTE | 2018-03-20 09:08 | Patient Discharge Instructions ---
Discharge Instructions General Discharge Information You were seen/treated for: Uncontrolled diabetes with Hyperglycemia, gastroparesis, interactable nausea and vomitting You had these procedures: OGD Watch for these problems: Nausea,vomiting, blood sugar level, Special Instructions: If she need medical attention pleasecontact PCP Strict diabetic diet , strict control on sugar, Diet Continue normal diet: Yes Recommended Diet: Diabetic Activity Full Activity/No Limits: Yes Acute Coronary Syndrome Inclusion Criteria At DC or during hospital stay patient has or had the following: ACS DIAGNOSIS No Discharge Core Measures Meds if any: Prescribed or Continued at Discharge AMANDA/ARB if EF <40% No Meds if any: NOT Prescribed or Continued at Discharge Congestive Heart Failure Inclusion Criteria At DC or during hospital stay patient has or had the following: CHF DIAGNOSIS No Discharge Core Measures Meds if any: Prescribed or Continued at Discharge Meds if any: NOT Prescribed or Continued at Discharge Cerebrovascular accident Inclusion Criteria At DC or during hospital stay patient has or had the following: CVA/TIA Diagnosis No Discharge Core Measures Meds if any: Prescribed or Continued at Discharge Meds if any: NOT Prescribed or Continued at Discharge Venous thromboembolism Inclusion Criteria VTE Diagnosis No VTE Type NONE VTE Confirmed by (Test) NONE Discharge Core Measures - Per Current guidelines, there needs to be overlap - treatment for the first 5 days of Warfarin therapy. - If discharged on Warfarin prior to 5 days of - overlap therapy, the patient will need to be - assessed for post discharge needs including - *Post discharge parental anticoagulation - *Warfarin and/or parental anticoagulation education - *Follow up date to check INR post discharge At least 5 days overlap therapy as Inpatient No Meds if any: Prescribed or Continued at Discharge Note: Overlap Therapy is Warfarin and Anticoagulant Meds if any: NOT Prescribed or Continued at Discharge
[2018-03-20] MEDS ORDERED: REGLAN10 M1 PO (11:08)
[2018-03-20 14:15] VITALS: BP 130/82
--- NOTE | 2018-03-20 15:18 | PN- Diabetes ---
Assessment/Plan Diabetes Assessment: 37 y/o female, hx of diabetes and noncompliance complicated with gastroparesis, was admitted for abdominal pain, nausea and vomiting. Levemir was decreased to 8 units twice a day; In addition, she was put on Novolog coverage before meals and add Novolog coverage at bedtime. Before Each Meal: Bolus Insulin: Novolog < 80 mg/dl: no coverage 80-100 mg/dl: no coverage 101-120 mg/dl: no coverage 121-150 mg/dl: no coverage 151-200 mg/dl: 2 units 201-250 mg/dl: 4 units 251-300 mg/dl: 6 units 301-350 mg/dl: 8 units 351-400 mg/dl: 10 units > 400 mg/dl: 12 units Bedtime: Bolus Insulin: Novolog < 80 mg/dl: no coverage 80-100 mg/dl: no coverage 101-120 mg/dl: no coverage 121-150 mg/dl: no coverage 151-200 mg/dl: no coverage 201-250 mg/dl: no coverage 251-300 mg/dl: 2 units 301-350 mg/dl: 3 units 351-400 mg/dl: 4 units > 400 mg/dl: 5 units Her FSGs were 208, 207 and 146. Now she is on consistent carbohydrates diet 2. Plan: continue the current insulin regimen for now; monitor FSGs. will follow. Subjective Subjective: She feels better this morning. Objective Last 24 Hrs of Vital Signs/I&O Vital Signs Date Time Temp Pulse Resp B/P B/P Pulse O2 O2 Flow FiO2 Mean Ox Delivery Rate 03/20 1415 99.0 112 18 130/82 98 Room Air 03/20 0622 99.0 97 18 123/77 99 03/19 2133 98.3 96 18 132/96 96 Room Air Intake & Output 03/20 1600 03/20 0800 03/20 0000 Intake Total 620 240 250 Output Total Balance 620 240 250 Intake, Oral 620 240 250 Number 0 Bowel Movements
--- NOTE | 2018-03-20 16:41 | Discharge Summary ---
Visit Information Visit Dates Admission Date: 03/17/18 Discharge Date: 03/20/18 Hospital Course Course Attending Physician: Gris Sapp MD Primary Care Physician: Asher Orta APRN Hospital Course: 37-year-old female with past medical history of cyclic vomiting syndrome, marijuana use for pain relief, mood disorder, history of prolactin secreting adenoma, type 1 diabetes mellitus, gastroparesis, partially empty sella presented emergency department with abdominal pain since 4 days, it was associated with nausea, nonbilious vomiting. At the time of presentation to emergency department her labs were significant low serum potassium: 3.7, sodium 138, glucose 549, calcium 10.2, WBC 31.9, magnesium: 1.3, serum osmolarity: 315, random blood sugar 549, anion gap, 25, lactate 4.4. Abdominal pelvic CT: It was negative for any abdominal or pelvic pathology, chest x-ray: Was negative for any lungs effusion, consolidation. On examination: Patient was in distress, lying in the bed, Abdomen: Tender to palpation, no hepatosplenomegaly, no rebound tenderness Chest: Bilateral normal air entry, no added sound. We started giving her IV fluid started, antiemitc(zofran), metoclopramide, Insulin and potassium repletion. Patient was admitted to general medical floor. Her condition was improving day by day. Gastroenterology consultation appreciated EGD done acute GI pathology, obstruction rule out. Biopsies taken for celiac disease, H. pylori. Endocrinology consultation appreciated insulin dose adjusted, now her sugars is controlled. Now she is vitally stable, she is no more complaining of nausea, vomiting, abdominal pain. She had some social issues and meeting with social welfare research worker arranged. Clinically she is stable and will discharge home today. 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 Allergies: Coded Allergies: No Known Allergies (01/21/17) Disposition Summary Disposition Principal Diagnosis: Diabetic gastroparesis, Additional Diagnosis: Type1 DM, cyclic vomitting syndrome, Hx of prolactin secreting adenoma, marijuana use for pain, mood disorder Discharge Disposition: home or self care Discharge Instructions General Discharge Information Code Status: Full Code Patient's Diet: Diabetic CC2 diet, regular diet. Patient's Activity: no limition, full activity Follow-Up Instructions/Appts: Follow up with [facility] doctor in one week , Follow up with gastroenterology in two weeks, If she need any medical attention she should contact to her PCP Strick sugar monitoring and control, compliance with medication Minimal use of pain medication Medications at Discharge Discharge Medications: Continue taking these medications: Ubidecarenone (Coenzyme Q10) 200 MG CAPSULE 1 Capsule ORAL TWICE DAILY Qty = 60 Comments: NOT GIVEN IN HOSPITAL Omeprazole (Omeprazole) 40 MG CAPSULE.DR 1 Capsule ORAL DAILY Qty = 30 Instructions: . Comments: Last Taken: NOT GIVEN IN HOSPITAL Time Insulin Detemir (Levemir) 100 UNIT/ML VIAL 10 Units SC TWICE DAILY Qty = 1 Instructions: . Comments: Last Taken: 03/20/18 Time: 8:07 AM Cabergoline (Cabergoline) 0.5 MG TABLET 0.5 Tablet ORAL 2 times per week as needed for PIT TUMOR Comments: NOT GIVEN IN THE HOSPITAL Ondansetron (Zofran Odt) 4 MG TAB.RAPDIS 1 Tablet ORAL EVERY SIX HOURS as needed for NAUSEA Qty = 60 Instructions: . Comments: Last Taken:03/18/18 Time:7:49 AM Insulin Aspart (Novolog) 100 UNIT/ML VIAL 0 SC 3 TIMES DAILY BEFORE MEALS Qty = 2 Instructions: BEFORE MEALS. Blood Insulin Sugar Units <80 0 80-150 3 151-200 4 201-250 5 251-300 6 301-350 7 351-400 8 >400 9 and Call Doctor [phone] Comments: Last Taken: 03/20/18 Time: 12:30 PM The following medications have been changed: Old: Metoclopramide HCl (Reglan) 10 MG TABLET 2 Tablet ORAL 4 TIMES A DAY Qty = 120 New: Metoclopramide HCl (Reglan) 10 MG TABLET 1 Tablet ORAL 4 TIMES A DAY Qty = 120 Instructions: . Copies To: Asher Orta APRN
== END 2018-03-20 16:22 | DRG 48 ==
LOC: ERH 05:28 → ERHI 13:25 → ENRESERV 14:37 → ENTRNSPT 16:08 → EDTRNSPT 16:17 → EDTRNSPTSTS 16:17 → 2NB 16:20 → CMPTRNSPT 16:32 → 2NB 03-17 14:19 → ENPENDDIS 03-20 13:26 → 2NB 03-20 16:22
PROVIDERS: Emergency Medicine; Hospitalist; Internal Medicine Endocrinology, Diabetes & Metabolism; Preventive Medicine Addiction Medicine
PROC: 0DB68ZX Excision of Stomach, Via Natural or Artificial Opening Endoscopic, Diagnostic (ICD-10-PCS; principal; 2018-03-19)
PROC: 0DB38ZX Excision of Lower Esophagus, Via Natural or Artificial Opening Endoscopic, Diagnostic (ICD-10-PCS; principal; 2018-03-19)
PROC: 0DB98ZX Excision of Duodenum, Via Natural or Artificial Opening Endoscopic, Diagnostic (ICD-10-PCS; principal; 2018-03-19)
DX: E10.43 Type 1 diabetes mellitus with diabetic autonomic (poly)neuropathy (principal); E86.0 Dehydration; E10.10 Type 1 diabetes mellitus with ketoacidosis without coma; G43.A0 Cyclical vomiting, in migraine, not intractable; K31.84 Gastroparesis; D35.2 Benign neoplasm of pituitary gland; Z79.4 Long term (current) use of insulin; F39 Unspecified mood [affective] disorder; F12.10 Cannabis abuse, uncomplicated; D72.829 Elevated white blood cell count, unspecified; Z91.14 Patient's other noncompliance with medication regimen; E87.6 Hypokalemia
CPT/HCPCS: 2NBP; 36592; 71045; 74177; 80307; 82436; 93005; 93010; 96374; 96375; J0131; J1200; J1650; J1815; J2405; J2765; J7042

== ENCOUNTER 2018-03-23 14:06 | Inpatient (IN) | payer OTHER ==
[~2018-03-23] VITALS: Ht 160 cm; Wt 62.7 kg
--- NOTE | 2018-03-23 14:31 | ED GENERAL ADULT ---
History of Present Illness General Chief Complaint: Abdominal Pain/Flank Pain Stated Complaint: ABD PAIN Source: patient Exam Limitations: no limitations Vital Signs & Intake/Output Vital Signs & Intake/Output Vital Signs Date Time Temp Pulse Resp B/P B/P Pulse O2 O2 Flow FiO2 Mean Ox Delivery Rate 03/23 1915 98.6 92 20 136/87 03/23 1412 98.7 116 18 142/90 100 Room Air Allergies Coded Allergies: No Known Allergies (01/21/17) Reconcile Medications Cabergoline 0.5 MG TABLET 0.5 TAB PO 2XW PRN PIT TUMOR (Reported) Insulin Aspart (Novolog) 100 UNIT/ML VIAL 0 SC TIDAC Diabetes BEFORE MEALS. Blood Insulin Sugar Units <80 0 80-150 3 151-200 4 201-250 5 251-300 6 301-350 7 351-400 8 >400 9 and Call Doctor [phone] Insulin Detemir (Levemir) 100 UNIT/ML VIAL 10 U SC BID Diabetes . Metoclopramide HCl (Reglan) 10 MG TABLET 1 TAB PO 4 TIMES/DAY gastro issues . Omeprazole 40 MG CAPSULE.DR 1 CAP PO DAILY Dyspepsia . Ondansetron (Zofran Odt) 4 MG TAB.RAPDIS 1 TAB PO Q6 PRN NAUSEA . Ubidecarenone (Coenzyme Q10) 200 MG CAPSULE 1 CAP PO BID SUPPLEMENT (Reported ) Triage Note: BIBA FROM HOME C/O ABDOMINAL PAIN X 2 DAYS WITH VOMITING. STATES SHE WAS DISCHARGED 2 DAYS AGO FROM [place], [facility] AND [facility] ON [facility]. Triage Nurses Notes Reviewed? yes Onset: Abrupt Duration: day(s): Timing: recent history : No Patient currently breastfeeds: No HPI: 03/23/18 37-year-old female presents to the emergency department with an exacerbation of cyclic vomiting syndrome. The patient states she has a history of diabetic gastroparesis and presents with similar symptoms. She complains of generalized abdominal pain nausea and vomiting. Past History Travel History Traveled to [place] past 21 day No Medical History Any Pertinent Medical History? 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 Age 65. FATHER (DM). Age 67. Hx Contributory? No Review of Systems Review of Systems Constitutional: Denies: fever. EENTM: Denies: visual changes. Respiratory: Denies: short of breath. Cardiovascular: Denies: chest pain. GI: Reports: abdominal pain, vomiting. Genitourinary: Reports: no symptoms. Musculoskeletal: Reports: no symptoms. Skin: Reports: no symptoms. Neurological/Psychological: Reports: no symptoms. Hematologic/Endocrine: Reports: no symptoms. Immunologic/Allergic: Reports: no symptoms. Physical Exam Physical Exam General Appearance: alert, awake, anxious, moderate distress Head: atraumatic, normal appearance Eyes: Bilateral: normal appearance, PERRL, EOMI. Ears, Nose, Throat: normal pharynx Neck: normal inspection, supple, full range of motion Respiratory: normal breath sounds, chest non-tender, no respiratory distress Cardiovascular: regular rate/rhythm Peripheral Pulses: 4+ radial (R), 4+ radial (L) Gastrointestinal: soft, non-tender Back: normal range of motion Extremities: normal inspection, normal range of motion Neurologic/Psych: no motor/sensory deficits, awake, alert, oriented x 3 Skin: intact, normal color, warm/dry Core Measures ACS in differential dx? No CVA/TIA Diagnosis: No Sepsis Present: No Sepsis Focused Exam Completed? No Progress Differential Diagnoses I considered the following diagnoses in my evaluation of the patient: [ Gastroparesis, cyclic vomiting syndrome, opiate withdrawal, diverticulitis, appendicitis] Plan of Care: Orders Procedure Date/time Status Nothing by Mouth 03/24 B Active ED Holding Orders 03/23 2019 Active Admit to inpatient 03/23 2019 Active Vital Signs 03/23 2019 Active Code Status 03/23 2019 Active EKG 03/23 1553 Active MIXED VENOUS BLOOD GAS (GEN) 03/23 1546 Active HUMAN BETA HCG SCREEN 03/23 1545 Complete COMPREHENSIVE METABOLIC PANEL 03/23 1545 Complete CBC WITHOUT DIFFERENTIAL 03/23 1545 Complete Laboratory Tests 03/23/18 1720: Bicarbonate Actual 26, Mixed VBG pH 7.40, Mixed VBG pCO2 43, Mixed VBG O2 Saturation 25 L, Carboxyhemoglobin 0.9 L, O2 Concentration % R/A, Anion Gap 12 , Estimated GFR > 60, BUN/Creatinine Ratio 16.7, Glucose 372 H, Calcium 9.3, Total Bilirubin 0.7, AST 19, ALT 39, Alkaline Phosphatase 82, Total Protein 7.1, Albumin 4.4, Globulin 2.7, Albumin/Globulin Ratio 1.6, Total Beta HCG NEGATIVE, CBC w Diff NO MAN DIFF REQ, RBC 4.37, MCV 90.1, MCH 30.6, MCHC 34.0, RDW 12.8, MPV 7.8, Gran % 88.9 H, Lymphocytes % 7.7 L, Monocytes % 3.1, Eosinophils % 0, Basophils % 0.3, Absolute Granulocytes 11.1 H, Absolute Lymphocytes 1.0 L, Absolute Monocytes 0.4, Absolute Eosinophils 0, Absolute Basophils 0, Phlebotomy Draw Site VENOUS Initial ED EKG: nonspecific ST T wave chg Departure Departure Disposition: STILL A PATIENT Condition: Stable Clinical Impression Primary Impression: Abdominal pain Secondary Impressions: Gastroparesis Referrals: Asher Orta APRN (PCP/Family) Departure Forms: Customer Survey General Discharge Information Admission Note Spoke With: Ashley CAMARA,Jacky Documentation of Exam: Documentation of any treatments & extenuating circumstances including Concerns Regarding Discharge (functional status, medication knowledge or non-compliance, living conditions, etc.) that warrant an admission rather than observation: [The patient needs admission for IV fluids, IV antiemetics, consider GI consultation. Consider endocrinology consultation.] 8:21 PM Patient had continued doses of IV fluids and IV antiemetics and nonnarcotic analgesics. I discussed with the patient nonopiate analgesics therapy and IV fluids and antiemetics will be provided. Critical Care Note Critical Care Note Critical Care Time: non-applicable
[2018-03-23 17:27] LABS: ABSOLUTE BASOPHIL COUNT 0 /CUMM (0.0-0.2); ABSOLUTE EOSINOPHIL COUNT 0 /CUMM (0.0-0.7); ABSOLUTE GRANULOCYTE CT 11.1 /CUMM (1.4-6.5); ABSOLUTE MONOCYTE COUNT 0.4 /CUMM (0.10-0.60); BASOPHIL % 0.3 % (0.0-2.0); EOSINOPHIL % 0 % (0-5); HEMATOCRIT 39.4 % (37-47); MEAN CORPUSCULAR HGB 30.6 PG (27.0-31.0); MEAN CORPUSCULAR VOLUME 90.1 FL (81.0-99.0); MEAN PLATELET VOLUME 7.8 FL (7.4-10.4); PLATELET COUNT 333 /CUMM (130-400); RBC DISTRIBUTION WIDTH 12.8 % (11.5-14.5); RED BLOOD CELL CT 4.37 /CUMM (4.20-5.40); WHITE BLOOD CELL COUNT 12.5 /CUMM (4.8-10.8)
[2018-03-23 17:43] LABS: GRANULOCYTE % 88.9 % (42.2-75.2)
--- NOTE | 2018-03-23 22:31 | History & Physical ---
Mendy Sterling 03/23/180: General Information and HPI MD Statement: I have seen and personally examined ABA RAMOS and documented this H&P. The patient is a 37 year old F who presented with a patient stated chief complaint of []. Source of Information: patient Exam Limitations: no limitations History of Present Illness: 37 year old female with PMH DM, gastroparesis, cyclic vomiting syndrome, daily marijuana use, migraine, partial empty sella syndrome, mood disorder 2/2 substance abuse presenting with return of vomiting and abdominal pain. Patient was discharged 03/20/18 after resolution of cyclic vomiting syndrome exacerbation and gastroparesis. She states she felt okay for one day and then started vomiting and had return of abdominal pain. Of note: she states she is not able to monitor her glucose at home because she does not have a glucose monitor and she has been out of her insulin for 'a few weeks now'. She states her pain is not being managed well and needs either morphine or dilaudid. Denies fevers, chills, sweats, chest pain, SOB, diarrhea. Of Note: patient has multiple hospital visits for these symptoms. She always requires IV opiate medications for pain and requests it despite many attempts to explain the counterproductive pharmacology of opiates in the setting of gastroparesis. Patient also becomes very angry and yells at any staff who mentions her marijuana use as a possible contributor to her cyclic vomiting syndrome. Allergies/Medications Allergies: Coded Allergies: No Known Allergies (01/21/17) Home Med list Cabergoline 0.5 MG TABLET 0.5 TAB PO 2XW PRN PIT TUMOR (Reported) Insulin Aspart (Novolog) 100 UNIT/ML VIAL 0 SC TIDAC Diabetes BEFORE MEALS. Blood Insulin Sugar Units <80 0 80-150 3 151-200 4 201-250 5 251-300 6 301-350 7 351-400 8 >400 9 and Call Doctor [phone] Insulin Detemir (Levemir) 100 UNIT/ML VIAL 10 U SC BID Diabetes . Metoclopramide HCl (Reglan) 10 MG TABLET 1 TAB PO 4 TIMES/DAY gastro issues . Omeprazole 40 MG CAPSULE.DR 1 CAP PO DAILY Dyspepsia . Ondansetron (Zofran Odt) 4 MG TAB.RAPDIS 1 TAB PO Q6 PRN NAUSEA . 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 Age 65. FATHER (DM). Age 67. Psychosocial History Where do you live? Home Who Do You Live With? 2 nieces Services at Home: None Primary Language: Ethiopian, Armenian ETOH Use: denies use Living Will? no Power of Thread Dresser/HCP? no Functional Ability ADLs Independent: dressing, eating, toileting, bathing. Ambulation: independent IADLs Independent: shopping, housework, finances, food prep, telephone, transportation , medication admin. Review of Systems Review of Systems Constitutional: Reports: no symptoms. EENTM: Reports: no symptoms. Cardiovascular: Reports: no symptoms. Respiratory: Reports: no symptoms. GI: Reports: abdominal pain, nausea, vomiting. Denies: constipation, diarrhea. Genitourinary: Reports: no symptoms. Musculoskeletal: Reports: no symptoms. Skin: Reports: no symptoms. Exam & Diagnostic Data Last 24 Hrs of Vital Signs/I&O Vital Signs Date Time Temp Pulse Resp B/P B/P Pulse O2 O2 Flow FiO2 Mean Ox Delivery Rate 03/235 98.6 75 18 124/68 98 Room Air 03/23 2143 98.7 122 18 133/80 94 03/23 1915 98.6 92 20 136/87 03/23 1412 98.7 116 18 142/90 100 Room Air Intake & Output 03/24 0800 03/24 0000 03/23 1600 Intake Total 200 30 Output Total 150 Balance 50 30 Intake, IV 200 Intake, Oral 0 30 Output, 150 Emesis Patient 138 lb 145 lb Weight Weight Bed scale Reported by Patient Measurement Method Physical Exam General Appearance Alert, Oriented X3, Cooperative, Moderate Distress, yelling and crying about abdominal pain that isn't being managed with tylenol stating 'I need morphine or dilaudid'. Skin No Rashes Skin Temp/Moisture Exam: Warm/Dry HEENT Atraumatic Neck Supple Cardiovascular Normal S1, Normal S2, No Murmurs, tachycardic Lungs Clear to Auscultation Abdomen Soft, diffusely tender to palpation Extremities No Cyanosis, No Edema Assessment/Plan Assessment: 37 year old female with PMH DM, gastroparesis, cyclic vomiting syndrome, daily marijuana use, migraine, partial empty sella syndrome, mood disorder 2/2 substance abuse presenting with return of vomiting and abdominal pain. Patient was discharged 03/20/18 after resolution of cyclic vomiting syndrome exacerbation and gastroparesis. She states she felt okay for one day and then started vomiting and had return of abdominal pain. Of note: she states she is not able to monitor her glucose at home because she does not have a glucose monitor and she has been out of her insulin for 'a few weeks now'. She states her pain is not being managed well and needs either morphine or dilaudid. Denies fevers, chills, sweats, chest pain, SOB, diarrhea. Of Note: patient has multiple hospital visits for these symptoms. She always requires IV opiate medications for pain and requests it despite many attempts to explain the counterproductive pharmacology of opiates in the setting of gastroparesis. Patient also becomes very angry and yells at any staff who mentions her marijuana use as a possible contributor to her cyclic vomiting syndrome. Patient will be admitted to the general medicine service for further care of the following: Problem List: 1. Acute exacerbation of cyclic vomiting syndrome 2. Gastroparesis 3. DM; poorly controlled Admission Data: VS T98.7 P116 RR18 BP142/90 Sat 100%RA Labs: WBC 12.5 H/H 13.4/39.4 Plt 333 Na 137 K 4.1 BUN/Cr 10/0.6 Glucose 372 ED tx: IV tylenol; zofran; reglan; 2L NS; phenergan #Acute exacerbation of cyclic vomiting syndrome-may be related to daily marijuana use vs idiopathic vs related to gastroparesis in setting of poorly controlled DM. Patient's behavior is concerning for drug seeking as she requests an IV opiate regimen claiming nothing else will work. May benefit from GI consult to discuss possible interventions such as botox to pyloric sphincter to help relieve recurrent gastroparesis? Patient will need better control of her glucose at home including glucose monitoring device and insulin. -prokinetic agents; reglan -antiemetics -Zofran 8mg IV Q6hrs prn with Benadryl 25mg IV A1qce-dyno combonation has shown relief if study subjects and seemed to work well for this patient last admission though it did not eliminate her requirement of opiates. -IV hydration NS @ 75cc/hr -monitor electrolytes and replete accordingly -continue home medication: omeprazole -pain control: tylenol, dilaudid 1mg Q6PRN severe pain #Gastroparesis-likely exacerbated in setting of poorly controlled DM -care as per above #DM-poorly controlled- possibly 2/2 patient inability to afford supplies vs poor patient compliance -sliding scale insulin -carbohydrate diet #3 -finger sticks DVT prophylaxis-heparin/ALPS/ambulation Code status: full code As Ranked By This Provider Problem List: 1. Gastroparesis 2. Intractable nausea and vomiting 3. Abdominal pain Core Measures/Misc (04/15) Acute Coronary Syndrome ACS Diagnosis: No Congestive Heart Failure Congestive Heart Failure Diagnosis No Cerebrovascular Accident CVA/TIA Diagnosis: No VTE (View Protocol) VTE Risk Factors Acute Medical Illness No Mechanical VTE Prophylaxis d/t N/A MechProphylax Ordered No VTE Pharm Prophylaxis d/t NA PharmProphylax ordered Sepsis (View protocol) Sepsis Present: No If YES complete Sepsis Event Note If YES complete Sepsis Event Note Curt Willson 03/23/18 2241: Core Measures/Misc (04/15) Sepsis (View protocol) If YES complete Sepsis Event Note If YES complete Sepsis Event Note Resident Review Statement Resident Statement: examined this patient, discussed with manufacturing intern, agreed with manufacturing intern, discussed with family, reviewed EMR data (avail), discussed with nursing , discussed with case mgmt, reviewed images, amended to note Other Findings: This is a 37-year-old female with past medical history significant for migraine, type 1 diabetes mellitus, gastroparesis, cyclic vomiting syndrome, marijuana use for pain relief, mood disorders, history of prolactin secreting adenoma, partially empty sella presented to the ER with acute on chronic worsening of intractable nausea, vomiting, abdominal pain for 2 days. Patient was recently admitted to [facility], discharged on March 20, 2018 for gastroparesis, cyclic vomiting syndrome, intractable nausea, vomiting, abdominal pain, found to have a reactive leukocytosis with no source of infection. Also she underwent EGD on March 19, 2018, which was normal. Patient had been to [facility] for multiple times with similar complaints. Patient reports ongoing nausea, vomiting, abdominal pain for last 2 days. She reports acute worsening since last night which made her to come to the emergency room for further evaluation. Of note she has diabetic gastroparesis, cyclic vomiting syndrome. She takes marijuana on and off for her pain. She usually takes Zofran, metoclopramide for her gastroparesis, however for the last 3 days she could not take any medications because of nausea. She denied any fever, chills, change in bladder or bowel habits. Denies any recent sick contacts, travel history. Patient also reports that she has not been taking her insulin injections since discharge as she ran out of her meds. Review of systems was completely negative except for above. She denied any smoking history. Denies alcohol abuse. However she reports taking marijuana for pain relief. Vitals afebrile, heart rate 110, respiratory rate 20, blood pressure 140/90, saturating at 96 on room air. Pertinent labs WBC 12,000, hemoglobin 13 and hematocrit 39, platelets 312. BEP normal limits Serum glucose 312 VENOUS ABG 7.40, 26, 43 Patient received 3 L of normal saline bolus in the emergency room, Phenergan 25 mg, Reglan, Zofran. Cyclic vomiting syndrome/gastroparesis Patient presented with intractable nausea, vomiting, abdominal pain probably due to diabetic gastroparesis. She has multiple admissions, ER visits for cyclic vomiting syndrome and gastroparesis. She underwent EGD recently, no acute abnormalities were found. * Admit to general medicine for further management of gastroparesis * Monitor vitals every shift * Monitor for fever, leukocytosis * Monitor for any further worsening of symptoms * Continue IV fluids * Continue IV Zofran as needed/Benadryl as needed * Continue home medication metoclopramide 4 times daily * Consider GI consult in the a.m. Hyperglycemia due to uncontrolled diabetes Patient presented with intractable nausea, vomiting. She could not take her insulin for last 2 days. She presented with hyperglycemia with serum glucose 312. * Monitor in general medicine floor. * She was started on Novolin sliding scale. * She was continued on home dose of Levemir 10 mg twice daily * Accu-Cheks * Closely monitor blood sugar. * VENOUS ABG 7.40, 26, 43 * F/U serum acetone Reactive leukocytosis no source of infection was found. She is asymptomatic except for nausea vomiting abdominal pain. Leukocytosis most likely reactive secondary to nausea and vomiting GERD Continue omeprazole 40 daily History of prolactin secreting pituitary adenoma Patient takes cabergoline 0.5 mg twice weekly. However she is not taking that medication recently. Patient is full code DVT prophylaxis subcu heparin CCS3 DIET Pain pathway ordered Ashley CAMARA,Jacky Orourke 03/24/18 0554: Core Measures/Misc (04/15) Sepsis (View protocol) If YES complete Sepsis Event Note If YES complete Sepsis Event Note Attending MD Review Statement Attending Statement Attending MD Statement: examined this patient, discuss w/resident/PA/DEPUTY BRAND INSPECTOR, agreed w/resident/PA/DEPUTY BRAND INSPECTOR Attending Assessment/Plan: 37 year-old with cyclic vomiting syndrome present with similar recurrence. Tachycardic in the ER but otherwise stable vital signs, and quite combative unless she was going to receive opiates. Says symptoms are severe. Her sugars are elevated on account of her not taking her prescribed insulin at home. No evidence of DKA on labs. Attempted management in the ER with IV fluids and IV antiemetics did not improve her symptoms sufficiently; she was ultimately admitted for further management. Place in observation for cyclic vomiting syndrome. Avoid opiates as able. Treat preferentially with IV Benadryl and IV Zofran. IV fluids. Prokinetic treatment with Reglan. Sliding scale insulin. Obviously will need better outpatient medication compliance; the uncontrolled diabetes is likely to exacerbate her gastroparesis. Jacky Ramirez MD
[2018-03-23 22:45] VITALS: BP 124/68
[2018-03-24 06:22] VITALS: BP 136/84
--- NOTE | 2018-03-24 08:34 | PN- Housestaff ---
See Addendum Cheikh Jenkins 03/24/18 0834: Subjective Follow-up For: Cyclic vomiting syndrome aggravation Subjective: Patient seen and examined at bedside. She complaining she had vomiting last night. She denies nausea, abdominal pain, fever, chills, constipation, diarrhea , burning micturition Review of Systems Constitutional: Reports: see HPI. Objective Last 24 Hrs of Vital Signs/I&O Vital Signs Date Time Temp Pulse Resp B/P B/P Pulse O2 O2 Flow FiO2 Mean Ox Delivery Rate 03/24 1601 98.0 90 18 110/78 96 03/24 0622 98.3 97 20 136/84 98 03/23 2245 98.6 75 18 124/68 98 Room Air 03/23 2143 98.7 122 18 133/80 94 03/23 1915 98.6 92 20 136/87 Intake & Output 03/24 1600 03/24 0800 03/24 0000 Intake Total 1020 600 200 Output Total 150 Balance 1020 600 50 Intake, IV 720 600 200 Intake, Oral 300 0 0 Output, 150 Emesis Patient 138 lb Weight Weight Bed scale Measurement Method Physical Exam General Appearance: Alert, Oriented X3, Cooperative, No Acute Distress Assessment/Plan Assessment: 37-year-old lady with past medical history of diabetic gastroparesis, cyclic vomiting syndrome, daily marijuana use for pain, diabetes mellitus type 1, partially empty sella syndrome, 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 Problems list * Acute exacerbation of cyclic vomiting syndrome *Diabetic gastroparesis *Poorly controlled type 1 diabetes mellitus/noncompliance to treatment *Dependency on marijuana At the time of presentation to emergency department her labs are following. VS T98.7 P116 RR18 BP142/90 Sat 100%RA Labs: WBC 12.5 H/H 13.4/39.4 Plt 333 Na 137 K 4.1 BUN/Cr 10/0.6 Glucose 372 #Acute exacerbation of cyclic vomiting syndrome: -Patient is known diabetic, uncontrolled sugar -Past medical history of cyclic vomiting syndrom -Diabetic gastroparesis can trigger cyclic vomiting syndrome -Although patient vomiting is multifactorial is she is taking marijuana, history of cyclic vomiting syndrome, diabetic gastroparesis. -Patient hydration maintained - Diabetic gastroparesis: -She admitted last time for the same complaint of abdominal pain, vomiting -GI consultation placed an endoscopy done biopsy taken for malabsorption, celiac disease all reports are negative. -Patient counseled regarding lifestyle modification and diet -Patient counseled regarding strict glycemic control -Patient is not compliant with lifestyle modification as well as with medication -Botox injection could be considered for resistant gastroparesis -Zofran, antihistamine, metoclopramide is continued. -IV hydration maintain, PPI started *Marijuana dependency -Patient is using marijuana for pain -Her behavior was combative at the time of presentation to emergency department -She was persistently demanding for opioid pain medication -She having low social economic status Uncontrolled diabetes mellitus: -Insulin is started -Accu-Chek monitoring -Sugars controlled since she is in hospital *Full code * DVT prophylaxis-heparin/ALPS/ambulation Code status: full code Problem List: 1. Diabetes 2. Nausea and vomiting 3. Abdominal pain, unspecified site 4. Intractable nausea and vomiting 5. Gastroparesis 6. Abdominal pain 7. Abdominal pain 8. Full code status 9. Cyclical vomiting with nausea 10. Hyperglycemia Pain Ratin Pain Location: Abdominal pain Pain Goal: Remain pain free Pain Plan: Pain management pathway Tomorrow's Labs & Rationales: [facility] Redding [facility] 03[facility]24/18 1147: Attending MD Review Statement Attending Statement Attending MD Statement: examined this patient, discuss w/resident/PA/INTERN, agreed w/resident/PA/INTERN, reviewed EMR data (avail), discussed with nursing
[2018-03-24 09:15] LABS: ABSOLUTE BASOPHIL COUNT 0.1 /CUMM (0.0-0.2); ABSOLUTE EOSINOPHIL COUNT 0.2 /CUMM (0.0-0.7); ABSOLUTE GRANULOCYTE CT 9.6 /CUMM (1.4-6.5); ABSOLUTE LYMPH COUNT 4.3 /CUMM (1.2-3.4); ABSOLUTE MONOCYTE COUNT 0.9 /CUMM (0.10-0.60); BASOPHIL % 0.3 % (0.0-2.0); EOSINOPHIL % 1.2 % (0-5); GRANULOCYTE % 64.1 % (42.2-75.2); HEMATOCRIT 35.6 % (37-47); MEAN CORPUSCULAR HGB 30.7 PG (27.0-31.0); MEAN CORPUSCULAR HGB CONC 33.7 G/DL (33.0-37.0); MEAN PLATELET VOLUME 8.5 FL (7.4-10.4); PLATELET COUNT 313 /CUMM (130-400); RBC DISTRIBUTION WIDTH 12.9 % (11.5-14.5); RED BLOOD CELL CT 3.92 /CUMM (4.20-5.40)
[2018-03-24 10:54] LABS: WHITE BLOOD CELL COUNT 15.1 /CUMM (4.8-10.8)
[2018-03-24 16:01] VITALS: BP 110/78
[2018-03-24 22:36] VITALS: BP 120/84
[2018-03-25 07:06] VITALS: BP 120/90
--- NOTE | 2018-03-25 07:09 | PN- Housestaff ---
See Addendum Cheikh Jenkins 03/25/18 0709: Subjective Follow-up For: Aggravation of cyclic vomiting syndrome, abdominal pain Subjective: Patient seen and examined at bedside. he was not complaining any distress. But she was combative regarding more pain medication. She was crying because of her poor financial, social economic status. When she was advised to check her glucose at home with a quick check she explained that I cannot afford to buy a quick check glucometer. she denies fever, chills, chest pain, palpitation, diarrhea, constipation, burning micturition. Review of Systems Constitutional: Reports: see HPI. Objective Last 24 Hrs of Vital Signs/I&O Vital Signs Date Time Temp Pulse Resp B/P B/P Pulse O2 O2 Flow FiO2 Mean Ox Delivery Rate 03/25 1432 98.5 78 20 120/80 99 Room Air 03/25 0706 98.8 84 20 120/90 95 03/24 2236 99.0 97 20 120/84 99 Room Air Intake & Output 03/25 1600 03/25 0800 03/25 0000 Intake Total 1000 800 Output Total Balance 1000 800 Intake, IV 600 Intake, Oral 400 800 Physical Exam General Appearance: Alert, Oriented X3 Assessment/Plan Assessment: 37-year-old lady with past medical history of diabetic gastroparesis, cyclic vomiting syndrome, daily marijuana use for pain, diabetes mellitus type 1, partially empty sella syndrome, 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 Problems list * Acute exacerbation of cyclic vomiting syndrome *Diabetic gastroparesis *Poorly controlled type 1 diabetes mellitus/noncompliance to treatment *Dependency on marijuana At the time of presentation to emergency department her labs are following. VS T98.7 P116 RR18 BP142/90 Sat 100%RA Labs: WBC 12.5 H/H 13.4/39.4 Plt 333 Na 137 K 4.1 BUN/Cr 10/0.6 Glucose 372 #Acute exacerbation of cyclic vomiting syndrome: -Patient is known diabetic, uncontrolled sugar HbA1c 10 -Past medical history of cyclic vomiting syndrom -Diabetic gastroparesis and marijuana use can trigger cyclic vomiting syndrome -Although patient vomiting is multifactorial is she is taking marijuana, history of cyclic vomiting syndrome, diabetic gastroparesis. -Patient hydration maintained - Diabetic gastroparesis: -She admitted last time for the same complaint of abdominal pain, vomiting -GI consultation placed an endoscopy done biopsy taken for malabsorption, celiac disease all reports are negative for any pathology. -Patient counseled regarding lifestyle modification and diet -Patient counseled regarding strict glycemic control -Patient is not compliant with lifestyle modification as well as with medication -She is combative regarding more pain medication -She is denying Tylenol, she is obsessed with morphine -Botox injection could be considered for resistant gastroparesis -Zofran, antihistamine, metoclopramide is continued. -IV hydration maintain, PPI started *Marijuana dependency -Patient is using marijuana for pain -Her behavior was combative at the time of presentation to emergency department Regarding more opiate pain medication -She was persistently demanding for opioid pain medication -She having low social economic status Uncontrolled diabetes mellitus: -Insulin is started -Accu-Chek monitoring -Sugars controlled since she is in hospital Hypokalemia: *20 mEq of potassium is replaced in 1000 mL of normal saline *Will follow-up her BP tomorrow morning *She denies her 10 mEq potassium state dose *Full code * DVT prophylaxis-heparin/ALPS/ambulation Code status: full code Problem List: 1. Nausea and vomiting 2. Vomiting 3. Abdominal pain 4. Intractable nausea and vomiting 5. Gastroparesis 6. Cyclical vomiting with nausea 7. Epigastric abdominal pain Pain Ratin Pain Location: Abdomen Pain Goal: Remain pain free Pain Plan: Pain management pathway Tomorrow's Labs & Rationales: BEP,CBC Gris Sapp 03/25/18 1324: Attending MD Review Statement Attending Statement Attending MD Statement: examined this patient, discuss w/resident/PA/FLUMER, agreed w/resident/PA/FLUMER, discussed with family, reviewed EMR data (avail), discussed with nursing, discussed with case mgmt, reviewed images, amended to note Attending Assessment/Plan: 37 o/f with pmh of cyclical vomiting syndrome, Insulin dependent daibetes mellitus poorly controlled hbaic >10 non compliant, gastroparesis comes with abdominal pain, vomiting and mild hyperglycemia. Patient overnight received dilaudid for pain. Minimise use of narcotics IV zofran prn and standing doses of reglan 10 mg PO. Had recent EGD with no acute pathology DM frequent accuchecks and insulin titration as needed, Given insulin prescription at discharge. She has glucometer. Needs close outpatient follow up with PCP and GI.
[2018-03-25 14:32] VITALS: BP 120/80
--- NOTE | 2018-03-25 19:09 | Cons- Gastroenterology ---
General Information and HPI Consulting Request Date of Consult: 03/25/18 Requested By: Gris Sapp MD Reason for Consult: Vomiting, abdominal pain Allergies/Medications Allergies: Coded Allergies: No Known Allergies (01/21/17) Home Med List: Cabergoline 0.5 MG TABLET 0.5 TAB PO 2XW PRN PIT TUMOR (Reported) Insulin Aspart (Novolog) 100 UNIT/ML VIAL 0 SC TIDAC Diabetes BEFORE MEALS. Blood Insulin Sugar Units <80 0 80-150 3 151-200 4 201-250 5 251-300 6 301-350 7 351-400 8 >400 9 and Call Doctor [phone] Insulin Detemir (Levemir) 100 UNIT/ML VIAL 10 U SC BID Diabetes . Metoclopramide HCl (Reglan) 10 MG TABLET 1 TAB PO 4 TIMES/DAY gastro issues . Omeprazole 40 MG CAPSULE.DR 1 CAP PO DAILY Dyspepsia . Ondansetron (Zofran Odt) 4 MG TAB.RAPDIS 1 TAB PO Q6 PRN NAUSEA . Ubidecarenone (Coenzyme Q10) 200 MG CAPSULE 1 CAP PO BID SUPPLEMENT (Reported ) Current Medications: Current Medications Sig/Maikel Start time Last Medication Dose Route Stop Time Status Admin Acetaminophen 0 .STK-MED ONE 03/25 0807 DC PO Acetaminophen 650 MG Q6P PRN 03/23 2230 AC 03/25 PO 0802 Acetaminophen 1,000 MG Q8P PRN 03/23 2230 AC IV Diphenhydramine HCl 25 MG Q6P PRN 03/23 2230 AC IV Heparin Sodium 5,000 UNIT Q8 03/24 0600 AC 03/25 (Porcine) SC 1421 Hydromorphone HCl 0.5 MG Q6 03/25 1800 AC 03/25 IV 1751 Hydromorphone HCl 0 .STK-MED ONE 03/25 1751 DC .ROUTE Hydromorphone HCl 0.5 MG Q8 PRN 03/25 1100 DC 03/25 IV 1424 Hydromorphone HCl 1 MG Q6P PRN 03/23 2230 DC 03/25 IV 0837 Insulin Aspart 0 TIDAC/HS 03/23 2230 AC 03/25 SC 1752 Insulin Detemir 10 UNITS BID 03/23 2223 AC 03/25 SC 1054 Metoclopramide HCl 10 MG 4 TIMES/DAY 03/24 0900 AC 03/25 PO 1751 Omeprazole 40 MG DAILY AC 03/24 0700 03/25 PO 0533 Ondansetron HCl 0 .STK-MED ONE 03/25 0829 DC .ROUTE Ondansetron HCl 8 MG Q6P PRN 03/23 2230 03/25 IV 1757 Oxycodone/ 5 TAB ONCE ONE 03/25 1800 UNVr Acetaminophen PO 03/25 1801 Patient Medication 1 ED ONE ONE 03/25 1145 DC 03/25 Teaching ED 03/25 1146 1422 Potassium Chloride 10 MEQ Q1H 03/25 1430 DC IV 03/25 1531 Potassium Chloride 20 MEQ Q13H 03/25 1130 AC 03/25 Sodium Chloride 1,000 ML IV 1421 Sodium Chloride 1,000 ML Q13H 03/23 2230 DC 03/25 IV 0455 Past History Travel History Traveled to [place] past 21 day No Medical History Blood Transfusion Hx: No Neurological: dizziness, migraine EENT: NONE Cardiovascular: NONE Respiratory: NONE Gastrointestinal: GASTROPARESIS Hepatic: NONE Renal: NONE Musculoskeletal: NONE Psychiatric: mood disorder related to substance abuse Endocrine: diabetes, Hx of prolactin secreting pituitary ademona partial empty sella Blood Disorders: NONE Cancer(s): NONE FORMING FIXER/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 Age 65. FATHER (DM). Age 67. Psychosocial History Where Do You Live? Home Who Do You Live With? 2 nieces Services at Home: None Primary Language: Japanese, Belarusian Smoking Status: Former Smoker ETOH Use: denies use Living Will? no Power of Crowning Inspector/HCP? no Functional Ability ADLs Independent: dressing, eating, toileting, bathing. Ambulation: independent IADLs Independent: shopping, housework, finances, food prep, telephone, transportation , medication admin. Exam & Diagnostic Data Vital Signs and I&O Vital Signs Date Time Temp Pulse Resp B/P B/P Pulse O2 O2 Flow FiO2 Mean Ox Delivery Rate 03/25 1432 98.5 78 20 120/80 99 Room Air 03/25 0706 98.8 84 20 120/90 95 03/24 2236 99.0 97 20 120/84 99 Room Air Intake & Output 03/25 1600 08/03/24 0400 Intake Total 5885 219 5837 200 30 Output Total 150 Balance 9152 677 0942 50 30 Intake, IV 600 1320 200 Intake, Oral 400 800 300 0 30 Output, 150 Emesis Patient 138 lb 145 lb Weight Weight Bed scale Reported by Patient Measurement Method Results Pertinent Lab Results: Laboratory Tests 03/25 03/24 1155 0841 Chemistry Sodium (137 - 145 mmol/L) 136 L 138 Potassium (3.5 - 5.1 mmol/L) 3.2 L 3.3 L Chloride (98 - 107 mmol/L) 102 102 Carbon Dioxide (22 - 30 mmol/L) 23 29 Anion Gap (5 - 16) 12 7 BUN (7 - 17 mg/dL) 4 L 6 L Creatinine (0.5 - 1.0 mg/dL) 0.5 0.5 Estimated GFR (>60 ml/min) > 60 > 60 BUN/Creatinine Ratio (7 - 25 %) 8.0 12.0 Hematology CBC w Diff NO MAN DIFF REQ WBC (4.8 - 10.8 /CUMM) 15.1 H RBC (4.20 - 5.40 /CUMM) 3.92 L Hgb (12.0 - 16.0 G/DL) 12.0 Hct (37 - 47 %) 35.6 L MCV (81.0 - 99.0 FL) 91.0 MCH (27.0 - 31.0 PG) 30.7 MCHC (33.0 - 37.0 G/DL) 33.7 RDW (11.5 - 14.5 %) 12.9 Plt Count (130 - 400 /CUMM) 313 MPV (7.4 - 10.4 FL) 8.5 Gran % (42.2 - 75.2 %) 64.1 Lymphocytes % (20.5 - 51.1 %) 28.6 Monocytes % (1.7 - 9.3 %) 5.8 Eosinophils % (0 - 5 %) 1.2 Basophils % (0.0 - 2.0 %) 0.3 Absolute Granulocytes (1.4 - 6.5 /CUMM) 9.6 H Absolute Lymphocytes (1.2 - 3.4 /CUMM) 4.3 H Absolute Monocytes (0.10 - 0.60 /CUMM) 0.9 H Absolute Eosinophils (0.0 - 0.7 /CUMM) 0.2 Absolute Basophils (0.0 - 0.2 /CUMM) 0.1 03/23 1720 Blood Gas Bicarbonate Actual (22 - 26 MEQ/L) 26 Mixed VBG pH (7.31 - 7.41 PH) 7.40 Mixed VBG pCO2 (41 - 51 TORR) 43 Mixed VBG O2 Saturation (35 - 45 TORR) 25 L Carboxyhemoglobin (1.5 - 5.0 %) 0.9 L O2 Concentration % R/A Chemistry Sodium (137 - 145 mmol/L) 137 Potassium (3.5 - 5.1 mmol/L) 4.1 Chloride (98 - 107 mmol/L) 98 Carbon Dioxide (22 - 30 mmol/L) 27 Anion Gap (5 - 16) 12 BUN (7 - 17 mg/dL) 10 Creatinine (0.5 - 1.0 mg/dL) 0.6 Estimated GFR (>60 ml/min) > 60 BUN/Creatinine Ratio (7 - 25 %) 16.7 Glucose (65 - 99 mg/dL) 372 H Calcium (8.4 - 10.2 mg/dL) 9.3 Total Bilirubin (0.2 - 1.3 mg/dL) 0.7 AST (14 - 36 U/L) 19 ALT (9 - 52 U/L) 39 Alkaline Phosphatase (<127 U/L) 82 Total Protein (6.3 - 8.2 g/dL) 7.1 Albumin (3.5 - 5.0 g/dL) 4.4 Globulin (1.9 - 4.2 gm/dL) 2.7 Albumin/Globulin Ratio (1.1 - 2.2 %) 1.6 Total Beta HCG (NEGATIVE) NEGATIVE Hematology CBC w Diff NO MAN DIFF REQ WBC (4.8 - 10.8 /CUMM) 12.5 H RBC (4.20 - 5.40 /CUMM) 4.37 Hgb (12.0 - 16.0 G/DL) 13.4 Hct (37 - 47 %) 39.4 MCV (81.0 - 99.0 FL) 90.1 MCH (27.0 - 31.0 PG) 30.6 MCHC (33.0 - 37.0 G/DL) 34.0 RDW (11.5 - 14.5 %) 12.8 Plt Count (130 - 400 /CUMM) 333 MPV (7.4 - 10.4 FL) 7.8 Gran % (42.2 - 75.2 %) 88.9 H Lymphocytes % (20.5 - 51.1 %) 7.7 L Monocytes % (1.7 - 9.3 %) 3.1 Eosinophils % (0 - 5 %) 0 Basophils % (0.0 - 2.0 %) 0.3 Absolute Granulocytes (1.4 - 6.5 /CUMM) 11.1 H Absolute Lymphocytes (1.2 - 3.4 /CUMM) 1.0 L Absolute Monocytes (0.10 - 0.60 /CUMM) 0.4 Absolute Eosinophils (0.0 - 0.7 /CUMM) 0 Absolute Basophils (0.0 - 0.2 /CUMM) 0 Miscellaneous Phlebotomy Draw Site VENOUS Toxicology Acetone Level (NEGATIVE) NEGATIVE Imaging/Other Studies: Diabetic gastroparesis with exacerbation. This is in the setting of poor glycemic control. Current management with oral metoclopramide is insufficient, and in addition the patient is receiving narcotics. Recommendations: * Erythromycin 250 mg IV every 8 hours for 1 day * Begin metoclopramide 20 mg IV every 6 hours * Continue ondansetron, not prn, but [id number] * Consider IV acetaminophen or tramadol for pain; narcotics are contraindicated * Increase IV fluid rate from 75 ml to 125 ml per hour * Careful attention to glycemic control Assessment/Plan Consult Acknowledgment - Thank you for your consult request.
[2018-03-25 22:21] VITALS: BP 146/90
--- NOTE | 2018-03-26 00:34 | Patient Discharge Instructions ---
Discharge Instructions General Discharge Information You were seen/treated for: cyclic vomiting syndrome Special Instructions: f/u pcp in one week after discharge f/u gastro in one week after discharge Diet Continue normal diet: Yes Activity Full Activity/No Limits: Yes Acute Coronary Syndrome Inclusion Criteria At DC or during hospital stay patient has or had the following: ACS DIAGNOSIS No Discharge Core Measures Meds if any: Prescribed or Continued at Discharge Meds if any: NOT Prescribed or Continued at Discharge Congestive Heart Failure Inclusion Criteria At DC or during hospital stay patient has or had the following: CHF DIAGNOSIS No Discharge Core Measures Meds if any: Prescribed or Continued at Discharge Meds if any: NOT Prescribed or Continued at Discharge Cerebrovascular accident Inclusion Criteria At DC or during hospital stay patient has or had the following: CVA/TIA Diagnosis No Discharge Core Measures Meds if any: Prescribed or Continued at Discharge Meds if any: NOT Prescribed or Continued at Discharge Venous thromboembolism Inclusion Criteria VTE Diagnosis No VTE Type NONE VTE Confirmed by (Test) NONE Discharge Core Measures - Per Current guidelines, there needs to be overlap - treatment for the first 5 days of Warfarin therapy. - If discharged on Warfarin prior to 5 days of - overlap therapy, the patient will need to be - assessed for post discharge needs including - *Post discharge parental anticoagulation - *Warfarin and/or parental anticoagulation education - *Follow up date to check INR post discharge At least 5 days overlap therapy as Inpatient Yes Meds if any: Prescribed or Continued at Discharge Note: Overlap Therapy is Warfarin and Anticoagulant Meds if any: NOT Prescribed or Continued at Discharge
--- NOTE | 2018-03-26 01:28 | Event Note ---
Event Note Event Note: Notified by RN and Supervising RN that patient is yelling at staff and coming out into the halls yelling about pain medicine. She was seen by Dr. Dejesus earlier in the evening and his note was followed including DC all narcotics and manage pain with IV tylenol and tramadol. I went to see the patient and inform her this is the regimen we will comply with. She was angry and asked to speak to someone higher up. Dr. Fabian was notified and went to see the patient. She was told again with Attending; myself; RN supervisor personnel clerks; and floor RN that she will not receive narcotic medication for pain. Within one hour of being told this, she decided to leave AMA. I attempted to have her sign the AMA form. She refused to sign and did not want to communicate further. IV was removed and patient left the hospital. Appreciate team approach in the care of this patient
== END 2018-03-26 00:35 | disposition left against medical advice (07) | DRG 48 ==
LOC: ERH 14:06 → ERHI 20:19 → 2NA 20:19 → ENRESERV 21:08 → ENTRNSPT 22:04 → EDTRNSPT 22:11 → EDTRNSPTSTS 22:11 → 2NA 22:16 → CMPTRNSPT 22:38 → 2NA 03-25 08:00
PROVIDERS: Emergency Medicine; Hospitalist
DX: E11.43 Type 2 diabetes mellitus with diabetic autonomic (poly)neuropathy (principal); G43.A0 Cyclical vomiting, in migraine, not intractable; K31.84 Gastroparesis; F19.14 Other psychoactive substance abuse with psychoactive substance-induced mood disorder; T40.7X5A Adverse effect of cannabis (derivatives), initial encounter; G44.89 Other headache syndrome; Y92.009 Unspecified place in unspecified non-institutional (private) residence as the place of occurrence of the external cause; E23.6 Other disorders of pituitary gland; E11.65 Type 2 diabetes mellitus with hyperglycemia; K21.9 Gastro-esophageal reflux disease without esophagitis; F12.229 Cannabis dependence with intoxication, unspecified; Z91.14 Patient's other noncompliance with medication regimen; Z79.4 Long term (current) use of insulin; Z87.891 Personal history of nicotine dependence; Z53.21 Procedure and treatment not carried out due to patient leaving prior to being seen by health care provider; Z59.9 Problem related to housing and economic circumstances, unspecified
CPT/HCPCS: 2NASP; 36415; 82436; 93005; 93010; 96361; 96374; 96375; 99291; J0131; J1200; J1644; J2405; J2550; J2765